=== PATIENT | female | born 1960 | race Caucasian/White ===

== ENCOUNTER 2019-10-10 09:41 | Outpatient (CLI) | payer MEDICARE, SELFPAY ==
--- NOTE | 2019-10-10 10:15 | USCV_ITS ---
Loretta Reeder Age: 59 Gender: F : 1960 Exam Date: 10/10/2019 10:34 Ordering Phys: Stacy Corona MD Technologist: Carolina Alexandra Exam Location: [facility] Indication: SOB, cor pulmonale BP: / HR: 82 Rhythm: Sinus Technical Quality: Suboptimal MEASUREMENTS (Male / Female) Normal Values 2D ECHO LV Diastolic Diameter PLAX 4.2 cm 4.2 - 5.9 / 3.9 - 5.3 cm LV Systolic Diameter PLAX 2.1 cm IVS Diastolic Thickness 1.1 cm 0.6 - 1.0 / 0.6 - 0.9 cm IVS Systolic Thickness 1.3 cm LVPW Diastolic Thickness 1.1 cm 0.6 - 1.0 / 0.6 - 0.9 cm LVPW Systolic Thickness 1.4 cm LVOT Diameter 2.0 cm LV Ejection Fraction 2D Teich 82.1 % LV Ejection Fraction MOD 2C 60.0 % LV Ejection Fraction 2C AL 60.0 % LA Diameter 3.0 cm LA Width 3.0 cm LA Height 5.9 cm RA Width 2.4 cm RA Height 4.2 cm M-MODE LV Diastolic Diameter MM 5.5 cm 4.2 - 5.9 / 3.9 - 5.3 cm LV Systolic Diameter MM 3.6 cm LV Ejection Fraction MM Teich 63.7 % IVS Diastolic Thickness MM 1.1 cm 0.6 - 1.0 / 0.6 - 0.9 cm IVS Systolic Thickness MM 1.3 cm LVPW Diastolic Thickness MM 0.9 cm 0.6 - 1.0 / 0.6 - 0.9 cm LVPW Systolic Thickness MM 1.8 cm Aortic Annulus Diameter 2.8 cm LA Ao Ratio MM 1.1 MV E Point Septal Separation 0.8 cm DOPPLER AV Peak Velocity 141.0 cm/s LVOT Peak Velocity 104.0 cm/s AV Area Cont Eq vti 2.5 cm squared AV Area Cont Eq pk 2.4 cm squared MV Peak Velocity 101.0 cm/s MV Area PHT 3.5 cm squared Mitral E to A Ratio 0.8 MV E' Velocity 11.0 cm/s Mitral E to MV E' Ratio 10.0 Mitral E to LV E' Lateral Ratio 8.0 Mitral E to LV E' Septal Ratio 13.2 TR Peak Velocity 74.0 cm/s TR Peak Gradient 2.2 mmHg Right Atrial Pressure 3.0 mmHg Pulmonary Artery Systolic Pressu 5.2 mmHg PV Peak Velocity 75.0 cm/s RV Acceleration Time 0.1 s FINDINGS Left Ventricle Normal left ventricular size, systolic function and wall thickness, with no regional wall motion abnormalities. Grade I/IV diastolic dysfunction (abnormal relaxation filling pattern), normal to mildly elevated filling pressures. Left ventricular ejection fraction is estimated at 60 %. Right Ventricle Normal right ventricular size and systolic function. Normal right ventricular systolic pressure. Right Atrium The right atrium is normal in size. Left Atrium The left atrium is normal in size. Mitral Valve Structurally normal mitral valve. Trace mitral valve regurgitation. Aortic Valve Structurally normal aortic valve without significant sclerosis or stenosis. There is no aortic regurgitation. Tricuspid Valve Structurally normal tricuspid valve. Trace tricuspid valve regurgitation. Pulmonic Valve Pulmonic valve not well visualized. Pericardium Normal pericardium without effusion. Aorta Normal ascending aorta dimension. CONCLUSIONS Normal left ventricular size, systolic function and wall thickness, with no regional wall motion abnormalities. Grade I/IV diastolic dysfunction (abnormal relaxation filling pattern), normal to mildly elevated filling pressures. Left ventricular ejection fraction is estimated at 60 %. Structurally normal mitral valve. Trace mitral valve regurgitation. There are no prior echocardiogram studies to compare. Dr. Christophe Perez MD (Electronically Signed) Final Date: 10 October 2019 16:22 S
== END 2019-10-10 09:42 | disposition home or self-care (01) ==
LOC: RAD 09:43
PROVIDERS: Family Provider Family Medicine; PCP Family Medicine; Visit Provider Internal Medicine Critical Care Medicine
DX: I27.81 Cor pulmonale (chronic) (principal); I34.0 Nonrheumatic mitral (valve) insufficiency
CPT/HCPCS: 93306

== ENCOUNTER 2019-10-10 11:00 | Outpatient (CLI) | payer MEDICARE, SELFPAY | END 2019-10-10 11:01 | disposition home or self-care (01) | LOC: SLEEP 10-13 10:32 | PROVIDERS: Family Provider Family Medicine; PCP Family Medicine; Visit Provider Internal Medicine Critical Care Medicine | DX: J44.9 Chronic obstructive pulmonary disease, unspecified (principal); I27.81 Cor pulmonale (chronic) | CPT/HCPCS: 94762 ==

== ENCOUNTER → 2019-11-15 12:02 | Outpatient (BNVA) | payer MEDICARE, SELFPAY | PROVIDERS: Family Provider Family Medicine; PCP Family Medicine; Visit Provider Family Medicine | DX: I10 Essential (primary) hypertension (principal); J01.90 Acute sinusitis, unspecified; J44.9 Chronic obstructive pulmonary disease, unspecified; B96.89 Other specified bacterial agents as the cause of diseases classified elsewhere | CPT/HCPCS: 80053; 80061; 82044; 85025 ==

== ENCOUNTER 2019-11-29 08:16 | Outpatient (CLI) | payer MEDICARE, SELFPAY ==
[2019-11-29 09:25] LABS: ABG PH Result 7.35 (7.35-7.45); Arterial Blood Gas Hematocrit 41.6 % (37-47); Base Excess ABG 12.1 mmol/L (-2.0-2.0); Blood Gas Allen Test Pos; Blood Gas Sample Site Radial, left; Blood Gas Sample Type Arterial; HCO3 ABG 41.2 mmol/L (22-26); HGB O2 Sat 90.3 % (95-100); Ionized Calcium Level - ABG 1.2 mmol/L (1.1-1.4); Methemoglobin 0.9 % (0.4-1.5); Oxygen Device NC; PO2 ABG 63.9 mmHg (80.0-100.0); Potassium Level - ABG 4.2 mmol/L (3.5-5.0); Total Hemoglobin 13.6 g/dL (12-16)
[2019-11-29 11:03] LABS: ABG PCO2 75.7 mmHg (35-45)
== END 2019-11-29 08:17 | disposition home or self-care (01) ==
LOC: RT 08:22
PROVIDERS: Family Provider Family Medicine; PCP Family Medicine; Visit Provider Internal Medicine Critical Care Medicine
DX: J44.9 Chronic obstructive pulmonary disease, unspecified (principal); I27.81 Cor pulmonale (chronic); R06.02 Shortness of breath
CPT/HCPCS: 36600; 80051; 82810; 83986

== ENCOUNTER → 2020-05-15 12:02 | Outpatient (BNVA) | payer MEDICARE, SELFPAY | PROVIDERS: Family Provider Family Medicine; PCP Family Medicine; Visit Provider Family Medicine | DX: I10 Essential (primary) hypertension (principal); F41.9 Anxiety disorder, unspecified; F32.9 Major depressive disorder, single episode, unspecified; Z53.20 Procedure and treatment not carried out because of patient's decision for unspecified reasons | CPT/HCPCS: 80048 ==

== ENCOUNTER 2020-07-28 05:04 | Inpatient (IN) | payer MEDICARE, SELFPAY ==
[2020-07-28] VITALS (57 sets, daily range): BP systolic 102–146; BP diastolic 68–89; PULSE 74–878; RESP 14–24; TEMP 36.6–37.2; O2SAT 82–97; BMI 39.5
--- NOTE | 2020-07-28 05:07 | XRR_ITS ---
PROCEDURE INFORMATION: Exam: XR Chest, 1 View Exam date and time: 07/28/2020 5:12 AM Age: 60 years old Clinical indication: Dyspnea; Additional info: SOB TECHNIQUE: Imaging protocol: XR of the chest Views: 1 view. COMPARISON: CT chest w con* [id number] 02/04/2018 2:23 PM FINDINGS: Lungs: There is hyperlucency of the upper lungs consistent with known centrilobular emphysema. There are scattered tiny calcified nodules in the mid and lower lungs bilaterally consistent with healed granulomas. There are larger radiodense lesions in both upper lobes, consistent with benign calcified nodules identified on chest CT in 2018. There is no consolidation. Pleural space: There is no pleural effusion or pneumothorax. Heart/Mediastinum: Cardiomediastinal contours are unremarkable. Bones/joints: Bones are unremarkable. XR/XR chest 1V portable [id number] IMPRESSION: 1. No acute findings. 2. COPD. 3. Chronic bilateral pulmonary calcifications suggesting healed granulomatous infection, present since 2018.
--- NOTE | 2020-07-28 05:08 | ECG_ITS ---
[facility] Test Date: 2020-07-28 Pat Name: Loretta Reeder Department: Room: [facility] Gender: Female Evaluation Analyst: : 1960 Requested By: Yinka Mackey Order Number: [id number] Adele MD: Ngoc Brown M.D. Measurements Intervals [place] Rate: 97 P: 91 MT: 131 QRS: 74 QRSD: 82 T: 62 QT: 345 QTc: 438 Interpretive Statements SINUS RHYTHM Compared to ECG 03/19/2017 19:33:43 Sinus tachycardia no longer present Short MT interval no longer present Indeterminate axis no longer present Electronically Signed On 07-28-2020 12:09:38 CDT by Ngoc Brown M.D. [id number] f
--- NOTE | 2020-07-28 05:09 | CTR_ITS ---
PROCEDURE INFORMATION: Exam: CT Head Without Contrast Exam date and time: 07/28/2020 5:12 AM Age: 60 years old Clinical indication: Altered mental status/memory loss; Confusion or disorientation; Additional info: AMS TECHNIQUE: Imaging protocol: Computed tomography of the head without contrast. Radiation optimization: All CT scans at this facility use at least one of these dose optimization techniques: automated exposure control; mA and/or kV adjustment per patient size (includes targeted exams where dose is matched to clinical indication); or iterative reconstruction. COMPARISON: No relevant prior studies available. RADIATION DOSE METRICS: Total DLP (mGy-cm): 571.09 FINDINGS: Brain: The posterior fossa is small and there is crowding of the foramen magnum without visible tonsillar descent below the basion opisthion line. The brain is otherwise unremarkable. There is no mass effect or significant white matter disease. There is no acute intracranial hemorrhage. Cerebral ventricles: There is no significant ventricular dilation. The basal cisterns are unremarkable. Bones/joints: The calvarium is intact. Paranasal sinuses: The paranasal sinuses are clear. Mastoid air cells: The mastoid air cells are clear. Soft tissues: The visible extracranial soft tissues are unremarkable. CT/CT head wo con* [id number] IMPRESSION: 1. No acute findings. 2. 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 However, there is no cerebellar tonsillar ectopia to confirm Chiari 1 malformation. This finding is of uncertain clinical significance. Radiation Dose CTDIVOL = (mGy): DLP = 571.09 (mGy-cm)
[2020-07-28 05:13] LABS: Base Excess ABG 14.8 mmol/L (-2.0-2.0); Blood Gas Allen Test P; HCO3 ABG 48.3 mmol/L (22-26); Oxygen Device NRB
[2020-07-28 05:14] LABS: Arterial Blood Gas Hematocrit 40.2 % (37-47); Blood Gas Sample Site LEFT RADIAL; Blood Gas Sample Type A
--- NOTE | 2020-07-28 05:20 | ED_ITS ---
Documented by User: Yinka Narendra Issac, 07/28/20 22:01 HPI - SOB/Dyspnea General: Chief Complaint: Shortness of Breath/Dyspnea Stated Complaint: RESPIRATORY DISTRESS Time Seen by Provider: 07/28/20 05:09 History of Present Illness: HPI Narrative: 60-year-old female with a history of COPD presents with altered mental status and shortness of breath. EMS was called due to a couple of falls with respiratory distress. Evidently she had fallen 1 time prior, and had been short of breath in the night. Her turned her oxygen up to 4, and she had fallen again. On EMS arrival, she was lying flat on the floor complaining of shortness of breath and was found to be hypoxic. She was placed on a nonrebreather with improvement in her oxygenation and somewhat in her mental status and breathing status. She was given a DuoNeb treatment, with still further yet improvement, but he decompensated quickly on the way. She is having trouble answering questions. She does move all extremities. MD elicited complaint: shortness of breath Pertinent past history: COPD Onset (ago): hour(s) Timing: constant and progressively worsening Severity: severe Review of Systems General: Reports: ROS unobtainable due to medical condition and ROS unobtainable due to mental status PFS ED PFSH: Medical History Anxiety and depression Benign essential HTN Bilateral carpal tunnel syndrome Bilateral lower extremity edema Cervical myelopathy COPD, severe Degenerative disc disease, cervical Lung mass ANASTASIYA (obstructive sleep apnea) Postmenopausal Unspecified thoracic, thoracolumbar and lumbosacral intervertebral disc disorder Vitamin D deficiency Surgical History S/P hysterectomy S/P tonsillectomy Family History Other CHF (congestive heart failure) Murmur, cardiac Social History Smoking and tobacco status: former smoker Quit status (tobacco): has quit using tobacco Year quit tobacco: 2017 - 1PPD x 40 Years Second hand smoke exposure: Yes Alcohol intake: never Lives independently: Yes Household members: spouse Marital status: Current occupational status: disabled History of recent travel: No Current gender identity: Female Physical Exam Const: GENERAL APPEARANCE: in distress and ill appearing ORIENTATION/CO NSCIOUSNESS: Yes oriented to person and Yes oriented to place HENMT: COMMON NORMALS: normocephalic, external ears normal and Normal external nose present HEAD & SCALP: normocephalic FACE & SINUS: normal facial exam NOSE: Normal external nose present and No nasal discharge present EXTERNAL EAR: Yes external ears normal Eye: COMMON NORMALS: Equal, round and reactive pupils present, EOMs intact bilaterally and conjunctivae normal EYELID: eyelids normal CONJUNCTIVA: Yes conjunctivae normal PUPIL: Yes Equal, round and reactive pupils present Neck/C-Spine: GENERAL: No tracheal deviation Chest: COMMONS NORMALS: normal inspection of the chest CHEST: No tenderness Resp: EFFORT & INSPECTION: No tachypneic, Yes respiratory distress, Yes decreased respiratory effort, No retractions, Yes uses accessory muscles and No tracheal deviation AUSCULTATION: rhonchi, wheezes and diminished lung sounds Cardio: COMMON NORMALS: regular rate and regular rhythm RATE: regular rate RHYTHM: regular rhythm HEART SOUNDS: no murmurs PERIPHERAL PULSES: radial pulses present GI: INSPECTION: No abdominal distension AUSCULTATION: No Hyperactive bowel sounds present and No Hypoactive bowel sounds present PALPATION: No Guarding due to palpation present (GI) and No Rigid due to palpation PERCUSSION: no dullness to percussion and no tympanic to percussion Neuro: SENSORIUM/ORIENTATION: Yes oriented to person and Yes oriented to place Psych: COMMON NORMALS: mental status grossly normal Skin: COMMON NORMALS: no rashes or lesions noted GENERAL SKIN EXAM: no rashes or lesions noted Course Vital Signs: Vital signs: Vital Signs Temperature 97.8 F 07/28/20 19:50 Pulse Rate 74 07/28/20 20:02 Respiratory Rate 18 07/28/20 20:01 Blood Pressure 108/74 07/28/20 16:30 Pulse Oximetry 95 07/28/20 20:02 MDM - SOB/Dyspnea MDM Narrative: Medical decision making narrative: 60-year-old female comes in with altered mental status, and respiratory distress. Initial blood gas shows a pH of 7.2 with a PCO2 of 125. She is awake and somewhat talking. She was placed on BiPAP with an AVAPS setting. ABG at 30 minutes shows improvement in her pH with a decrease in her PCO2 down to 115. She will get another blood gas at an hour or so. Labs are pending at this point. She will be checked out to Dr. Garzon at shift change. Lab Data: Labs: Lab Results 07/28/20 07/28/20 07/28/20 Range/Units 05:05 05:21 05:21 WBC 7.5 (4.0-10.0) 10^3/ uL RBC 4.40 (4.1-5.3) 10^6/u L Hgb 12.5 (11.5-15.3) g/dL Hct 44.1 (37.0-47.0) % MCV 100.2 H (81-99) fL MCH 28.4 (28.0-34.0) pg MCHC 28.3 L (30.0-36.0) g/dL RDW 13.2 (12.1-15.1) % Plt Count 172 (130-400) 10^3/c mm MPV 12.0 H (7.4-10.4) fL Neut % (Auto) 79.0 % Lymph % (Auto) 11.2 % [place] % (Auto) 6.4 % Eos % (Auto) 1.5 % Baso % (Auto) 0.4 % Neut # (Auto) 5.94 (1.8-7.7) 10^3/u L Lymph # (Auto) 0.8 (0.8-4.8) 10^3/u L [place] # (Auto) 0.5 (0.2-0.9) 10^3/u L Eos # (Auto) 0.1 (0.0-0.8) 10^3/u L Baso # (Auto) 0.0 (0.0-0.1) 10^3/u L Nucleated RBC % (a uto) 0 % Nucleated RBCs # 0.0 /100WBC D-Dimer 0.67 H (0-0.59) ug/mIFE U Specimen Type A Sample Site Left radial ABG pH 7.20 L (7.35-7.45) ABG pCO2 125.0 H* (35-45) mmHg ABG pO2 137.0 H (80.0-100.0) mmH g ABG HCO3 48.3 H (22-26) mmol/L ABG Base Excess 14.8 H (-2.0-2.0) mmol/ L Tylor Test P Hematocrit 40.2 (37-47) % O2 Delivery Device Nrb O2 Liters/Min 15.0 % FiO2 % Mode BiPAP Specimen Drawn By Ellpe Sodium (136-145) mmol/L Potassium (3.5-5.1) mmol/L Chloride (98-107) mmol/L Carbon Dioxide (22-29) mmol/L Anion Gap (5-19) BUN (8-23) mg/dL Creatinine (0.5-0.9) mg/dL GFR Calculation (90-130) mL/min Glucose (65-115) mg/dL Calculated Osmolal ity (285-295) mOsm/k g Lactic Acid (0.5-2.2) mmol/L Calcium (8.5-10.5) mg/dL Ferritin (15-150) ng/mL Total Bilirubin (0.15-1.2) mg/dL AST (0-32) U/L ALT (0-33) U/L Alkaline Phosphata se (35-105) IU/L Lactate Dehydrogen ase (135-214) U/L Troponin T Baselin e (0-10) ng/L Troponin T 120 Min [place] (0-10) ng/L Delta Troponin T (0-10) ABS# C-Reactive Protein (0.0-4.9) mg/L NT-Pro-B Natriuret Pep (0-125) pg/mL Total Protein (6.6-8.7) g/dL Albumin (3.5-5.2) g/dL Globulin (1.3-4.6) g/dL Procalcitonin (0-0.5) ng/mL SARS-CoV-2 Ag (Rap id) (Negative) 07/28/20 07/28/20 07/28/20 Range/Units 05:21 05:21 05:21 WBC (4.0-10.0) 10^3/ uL RBC (4.1-5.3) 10^6/u L Hgb (11.5-15.3) g/dL Hct (37.0-47.0) % MCV (81-99) fL MCH (28.0-34.0) pg MCHC (30.0-36.0) g/dL RDW (12.1-15.1) % Plt Count (130-400) 10^3/c mm MPV (7.4-10.4) fL Neut % (Auto) % Lymph % (Auto) % [place] % (Auto) % Eos % (Auto) % Baso % (Auto) % Neut # (Auto) (1.8-7.7) 10^3/u L Lymph # (Auto) (0.8-4.8) 10^3/u L [place] # (Auto) (0.2-0.9) 10^3/u L Eos # (Auto) (0.0-0.8) 10^3/u L Baso # (Auto) (0.0-0.1) 10^3/u L Nucleated RBC % (a uto) % Nucleated RBCs # /100WBC D-Dimer (0-0.59) ug/mIFE U Specimen Type Sample Site ABG pH (7.35-7.45) ABG pCO2 (35-45) mmHg ABG pO2 (80.0-100.0) mmH g ABG HCO3 (22-26) mmol/L ABG Base Excess (-2.0-2.0) mmol/ L Tylor Test Hematocrit (37-47) % O2 Delivery Device O2 Liters/Min % FiO2 % Mode BiPAP Specimen Drawn By Sodium 143 (136-145) mmol/L Potassium 5.0 (3.5-5.1) mmol/L Chloride 94 L (98-107) mmol/L Carbon Dioxide 38 H (22-29) mmol/L Anion Gap 16.0 (5-19) BUN 18 (8-23) mg/dL Creatinine 0.5 (0.5-0.9) mg/dL GFR Calculation 125.4 (90-130) mL/min Glucose 145 H (65-115) mg/dL Calculated Osmolal ity 300 H (285-295) mOsm/k g Lactic Acid 0.5 (0.5-2.2) mmol/L Calcium 9.5 (8.5-10.5) mg/dL Ferritin 49 (15-150) ng/mL Total Bilirubin 0.2 (0.15-1.2) mg/dL AST 26 (0-32) U/L ALT 22 (0-33) U/L Alkaline Phosphata se 87 (35-105) IU/L Lactate Dehydrogen ase 219 H (135-214) U/L Troponin T Baselin e 12 H (0-10) ng/L Troponin T 120 Min [place] (0-10) ng/L Delta Troponin T (0-10) ABS# C-Reactive Protein 10.0 H (0.0-4.9) mg/L NT-Pro-B Natriuret Pep 239 H (0-125) pg/mL Total Protein 7.0 (6.6-8.7) g/dL Albumin 4.3 (3.5-5.2) g/dL Globulin 2.7 (1.3-4.6) g/dL Procalcitonin 0.03 (0-0.5) ng/mL SARS-CoV-2 Ag (Rap id) (Negative) 07/28/20 07/28/20 07/28/20 Range/Units 05:37 05:45 06:35 WBC (4.0-10.0) 10^3/ uL RBC (4.1-5.3) 10^6/u L Hgb (11.5-15.3) g/dL Hct (37.0-47.0) % MCV (81-99) fL MCH (28.0-34.0) pg MCHC (30.0-36.0) g/dL RDW (12.1-15.1) % Plt Count (130-400) 10^3/c mm MPV (7.4-10.4) fL Neut % (Auto) % Lymph % (Auto) % [place] % (Auto) % Eos % (Auto) % Baso % (Auto) % Neut # (Auto) (1.8-7.7) 10^3/u L Lymph # (Auto) (0.8-4.8) 10^3/u L [place] # (Auto) (0.2-0.9) 10^3/u L Eos # (Auto) (0.0-0.8) 10^3/u L Baso # (Auto) (0.0-0.1) 10^3/u L Nucleated RBC % (a uto) % Nucleated RBCs # /100WBC D-Dimer (0-0.59) ug/mIFE U Specimen Type A A Sample Site Left radial Left radial ABG pH 7.22 L 7.26 L (7.35-7.45) ABG pCO2 115.0 H* 108.0 H* (35-45) mmHg ABG pO2 127.0 H 79.6 L (80.0-100.0) mmH g ABG HCO3 47.5 H 48.0 H (22-26) mmol/L ABG Base Excess 14.9 H 16.3 H (-2.0-2.0) mmol/ L Tylor Test P P Hematocrit 38.9 36.9 L (37-47) % O2 Delivery Device Bipap Bipap O2 Liters/Min % FiO2 60.0 45.0 % Mode BiPAP Avaps Avaps Specimen Drawn By Genaro Lam Sodium (136-145) mmol/L Potassium (3.5-5.1) mmol/L Chloride (98-107) mmol/L Carbon Dioxide (22-29) mmol/L Anion Gap (5-19) BUN (8-23) mg/dL Creatinine (0.5-0.9) mg/dL GFR Calculation (90-130) mL/min Glucose (65-115) mg/dL Calculated Osmolal ity (285-295) mOsm/k g Lactic Acid (0.5-2.2) mmol/L Calcium (8.5-10.5) mg/dL Ferritin (15-150) ng/mL Total Bilirubin (0.15-1.2) mg/dL AST (0-32) U/L ALT (0-33) U/L Alkaline Phosphata se (35-105) IU/L Lactate Dehydrogen ase (135-214) U/L Troponin T Baselin e (0-10) ng/L Troponin T 120 Min [place] (0-10) ng/L Delta Troponin T (0-10) ABS# C-Reactive Protein (0.0-4.9) mg/L NT-Pro-B Natriuret Pep (0-125) pg/mL Total Protein (6.6-8.7) g/dL Albumin (3.5-5.2) g/dL Globulin (1.3-4.6) g/dL Procalcitonin (0-0.5) ng/mL SARS-CoV-2 Ag (Rap id) Negative (Negative) 07/28/20 Range/Units 07:09 WBC (4.0-10.0) 10^3/ uL RBC (4.1-5.3) 10^6/u L Hgb (11.5-15.3) g/dL Hct (37.0-47.0) % MCV (81-99) fL MCH (28.0-34.0) pg MCHC (30.0-36.0) g/dL RDW (12.1-15.1) % Plt Count (130-400) 10^3/c mm MPV (7.4-10.4) fL Neut % (Auto) % Lymph % (Auto) % [place] % (Auto) % Eos % (Auto) % Baso % (Auto) % Neut # (Auto) (1.8-7.7) 10^3/u L Lymph # (Auto) (0.8-4.8) 10^3/u L [place] # (Auto) (0.2-0.9) 10^3/u L Eos # (Auto) (0.0-0.8) 10^3/u L Baso # (Auto) (0.0-0.1) 10^3/u L Nucleated RBC % (a uto) % Nucleated RBCs # /100WBC D-Dimer (0-0.59) ug/mIFE U Specimen Type Sample Site ABG pH (7.35-7.45) ABG pCO2 (35-45) mmHg ABG pO2 (80.0-100.0) mmH g ABG HCO3 (22-26) mmol/L ABG Base Excess (-2.0-2.0) mmol/ L Tylor Test Hematocrit (37-47) % O2 Delivery Device O2 Liters/Min % FiO2 % Mode BiPAP Specimen Drawn By Sodium (136-145) mmol/L Potassium (3.5-5.1) mmol/L Chloride (98-107) mmol/L Carbon Dioxide (22-29) mmol/L Anion Gap (5-19) BUN (8-23) mg/dL Creatinine (0.5-0.9) mg/dL GFR Calculation (90-130) mL/min Glucose (65-115) mg/dL Calculated Osmolal ity (285-295) mOsm/k g Lactic Acid (0.5-2.2) mmol/L Calcium (8.5-10.5) mg/dL Ferritin (15-150) ng/mL Total Bilirubin (0.15-1.2) mg/dL AST (0-32) U/L ALT (0-33) U/L Alkaline Phosphata se (35-105) IU/L Lactate Dehydrogen ase (135-214) U/L Troponin T Baselin e (0-10) ng/L Troponin T 120 Min [place] 11.25 H (0-10) ng/L Delta Troponin T -0.75 L (0-10) ABS# C-Reactive Protein (0.0-4.9) mg/L NT-Pro-B Natriuret Pep (0-125) pg/mL Total Protein (6.6-8.7) g/dL Albumin (3.5-5.2) g/dL Globulin (1.3-4.6) g/dL Procalcitonin (0-0.5) ng/mL SARS-CoV-2 Ag (Rap id) (Negative) Discharge Plan Discharge Patient Disposition: Admitted As Inpatient Admit Provider: Paulo Mayberry Clinical Impression: Acute exacerbation of chronic obstructive airways disease, Acute hypercapnic respiratory failure Condition: Stable Referrals: Taniya Irving DO [Primary Care Provider] - Discharge Date/Time: 07/28/20 08:15 Coding Level of Care Code ED Director External Communications for Chg Fwd Exam Comprehensive Documented by User: Jim Garzon MD 07/28/20 07:52 HPI - SOB/Dyspnea General: Chief Complaint: Shortness of Breath/Dyspnea Stated Complaint: RESPIRATORY DISTRESS Time Seen by Provider: 07/28/20 05:09 PFSH ED PFSH: Medical History Anxiety and depression Benign essential HTN Bilateral carpal tunnel syndrome Bilateral lower extremity edema Cervical myelopathy COPD, severe Degenerative disc disease, cervical Lung mass ANASTASIYA (obstructive sleep apnea) Postmenopausal Unspecified thoracic, thoracolumbar and lumbosacral intervertebral disc disorder Vitamin D deficiency Surgical History S/P hysterectomy S/P tonsillectomy Family History Other CHF (congestive heart failure) Murmur, cardiac Social History Smoking and tobacco status: former smoker Quit status (tobacco): has quit using tobacco Year quit tobacco: 2017 - 1PPD x 40 Years Second hand smoke exposure: Yes Alcohol intake: never Lives independently: Yes Household members: spouse Marital status: Current occupational status: disabled History of recent travel: No Current gender identity: Female Course Vital Signs: Vital signs: Vital Signs Temperature 97.8 F 07/28/20 19:50 Pulse Rate 74 07/28/20 20:02 Respiratory Rate 18 07/28/20 20:01 Blood Pressure 108/74 07/28/20 16:30 Pulse Oximetry 95 07/28/20 20:02 MDM - SOB/Dyspnea MDM Narrative: Medical decision making narrative: Loretta presents here with COPD exacerbation. She has chronic hypercapnia and does have respiratory distress here with worsening hypercapnia. Her CO2 levels have improved on BiPAP her mentation is improving as well. Patient x-ray shows no signs of pneumonia and her Covid is negative. Will admit to the ICU at this time on BiPAP. Lab Data: Labs: Lab Results 07/28/20 07/28/20 07/28/20 Range/Units 05:05 05:21 05:21 WBC 7.5 (4.0-10.0) 10^3/ uL RBC 4.40 (4.1-5.3) 10^6/u L Hgb 12.5 (11.5-15.3) g/dL Hct 44.1 (37.0-47.0) % MCV 100.2 H (81-99) fL MCH 28.4 (28.0-34.0) pg MCHC 28.3 L (30.0-36.0) g/dL RDW 13.2 (12.1-15.1) % Plt Count 172 (130-400) 10^3/c mm MPV 12.0 H (7.4-10.4) fL Neut % (Auto) 79.0 % Lymph % (Auto) 11.2 % [place] % (Auto) 6.4 % Eos % (Auto) 1.5 % Baso % (Auto) 0.4 % Neut # (Auto) 5.94 (1.8-7.7) 10^3/u L Lymph # (Auto) 0.8 (0.8-4.8) 10^3/u L [place] # (Auto) 0.5 (0.2-0.9) 10^3/u L Eos # (Auto) 0.1 (0.0-0.8) 10^3/u L Baso # (Auto) 0.0 (0.0-0.1) 10^3/u L Nucleated RBC % (a uto) 0 % Nucleated RBCs # 0.0 /100WBC D-Dimer 0.67 H (0-0.59) ug/mIFE U Specimen Type A Sample Site Left radial ABG pH 7.20 L (7.35-7.45) ABG pCO2 125.0 H* (35-45) mmHg ABG pO2 137.0 H (80.0-100.0) mmH g ABG HCO3 48.3 H (22-26) mmol/L ABG Base Excess 14.8 H (-2.0-2.0) mmol/ L Tylor Test P Hematocrit 40.2 (37-47) % O2 Delivery Device Nrb O2 Liters/Min 15.0 % FiO2 % Mode BiPAP Specimen Drawn By Ellpe Sodium (136-145) mmol/L Potassium (3.5-5.1) mmol/L Chloride (98-107) mmol/L Carbon Dioxide (22-29) mmol/L Anion Gap (5-19) BUN (8-23) mg/dL Creatinine (0.5-0.9) mg/dL GFR Calculation (90-130) mL/min Glucose (65-115) mg/dL Calculated Osmolal ity (285-295) mOsm/k g Lactic Acid (0.5-2.2) mmol/L Calcium (8.5-10.5) mg/dL Ferritin (15-150) ng/mL Total Bilirubin (0.15-1.2) mg/dL AST (0-32) U/L ALT (0-33) U/L Alkaline Phosphata se (35-105) IU/L Lactate Dehydrogen ase (135-214) U/L Troponin T Baselin e (0-10) ng/L Troponin T 120 Min [place] (0-10) ng/L Delta Troponin T (0-10) ABS# C-Reactive Protein (0.0-4.9) mg/L NT-Pro-B Natriuret Pep (0-125) pg/mL Total Protein (6.6-8.7) g/dL Albumin (3.5-5.2) g/dL Globulin (1.3-4.6) g/dL Procalcitonin (0-0.5) ng/mL SARS-CoV-2 Ag (Rap id) (Negative) 07/28/20 07/28/20 07/28/20 Range/Units 05:21 05:21 05:21 WBC (4.0-10.0) 10^3/ uL RBC (4.1-5.3) 10^6/u L Hgb (11.5-15.3) g/dL Hct (37.0-47.0) % MCV (81-99) fL MCH (28.0-34.0) pg MCHC (30.0-36.0) g/dL RDW (12.1-15.1) % Plt Count (130-400) 10^3/c mm MPV (7.4-10.4) fL Neut % (Auto) % Lymph % (Auto) % [place] % (Auto) % Eos % (Auto) % Baso % (Auto) % Neut # (Auto) (1.8-7.7) 10^3/u L Lymph # (Auto) (0.8-4.8) 10^3/u L [place] # (Auto) (0.2-0.9) 10^3/u L Eos # (Auto) (0.0-0.8) 10^3/u L Baso # (Auto) (0.0-0.1) 10^3/u L Nucleated RBC % (a uto) % Nucleated RBCs # /100WBC D-Dimer (0-0.59) ug/mIFE U Specimen Type Sample Site ABG pH (7.35-7.45) ABG pCO2 (35-45) mmHg ABG pO2 (80.0-100.0) mmH g ABG HCO3 (22-26) mmol/L ABG Base Excess (-2.0-2.0) mmol/ L Tylor Test Hematocrit (37-47) % O2 Delivery Device O2 Liters/Min % FiO2 % Mode BiPAP Specimen Drawn By Sodium 143 (136-145) mmol/L Potassium 5.0 (3.5-5.1) mmol/L Chloride 94 L (98-107) mmol/L Carbon Dioxide 38 H (22-29) mmol/L Anion Gap 16.0 (5-19) BUN 18 (8-23) mg/dL Creatinine 0.5 (0.5-0.9) mg/dL GFR Calculation 125.4 (90-130) mL/min Glucose 145 H (65-115) mg/dL Calculated Osmolal ity 300 H (285-295) mOsm/k g Lactic Acid 0.5 (0.5-2.2) mmol/L Calcium 9.5 (8.5-10.5) mg/dL Ferritin 49 (15-150) ng/mL Total Bilirubin 0.2 (0.15-1.2) mg/dL AST 26 (0-32) U/L ALT 22 (0-33) U/L Alkaline Phosphata se 87 (35-105) IU/L Lactate Dehydrogen ase 219 H (135-214) U/L Troponin T Baselin e 12 H (0-10) ng/L Troponin T 120 Min [place] (0-10) ng/L Delta Troponin T (0-10) ABS# C-Reactive Protein 10.0 H (0.0-4.9) mg/L NT-Pro-B Natriuret Pep 239 H (0-125) pg/mL Total Protein 7.0 (6.6-8.7) g/dL Albumin 4.3 (3.5-5.2) g/dL Globulin 2.7 (1.3-4.6) g/dL Procalcitonin 0.03 (0-0.5) ng/mL SARS-CoV-2 Ag (Rap id) (Negative) 07/28/20 07/28/20 07/28/20 Range/Units 05:37 05:45 06:35 WBC (4.0-10.0) 10^3/ uL RBC (4.1-5.3) 10^6/u L Hgb (11.5-15.3) g/dL Hct (37.0-47.0) % MCV (81-99) fL MCH (28.0-34.0) pg MCHC (30.0-36.0) g/dL RDW (12.1-15.1) % Plt Count (130-400) 10^3/c mm MPV (7.4-10.4) fL Neut % (Auto) % Lymph % (Auto) % [place] % (Auto) % Eos % (Auto) % Baso % (Auto) % Neut # (Auto) (1.8-7.7) 10^3/u L Lymph # (Auto) (0.8-4.8) 10^3/u L [place] # (Auto) (0.2-0.9) 10^3/u L Eos # (Auto) (0.0-0.8) 10^3/u L Baso # (Auto) (0.0-0.1) 10^3/u L Nucleated RBC % (a uto) % Nucleated RBCs # /100WBC D-Dimer (0-0.59) ug/mIFE U Specimen Type A A Sample Site Left radial Left radial ABG pH 7.22 L 7.26 L (7.35-7.45) ABG pCO2 115.0 H* 108.0 H* (35-45) mmHg ABG pO2 127.0 H 79.6 L (80.0-100.0) mmH g ABG HCO3 47.5 H 48.0 H (22-26) mmol/L ABG Base Excess 14.9 H 16.3 H (-2.0-2.0) mmol/ L Tylor Test P P Hematocrit 38.9 36.9 L (37-47) % O2 Delivery Device Bipap Bipap O2 Liters/Min % FiO2 60.0 45.0 % Mode BiPAP Avaps Avaps Specimen Drawn By Genaro Lam Sodium (136-145) mmol/L Potassium (3.5-5.1) mmol/L Chloride (98-107) mmol/L Carbon Dioxide (22-29) mmol/L Anion Gap (5-19) BUN (8-23) mg/dL Creatinine (0.5-0.9) mg/dL GFR Calculation (90-130) mL/min Glucose (65-115) mg/dL Calculated Osmolal ity (285-295) mOsm/k g Lactic Acid (0.5-2.2) mmol/L Calcium (8.5-10.5) mg/dL Ferritin (15-150) ng/mL Total Bilirubin (0.15-1.2) mg/dL AST (0-32) U/L ALT (0-33) U/L Alkaline Phosphata se (35-105) IU/L Lactate Dehydrogen ase (135-214) U/L Troponin T Baselin e (0-10) ng/L Troponin T 120 Min [place] (0-10) ng/L Delta Troponin T (0-10) ABS# C-Reactive Protein (0.0-4.9) mg/L NT-Pro-B Natriuret Pep (0-125) pg/mL Total Protein (6.6-8.7) g/dL Albumin (3.5-5.2) g/dL Globulin (1.3-4.6) g/dL Procalcitonin (0-0.5) ng/mL SARS-CoV-2 Ag (Rap id) Negative (Negative) 07/28/20 Range/Units 07:09 WBC (4.0-10.0) 10^3/ uL RBC (4.1-5.3) 10^6/u L Hgb (11.5-15.3) g/dL Hct (37.0-47.0) % MCV (81-99) fL MCH (28.0-34.0) pg MCHC (30.0-36.0) g/dL RDW (12.1-15.1) % Plt Count (130-400) 10^3/c mm MPV (7.4-10.4) fL Neut % (Auto) % Lymph % (Auto) % [place] % (Auto) % Eos % (Auto) % Baso % (Auto) % Neut # (Auto) (1.8-7.7) 10^3/u L Lymph # (Auto) (0.8-4.8) 10^3/u L [place] # (Auto) (0.2-0.9) 10^3/u L Eos # (Auto) (0.0-0.8) 10^3/u L Baso # (Auto) (0.0-0.1) 10^3/u L Nucleated RBC % (a uto) % Nucleated RBCs # /100WBC D-Dimer (0-0.59) ug/mIFE U Specimen Type Sample Site ABG pH (7.35-7.45) ABG pCO2 (35-45) mmHg ABG pO2 (80.0-100.0) mmH g ABG HCO3 (22-26) mmol/L ABG Base Excess (-2.0-2.0) mmol/ L [place] Test Hematocrit (37-47) % O2 Delivery Device O2 Liters/Min % FiO2 % Mode BiPAP Specimen Drawn By Sodium (136-145) mmol/L Potassium (3.5-5.1) mmol/L Chloride (98-107) mmol/L Carbon Dioxide (22-29) mmol/L Anion Gap (5-19) BUN (8-23) mg/dL Creatinine (0.5-0.9) mg/dL GFR Calculation (90-130) mL/min Glucose (65-115) mg/dL Calculated Osmolal ity (285-295) mOsm/k g Lactic Acid (0.5-2.2) mmol/L Calcium (8.5-10.5) mg/dL Ferritin (15-150) ng/mL Total Bilirubin (0.15-1.2) mg/dL AST (0-32) U/L ALT (0-33) U/L Alkaline Phosphata se (35-105) IU/L Lactate Dehydrogen ase (135-214) U/L Troponin T Baselin e (0-10) ng/L Troponin T 120 Min [place] 11.25 H (0-10) ng/L Delta Troponin T -0.75 L (0-10) ABS# C-Reactive Protein (0.0-4.9) mg/L NT-Pro-B Natriuret Pep (0-125) pg/mL Total Protein (6.6-8.7) g/dL Albumin (3.5-5.2) g/dL Globulin (1.3-4.6) g/dL Procalcitonin (0-0.5) ng/mL SARS-CoV-2 Ag (Rap id) (Negative) Imaging Data^: CXR: Radiologist's impression: [place] [address] XRay Report Signed Patient: Loretta Reeder Unit #: [id number] : 1960 Age/Sex: 60 / F ADM Date: 07/28/20 Loc: ER Room/Bed: Attending Dr: Ordering Provider/Ordering MD: Yinka Davenport DO Date of Service: 07/28/20 Procedure(s): XR chest 1V portable [id number] Accession Number(s): [id number] Report Number: [id number] PROCEDURE INFORMATION: Exam: XR Chest, 1 View Exam date and time: 07/28/2020 5:12 AM Age: 60 years old Clinical indication: Dyspnea; Additional info: SOB TECHNIQUE: Imaging protocol: XR of the chest Views: 1 view. COMPARISON: CT chest w con* [id number] 02/04/2018 2:23 PM FINDINGS: Lungs: There is hyperlucency of the upper lungs consistent with known centrilobular emphysema. There are scattered tiny calcified nodules in the mid and lower lungs bilaterally consistent with healed granulomas. There are larger radiodense lesions in both upper lobes, consistent with benign calcified nodules identified on chest CT in 2018. There is no consolidation. Pleural space: There is no pleural effusion or pneumothorax. Heart/Mediastinum: Cardiomediastinal contours are unremarkable. Bones/joints: Bones are unremarkable. XR/XR chest 1V portable [id number] IMPRESSION: 1. No acute findings. 2. COPD. 3. Chronic bilateral pulmonary calcifications suggesting healed granulomatous infection, present since 2018. CT Head: Radiologist's impression: [place] [address] CT Scan Report Signed Patient: Loretta Reeder Unit #: [id number] : 1960 Age/Sex: 60 / F ADM Date: 07/28/20 Loc: ER Room/Bed: Attending Dr: Ordering Provider/Ordering MD: Yinka Davenport DO Date of Service: 07/28/20 Procedure(s): CT head wo con* [id number] Accession Number(s): [id number] Report Number: [id number] PROCEDURE INFORMATION: Exam: CT Head Without Contrast Exam date and time: 07/28/2020 5:12 AM Age: 60 years old Clinical indication: Altered mental status/memory loss; Confusion or disorientation; Additional info: AMS TECHNIQUE: Imaging protocol: Computed tomography of the head without contrast. Radiation optimization: All CT scans at this facility use at least one of these dose optimization techniques: automated exposure control; mA and/or kV adjustment per patient size (includes targeted exams where dose is matched to clinical indication); or iterative reconstruction. COMPARISON: No relevant prior studies available. RADIATION DOSE METRICS: Total DLP (mGy-cm): 571.09 FINDINGS: Brain: The posterior fossa is small and there is crowding of the foramen magnum without visible tonsillar descent below the basion opisthion line. The brain is otherwise unremarkable. There is no mass effect or significant white matter disease. There is no acute intracranial hemorrhage. Cerebral ventricles: There is no significant ventricular dilation. The basal cisterns are unremarkable. Bones/joints: The calvarium is intact. Paranasal sinuses: The paranasal sinuses are clear. Mastoid air cells: The mastoid air cells are clear. Soft tissues: The visible extracranial soft tissues are unremarkable. CT/CT head wo con* [id number] IMPRESSION: 1. No acute findings. 2. 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 However, there is no cerebellar tonsillar ectopia to confirm Chiari 1 malformation. This finding is of uncertain clinical significance. Radiation Dose CTDIVOL = (mGy): DLP = 571.09 (mGy-cm) Discharge Plan Discharge Patient Disposition: Admitted As Inpatient Admit Provider: Paulo Mayberry Clinical Impression: Acute exacerbation of chronic obstructive airways disease, Acute hypercapnic respiratory failure Condition: Stable Referrals: Taniya Irving DO [Primary Care Provider] - Discharge Date/Time: 07/28/20 08:15 Coding Level of Care Code ED Director External Communications for Chg Fwd Exam Comprehensive
[2020-07-28] MEDS: dexamethasone 10 mg/mL INJ IVP (05:28)
[2020-07-28 05:42] LABS: Basophils % 0.4 %; Eosinophils # 0.1 10^3/uL (0.0-0.8); Eosinophils % 1.5 %; Hematocrit 44.1 % (37.0-47.0); Hemoglobin 12.5 g/dL (11.5-15.3); Lymphocytes # 0.8 10^3/uL (0.8-4.8); Lymphocytes % 11.2 %; Mean Corpuscular HGB Conc 28.3 g/dL (30.0-36.0); Mean Corpuscular Hemoglobin 28.4 pg (28.0-34.0); Mean Corpuscular Volume 100.2 fL (81-99); Monocytes # 0.5 10^3/uL (0.2-0.9); Monocytes % 6.4 %; Neutrophils # 5.94 10^3/uL (1.8-7.7); Nucleated Red Blood Cells % 0 %; Platelet Count 172 10^3/cmm (130-400); Red Cell Distribution Width 13.2 % (12.1-15.1); White Blood Count 7.5 10^3/uL (4.0-10.0)
[2020-07-28 05:54] LABS: ABG PH Result 7.22 (7.35-7.45); Base Excess ABG 14.9 mmol/L (-2.0-2.0); Blood Gas Allen Test P; HCO3 ABG 47.5 mmol/L (22-26); Oxygen Device BIPAP
[2020-07-28 05:55] LABS: Arterial Blood Gas Hematocrit 38.9 % (37-47); BIPAP AVAPS; Blood Gas Sample Site LEFT RADIAL; Blood Gas Sample Type A
[2020-07-28 06:02] LABS: D Dimer 0.67 ug/mIFEU (0-0.59)
[2020-07-28 06:04] LABS: Lactic Sepsis W/Reflex 0.5 mmol/L (0.5-2.2)
[2020-07-28 06:06] LABS: Troponin(5th) Baseline 12 ng/L (0-10)
[2020-07-28 06:15] LABS: NT Pro B Type Natriuretic Pept 239 pg/mL (0-125); Procalcitonin 0.03 ng/mL (0-0.5)
[2020-07-28 06:27] LABS: Creatinine Clr Calc Pharmacy 149.2819; Glomerular Filtration Rate 125.4 mL/min (90-130); Total Bilirubin 0.2 mg/dL (0.15-1.2)
[2020-07-28 06:40] LABS: SARS Covid-2 Antigen Negative (Negative)
[2020-07-28 06:45] LABS: ABG PH Result 7.26 (7.35-7.45); Base Excess ABG 16.3 mmol/L (-2.0-2.0); Blood Gas Allen Test P; Oxygen Device BIPAP; PO2 ABG 79.6 mmHg (80.0-100.0)
[2020-07-28 06:46] LABS: Arterial Blood Gas Hematocrit 36.9 % (37-47); BIPAP AVAPS; Blood Gas Sample Site LEFT RADIAL; Blood Gas Sample Type A
[2020-07-28 07:03] LABS: Albumin Level 4.3 g/dL (3.5-5.2); Sodium 143 mmol/L (136-145)
--- NOTE | 2020-07-28 07:08 | ECG_ITS ---
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 Measurements Intervals Neligh Rate: 84 P: 74 WA: 120 QRS: 46 QRSD: 92 T: 50 QT: 373 QTc: 442 Interpretive Statements SINUS RHYTHM WITH OCCASIONAL VENTRICULAR PREMATURE COMPLEXES Compared to ECG 03/19/2017 19:33:43 Ventricular premature complex(es) now present Sinus tachycardia no longer present Short WA interval no longer present Indeterminate axis no longer present Electronically Signed On 07-28-2020 12:11:36 CDT by Ngoc Brown M.D. [email or web address].[employer]/store/[id number]
--- NOTE | 2020-07-28 07:11 | PC.NURSE ---
Shift change report received. Patient resting at this time. EKG and 2nd troponin collected.
[2020-07-28 07:42] LABS: Alkaline Phosphatase 87 IU/L (35-105); Blood Urea Nitrogen 18 mg/dL (8-23); Calcium 9.5 mg/dL (8.5-10.5); Ferritin 49 ng/mL (15-150); Globulin 2.7 g/dL (1.3-4.6); Glucose 145 mg/dL (65-115); Lactate Dehydrogenase 219 U/L (135-214); Osmolality Calculated 300 mOsm/kg (285-295)
[2020-07-28 07:44] LABS: Chloride 94 mmol/L (98-107)
[2020-07-28 07:45] LABS: Carbon Dioxide 38 mmol/L (22-29)
[2020-07-28 08:03] LABS: Troponin 5 2HR 11.25 ng/L (0-10)
[2020-07-28 08:11] LABS: Alanine Aminotransferase 22 U/L (0-33); Aspartate Amino Transferase 26 U/L (0-32)
--- NOTE | 2020-07-28 08:17 | PC.NURSE ---
received report from Ward OLIVAS from ER
[2020-07-28 08:24] LABS: Troponin 5 2HR Delta -0.75 ABS# (0-10)
--- NOTE | 2020-07-28 08:38 | PM.HP ---
Providers/Chief Complaint Admitting Physician: Paulo Mayberry Primary Care Provider: Taniya Irving DO Chief Complaint: RESPIRATORY DISTRESS History of Present Illness Loretta Reeder is a 60 year old lady with severe COPD, FEV1 16%, currently on 4-5 L of oxygen, on azithromycin suppression QOD, has a BiPAP machine at home as well, but has not been using it consistently. Has been in the process of obtaining a new mask. Came in overnight for evaluation due to progressive shortness of breath, weakness, with lethargy on presentation, severe hypercapnia PCO2 125 on presentation. She is afebrile. Without leukocytosis, tachycardia, or other signs of sepsis. Rapid COVID-19 test is negative. Chest x-ray unremarkable, and head CT with only developmentally small posterior fossa with crowding of the foramen magnum however no cerebellar tonsillar ectopia to confirm Chiari I malformation, finding of uncertain significance. In the ER she was started on BiPAP support, with improvement in her PCO2, mental status. CO2 down to 115, and most recently 108 at 635. She is more alert. Still with little bit of confusion. She is able to provide on her history. Reports that symptoms started 4 closed about a day. Discussing with he also states that breathing got worse yesterday. She reports falling down due to becoming weak. It appears her tried to turn up her oxygen, however, she subsequently had another fall. She otherwise says of breathing currently is comfortable BiPAP. She says at home has not been using BiPAP consistently as she says has been scared . Currently denies any chest pain or pressure, denies any other discomfort. Review of Systems Const: Denies: fever(s), chills, body aches or malaise Eyes: Denies: change in vision or eye redness ENMT: Denies: throat pain, oral sores or ear or mastoid pain Card: Denies: chest pain, edema, pre-syncope or dyspnea on exertion Resp: Reports: dyspnea; Denies: productive cough, change in phlegm color or hemoptysis GI: Denies: abdominal pain, nausea, vomiting, diarrhea, constipation, hematochezia or melena : Denies: flank pain, urinary frequency or hematuria Musc: Denies: back pain, joint swelling or joint redness Skin/Breast: Denies: rash, sores or new lesions Neuro: Denies: headache(s), numbness in extremities, weakness in extremities, dizziness, confusion or seizure-like activity Endo: Denies: polyuria or polydipsia Deonte/Lymph: Denies: easy bleeding or purpura All/Imm: Denies: urticaria, throat swelling or tongue swelling Medications/Allergies Home Medications Medication Instructions Recorded Confirmed Last Taken Type multivit with 1 tab PO ONCE 09/28/19 07/28/20 Unknown History yxoeamuo-ftxu-AA-lutein 8 mg iron-400 mcg-300 mcg tablet lactobacillus combination no.9 4 4,000 mmu cells PO DAILY 12/07/19 07/28/20 Unknown History billion cell capsule montelukast 10 mg tablet 10 mg PO DAILY #30 tab 04/10/20 07/28/20 Unknown Rx budesonide 0.5 mg/2 mL suspension See Rx Instructions .ROUTE 05/13/20 07/28/20 Unknown Rx for nebulization .COMPLEX #360 ml citalopram 20 mg tablet 20 mg PO BID #60 tab 05/22/20 07/28/20 Unknown Rx metoprolol succinate 25 mg 12.5 mg PO BID #90 tab 05/30/20 07/28/20 Unknown Rx tablet,extended release 24 hr albuterol sulfate 90 mcg/actuation 2 puff INHALATION Q6H PRN #18 gm 06/03/20 07/28/20 Unknown Rx aerosol inhaler lorazepam 0.5 mg tablet 0.5 mg PO BID PRN #60 tab 06/04/20 07/28/20 Unknown Rx ipratropium 0.5 mg-albuterol 3 mg 3 ml INHALATION Q6H PRN #360 ml 07/04/20 07/28/20 Unknown Rx (2.5 mg base)/3 mL nebulization soln azithromycin 250 mg tablet See Rx Instructions .ROUTE 07/15/20 07/28/20 Unknown Rx .COMPLEX #60 tab naproxen 500 mg tablet 500 mg PO BID 5 Days #10 tab 07/15/20 07/28/20 Unknown Rx aripiprazole 2 mg tablet 2 mg PO DAILY #30 tab 07/22/20 07/28/20 Unknown Rx Allergies Allergy/AdvReac Type Severity Reaction Status Date / Time codeine Allergy NAUSEA & Verified 07/28/20 05:33 VOMITING morphine Allergy ADR-Halluci Verified 07/28/20 05:33 nating PFSH Acute PFSH: Medical History Anxiety and depression Benign essential HTN Bilateral carpal tunnel syndrome Bilateral lower extremity edema Cervical myelopathy COPD, severe Degenerative disc disease, cervical Lung mass ANASTASIYA (obstructive sleep apnea) Postmenopausal Unspecified thoracic, thoracolumbar and lumbosacral intervertebral disc disorder Vitamin D deficiency Surgical History S/P hysterectomy S/P tonsillectomy Family History Other CHF (congestive heart failure) Murmur, cardiac Social History Smoking and tobacco status: former smoker Quit status (tobacco): has quit using tobacco Year quit tobacco: 2017 - 1PPD x 40 Years Second hand smoke exposure: Yes Alcohol intake: never Lives independently: Yes Household members: spouse Marital status: Current occupational status: disabled History of recent travel: No Current gender identity: Female Vitals/I&O/Wt Last Vital Signs Temp 98.3 F 07/28/20 05:20 Pulse 86 07/28/20 08:13 Resp 17 07/28/20 08:11 BP 121/69 07/28/20 08:11 Pulse Ox 95 07/28/20 08:13 Weight last 48 hrs Weight 111.13 kg Physical Exam Const: COMMON NORMALS: no acute distress NUTRITIONAL APPEARANCE: obese ORIENTATION/CONSCIOUSNESS: Yes oriented to person, Yes oriented to place and Yes confused (mildly); not oriented to time (Cannot recall the current year.) HENMT: COMMON NORMALS: oropharynx normal Neck/C-Spine: COMMON NORMALS: no JVD Resp: COMMON NORMALS: normal respiratory effort AUSCULTATION: diminished lung sounds Cardio: COMMON NORMALS: no JVD, regular rhythm, S1 normal heart sound present, S2 normal heart sound present and No murmurs present (Cardio) RHYTHM: regular rhythm HEART SOUNDS: S1 normal heart sound present and S2 normal heart sound present GI: COMMON NORMALS: Normal to inspection, nondistended, normoactive bowel sounds present, Soft to palpation and non-tender PALPATION: Yes Soft to palpation Extremity: COMMON NORMALS: no joint enlargement and no pedal edema Neuro: COMMON NORMALS: patient oriented x3 and moves all extremities OTHER: CO2 asterixis Skin: COMMON NORMALS: no rashes or lesions noted GENERAL SKIN EXAM: no rashes or lesions noted Data : 07/28/20 05:21 07/28/20 05:21 Micro: Microbiology 07/28/20 05:21 Blood Culture - Preliminary Blood SPECIMEN COLLECTED 07/28/20 05:21 Blood Culture - Preliminary Blood SPECIMEN COLLECTED A&P Assessment and plan (1) Acute exacerbation of chronic obstructive airways disease: Diminished lung sounds. Dyspnea. I do not hear rhonchi. No report of productive cough. Received Decadron 10 mg in ER. At this time continue BiPAP support in ICU. Monitor. Will add breathing treatments. For now hold off antibiotic, continue every other day azithromycin, is showing signs of purulent sputum production. No pneumonia noted on chest x-ray. She is afebrile, without symptoms of COVID-19. Rapid test was negative. We will order sputum culture in case she is able to provide. Status: Acute (2) Acute hypercapnic respiratory failure: pCO2 125 on presentation. Baseline CO2 appears to be around 75 as noted during past pulmonology assessment. Status: Acute Additional A&P Information Minimally elevated D-dimer: 0.67. Adjusted for her age is elevated even less, at this time suspicion for VTE is low. Start VT prophylaxis. Monitor for any change in symptoms. ANASTASIYA Lung mass? 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
[2020-07-28] MEDS: ipratropium-albuterol 3 mL Neb INHALATION ×5 (09:34→23:42)
[2020-07-28] MEDS: budesonide 0.5 mg/2 mL Neb INHALATION ×2 (09:34→20:00)
--- NOTE | 2020-07-28 09:38 | PC.NURSE ---
Dr. Mayberry notified that first dose of Azithromycin is scheduled for Tues and Metoprolol not scheduled to start until 1800. Pt HR high and BP 170 systolic. She normally takes this BID and has not had her morning dose. Orders received to change times.
[2020-07-28] MEDS: citalopram 20 mg Tablet PO ×2 (10:16→18:29)
[2020-07-28] MEDS: montelukast sodium 10 mg Tablet PO (10:17)
[2020-07-28] MEDS: metoprolol tartrate 25 mg Tablet 12.5 MG PO ×2 (10:17→18:29)
[2020-07-28] MEDS: heparin 5,000 unit/mL INJ 1 mL 5000 UNIT SUBCUT ×2 (10:18→18:28)
[2020-07-28 12:08] LABS: Troponin 5 6HR 9.47 ng/L (0-10)
[2020-07-28 12:45] LABS: Troponin 5 6HR Delta -2.53 ng/L (0-12)
[2020-07-28] MEDS: azithromycin 250 mg Tablet PO (13:51)
[2020-07-29] VITALS (58 sets, daily range): BP systolic 108–137; BP diastolic 63–86; PULSE 63–108; RESP 15–27; TEMP 36.4–37; O2SAT 86–98
[2020-07-29] MEDS: haloperidol inj 5 mg/mL INJ 1 mL IM (00:25)
[2020-07-29] MEDS: heparin 5,000 unit/mL INJ 1 mL 5000 UNIT SUBCUT ×3 (01:29→17:15)
[2020-07-29] MEDS: OLANZapine 10 mg VIAL IM (02:52)
[2020-07-29] MEDS: ipratropium-albuterol 3 mL Neb INHALATION ×6 (02:59→23:22)
[2020-07-29 03:36] LABS: ABG PCO2 58.8 mmHg (35-45); ABG PH Result 7.48 (7.35-7.45); Arterial Blood Gas Hematocrit 35.7 % (37-47); Base Excess ABG 17.7 mmol/L (-2.0-2.0); Blood Gas Allen Test Pos; Blood Gas Operator Identificat JB; Blood Gas Sample Site Brachial, right; Blood Gas Sample Type Arterial; Oxygen Device BIPAP
[2020-07-29 03:59] LABS: Hematocrit 38.3 % (37.0-47.0); Hemoglobin 11.3 g/dL (11.5-15.3); Lymphocytes # 0.5 10^3/uL (0.8-4.8); Lymphocytes % 10.3 %; Mean Corpuscular HGB Conc 29.5 g/dL (30.0-36.0); Mean Corpuscular Hemoglobin 28.3 pg (28.0-34.0); Mean Platelet Volume 12.2 fL (7.4-10.4); Monocytes % 0.6 %; Neutrophils # 4.32 10^3/uL (1.8-7.7); Neutrophils % 88.7 %; Nucleated Red Blood Cells % 0 %; Platelet Count 167 10^3/cmm (130-400); Red Blood Count 3.99 10^6/uL (4.1-5.3); Red Cell Distribution Width 13.3 % (12.1-15.1); White Blood Count 4.9 10^3/uL (4.0-10.0)
[2020-07-29 04:34] LABS: Blood Urea Nitrogen 18 mg/dL (8-23); Calcium 9.6 mg/dL (8.5-10.5); Chloride 91 mmol/L (98-107); Creatinine Clr Calc Pharmacy 149.2819; Glomerular Filtration Rate 125.4 mL/min (90-130); Glucose 167 mg/dL (65-115); Osmolality Calculated 292 mOsm/kg (285-295); Sodium 138 mmol/L (136-145)
[2020-07-29 04:35] LABS: Anion Gap 9.6 (5-19); Potassium 4.6 mmol/L (3.5-5.1)
[2020-07-29 04:36] LABS: Carbon Dioxide 42 mmol/L (22-29)
--- NOTE | 2020-07-29 05:56 | PC.NURSE ---
patient redirected multiple times during the night. Patient became increasingly agitated removing equipment, thrashing in bed, and attempting to remove bipap mask in spite of redirection. Patient reported visual hallucinations of children in room. Dr. Gilbert notified orders received. Medications administered patient became more cooperative with treatment. Patient observed attempting to remove blankets exposing genital region, nurse fashioned breif with top sheet; currently remains in place. patient refused to answer orientation questions, becoming increasingly agitated. Responds to physical pain, becomes increasingly agitated with assessment questions. earlier reported concerns with patient coming home due to severe mood swings. noted having increasing concerns of patient mentation decline over the last year and behavioral disturbances. reported patient is non compliant with treatment plans and hostile frequently at home. Nurse reported conversation to dr. Gilbert who verbalized understanding
[2020-07-29] MEDS: budesonide 0.5 mg/2 mL Neb INHALATION ×2 (08:02→20:13)
[2020-07-29] MEDS: metoprolol tartrate 25 mg Tablet 12.5 MG PO ×2 (08:36→17:16)
[2020-07-29] MEDS: montelukast sodium 10 mg Tablet PO (08:36)
[2020-07-29] MEDS: citalopram 20 mg Tablet PO ×2 (08:36→17:15)
--- NOTE | 2020-07-29 09:38 | PC.CHAP ---
Pastoral Care Encounter/Spiritual Assessment Type of Contact [] Declined research chief engineer visit [] Patient/Family/Request visit [] Outpatient visit [] Follow-up visit [] Physician referral [] Code/Alert [] Routine visit [] Staff referral [] Actively dying [] Patient sleeping [] Family support [] [] Out of room [] Palliative care [] [] Receiving care in room [] Pre-surgical visit [] Trauma [] Long length of stay [] ICU visit [] Other: Relational/Emotional Strength [] Patient feels connected with others/family/visitors/staff [] Distress [] Loneliness/isolation [] Abandonment Spirituality of Patient [] Person of Amanda [] Attends Church of their Amanda [] Believes in Prayer [] Reads Bible or Evangelical materials [] There are Spiritual issues to be addressed Piece Worker Interventions [x] Prayer [] Active listening [] Non-anxious presence [] Spiritual/emotional support [] Crisis/trauma care [] Spiritual counseling [] Bereavement support [] Provided bereavement packet [] Provided Bible/devotional materials [] Provided toy/stuffed animal, coloring book to patient or family member [] Provided Communion [] Anointing/Ramona [] Salvation [x] Completed spiritual assessment [] Other: Impact on Illness or Injury [] Angry [] Fearful [] Anxious [] Often cries [] Exhaustion [] Unable to work [] Unable to attend presybeterian [] Unable to walk/stand [] Unable to read [] Unable to drive [] Unable to eat/drink [] Unable to sleep [] Unable to be with family [] Patient intubated [] Other: Summary Time spent with patient
--- NOTE | 2020-07-29 10:26 | PC.RESP ---
PULMONARY REHAB INFORMATION SENT TO PATIENT.
--- NOTE | 2020-07-29 12:46 | P.PN_ITS ---
Subjective Subjective: Interval history: Overnight was restless, thrashing in bed, removing BiPAP, received Haldol, then ground service equipment mechanic received Risperdal. See mention in the note overnight has been reporting increasing concerns of mentation decline and behavioral disturbances over the past year. Has been reporting lack of adherence with medications at home, hostile behavior. Vitals/I&O/Wt Last Vital Signs Temp 97.6 F 07/29/20 08:00 Pulse 69 07/29/20 11:26 Resp 16 07/29/20 11:26 BP 126/84 07/29/20 08:30 Pulse Ox 93 07/29/20 11:26 07/28/20 07/29/20 07/29/20 22:59 06:59 14:59 Intake Total 460 / 610 Output Total 600 / 600 400 / 400 Balance -140 / 10 -400 / -400 Weight last 48 hrs Weight 111.13 kg Physical Exam Const: COMMON NORMALS: no acute distress GENERAL APPEARANCE: lethargic NUTRITIONAL APPEARANCE: obese ORIENTATION/CONSCIOUSNESS: Yes lethargic OTHER: Somnolent. HENMT: COMMON NORMALS: oropharynx normal Neck/C-Spine: COMMON NORMALS: no JVD Resp: COMMON NORMALS: normal respiratory effort AUSCULTATION: diminished lung sounds Cardio: COMMON NORMALS: no JVD, regular rhythm, S1 normal heart sound present, S2 normal heart sound present and No murmurs present (Cardio) RHYTHM: regular rhythm HEART SOUNDS: S1 normal heart sound present and S2 normal heart sound present GI: COMMON NORMALS: Normal to inspection, nondistended, normoactive bowel sounds present, Soft to palpation and non-tender PALPATION: Yes Soft to palpation Extremity: COMMON NORMALS: no joint enlargement and no pedal edema Neuro: COMMON NORMALS: moves all extremities SENSORIUM/ORIENTATION: Yes lethargic Skin: COMMON NORMALS: no rashes or lesions noted GENERAL SKIN EXAM: no rashes or lesions noted Data : 07/29/20 03:19 07/29/20 03:19 Micro: Microbiology 07/28/20 05:21 Blood Culture - Preliminary Blood NEGATIVE TO DATE 07/28/20 05:21 Blood Culture - Preliminary Blood NEGATIVE TO DATE A&P Assessment and plan (1) Acute exacerbation of chronic obstructive airways disease: Respiratory status is much better. CO2 significantly improved down to 58.8. Weaned down to nasal cannula this morning. However, somnolent after receiving antipsychotics last night due to behavioral disturbances. reportedly telling the nurse that she has had recurrent behavioral issues, hostility episodes at home over the past year. Would benefit from additional assessment by neurology after discharge. Incidental finding on CT head of developmentally small posterior fossa with crowding of foramen magnum but with no cerebellar tonsillar ectopia to confirm Chiari malformation 1. Not sure there is any relation but without so. Otherwise no obvious mass, hydrocep halus, or other major findings. Will check UA. TSH. Diminished lung sounds. Lungs still sound diminished. Continue IV steroids for now. Continue breathing treatments. I do not hear rhonchi, and do not see that she is having productive cough. Sputum culture not collected. No antibiotics for now. She is afebrile, without symptoms of COVID-19. Rapid test was negative. Sputum culture in case she is able to provide. Status: Acute (2) Acute hypercapnic respiratory failure: Improving. pCO2 125 on presentation. Currently down to 58.8. Baseline CO2 appears to be around 75 as noted during past pulmonology assessment. Status: Acute Additional A&P Information Minimally elevated D-dimer: 0.67. Adjusted for her age is elevated even less, at this time suspicion for VTE is low. Start VT prophylaxis. Monitor for any change in symptoms. ANASTASIYA Lung mass? Bilateral lower extremity edema Carpal tunnel syndrome HTN Anxiety and depression DDD Attestations Medical Necessity Statement*: Continue admission for assessment management of acute respiratory failure with hypercapnia, COPD exacerbation with severe underlying COPD. Coding Level of Care Code Acute Legal Services Professional for [facility] Diagnoses Acute exacerbation of chronic obstructive airways disease J44.1 Acute hypercapnic respiratory failure J96.02
[2020-07-29 13:38] LABS: Glucose Point of Care 124 mg/dL (70-110)
[2020-07-29 13:50] LABS: Thyroid Stimulating Hormone 0.57 uIU/mL (0.27-4.20)
[2020-07-29 16:08] LABS: Add Urine Microscopic? YES; Bilirubin Urine Neg (Negative); Blood Urine Neg (Negative); Glucose Urine UA Norm (Normal); Ketones Urine 1+ (Negative); Leukocyte Esterase Urine Negative (Negative); Nitrate Urine Negative (Negative); Protein Urine Neg (Negative); Urine Appearance Hazy (CLEAR); Urine Color Yellow (Yellow); Urobilinogen Urine Norm (Negative); pH Urine 7 (5-7)
[2020-07-29 16:38] LABS: Add Urine Culture? No; Bacteria Urine TRACE /hpf; Squamous Epithelial Cell Urine 15-25 /hpf (0-5)
--- NOTE | 2020-07-29 17:40 | PC.NURSE ---
HOME MEDS- Home meds released from [employer], sent home with , pt ronnie.
--- NOTE | 2020-07-29 17:43 | PC.NURSE ---
PHYSICIAN NOTIFICATION- Updated doctor on pt status. Informed DR of recent UA results and relayed that she is now awake and alert.
[2020-07-30] VITALS (20 sets, daily range): BP systolic 108–145; BP diastolic 72–85; PULSE 63–113; RESP 12–23; TEMP 36.4–36.9; O2SAT 83–97
[2020-07-30] MEDS: heparin 5,000 unit/mL INJ 1 mL 5000 UNIT SUBCUT ×3 (02:37→17:24)
[2020-07-30] MEDS: ipratropium-albuterol 3 mL Neb INHALATION ×6 (03:19→23:19)
[2020-07-30 05:46] LABS: Hematocrit 39.6 % (37.0-47.0); Hemoglobin 11.8 g/dL (11.5-15.3); Lymphocytes # 0.6 10^3/uL (0.8-4.8); Lymphocytes % 9.8 %; Mean Corpuscular HGB Conc 29.8 g/dL (30.0-36.0); Mean Corpuscular Hemoglobin 28.3 pg (28.0-34.0); Mean Platelet Volume 12.5 fL (7.4-10.4); Monocytes # 0.2 10^3/uL (0.2-0.9); Monocytes % 2.5 %; Neutrophils # 5.23 10^3/uL (1.8-7.7); Nucleated Red Blood Cells % 0 %; Platelet Count 176 10^3/cmm (130-400); Red Blood Count 4.17 10^6/uL (4.1-5.3); Red Cell Distribution Width 13.4 % (12.1-15.1)
--- NOTE | 2020-07-30 06:00 | XR_ITS ---
WS: [id number] Exam: XR chest 1V portable [id number] Date/Time of Exam: 07/30/2020 4:46 AM Reason For Exam: Hypoxia Findings: Comparison 07/28/2020. Mild infiltrate in the right lower lung zone suspicious for pneumonia. Remaining lung russo are shruthi r. The lungs are hyperinflated. Normal cardiomediastinal structures and bony elements. Stable appeari ng partially calcified nodule in the left upper lobe. No pleural effusion or pneumothorax. XR/XR chest 1V portable [id number] IMPRESSION: 1. Mild infiltrate in the right lower lung zone suspicious for pneumonia. 2. Pulmonary hyperinflation suggesting COPD. 3. Stable appearing partially calcified nodule in the left upper lobe.
[2020-07-30 06:14] LABS: Anion Gap 8.9 (5-19); Blood Urea Nitrogen 22 mg/dL (8-23); Calcium 9.6 mg/dL (8.5-10.5); Chloride 97 mmol/L (98-107); Glomerular Filtration Rate 101.6 mL/min (90-130); Glucose 153 mg/dL (65-115); Osmolality Calculated 302 mOsm/kg (285-295); Potassium 3.9 mmol/L (3.5-5.1); Sodium 143 mmol/L (136-145)
[2020-07-30 06:43] LABS: Carbon Dioxide 41 mmol/L (22-29)
--- NOTE | 2020-07-30 08:10 | P.PN_ITS ---
Subjective Subjective: Interval history: Hospital stay, records, labs and vitals noted. Patient states at home usually her saturations run from 85-88 with some numbers going down to 75 and occasionally on rest going up to 94%. At home she is usually on 4 to 5 L at rest going up to 6 L on exertion. On examination patient is on 5 L nasal cannula saturating 94% getting a breathing treatment. She states she is feeling a lot better and is hungry. Denies of having any nausea, vomiting, headache. Vitals/I&O/Wt Last Vital Signs Temp 97.6 F 07/30/20 07:32 Pulse 74 07/30/20 07:32 Resp 17 07/30/20 07:32 BP 126/76 07/30/20 07:32 Pulse Ox 95 07/30/20 07:32 07/29/20 07/30/20 07/30/20 22:59 06:59 14:59 Intake Total 1000 / 1000 100 / 1100 Output Total 800 / 1200 200 / 1400 Balance 200 / -200 -100 / -300 Physical Exam Narrative: EXAM NARRATIVE: General: No acute distress, AO x3 HEENT: PERRLA, pupils bilaterally equal and reactive Chest: Bronchial breath sounds bilaterally, decreased breath sounds in the lower zones bilaterally, diffuse rhonchi all over the lung russo CVS: S1-S2 regular, no murmurs, no tachycardia, no gallops, no rubs Abdomen: Soft, nontender, no organomegaly, bowel sounds present Neuro: No focal deficits, no facial deformity, AO x3, power 5/5 in all limbs Data : 07/30/20 04:52 07/30/20 04:52 Micro: Microbiology 07/28/20 05:21 Blood Culture - Preliminary Blood NEGATIVE TO DATE 07/28/20 05:21 Blood Culture - Preliminary Blood NEGATIVE TO DATE A&P Assessment and plan (1) Acute hypercapnic respiratory failure: Improving. pCO2 125 on presentation. Currently down to 58.8. Baseline CO2 appears to be around 75 as noted during past pulmonology assessment. Status: Acute (2) Acute exacerbation of chronic obstructive airways disease: Status: Acute (3) COPD, severe: Status: Acute (4) ANASTASIYA (obstructive sleep apnea): Status: Acute (5) Benign essential HTN: Status: Chronic (6) Behavior disorder: Status: Acute Additional A&P Information Acute on chronic hypercapnic respiratory failure: Secondary to acute exacerbation of COPD: Severe COPD as per the FEV studies. Patient states she was recently scheduled for a BiPAP which she is in state of getting from [facility]. Continue with DuoNebs every 4 hours, budesonide twice daily. Wean off steroids to methylprednisolone every 8 hours. Keep saturation over 88%. Patient has remained afebrile, procalcitonin negative, low signs of pneumonia at present as does not have any consolidation in the x-ray as well. COVID-19 rapid test negative in the ER. Start on GI soft diet. Will advance to patient's respiratory status improves. Bipap as needed when sleeping. Behavioral Disorder: TSH WNL, CT head negative for nay acute changes with nonspecific findings of small posterior fossa with crowding of echevarria magnum. Check vitamin B12, folate, RPR. Most likely her symptoms are because of hypoxia at home. Patient states her numbers at home are usually running O2 from 85-88 with lower numbers in 75 and some occasional numbers more than 90. PT/OT evaluation. Minimally elevated D-dimer: 0.67. Adjusted for her age is elevated even less, at this time suspicion for VTE is low. Monitor for any change in symptoms. ANASTASIYA Lung mass? Bilateral lower extremity edema Carpal tunnel syndrome HTN: Goal BP less than 140/90 mmh. C/w with home dose of Metoprolol. Anxiety and depression DDD Full code. Heparin for DVT prophylaxis. GI soft diet. Attestations Medical Necessity Statement*: Needs further hospitalization for management of acute on chronic hypercapnic respiratory failure secondary to COPD exacerbation Time Spent in Patient Care: Greater than 35 minutes (>than 50% of time spent in counselling and/or direct pt care on unit) . Coding Level of Care Code Acute Display Fabricator for [facility] Diagnoses Acute hypercapnic respiratory failure J96.02 Acute exacerbation of chronic obstructive airways disease J44.1 COPD, severe J44.9 ANASTASIYA (obstructive sleep apnea) G47.33 Benign essential HTN I10 Behavior disorder
[2020-07-30] MEDS: montelukast sodium 10 mg Tablet PO (08:48)
[2020-07-30] MEDS: metoprolol tartrate 25 mg Tablet 12.5 MG PO ×2 (08:48→17:26)
[2020-07-30] MEDS: ARIPiprazole 2 mg Tablet PO (08:48)
[2020-07-30] MEDS: citalopram 20 mg Tablet PO ×2 (08:48→17:27)
[2020-07-30] MEDS: budesonide 0.5 mg/2 mL Neb INHALATION ×2 (08:53→19:27)
[2020-07-30 09:15] LABS: Rapid Plasma Reagin Syphilis Nonreactive (Nonreactive)
[2020-07-30 09:39] LABS: Folate Level > 20.0 ng/mL (4.8-37.3)
[2020-07-30 09:53] LABS: Iron 58 ug/dL (37-145); Percent Saturation 16.1 % (20-50); Total Iron Binding Capacity 359 mcg/dl; Unsaturated Iron Binding 301 ug/dL (112-347)
[2020-07-30 10:09] LABS: Vitamin B12 815 pg/mL (232-1245)
[2020-07-30] MEDS: azithromycin 250 mg Tablet PO (11:53)
[2020-07-30] MEDS: LORazepam 0.5 mg Tablet PO (20:12)
[2020-07-31] VITALS (13 sets, daily range): BP systolic 116–154; BP diastolic 78–88; PULSE 69–122; RESP 15–26; TEMP 36.6–36.9; O2SAT 89–96
[2020-07-31] MEDS: heparin 5,000 unit/mL INJ 1 mL 5000 UNIT SUBCUT ×3 (03:00→16:47)
[2020-07-31] MEDS: ipratropium-albuterol 3 mL Neb INHALATION ×5 (03:22→20:10)
[2020-07-31 05:08] LABS: Hematocrit 38.3 % (37.0-47.0); Hemoglobin 11.4 g/dL (11.5-15.3); Lymphocytes # 0.7 10^3/uL (0.8-4.8); Mean Corpuscular HGB Conc 29.8 g/dL (30.0-36.0); Mean Corpuscular Hemoglobin 28.4 pg (28.0-34.0); Mean Corpuscular Volume 95.5 fL (81-99); Mean Platelet Volume 12.1 fL (7.4-10.4); Monocytes # 0.3 10^3/uL (0.2-0.9); Neutrophils # 7.39 10^3/uL (1.8-7.7); Neutrophils % 88.4 %; Nucleated Red Blood Cells % 0 %; Platelet Count 171 10^3/cmm (130-400); Red Blood Count 4.01 10^6/uL (4.1-5.3); Red Cell Distribution Width 13.7 % (12.1-15.1); White Blood Count 8.4 10^3/uL (4.0-10.0)
[2020-07-31 05:39] LABS: Alanine Aminotransferase 16 U/L (0-33); Albumin Level 3.9 g/dL (3.5-5.2); Alkaline Phosphatase 68 IU/L (35-105); Anion Gap 7.9 (5-19); Aspartate Amino Transferase 18 U/L (0-32); Blood Urea Nitrogen 28 mg/dL (8-23); Calcium 8.8 mg/dL (8.5-10.5); Chloride 97 mmol/L (98-107); Globulin 2.2 g/dL (1.3-4.6); Glomerular Filtration Rate 101.6 mL/min (90-130); Glucose 158 mg/dL (65-115); Osmolality Calculated 305 mOsm/kg (285-295); Potassium 3.9 mmol/L (3.5-5.1); Sodium 143 mmol/L (136-145); Total Bilirubin 0.4 mg/dL (0.15-1.2); Total Protein 6.1 g/dL (6.6-8.7)
[2020-07-31 05:50] LABS: Estmated Average Glucose 114; Hemoglobin A1C 5.6 % (4.0-6.0)
[2020-07-31 05:59] LABS: Carbon Dioxide 42 mmol/L (22-29)
[2020-07-31] MEDS: budesonide 0.5 mg/2 mL Neb INHALATION ×2 (08:44→20:10)
--- NOTE | 2020-07-31 08:51 | ECG_ITS ---
[facility] Test Date: 2020-07-31 Pat Name: Loretta Reeder Department: Room: 251 Gender: Female Internal Grinder: : 1960 Requested By: Tacho Deras Order Number: [id number] Reading MD: Measurements Intervals Strum Rate: 112 P: 81 LA: 120 QRS: 84 QRSD: 83 T: 60 QT: 325 QTc: 444 Interpretive Statements SINUS TACHYCARDIA ABNORMAL RHYTHM ECG Compared to ECG 07/28/2020 07:03:16 Sinus rhythm no longer present Ventricular premature complex(es) no longer present [id number]
--- NOTE | 2020-07-31 08:51 | PM.PN ---
Subjective Subjective: Interval history: No events overnight. This morning on examination patient is sitting comfortably in chair on 4 L oxygen supplementation saturating over 92%. She thinks she is almost back to her baseline but does still have some more exertional difficulty in breathing which is not her usual. She denies of having any nausea, vomiting, headache. Vitals/I&O/Wt Last Vital Signs Temp 97.9 F 07/31/20 08:00 Pulse 122 H 07/31/20 08:44 Resp 18 07/31/20 08:44 BP 139/88 07/31/20 08:00 Pulse Ox 94 07/31/20 08:44 07/30/20 07/31/20 07/31/20 22:59 06:59 14:59 Intake Total 360 / 960 480 / 480 Output Total 400 / 1100 Balance -40 / -140 480 / 480 Physical Exam Narrative: EXAM NARRATIVE: General: No acute distress, AO x3 HEENT: PERRLA, pupils bilaterally equal and reactive Chest: Bronchial breath sounds bilaterally, decreased breath sounds in the lower zones bilaterally, diffuse rhonchi all over the lung russo CVS: S1-S2 regular, no murmurs, no tachycardia, no gallops, no rubs Abdomen: Soft, nontender, no organomegaly, bowel sounds present Neuro: No focal deficits, no facial deformity, AO x3, power 5/5 in all limbs Data : 07/31/20 04:19 07/31/20 04:19 A&P Assessment and plan (1) Acute hypercapnic respiratory failure: Improving. pCO2 125 on presentation. Currently down to 58.8. Baseline CO2 appears to be around 75 as noted during past pulmonology assessment. Status: Acute (2) Acute exacerbation of chronic obstructive airways disease: Status: Acute (3) COPD, severe: Status: Acute (4) ANASTASIYA (obstructive sleep apnea): Status: Acute (5) Benign essential HTN: Status: Chronic (6) Behavior disorder: Status: Acute Additional A&P Information Acute on chronic hypercapnic respiratory failure: Secondary to acute exacerbation of COPD: Severe COPD as per the FEV studies. Patient states she was recently scheduled for a BiPAP which she is in state of getting from [facility]. Continue with DuoNebs every 4 hours, budesonide twice daily. Wean off steroids to methylprednisolone every 12 hours. Keep saturation over 88%. Patient has remained afebrile, procalcitonin negative, low signs of pneumonia at present as does not have any consolidation in the x-ray as well. COVID-19 rapid test negative in the ER. Start on GI soft diet. Will advance to patient's respiratory status improves. Bipap as needed when sleeping. Behavioral Disorder: TSH WNL, CT head negative for nay acute changes with nonspecific findings of small posterior fossa with crowding of echevarria magnum. Check vitamin B12, folate, RPR. Most likely her symptoms are because of hypoxia at home. Patient states her numbers at home are usually running O2 from 85-88 with lower numbers in 75 and some occasional numbers more than 90. PT/OT evaluation. Minimally elevated D-dimer: 0.67. Adjusted for her age is elevated even less, at this time suspicion for VTE is low. Monitor for any change in symptoms. ANASTASIYA Lung mass? Bilateral lower extremity edema Carpal tunnel syndrome HTN: Goal BP less than 140/90 mmh. Patient having mild tachycardia today. Will increase the dose of metoprolol to 25 mg twice daily. EKG to rule out A. fib. Anxiety and depression DDD Full code. Heparin for DVT prophylaxis. GI soft diet. Attestations Medical Necessity Statement*: Needs further hospitalization for management of acute on chronic hypercapnic and hypoxic respiratory failure because of COPD exacerbation Time Spent in Patient Care: Greater than 35 minutes (>than 50% of time spent in counselling and/or direct pt care on unit). Coding Level of Care Code Acute Ortho Assistant for Missael Cr Diagnoses Acute hypercapnic respiratory failure J96.02 Acute exacerbation of chronic obstructive airways disease J44.1 COPD, severe J44.9 ANASTASIYA (obstructive sleep apnea) G47.33 Benign essential HTN I10 Behavior disorder
[2020-07-31] MEDS: ARIPiprazole 2 mg Tablet PO (09:20)
[2020-07-31] MEDS: montelukast sodium 10 mg Tablet PO (09:21)
[2020-07-31] MEDS: metoprolol tartrate 25 mg Tablet PO ×2 (09:21→16:47)
[2020-07-31] MEDS: citalopram 20 mg Tablet PO ×2 (09:21→16:47)
--- NOTE | 2020-07-31 11:08 | PC.SOCIAL ---
IMM Update Pg. 2 of IMM updated. Initialed, dated, and timed and placed in chart. Copy provided.
[2020-07-31] MEDS: LORazepam 0.5 mg Tablet PO (19:30)
--- NOTE | 2020-07-31 19:36 | PC.NURSE ---
ANXIETY c/o feeling intermittently anxious today and occ panic attack Given po Ativan
[2020-08-01] VITALS (18 sets, daily range): BP systolic 117–148; BP diastolic 68–94; PULSE 60–94; RESP 14–20; TEMP 36.1–36.8; O2SAT 88–98
[2020-08-01] MEDS: ipratropium-albuterol 3 mL Neb INHALATION ×6 (00:29→20:24)
[2020-08-01] MEDS: heparin 5,000 unit/mL INJ 1 mL 5000 UNIT SUBCUT ×3 (02:22→18:09)
--- NOTE | 2020-08-01 05:56 | PC.NURSE ---
SHIFT SUMMARY Has rested well on BIPAP tonight. Up to BSC to urinate. No c/o pain or discomfort
--- NOTE | 2020-08-01 08:13 | XR_ITS ---
WS: [id number] Exam: XR chest 1V portable [id number] Date/Time of Exam: 08/01/2020 8:13 AM Reason For Exam: sob low oxygen Comparison 07/30/2020. Mild groundglass infiltrate has developed in the left lower lung zone since the previous study. Remai gianna lung russo are clear. Normal cardiomediastinal structures and bony elements. Partially calcifie d stable appearing nodules in the upper lung zones. XR/XR chest 1V portable [id number] IMPRESSION: 1. Development of mild groundglass infiltrate in the left lower lung zone since previous study. This is suspicious for pneumonia.
--- NOTE | 2020-08-01 08:19 | P.PN_ITS ---
Subjective Subjective: Interval history: No acute events overnight. This morning upon transitioning from BiPAP to nasal cannula unfortunately nasal cannula was now hold onto oxygen and patient desaturated to 40% and became acutely distressed. Rapid response was called. Patient was placed back on BiPAP and 10 minutes patient became better. Was seen again later in the day was comfortable having her breakfast saturating 92% on 4 L nasal cannula unable to have complete conversation. Denies of any nausea, vomiting, headache. Vitals/I&O/Wt Last Vital Signs Temp 97.5 F L 08/01/20 07:34 Pulse 66 08/01/20 07:34 Resp 15 08/01/20 07:34 BP 148/94 08/01/20 07:34 Pulse Ox 95 08/01/20 07:34 07/31/20 08/01/20 08/01/20 22:59 06:59 14:59 Intake Total 480 / 1440 200 / 1640 Output Total 50 / 250 400 / 650 Balance 430 / 1190 -200 / 990 Physical Exam Narrative: EXAM NARRATIVE: General: No acute distress, AO x3 HEENT: PERRLA, pupils bilaterally equal and reactive Chest: Bronchial breath sounds bilaterally, decreased breath sounds in the lower zones bilaterally, diffuse rhonchi all over the lung russo CVS: S1-S2 regular, no murmurs, no tachycardia, no gallops, no rubs Abdomen: Soft, nontender, no organomegaly, bowel sounds present Neuro: No focal deficits, no facial deformity, AO x3, power 5/5 in all limbs Data : 07/31/20 04:19 07/31/20 04:19 A&P Assessment and plan (1) Acute hypercapnic respiratory failure: Improving. pCO2 125 on presentation. Currently down to 58.8. Baseline CO2 appears to be around 75 as noted during past pulmonology assessment. Status: Acute (2) Acute exacerbation of chronic obstructive airways disease: Status: Acute (3) COPD, severe: Status: Acute (4) ANASTASIYA (obstructive sleep apnea): Status: Acute (5) Benign essential HTN: Status: Chronic (6) Behavior disorder: Status: Acute Additional A&P Information Acute on chronic hypercapnic respiratory failure: Secondary to acute exacerbation of COPD: Severe COPD as per the FEV studies. Patient states she was recently scheduled for a BiPAP which she is in state of getting from [facility]. Continue with DuoNebs every 6 hours, budesonide twice daily. Switch to oral prednisone 60 mg daily with first dose right now. Most likely patient will require very slow taper as an outpatient. Keep saturation over 88%. Chest x-ray done earlier in the morning concerning for possible developing pneumonia in left lower zone. Patient has remained afebrile. White count is within normal limits. Given severe COPD for now we will give a short course of levofloxacin for next 5 days. We will check sputum culture. Patient has remained afebrile, procalcitonin negative, low signs of pneumonia at present as does not have any consolidation in the x-ray as well. COVID-19 rapid test negative in the ER. Start on GI soft diet. Will advance to patient's respiratory status improves. Bipap as needed when sleeping. Continue with prophylactic azithromycin home dose. Behavioral Disorder: TSH WNL, CT head negative for nay acute changes with nonspecific findings of small posterior fossa with crowding of echevarria magnum. Check vitamin B12, folate, RPR. Most likely her symptoms are because of hypoxia at home. Patient states her numbers at home are usually running O2 from 85-88 with lower numbers in 75 and some occasional numbers more than 90. PT/OT evaluation. Minimally elevated D-dimer: 0.67. Adjusted for her age is elevated even less, at this time suspicion for VTE is low. Monitor for any change in symptoms. ANASTASIYA Lung mass? Bilateral lower extremity edema Carpal tunnel syndrome HTN: Goal BP less than 140/90 mmh. Patient having mild tachycardia today. Will increase the dose of metoprolol to 25 mg twice daily. EKG to rule out A. fib. Anxiety and depression DDD Full code. Heparin for DVT prophylaxis. GI soft diet. Discharge planning: Most likely can be discharged tomorrow after transitioning to oral steroid and monitoring for next 24 hours onset slow steroid taper. Attestations Medical Necessity Statement*: Patient requires further hospitalization for management of acute on chronic hypercapnic respiratory failure because of COPD exacerbation. Time Spent in Patient Care: Greater than 35 minutes (>than 50% of time spent in counselling and/or direct pt care on unit) . Coding Level of Care Code Acute Aeronautical Engineering Technologist for Missael Cr Diagnoses Acute hypercapnic respiratory failure J96.02 Acute exacerbation of chronic obstructive airways disease J44.1 COPD, severe J44.9 ANASTASIYA (obstructive sleep apnea) G47.33 Benign essential HTN I10 Behavior disorder
[2020-08-01 08:27] LABS: Glucose Point of Care 179 mg/dL (70-110)
[2020-08-01 08:38] LABS: Base Excess ABG 10.5 mmol/L (-2.0-2.0); Blood Gas Allen Test Pos; Blood Gas Operator Identificat glc; Blood Gas Sample Site Radial, left; Blood Gas Sample Type Arterial; HCO3 ABG 40.5 mmol/L (22-26); Oxygen Device BIPAP; PO2 ABG 79.3 mmHg (80.0-100.0)
[2020-08-01 08:42] LABS: ABG PCO2 82.9 mmHg (35-45)
[2020-08-01] MEDS: metoprolol tartrate 25 mg Tablet PO ×2 (10:15→18:09)
[2020-08-01] MEDS: montelukast sodium 10 mg Tablet PO (10:15)
[2020-08-01] MEDS: citalopram 20 mg Tablet PO ×2 (10:15→18:09)
[2020-08-01] MEDS: ARIPiprazole 2 mg Tablet PO (10:16)
[2020-08-01] MEDS: azithromycin 250 mg Tablet PO (13:36)
[2020-08-01] MEDS: predniSONE 20 mg Tablet 60 MG PO (18:09)
--- NOTE | 2020-08-01 19:23 | PC.NURSE ---
AT APPROXIMATELY 0830,DEBT COLLECTION SPECIALIST NOTIFIED NURSE OF PT HAVING SHORTNESS OF BREATH WHEN SWITCHING FROM BIPAP TO NASAL CANNULA, THIS NURSE CAME WITH DEBT COLLECTION SPECIALIST AND WHEN NURSE ARRIVED PT WAS CYANOTIC, AND OXYGEN SATURATIONS WERE AT 45%, THIS NURSE ASKED LORIE OLIVAS FOR HELP AND CALLED BRAD, WHEN DR HOOD ARRIVED, WE INSPECTED OXYGEN LINE, AND VITALS, WHEN DR HOOD CALLED FOR A RAPID RESPONSE, ONCE RT ARRIVED THIS NURSE WAS APPLYING BIPAP MACHINE TO PT AND RT FINISHED SETTING UP THE MACHINE. PT OXYGEN SATURATION CAME BACK UP TO 96% WITHIN JUST A FEW MINUTES.DR SALINAS AND ERWIN ORDERED FOR A STAT ABG AND A CHEST X RAY. PT WAS ALERT AND ORIENTED DURING THIS EVENT. DR SALINAS ALSO CANCELED THE RAPID AND CAME TO SEE PT QUICKLY.
[2020-08-01] MEDS: budesonide 0.5 mg/2 mL Neb INHALATION (20:24)
[2020-08-01] MEDS: LORazepam 0.5 mg Tablet PO (20:47)
[2020-08-02] VITALS (11 sets, daily range): BP systolic 118–134; BP diastolic 61–75; PULSE 60–89; RESP 16–20; TEMP 36.3–37; O2SAT 90–98
[2020-08-02] MEDS: ipratropium-albuterol 3 mL Neb INHALATION ×4 (00:50→11:31)
[2020-08-02] MEDS: heparin 5,000 unit/mL INJ 1 mL 5000 UNIT SUBCUT ×2 (02:02→09:18)
[2020-08-02] MEDS: levoFLOXacin 500 mg Tablet PO (06:34)
[2020-08-02] MEDS: budesonide 0.5 mg/2 mL Neb INHALATION (07:46)
[2020-08-02] MEDS: ARIPiprazole 2 mg Tablet PO (09:17)
[2020-08-02] MEDS: montelukast sodium 10 mg Tablet PO (09:17)
[2020-08-02] MEDS: metoprolol tartrate 25 mg Tablet PO (09:17)
[2020-08-02] MEDS: citalopram 20 mg Tablet PO (09:18)
[2020-08-02] MEDS: predniSONE 20 mg Tablet 60 MG PO (09:18)
--- NOTE | 2020-08-02 10:49 | P.DS_ITS ---
Discharge Providers Date of Admission: 07/28/20 07:49 Date of Discharge: August 02, 2020 Attending Provider at Admission: Paulo Mayberry Attending Provider at Discharge: Tacho Deras MD Primary Care Provider: Taniya Irving DO Diagnoses at Discharge Discharge Diagnosis (1) Acute hypercapnic respiratory failure: Status: Acute (2) Acute exacerbation of chronic obstructive airways disease: Status: Acute (3) COPD, severe: Status: Acute (4) ANASTASIYA (obstructive sleep apnea): Status: Acute (5) Benign essential HTN: Status: Chronic (6) Behavior disorder: Status: Acute Reason for Visit Reason for Visit: RESPIRATORY DISTRESS Hospital Course Discharge Summary: Loretta Reeder is a 60 year old lady with severe COPD, FEV1 16%, currently on 4-5 L of oxygen, on azithromycin suppression QOD, has a BiPAP machine at home as well, but has not been using it consistently. Has been in the process of obtaining a new mask. Came in overnight for evaluation due to progressive shortness of breath, weakness, with lethargy on presentation, severe hypercapnia PCO2 125 on presentation. She is afebrile. Without leukocytosis, tachycardia, or other signs of sepsis. Rapid COVID-19 test is negative. Chest x-ray unremarkable, and head CT with only developmentally small posterior fossa with crowding of the foramen magnum however no cerebellar tonsillar ectopia to confirm Chiari I malformation, finding of uncertain significance. In the ER she was started on BiPAP support, with improvement in her PCO2, mental status. CO2 down to 115, and most recently 108 at 635. She is more alert. Still with little bit of confusion. She is able to provide on her history. Reports that symptoms started 4 closed about a day. Discussing with he also states that breathing got worse yesterday. She reports falling down due to becoming weak. It appears her tried to turn up her oxygen, however, she subsequently had another fall. She otherwise says of breathing currently is comfortable BiPAP. She says at home has not been using BiPAP consistently as she says has been scared . Currently denies any chest pain or pressure, denies any other discomfort. She was admitted to the ICU for acute hypercapnic respiratory failure on BiPAP ventilation due to acute exacerbation of COPD. Pneumonia was ruled out with negative procalcitonin and no consolidation on chest imaging. She was treated with IV steroids and [id number] nebulization. She responded well to the treatment and was not BiPAP dependent anymore so was transferred to the floor. Gradually steroids were weaned off at present she is on oral steroids and her baseline oxygen supplementation both at rest and on exertion for last 2 days. She has remained hemodynamically stable during the whole hospitalization. She states at home she has a BiPAP but the mask fitting is not proper and she feels as if she is being smothered so her BiPAP company was contacted and new mask was made available to her. She is been discharged in hemodynamically stable condition with advised to follow-up with her primary care provider in 1 week on slow steroid taper. Physical Exam Narrative: EXAM NARRATIVE: General: No acute distress, AO x3 HEENT: PERRLA, pupils bilaterally equal and reactive Chest: Bronchial breath sounds bilaterally, decreased breath sounds in the lower zones bilaterally, diffuse rhonchi all over the lung russo CVS: S1-S2 regular, no murmurs, no tachycardia, no gallops, no rubs Abdomen: Soft, nontender, no organomegaly, bowel sounds present Neuro: No focal deficits, no facial deformity, AO x3, power 5/5 in all limbs Discharge Data Data Completed and Pending: Completed Studies During Hospitalization Category Date Time Status CT head wo con* 7 0450 Stat Cat Scan 07/28/20 05:09 Completed CXRP [XR chest 1V portable [id number]] S tat Exams 08/01/20 08:13 Completed XR chest 1V brian ble [id number] Routine Exams 07/30/20 06:00 Completed XR chest 1V brian ble [id number] Urgent Exams 07/28/20 05:07 Completed Pending at discharge Category Date Time Status Sputum Culture an d Gram Stain Routi ne Lab 07/28/20 09:05 Uncollected Sputum Culture an d Gram Stain Stat Lab 08/01/20 13:59 Uncollected Vitals: Last Vital Signs Temp 97.7 F 08/02/20 07:22 Pulse 69 08/02/20 07:40 Resp 16 08/02/20 07:40 BP 118/73 08/02/20 07:22 Pulse Ox 95 08/02/20 07:40 Discharge Plan Discharge Patient Disposition: Home Health Service Condition: Stable Prescriptions: New levofloxacin 500 mg Tablet 500 mg PO DAILY@0600 Qty: 3 RF: 0 prednisone 10 mg tablet 60 mg PO DAILY Qty: 65 RF: 0 Continued Adult 50 Plus Probiotic 4 billion cell capsule 4,000 mmu cells PO DAILY RF: 0 azithromycin 250 mg tablet See Rx Instructions .ROUTE .COMPLEX Qty: 60 RF: 3 naproxen 500 mg tablet 500 mg PO BID 5 Days Qty: 10 RF: 0 Centrum Silver Women 8 mg iron-400 mcg-300 mcg tablet 1 tab PO ONCE RF: 0 montelukast 10 mg tablet 10 mg PO DAILY Qty: 30 RF: 3 citalopram 20 mg tablet 20 mg PO BID Qty: 60 RF: 2 albuterol sulfate [ProAir HFA] 90 mcg/actuation HFA aerosol inhaler 2 puff INHALATION Q6H PRN (Reason: shortness of breath) Qty: 18 RF: 3 lorazepam 0.5 mg tablet 0.5 mg PO BID PRN (Reason: anxiety) Qty: 60 RF: 1 aripiprazole [Abilify] 2 mg tablet 2 mg PO DAILY Qty: 30 RF: 2 budesonide 0.5 mg/2 mL suspension for nebulization See Rx Instructions .ROUTE .COMPLEX Qty: 360 RF: 3 Changed ipratropium-albuterol 0.5 mg-3 mg(2.5 mg base)/3 mL solution for nebulization 3 ml INHALATION Q6H Qty: 360 RF: 1 metoprolol succinate 25 mg tablet extended release 24 hr 25 mg PO BID Qty: 90 RF: 0 Discharge Orders: Discharge Order (Routine); Ordered 08/02/20 Ordered By: Tacho Deras Referrals: [facility] ([facility]) [Outside] Taniya Irving DO [Primary Care Provider] - 1 week Discharge Diet: Advance as tolerated and GI Soft Discharge Activity: Resume usual activity Activity Restrictions/Additional Instructions: Please take prednisone 60 mg for 3 days after that 50 mg for 3 days after that 40 mg for 3 days after that 30 mg for 3 days after that 20 mg for 3 days after that 10 mg for 3 days after that 5 mg for 3 days and then stop. Please follow-up with the primary care provider within a week. You will be on levofloxacin for 3 more days to finish antibiotic course. Continue azithromycin as prescribed before. Discharge Attestations Time Spent in Discharge Care*: greater than 30 min Specific Discharge Activities: Specific discharge activities: educating patient, discussing with supportive employment case manager/social workers/dc planners, documenting/other paperwork and evaluating patient/reviewing data Status at Discharge: Cognitive status at discharge: cognitively intact , Behavioral status at discharge: cooperative , Functional status at discharge: uses cane/walker Overall status at discharge: patient is progressing back to baseline Quality Metrics Clinical Quality Measures During this hospital stay, did patient experience: None Coding Level of Care Code Acute Aquaculture Farmer for Vaniag Fwd Diagnoses Acute hypercapnic respiratory failure J96.02 Acute exacerbation of chronic obstructive airways disease J44.1 COPD, severe J44.9 ANASTASIYA (obstructive sleep apnea) G47.33 Benign essential HTN I10 Behavior disorder
--- NOTE | 2020-08-02 11:42 | PC.SOCIAL ---
IMM Update. Pg. 2 of IMM updated. Initialed, dated, and timed, and placed in chart. Copy provided to patient.
== END 2020-08-02 12:59 | disposition home health service (06) | DRG 190 ==
LOC: ER 07:50 → ICU 08:08 → MEDSURG 07-29 23:37
PROVIDERS: Emergency Medicine; Admitting Provider Internal Medicine; Emergency Provider Emergency Medicine; Family Provider Family Medicine; PCP Family Medicine; Visit Provider Student in an Organized Health Care Education/Training Program
DX: J44.1 Chronic obstructive pulmonary disease with (acute) exacerbation (principal); J96.22 Acute and chronic respiratory failure with hypercapnia; M50.00 Cervical disc disorder with myelopathy, unspecified cervical region; Z99.81 Dependence on supplemental oxygen; F41.8 Other specified anxiety disorders; I10 Essential (primary) hypertension; G56.03 Carpal tunnel syndrome, bilateral upper limbs; R91.8 Other nonspecific abnormal finding of lung field; G47.33 Obstructive sleep apnea (adult) (pediatric); Z78.0 Asymptomatic menopausal state; M51.35 Other intervertebral disc degeneration, thoracolumbar region; M51.37 Other intervertebral disc degeneration, lumbosacral region; Z87.891 Personal history of nicotine dependence; F91.9 Conduct disorder, unspecified; Z79.51 Long term (current) use of inhaled steroids
CPT/HCPCS: 12345; 36415; 36416; 36600; 70450; 71045; 80048; 80053; 81001; 82607; 82728; 82746; 82803; 82962; 83036; 83540; 83550; 83605; 83615; 83880; 84145; 84443; 84484; 85025; 85378; 86140; 86592; 87040; 87426; 93005; 94640; 94660; 96372; 96375; 97110; 97116; 97161; 99284; J1100; J1630; J1644; J2930; J3490; J7512; J7626; Q0144

== ENCOUNTER 2020-08-24 16:28 | Inpatient (IN) | payer MEDICARE, SELFPAY ==
[2020-08-24] VITALS (11 sets, daily range): BP systolic 98–145; BP diastolic 71–101; PULSE 78–110; RESP 17–24; TEMP 36.5–37; O2SAT 92–99; BMI 25.8
--- NOTE | 2020-08-24 16:38 | XRR_ITS ---
PROCEDURE INFORMATION: Exam: XR Chest, 1 View Exam date and time: 08/24/2020 4:40 PM Age: 60 years old Clinical indication: Dyspnea; Additional info: Hypoxia TECHNIQUE: Imaging protocol: XR of the chest Views: 1 view. COMPARISON: CR XR chest 1V portable [id number] 08/01/2020 8:17 AM FINDINGS: Lungs: Unremarkable. No consolidation. Pleural space: Unremarkable. No pleural effusion. No pneumothorax. Heart/Mediastinum: Unremarkable. No cardiomegaly. Bones/joints: Unremarkable. XR/XR chest 1V portable [id number] IMPRESSION: No acute findings.
--- NOTE | 2020-08-24 16:38 | ECG_ITS ---
[facility] Test Date: 2020-08-24 Pat Name: Loretta Reeder Department: Room: Gender: Female First Aid Director: : 1960 Requested By: Quiana Reis Order Number: [id number] Adele MD: Jacoby Navarro M.D. Measurements Intervals [place] Rate: 88 P: 76 RI: 144 QRS: 44 QRSD: 76 T: 61 QT: 353 QTc: 429 Interpretive Statements SINUS RHYTHM POSSIBLE LEFT ATRIAL ENLARGEMENT [-0.1mV P WAVE IN V1/V2] INDETERMINATE AXIS Compared to ECG 07/31/2020 09:18:38 Indeterminate axis now present Sinus tachycardia no longer present Electronically Signed On 08-25-2020 11:21:26 FLAT LOCK MACHINE OPERATOR by Jacoby Navarro M.D. [email or web address]
[2020-08-24 16:50] LABS: ABG PH Result 7.29 (7.35-7.45); Arterial Blood Gas Hematocrit 40.2 % (37-47); Base Excess ABG 13.6 mmol/L (-2.0-2.0); Blood Gas Operator Identificat AMH; Blood Gas Sample Site Brachial, right; Blood Gas Sample Type Arterial; HCO3 ABG 44.3 mmol/L (22-26); Oxygen Device NC; PO2 ABG 66.5 mmHg (80.0-100.0)
[2020-08-24 16:51] LABS: ABG PCO2 91.8 mmHg (35-45)
[2020-08-24 17:07] LABS: Basophils % 0.5 %; Eosinophils # 0.1 10^3/uL (0.0-0.8); Eosinophils % 1.1 %; Hematocrit 44.7 % (37.0-47.0); Hemoglobin 12.6 g/dL (11.5-15.3); Lymphocytes % 12.1 %; Mean Corpuscular HGB Conc 28.2 g/dL (30.0-36.0); Mean Corpuscular Hemoglobin 28.4 pg (28.0-34.0); Mean Corpuscular Volume 100.9 fL (81-99); Mean Platelet Volume 10.9 fL (7.4-10.4); Monocytes # 0.7 10^3/uL (0.2-0.9); Monocytes % 7.7 %; Neutrophils # 6.53 10^3/uL (1.8-7.7); Neutrophils % 76.8 %; Nucleated Red Blood Cells % 0 %; Platelet Count 197 10^3/cmm (130-400); Red Blood Count 4.43 10^6/uL (4.1-5.3); Red Cell Distribution Width 13.5 % (12.1-15.1); White Blood Count 8.5 10^3/uL (4.0-10.0)
[2020-08-24 17:26] LABS: INR 0.86 (0.8-1.2)
[2020-08-24 17:45] LABS: Alanine Aminotransferase 37 U/L (0-33); Albumin Level 4.1 g/dL (3.5-5.2); Alkaline Phosphatase 86 IU/L (35-105); Anion Gap 5.2 (5-19); Aspartate Amino Transferase 26 U/L (0-32); Blood Urea Nitrogen 13 mg/dL (8-23); Calcium 9.1 mg/dL (8.5-10.5); Chloride 94 mmol/L (98-107); Creatinine Clr Calc Pharmacy 120.5156; Globulin 1.9 g/dL (1.3-4.6); Glomerular Filtration Rate 125.4 mL/min (90-130); Glucose 96 mg/dL (65-115); Lactic Sepsis W/Reflex 0.8 mmol/L (0.5-2.2); Osmolality Calculated 294 mOsm/kg (285-295); Potassium 4.2 mmol/L (3.5-5.1); Sodium 142 mmol/L (136-145); Total Bilirubin 0.6 mg/dL (0.15-1.2)
[2020-08-24 17:46] LABS: Troponin(5th) Baseline 16 ng/L (0-10)
[2020-08-24] MEDS: sodium chloride 0.9% 500 ML 999 ML IV (17:47)
[2020-08-24 17:54] LABS: Alcohol Level < 10 mg/dL (0-10)
[2020-08-24 17:55] LABS: Carbon Dioxide 47 mmol/L (22-29)
[2020-08-24 18:05] LABS: SARS Covid-2 Antigen Negative (Negative)
--- NOTE | 2020-08-24 18:11 | W.ED.SOB ---
HPI - SOB/Dyspnea General: Chief Complaint: Shortness of Breath/Dyspnea Stated Complaint: RESP DISTRESS Time Seen by Provider: 08/24/20 16:38 History of Present Illness: HPI Narrative: This patient is a 60-year-old female who presents today with altered mental status and respiratory failure. She has a history of COPD and has had similar presentations in the past. This afternoon she and her had to lay down for a nap. He was not able to wake her up and after an hour of trying he called EMS. They arrived and found her with saturations in the 70s. She was on 2-1/2 L nasal cannula oxygen. She normally uses 2 L all the time. She was arousable and combative. Her had given her an albuterol treatment. EMS gave her a DuoNeb treatment before putting in the ambulance. They had her on a nonrebreather mask and after quite some time they were able to get her oxygen saturations up into the high 90s. Her mental status improved slightly but she was still not able to provide any meaningful history. MD elicited complaint: shortness of breath Pertinent past history: COPD Severity: similar to previous episodes Treatment prior to arrival: oxygen and bronchodilator Review of Systems General: Reports: ROS unobtainable due to medical condition and ROS unobtainable due to mental status PFS ED PFSH: Medical History Anxiety and depression Benign essential HTN Bilateral carpal tunnel syndrome Bilateral lower extremity edema Cervical myelopathy COPD, severe Degenerative disc disease, cervical Lung mass ANASTASIYA (obstructive sleep apnea) Postmenopausal Unspecified thoracic, thoracolumbar and lumbosacral intervertebral disc disorder Vitamin D deficiency Surgical History S/P hysterectomy S/P tonsillectomy Family History Other CHF (congestive heart failure) Murmur, cardiac Social History Smoking and tobacco status: former smoker Quit status (tobacco): has quit using tobacco Year quit tobacco: 2017 - 1PPD x 40 Years Second hand smoke exposure: Yes Alcohol intake: never Lives independently: Yes Household members: spouse Marital status: Current occupational status: disabled History of recent travel: No Current gender identity: Female Physical Exam Const: GENERAL APPEARANCE: in distress, lethargic and ill appearing ORIENTATION/CONSCIOUSNESS: Yes lethargic HENMT: HEAD & SCALP: normal to inspection FACE & SINUS: normal facial exam Eye: GENERAL EYE: appearance normal, both eyes and all related structures Neck/C-Spine: COMMON NORMALS: supple, no meningeal signs and no JVD Chest: COMMONS NORMALS: normal inspection of the chest Resp: EFFORT & INSPECTION: Yes symmetric chest movement, Yes respiratory distress and Yes uses accessory muscles Cardio: COMMON NORMALS: no JVD, regular rate, regular rhythm and No murmurs present (Cardio) RATE: regular rate RHYTHM: regular rhythm GI: COMMON NORMALS: Normal to inspection, nondistended, normoactive bowel sounds present, Soft to palpation and non-tender INSPECTION: Yes normal to inspection AUSCULTATION: Yes normoactive bowel sounds PALPATION: Yes Soft to palpation Back/Pelvis: COMMON NORMALS: thoracic and lumbar spine normal to inspection Extremity: COMMON NORMALS: normal to inspection Neuro: COMMON NORMALS: moves all extremities, no focal motor deficits and no sensory deficits noted SENSORIUM/ORIENTATION: Yes lethargic MENINGEAL SIGNS: Yes no meningeal signs Psych: ATTITUDE: Yes Withdrawn affect present Skin: COMMON NORMALS: no rashes or lesions noted and turgor normal GENERAL SKIN EXAM: no rashes or lesions noted and turgor normal Course ED course: This patient has a history of COPD. I put her on BiPAP and then repeated the ABG and it really had not improved and in fact had worsened slightly. Dr. Winn is going to admit her to the hospital and we made some adjustments to the BiPAP hoping to improve her respiratory status without intubating her. Her mental status did improve even though her ABG looked slightly worse. She told me that her had been yelling at her today and telling her that if she got sick like this again she would have to go to a home. She seemed upset about that. Vital Signs: Vital signs: Vital Signs Temperature 97.3 F L 08/25/20 07:08 Pulse Rate 92 08/25/20 08:06 Respiratory Rate 50 H 08/25/20 07:56 Blood Pressure 133/83 08/25/20 07:08 Pulse Oximetry 96 08/25/20 10:53 MDM - SOB/Dyspnea Lab Data: Labs: Lab Results 08/24/20 08/24/20 08/24/20 Range/Units 16:39 16:54 16:54 WBC 8.5 (4.0-10.0) 10^3/ uL RBC 4.43 (4.1-5.3) 10^6/u L Hgb 12.6 (11.5-15.3) g/dL Hct 44.7 (37.0-47.0) % MCV 100.9 H (81-99) fL MCH 28.4 (28.0-34.0) pg MCHC 28.2 L (30.0-36.0) g/dL RDW 13.5 (12.1-15.1) % Plt Count 197 (130-400) 10^3/c mm MPV 10.9 H (7.4-10.4) fL Neut % (Auto) 76.8 % Lymph % (Auto) 12.1 % [place] % (Auto) 7.7 % Eos % (Auto) 1.1 % Baso % (Auto) 0.5 % Neut # (Auto) 6.53 (1.8-7.7) 10^3/u L Lymph # (Auto) 1.0 (0.8-4.8) 10^3/u L [place] # (Auto) 0.7 (0.2-0.9) 10^3/u L Eos # (Auto) 0.1 (0.0-0.8) 10^3/u L Baso # (Auto) 0.0 (0.0-0.1) 10^3/u L Nucleated RBC % (a uto) 0 % Nucleated RBCs # 0.0 /100WBC PT (12.1-14.9) SECO NDS INR (0.8-1.2) D-Dimer (0-0.59) ug/mIFE U Specimen Type Arterial Sample Site Brachial, right ABG pH 7.29 L (7.35-7.45) ABG pCO2 91.8 H* (35-45) mmHg ABG pO2 66.5 L (80.0-100.0) mmH g ABG HCO3 44.3 H (22-26) mmol/L ABG Base Excess 13.6 H (-2.0-2.0) mmol/ L Tylor Test N/a Hematocrit 40.2 (37-47) % O2 Delivery Device Nc O2 Liters/Min 5.0 % FiO2 40.0 % Measurer ID Amh Sodium (136-145) mmol/L Potassium (3.5-5.1) mmol/L Chloride (98-107) mmol/L Carbon Dioxide (22-29) mmol/L Anion Gap (5-19) BUN (8-23) mg/dL Creatinine (0.5-0.9) mg/dL GFR Calculation (90-130) mL/min Glucose (65-115) mg/dL Calculated Osmolal ity (285-295) mOsm/k g Lactic Acid (0.5-2.2) mmol/L Calcium (8.5-10.5) mg/dL Magnesium (1.7-2.3) mg/dL Total Bilirubin (0.15-1.2) mg/dL AST (0-32) U/L ALT (0-33) U/L Alkaline Phosphata se (35-105) IU/L Troponin T Baselin e 16 H (0-10) ng/L Troponin T 120 Min [place] (0-10) ng/L Delta Troponin T (0-10) ABS# Total Protein (6.6-8.7) g/dL Albumin (3.5-5.2) g/dL Globulin (1.3-4.6) g/dL Ethyl Alcohol (0-10) mg/dL SARS-CoV-2 Ag (Rap id) (Negative) 08/24/20 08/24/20 08/24/20 Range/Units 16:54 16:54 16:54 WBC (4.0-10.0) 10^3/ uL RBC (4.1-5.3) 10^6/u L Hgb (11.5-15.3) g/dL Hct (37.0-47.0) % MCV (81-99) fL MCH (28.0-34.0) pg MCHC (30.0-36.0) g/dL RDW (12.1-15.1) % Plt Count (130-400) 10^3/c mm MPV (7.4-10.4) fL Neut % (Auto) % Lymph % (Auto) % [place] % (Auto) % Eos % (Auto) % Baso % (Auto) % Neut # (Auto) (1.8-7.7) 10^3/u L Lymph # (Auto) (0.8-4.8) 10^3/u L [place] # (Auto) (0.2-0.9) 10^3/u L Eos # (Auto) (0.0-0.8) 10^3/u L Baso # (Auto) (0.0-0.1) 10^3/u L Nucleated RBC % (a uto) % Nucleated RBCs # /100WBC PT 12.00 L (12.1-14.9) SECO NDS INR 0.86 (0.8-1.2) D-Dimer (0-0.59) ug/mIFE U Specimen Type Sample Site ABG pH (7.35-7.45) ABG pCO2 (35-45) mmHg ABG pO2 (80.0-100.0) mmH g ABG HCO3 (22-26) mmol/L ABG Base Excess (-2.0-2.0) mmol/ L Tylor Test Hematocrit (37-47) % O2 Delivery Device O2 Liters/Min % FiO2 % Measurer ID Sodium 142 (136-145) mmol/L Potassium 4.2 (3.5-5.1) mmol/L Chloride 94 L (98-107) mmol/L Carbon Dioxide 47 H* (22-29) mmol/L Anion Gap 5.2 (5-19) BUN 13 (8-23) mg/dL Creatinine 0.5 (0.5-0.9) mg/dL GFR Calculation 125.4 (90-130) mL/min Glucose 96 (65-115) mg/dL Calculated Osmolal ity 294 (285-295) mOsm/k g Lactic Acid 0.8 (0.5-2.2) mmol/L Calcium 9.1 (8.5-10.5) mg/dL Magnesium (1.7-2.3) mg/dL Total Bilirubin 0.6 (0.15-1.2) mg/dL AST 26 (0-32) U/L ALT 37 H (0-33) U/L Alkaline Phosphata se 86 (35-105) IU/L Troponin T Baselin e (0-10) ng/L Troponin T 120 Min [place] (0-10) ng/L Delta Troponin T (0-10) ABS# Total Protein 6.0 L (6.6-8.7) g/dL Albumin 4.1 (3.5-5.2) g/dL Globulin 1.9 (1.3-4.6) g/dL Ethyl Alcohol < 10 (0-10) mg/dL SARS-CoV-2 Ag (Rap id) (Negative) 08/24/20 08/24/20 08/24/20 Range/Units 16:54 16:54 17:17 WBC (4.0-10.0) 10^3/ uL RBC (4.1-5.3) 10^6/u L Hgb (11.5-15.3) g/dL Hct (37.0-47.0) % MCV (81-99) fL MCH (28.0-34.0) pg MCHC (30.0-36.0) g/dL RDW (12.1-15.1) % Plt Count (130-400) 10^3/c mm MPV (7.4-10.4) fL Neut % (Auto) % Lymph % (Auto) % [place] % (Auto) % Eos % (Auto) % Baso % (Auto) % Neut # (Auto) (1.8-7.7) 10^3/u L Lymph # (Auto) (0.8-4.8) 10^3/u L [place] # (Auto) (0.2-0.9) 10^3/u L Eos # (Auto) (0.0-0.8) 10^3/u L Baso # (Auto) (0.0-0.1) 10^3/u L Nucleated RBC % (a uto) % Nucleated RBCs # /100WBC PT (12.1-14.9) SECO NDS INR (0.8-1.2) D-Dimer 0.67 H (0-0.59) ug/mIFE U Specimen Type Sample Site ABG pH (7.35-7.45) ABG pCO2 (35-45) mmHg ABG pO2 (80.0-100.0) mmH g ABG HCO3 (22-26) mmol/L ABG Base Excess (-2.0-2.0) mmol/ L Tylor Test Hematocrit (37-47) % O2 Delivery Device O2 Liters/Min % FiO2 % Measurer ID Sodium (136-145) mmol/L Potassium (3.5-5.1) mmol/L Chloride (98-107) mmol/L Carbon Dioxide (22-29) mmol/L Anion Gap (5-19) BUN (8-23) mg/dL Creatinine (0.5-0.9) mg/dL GFR Calculation (90-130) mL/min Glucose (65-115) mg/dL Calculated Osmolal ity (285-295) mOsm/k g Lactic Acid (0.5-2.2) mmol/L Calcium (8.5-10.5) mg/dL Magnesium 2.2 (1.7-2.3) mg/dL Total Bilirubin (0.15-1.2) mg/dL AST (0-32) U/L ALT (0-33) U/L Alkaline Phosphata se (35-105) IU/L Troponin T Baselin e (0-10) ng/L Troponin T 120 Min [place] (0-10) ng/L Delta Troponin T (0-10) ABS# Total Protein (6.6-8.7) g/dL Albumin (3.5-5.2) g/dL Globulin (1.3-4.6) g/dL Ethyl Alcohol (0-10) mg/dL SARS-CoV-2 Ag (Rap id) Negative (Negative) 08/24/20 Range/Units 19:57 WBC (4.0-10.0) 10^3/ uL RBC (4.1-5.3) 10^6/u L Hgb (11.5-15.3) g/dL Hct (37.0-47.0) % MCV (81-99) fL MCH (28.0-34.0) pg MCHC (30.0-36.0) g/dL RDW (12.1-15.1) % Plt Count (130-400) 10^3/c mm MPV (7.4-10.4) fL Neut % (Auto) % Lymph % (Auto) % [place] % (Auto) % Eos % (Auto) % Baso % (Auto) % Neut # (Auto) (1.8-7.7) 10^3/u L Lymph # (Auto) (0.8-4.8) 10^3/u L [place] # (Auto) (0.2-0.9) 10^3/u L Eos # (Auto) (0.0-0.8) 10^3/u L Baso # (Auto) (0.0-0.1) 10^3/u L Nucleated RBC % (a uto) % Nucleated RBCs # /100WBC PT (12.1-14.9) SECO NDS INR (0.8-1.2) D-Dimer (0-0.59) ug/mIFE U Specimen Type Sample Site ABG pH (7.35-7.45) ABG pCO2 (35-45) mmHg ABG pO2 (80.0-100.0) mmH g ABG HCO3 (22-26) mmol/L ABG Base Excess (-2.0-2.0) mmol/ L Tylor Test Hematocrit (37-47) % O2 Delivery Device O2 Liters/Min % FiO2 % Measurer ID Sodium (136-145) mmol/L Potassium (3.5-5.1) mmol/L Chloride (98-107) mmol/L Carbon Dioxide (22-29) mmol/L Anion Gap (5-19) BUN (8-23) mg/dL Creatinine (0.5-0.9) mg/dL GFR Calculation (90-130) mL/min Glucose (65-115) mg/dL Calculated Osmolal ity (285-295) mOsm/k g Lactic Acid (0.5-2.2) mmol/L Calcium (8.5-10.5) mg/dL Magnesium (1.7-2.3) mg/dL Total Bilirubin (0.15-1.2) mg/dL AST (0-32) U/L ALT (0-33) U/L Alkaline Phosphata se (35-105) IU/L Troponin T Baselin e (0-10) ng/L Troponin T 120 Min [place] 15.70 H (0-10) ng/L Delta Troponin T -0.30 L (0-10) ABS# Total Protein (6.6-8.7) g/dL Albumin (3.5-5.2) g/dL Globulin (1.3-4.6) g/dL Ethyl Alcohol (0-10) mg/dL SARS-CoV-2 Ag (Rap id) (Negative) Discharge Plan Discharge Admit Provider: Bayron Gilbert Coding Level of Care Code ED Glass Smoother for Chg Fwd Exam Comprehensive
--- NOTE | 2020-08-24 18:38 | ECG_ITS ---
[facility] Test Date: 2020-08-24 Pat Name: Loretta Reeder Department: Room: Gender: Female Duck Operator: : 1960 Requested By: Quiana Reis Order Number: [id number] Adele MD: Jacoby Navarro M.D. Measurements Intervals [place] Rate: 84 P: 74 ID: 136 QRS: 36 QRSD: 82 T: 60 QT: 370 QTc: 439 Interpretive Statements SINUS RHYTHM INDETERMINATE AXIS Compared to ECG 08/24/2020 16:36:28 No significant changes Electronically Signed On 08-25-2020 19:15:02 CONTINUOUS IMPROVEMENT COORDINATOR by Jacoby Navarro M.D. [email or web address] regional medical [email or web address] health bryan hospitalZedmo/store/OM/[id number]
--- NOTE | 2020-08-24 19:46 | P.HP_ITS ---
Providers/Chief Complaint Primary Care Provider: Taniya Irving DO Chief Complaint: RESP DISTRESS History of Present Illness Loretta Reeder is a 60 year old female carries diagnosis of severe COPD FEV1 60%, uses 4 to 5 L of oxygen, has not been compliant with her AVAPS machine at home, she is also on chronic azithromycin anti-inflammatory suppressive therapy, she was recently admitted for acute hypercapnic respiratory failure( required BiPAP, was not intubated), she was discharged on prednisone taper, Levaquin however procalcitonin was negative she was not diagnosed with pneumonia. She has home health services. Today her tried to wake her up when she was taking a nap, could not wake her up at all, oxygen saturation was 70% on 2 L increase oxygen to 3.5 L and called EMS, she was given DuoNeb and was put on nonrebreather mask, at the time of arrival in the ER she was saturating in the high 90s, she was somnolent but able to protect airways, she was put on BiPAP, ABG revealed chronic hypoxic acute hypercapnic respiratory failure. Her baseline bicarb seems to be around 38-40 with PCO2 around 58. During my evaluation in the ER ,patient is stating that today's event to take a nap, she did not used her AVAPS, when her tried to wake her up she was very somnolent and drowsy and could not respond appropriately hence EMS was called, she recently has not noticed fever, increased been production, worsening cough, increased lethargy, dysuria, diarrhea, chest discomfort. She has been compliant with her medications, has quit smoking. She is stating that now she is compliant with her AVAPS. Second blood gas has not showed much improvement but during my evaluation patient is awake alert, BiPAP has been switched to AVAPS, now she is pulling good tidal volumes, she has GCS 15, not complaining of acute shortness of breath chest pain. Chest x-ray, EKG, lab work reviewed Review of Systems Const: Reports: fatigue and malaise; Denies: fever(s), chills or body aches Eyes: Denies: change in vision ENMT: Denies: throat pain Card: Reports: dyspnea on exertion; Denies: chest pain, pre-syncope or orthopnea Resp: Reports: dyspnea and non-productive cough GI: Denies: abdominal pain or diarrhea : Denies: flank pain Musc: Denies: neck pain Skin/Breast: Denies: rash Neuro: Denies: headache(s) Psych: Reports: anxiety Endo: Denies: polyuria Deonte/Lymph: Denies: easy bruising All/Imm: Denies: urticaria Medications/Allergies Home Medications Medication Instructions Recorded Confirmed Last Taken Type multivit with 1 tab PO DAILY 09/28/19 08/24/20 Unknown History pynxmuop-yfhf-ST-lutein 8 mg iron-400 mcg-300 mcg tablet lactobacillus combination no.9 4 4,000 mmu cells PO DAILY 12/07/19 08/24/20 Unknown History billion cell capsule albuterol sulfate 90 mcg/actuation 2 puff INHALATION Q6H PRN #18 gm 06/03/20 08/24/20 Unknown Rx aerosol inhaler azithromycin 250 mg tablet See Rx Instructions .ROUTE 07/15/20 08/24/20 Unknown Rx .COMPLEX #60 tab naproxen 500 mg tablet 500 mg PO BID 5 Days #10 tab 07/15/20 08/24/20 Unknown Rx aripiprazole 2 mg tablet 2 mg PO DAILY #30 tab 07/22/20 08/24/20 Unknown Rx budesonide See Rx Instructions .ROUTE 08/02/20 08/24/20 Unknown Rx .COMPLEX #360 ml ipratropium-albuterol 3 ml INHALATION Q6H #360 ml 08/02/20 08/24/20 Unknown Rx metoprolol succinate 25 mg PO BID #90 tab 08/02/20 08/24/20 Unknown Rx citalopram 20 mg tablet 20 mg PO BID #60 tab 08/19/20 08/24/20 Unknown Rx lorazepam 0.5 mg tablet 0.5 mg PO BID PRN #60 tab 08/19/20 08/24/20 Unknown Rx aspirin See Rx Instructions .ROUTE .COMPLEX 08/24/20 08/24/20 Unknown History montelukast 10 mg PO DAILY 08/24/20 08/24/20 Unknown History prednisone See Rx Instructions .ROUTE .COMPLEX 08/24/20 08/24/20 Unknown History Allergies Allergy/AdvReac Type Severity Reaction Status Date / Time codeine Allergy NAUSEA & Verified 08/24/20 16:38 VOMITING morphine Allergy ADR-Halluci Verified 08/24/20 16:38 nating PFSH Acute 2 PFSH: Medical History Anxiety and depression Benign essential HTN Bilateral carpal tunnel syndrome Bilateral lower extremity edema Cervical myelopathy COPD, severe Degenerative disc disease, cervical Lung mass ANASTASIYA (obstructive sleep apnea) Postmenopausal Unspecified thoracic, thoracolumbar and lumbosacral intervertebral disc disorder Vitamin D deficiency Surgical History S/P hysterectomy S/P tonsillectomy Family History Other CHF (congestive heart failure) Murmur, cardiac Social History Smoking and tobacco status: former smoker Quit status (tobacco): has quit using tobacco Year quit tobacco: 2017 - 1PPD x 40 Years Second hand smoke exposure: Yes Alcohol intake: never Lives independently: Yes Household members: spouse Marital status: Current occupational status: disabled History of recent travel: No Current gender identity: Female Vitals/I&O/Wt Last Vital Signs Temp 97.7 F 08/24/20 19:26 Pulse 63 08/24/20 19:26 Resp 20 H 08/24/20 19:26 BP 157/70 08/24/20 19:26 Pulse Ox 97 08/24/20 19:26 Weight last 48 hrs Weight 72.575 kg Physical Exam Narrative: EXAM NARRATIVE: middle-aged female who appears more than stated age Currently on AVAPS, no acute chest pain or shortness of breath Saturating 93% Does not look fluid overloaded or dehydrated She is awake alert oriented x3 GCS 15 No neurological deficit noted Able to mention above HPI S1, S2 sinus rhythm no sign of fluid overload Lower extremity no edema gangrene or ulcer Skin does not show any ulcers Abdomen soft distended, nontender Assisted bilateral breath sounds but they are diminished without active wheezing or stridor She has pursed lip breathing without cyanosis Mood is appropriate EOMI, PERRLA She is not somnolent at the time of evaluation Data : 08/24/20 16:54 08/24/20 16:54 A&P Assessment and plan (1) COPD, severe: Status: Acute (2) Acute exacerbation of chronic obstructive airways disease: Status: Acute (3) ANASTASIYA (obstructive sleep apnea): Status: Acute (4) Acute hypercapnic respiratory failure: Status: Acute Additional A&P Information Acute on chronic hypercapnic respiratory failure Currently not in any chest pain or respiratory distress has pursed lip breathing Baseline PaCO2 seems to be around 60-70s, baseline bicarb 38-40 Currently she is not somnolent GCS 15 awake alert on AVAPS with tidal volume between 400-500, initial blood gas was taken on BiPAP, repeat blood gas did not show improvement on BiPAP settings 05/19, hence was switched to AVAPS which is showing good tidal volume I would monitor her on AVAPS for now admit to [facility] X-ray does not show pneumonia, will check D-dimer however PaO2 66 She is not tachycardic at this point She has diminished airflow, no active wheezing or stridor noticed, she also has cushingoid appearance from chronic steroid use, repeat ABG in the morning, instead of IV steroids would use p.o. prednisone 40 mg No sign of sepsis or pneumonia Continue chronic suppressive azithromycin therapy, switch to every other day regimen DVT prophylaxis Lovenox Consistent carb diet Obstructive sleep apnea, currently on AVAPS Hypertension: Resume home regimen Full code Attestations Medical Necessity Statement*: Anticipating discharge in less than 48 hours currently need BiPAP/AVAPS for acute hypercapnic respiratory failure she is not somnolent or requiring intubation at this point Time Spent in Patient Care: (>than 50% of time spent in counselling and/or direct pt care on unit) . 50mins Coding Level of Care Code Acute Office Automation Clerk for Chg Fwd Diagnoses COPD, severe J44.9 Acute exacerbation of chronic obstructive airways disease J44.1 ANASTASIYA (obstructive sleep apnea) G47.33 Acute hypercapnic respiratory failure J96.02
[2020-08-24 20:12] LABS: ABG PH Result 7.27 (7.35-7.45); Arterial Blood Gas Hematocrit 38.9 % (37-47); Base Excess ABG 13.3 mmol/L (-2.0-2.0); Blood Gas Allen Test Pos; Blood Gas Operator Identificat MONRO; Blood Gas Sample Site Radial, left; Blood Gas Sample Type Arterial; HCO3 ABG 44.3 mmol/L (22-26); Oxygen Device BIPAP; PO2 ABG 82.2 mmHg (80.0-100.0)
[2020-08-24] MEDS: ipratropium-albuterol 3 mL Neb INHALATION (20:22)
[2020-08-24] MEDS: magnesium sulfate premix 2 GM/50 ML PIGGYBACK IV (21:24)
--- NOTE | 2020-08-24 22:38 | ECG_ITS ---
[facility] Test Date: 2020-08-24 Pat Name: Loretta Reeder Department: Room: 251 Gender: Female Children'S Tutor: : 1960 Requested By: Quiana Reis Order Number: [id number] Adele MD: Jacoby Navarro M.D. Measurements Intervals [place] Rate: 89 P: 80 OR: 138 QRS: 84 QRSD: 77 T: 72 QT: 358 QTc: 436 Interpretive Statements SINUS RHYTHM Compared to ECG 08/24/2020 18:11:20 Indeterminate axis no longer present Electronically Signed On 08-25-2020 19:12:27 MAJOR ACCOUNT REPRESENTATIVE by Jacoby Navarro M.D. [email or web address] regional medical centerinnRoadtrumbull memorial hospitalStartWire/store/OM/[id number]
[2020-08-24 22:39] LABS: D Dimer 0.67 ug/mIFEU (0-0.59)
[2020-08-24 22:41] LABS: Magnesium 2.2 mg/dL (1.7-2.3)
[2020-08-25] VITALS (25 sets, daily range): BP systolic 118–133; BP diastolic 66–90; PULSE 67–104; RESP 16–50; TEMP 36.3–37.1; O2SAT 87–99
[2020-08-25] MEDS: enoxaparin 40 mg/0.4 mL Syringe SUBCUT ×2 (00:06→23:08)
[2020-08-25] MEDS: ipratropium-albuterol 3 mL Neb INHALATION ×8 (00:26→23:21)
[2020-08-25 00:41] LABS: Arterial Blood Gas Hematocrit 39.1 % (37-47); Base Excess ABG 12.1 mmol/L (-2.0-2.0); Blood Gas Sample Site Brachial, right; Blood Gas Sample Type Arterial; HCO3 ABG 42.1 mmol/L (22-26); Oxygen Device BIPAP; PO2 ABG 68.6 mmHg (80.0-100.0)
[2020-08-25 00:45] LABS: ABG PCO2 85.8 mmHg (35-45)
[2020-08-25 02:26] LABS: ABG PH Result 7.31 (7.35-7.45); Arterial Blood Gas Hematocrit 38.2 % (37-47); Base Excess ABG 11.9 mmol/L (-2.0-2.0); Blood Gas Sample Type Arterial; HCO3 ABG 41.5 mmol/L (22-26); PO2 ABG 64.7 mmHg (80.0-100.0)
[2020-08-25 02:27] LABS: Blood Gas Sample Site Brachial, right; Oxygen Device BIPAP
[2020-08-25 02:28] LABS: ABG PCO2 82.5 mmHg (35-45)
[2020-08-25 06:03] LABS: Basophils % 0.3 %; Hematocrit 41.9 % (37.0-47.0); Hemoglobin 12.3 g/dL (11.5-15.3); Lymphocytes # 0.6 10^3/uL (0.8-4.8); Lymphocytes % 7.9 %; Mean Corpuscular HGB Conc 29.4 g/dL (30.0-36.0); Mean Corpuscular Hemoglobin 29.3 pg (28.0-34.0); Mean Corpuscular Volume 99.8 fL (81-99); Monocytes # 0.1 10^3/uL (0.2-0.9); Neutrophils # 6.54 10^3/uL (1.8-7.7); Neutrophils % 90.1 %; Nucleated Red Blood Cells % 0 %; Platelet Count 193 10^3/cmm (130-400); Red Cell Distribution Width 13.5 % (12.1-15.1); White Blood Count 7.3 10^3/uL (4.0-10.0)
[2020-08-25 06:23] LABS: Blood Urea Nitrogen 18 mg/dL (8-23); Carbon Dioxide 39 mmol/L (22-29); Chloride 94 mmol/L (98-107); Creatinine Clr Calc Pharmacy 120.5156; Glomerular Filtration Rate 125.4 mL/min (90-130); Glucose 165 mg/dL (65-115); Osmolality Calculated 294 mOsm/kg (285-295); Sodium 139 mmol/L (136-145)
[2020-08-25 06:24] LABS: Anion Gap 10.7 (5-19); Potassium 4.7 mmol/L (3.5-5.1)
[2020-08-25] MEDS: montelukast sodium 10 mg Tablet PO (08:26)
[2020-08-25] MEDS: aspirin 81 mg Chew Tablet PO (08:26)
[2020-08-25] MEDS: predniSONE 20 mg Tablet 40 MG PO (08:26)
[2020-08-25] MEDS: ARIPiprazole 2 mg Tablet PO (08:26)
[2020-08-25] MEDS: azithromycin 250 mg Tablet PO (08:26)
[2020-08-25] MEDS: citalopram 20 mg Tablet PO ×2 (08:26→17:21)
[2020-08-25] MEDS: metoprolol succinate ER (24 HR) 25 mg Tablet PO ×2 (08:26→17:21)
--- NOTE | 2020-08-25 10:09 | PC.CHAP ---
Pastoral Care Encounter/Spiritual Assessment Type of Contact [] Declined sales representative marine supplies visit [] Patient/Family/Request visit [] Outpatient visit [] Follow-up visit [] Physician referral [] Code/Alert [x] Routine visit [] Staff referral [] Actively dying [] Patient sleeping [] Family support [] [] Out of room [] Palliative care [] [] Receiving care in room [] Pre-surgical visit [] Trauma [] Long length of stay [] ICU visit [] Other: Relational/Emotional Strength [x] Patient feels connected with others/family/visitors/staff [] Distress [] Loneliness/isolation [] Abandonment Spirituality of Patient [x] Person of Amanda [] Attends Scientologist of their Amanda [x] Believes in Prayer [] Reads Bible or Latter-Day materials [] There are Spiritual issues to be addressed Eye Technician Interventions [x] Prayer [x] Active listening [x] Non-anxious presence [x] Spiritual/emotional support [] Crisis/trauma care [] Spiritual counseling [] Bereavement support [] Provided bereavement packet [] Provided Bible/devotional materials [] Provided toy/stuffed animal, coloring book to patient or family member [] Provided Communion [] Anointing/Bend [] Salvation [x] Completed spiritual assessment [] Other: Impact on Illness or Injury [] Angry [] Fearful [] Anxious [] Often cries [] Exhaustion [] Unable to work [] Unable to attend baptist [] Unable to walk/stand [] Unable to read [] Unable to drive [] Unable to eat/drink [] Unable to sleep [] Unable to be with family [] Patient intubated [] Other: Summary Chaplains prayed with Patient. Time spent with patient 7 minutes.
[2020-08-25] MEDS: LORazepam 0.5 mg Tablet PO ×2 (10:41→20:08)
--- NOTE | 2020-08-25 18:40 | PM.PN ---
Subjective Subjective: Interval history: She is doing a little bit better. Does get quite dyspneic while of BiPAP. States she was not aware that she should be wearing her ventilator anytime she is napping or sleeping. We discussed in detail regarding CO2 retention and narcosis. She states she now understands and will be wearing it consistently. Vitals/I&O/Wt Last Vital Signs Temp 98.8 F 08/25/20 15:44 Pulse 104 H 08/25/20 17:35 Resp 22 H 08/25/20 17:35 BP 132/90 08/25/20 15:44 Pulse Ox 87 L 08/25/20 17:35 08/25/20 08/25/20 08/25/20 06:59 14:59 22:59 Intake Total 360 / 360 Output Total 300 / 300 Balance -300 / -300 360 / 360 Weight last 48 hrs Weight 72.575 kg Physical Exam Const: COMMON NORMALS: no acute distress and patient oriented x3 HENMT: COMMON NORMALS: oropharynx normal Neck/C-Spine: COMMON NORMALS: no JVD Resp: EFFORT & INSPECTION: No able to speak in complete sentences, No respiratory distress and Yes pursed lip breathing AUSCULTATION: diminished lung sounds Cardio: COMMON NORMALS: no JVD, regular rhythm, S1 normal heart sound present, S2 normal heart sound present and No murmurs present (Cardio) RATE: tachycardic RHYTHM: regular rhythm HEART SOUNDS: S1 normal heart sound present and S2 normal heart sound present GI: COMMON NORMALS: Normal to inspection, nondistended, normoactive bowel sounds present, Soft to palpation and non-tender PALPATION: Yes Soft to palpation Extremity: COMMON NORMALS: no joint enlargement GENERAL: Yes edema (trace) Neuro: COMMON NORMALS: patient oriented x3 and moves all extremities Skin: COMMON NORMALS: no rashes or lesions noted GENERAL SKIN EXAM: no rashes or lesions noted Data : 08/25/20 04:40 08/25/20 04:40 A&P Assessment and plan (1) Acute hypercapnic respiratory failure: Acute on chronic hypercapnic and hypoxic respiratory failure. She is more awake. Still hypercapnic, but improving. Discussed with her in detail reasoning behind why she needs to wear her ventilator. States will be adherent from now on. Continue as needed BiPAP support, as well as anytime she is asleep. Currently on nasal cannula. Avoid overly high saturations. Treat COPD exacerbation. Status: Acute (2) Acute exacerbation of chronic obstructive airways disease: Very tight sounding on exam. We will switch from prednisone to IV Solu-Medrol. Continues only on suppressive antibiotic for now. Neb treatments. We will request sputum culture. Status: Acute (3) COPD, severe: Status: Acute (4) ANASTASIYA (obstructive sleep apnea): Status: Acute Additional A&P Information Obstructive sleep apnea, currently on AVAPS Hypertension: Close to goal. Metoprolol. Change to cardiac diet. DVT prophylaxis Lovenox Consistent carb diet Full code Attestations Medical Necessity Statement*: Admission of over 2 midnights is required for COPD exacerbation, acute on chronic hypercapnic and hypoxic respiratory failure. 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
[2020-08-26] VITALS (23 sets, daily range): BP systolic 119–144; BP diastolic 66–83; PULSE 71–99; RESP 16–78; TEMP 36.4–36.7; O2SAT 86–98
[2020-08-26] MEDS: ipratropium-albuterol 3 mL Neb INHALATION ×6 (02:35→20:45)
[2020-08-26 05:10] LABS: Basophils % 0.1 %; Hematocrit 38.5 % (37.0-47.0); Hemoglobin 11.3 g/dL (11.5-15.3); Lymphocytes # 0.6 10^3/uL (0.8-4.8); Lymphocytes % 7.8 %; Mean Corpuscular HGB Conc 29.4 g/dL (30.0-36.0); Mean Corpuscular Hemoglobin 29.1 pg (28.0-34.0); Mean Corpuscular Volume 99.2 fL (81-99); Mean Platelet Volume 11.6 fL (7.4-10.4); Monocytes # 0.1 10^3/uL (0.2-0.9); Monocytes % 1.4 %; Neutrophils # 7.13 10^3/uL (1.8-7.7); Neutrophils % 90.2 %; Nucleated Red Blood Cells % 0 %; Platelet Count 181 10^3/cmm (130-400); Red Blood Count 3.88 10^6/uL (4.1-5.3); White Blood Count 7.9 10^3/uL (4.0-10.0)
[2020-08-26 05:34] LABS: Blood Urea Nitrogen 17 mg/dL (8-23); Carbon Dioxide 38 mmol/L (22-29); Chloride 94 mmol/L (98-107); Glomerular Filtration Rate 162.3 mL/min (90-130); Glucose 171 mg/dL (65-115); Osmolality Calculated 294 mOsm/kg (285-295); Sodium 139 mmol/L (136-145)
[2020-08-26 06:11] LABS: Creatinine Clr Calc Pharmacy 150.6445
[2020-08-26 06:12] LABS: Anion Gap 11.8 (5-19); Potassium 4.8 mmol/L (3.5-5.1)
[2020-08-26] MEDS: ARIPiprazole 2 mg Tablet PO (08:51)
[2020-08-26] MEDS: metoprolol succinate ER (24 HR) 25 mg Tablet PO ×2 (08:52→17:45)
[2020-08-26] MEDS: citalopram 20 mg Tablet PO ×2 (08:52→17:46)
[2020-08-26] MEDS: aspirin 81 mg Chew Tablet PO (08:53)
[2020-08-26] MEDS: montelukast sodium 10 mg Tablet PO (08:53)
--- NOTE | 2020-08-26 09:26 | PC.CHAP ---
Pastoral Care Encounter/Spiritual Assessment Type of Contact [] Declined head piece assembler visit [] Patient/Family/Request visit [] Outpatient visit [] Follow-up visit [] Physician referral [] Code/Alert [x] Routine visit [] Staff referral [] Actively dying [] Patient sleeping [] Family support [] [] Out of room [] Palliative care [] [x] Receiving care in room [] Pre-surgical visit [] Trauma [] Long length of stay [] ICU visit [x] Other: breathing treatment Relational/Emotional Strength [] Patient feels connected with others/family/visitors/staff [] Distress [] Loneliness/isolation [] Abandonment Spirituality of Patient [] Person of Amnada [] Attends Taoist of their Amanda [] Believes in Prayer [] Reads Bible or Scientology materials [] There are Spiritual issues to be addressed Plate Cutter Interventions [x] Prayer [] Active listening [] Non-anxious presence [] Spiritual/emotional support [] Crisis/trauma care [] Spiritual counseling [] Bereavement support [] Provided bereavement packet [] Provided Bible/devotional materials [] Provided toy/stuffed animal, coloring book to patient or family member [] Provided Communion [] Anointing/Artemas [] Salvation [x] Completed spiritual assessment [] Other: Impact on Illness or Injury [] Angry [] Fearful [] Anxious [] Often cries [] Exhaustion [] Unable to work [] Unable to attend yarsani [] Unable to walk/stand [] Unable to read [] Unable to drive [] Unable to eat/drink [] Unable to sleep [] Unable to be with family [] Patient intubated [] Other: Summary Time spent with patient
--- NOTE | 2020-08-26 11:14 | PC.NURSE ---
Reported oxygen level to the pts nurse
--- NOTE | 2020-08-26 11:20 | PM.PN ---
Subjective Subjective: Interval history: Breathing a bit better. Says that she did not sleep well last night because of the mask on BiPAP. Has lots of questions about CPAP use at home which were answered. Says that she had a machine in the past that quit working. Prior to this being identified she had had several episodes in which she felt like she was suffocating. She actually became scared of the machine. Reports that she has been compliant with it more recently but that it has been a challenge for her. On 5 L of oxygen presently, usually at 4 L of oxygen at home. She relayed to me concerns about a spot on her lungs that have been previously identified and was found not to be cancer. Letter know that current chest x-ray did not show anything acute. Last CT scan that I can find is from 2018 when she had stable partially calcified upper lobe nodules bilaterally. They were all subcentimeter. Vitals/I&O/Wt Last Vital Signs Temp 98.0 F 08/26/20 11:13 Pulse 99 08/26/20 11:13 Resp 17 08/26/20 11:13 BP 144/76 08/26/20 11:13 Pulse Ox 87 L 08/26/20 11:13 08/25/20 08/26/20 08/26/20 22:59 06:59 14:59 Intake Total 120 / 480 480 / 480 Output Total 400 / 400 Balance 120 / 480 -400 / 80 480 / 480 Weight last 48 hrs Weight 72.575 kg Physical Exam Const: OTHER: Alert, oriented x3, cooperative, increased work of breathing noted but able to talk in 5-7 word sentences HENMT: OTHER: Normocephalic atraumatic, dry mucous membranes Eye: OTHER: Pupils equally round Neck/C-Spine: OTHER: Supple Resp: OTHER: Scattered end expiratory wheezes presently, pursed lip breathing, tachypnea but no supraclavicular or intercostal retractions noted Cardio: OTHER: Regular rate and rhythm GI: OTHER: Abdomen soft, nontender, nondistended with positive bowel sounds : OTHER: Deferred Extremity: NARRATIVE EXTREMITY EXAM: Trace edema Neuro: OTHER: Speech clear, moves all extremities, mild tremor after recent breathing treatment Psych: OTHER: Normal affect Skin: OTHER: Skin dry, iatrogenic bruising, no acute rashes noted Data : 08/26/20 04:45 08/26/20 04:45 A&P Assessment and plan (1) Acute hypercapnic respiratory failure: Acute on chronic hypercapnic and hypoxic respiratory failure. Was quite hypercapnic at admission and somnolent but overall improved Status: Acute (2) Acute exacerbation of chronic obstructive airways disease: On 4 L of oxygen at baseline along with albuterol and budesonide, Singulair Currently on eating treatments, Solu-Medrol Sputum culture ordered but is still pending collection Status: Acute (3) ANASTASIYA (obstructive sleep apnea): I am not sure what device she is on at home, CPAP versus BiPAP. Being treated with BiPAP here. Reviewed utilization with sleep not only at night but if she takes naps during the day. Status: Acute Additional A&P Information Other diagnoses: Hypertension, on beta-blockade Anxiety, on as needed lorazepam at home which certainly could be a contributing factor to hypercapnia as well as citalopram and Abilify History of noncalcified pulmonary nodules, subcentimeter in 2018 - would benefit from follow-up CT of the chest Continue steroids and breathing treatments History of noncalcified pulmonary nodules, subcentimeter in 2018 - would benefit from follow-up CT of the chest in the outpatient setting, versus inpatient if does not have continued improvement On PPI Lovenox for DVT prophylaxis Plan discharge home outpatient follow-up Attestations Medical Necessity Statement*: Requires ongoing inpatient stay for continued management of respiratory symptoms, adjustments to oxygen and positive pressure ventilation plus increasing activity as tolerated Coding Level of 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
[2020-08-26 13:18] LABS: Glucose Point of Care 191 mg/dL (70-110)
[2020-08-26 15:59] LABS: Glucose Point of Care 111 mg/dL (70-110)
[2020-08-26 21:05] LABS: Glucose Point of Care 141 mg/dL (70-110)
[2020-08-26] MEDS: enoxaparin 40 mg/0.4 mL Syringe SUBCUT (22:27)
[2020-08-26] MEDS: LORazepam 0.5 mg Tablet PO (22:27)
[2020-08-26 23:17] LABS: Estmated Average Glucose 111; Hemoglobin A1C 5.5 % (4.0-6.0)
[2020-08-27] VITALS (18 sets, daily range): BP systolic 115–164; BP diastolic 70–90; PULSE 75–98; RESP 8–28; TEMP 35.5–36.8; O2SAT 88–98
[2020-08-27] MEDS: ipratropium-albuterol 3 mL Neb INHALATION ×6 (02:38→20:38)
[2020-08-27 04:47] LABS: Arterial Blood Gas Hematocrit 36.1 % (37-47); Base Excess ABG 14.2 mmol/L (-2.0-2.0); Blood Gas Allen Test Pos; Blood Gas Operator Identificat CAK; Blood Gas Sample Site Radial, left; Blood Gas Sample Type Arterial; HCO3 ABG 41.9 mmol/L (22-26); Oxygen Device BIPAP; PO2 ABG 92.2 mmHg (80.0-100.0)
[2020-08-27 04:49] LABS: ABG PCO2 68.5 mmHg (35-45)
[2020-08-27 06:48] LABS: Glucose Point of Care 141 mg/dL (70-110)
--- NOTE | 2020-08-27 07:19 | PC.NURSE ---
I reported the low 02 to the nurse. 89%
[2020-08-27] MEDS: citalopram 20 mg Tablet PO ×2 (08:15→17:13)
[2020-08-27] MEDS: ARIPiprazole 2 mg Tablet PO (08:15)
[2020-08-27] MEDS: azithromycin 250 mg Tablet PO (08:15)
[2020-08-27] MEDS: montelukast sodium 10 mg Tablet PO (08:15)
[2020-08-27] MEDS: aspirin 81 mg Chew Tablet PO (08:15)
[2020-08-27] MEDS: metoprolol succinate ER (24 HR) 25 mg Tablet PO ×2 (08:15→17:13)
--- NOTE | 2020-08-27 08:42 | PM.PN ---
Subjective Subjective: Interval history: Breathing is better. She is not sure what kind of machine she has at home. Was able to verify with Brady today that she is on a BiPAP at home with settings at 25/12 and 4 L of oxygen by nasal cannula, patient had lots of questions about what if this happens or what if that happens. We spent some time reviewing various scenarios. She ends up getting a lot of anxiety when she has episodes where she has difficulty breathing or even if she just thinks that something bad might happen. We talked about some breathing exercises and other ways to calm herself down. Spoke with the patient's , [place]. He says that she gets very anxious and will not let anybody help her in those timeframes. She will think that her oxygen is not working when it is. He has respiratory issues as well. He is able to calm himself down but not her. Reviewed with him current plans for discharge tomorrow assuming no acute issues overnight Vitals/I&O/Wt Last Vital Signs Temp 98.1 F 08/27/20 07:18 Pulse 86 08/27/20 07:18 Resp 18 08/27/20 07:18 BP 147/84 08/27/20 07:18 Pulse Ox 89 L 08/27/20 07:18 08/26/20 08/27/20 08/27/20 22:59 06:59 14:59 Intake Total 360 / 1080 Output Total 200 / 200 450 / 650 Balance 160 / 880 -450 / 430 Physical Exam Const: OTHER: Alert, oriented x3, cooperative, speaking in more complete sentences, not as tachypneic but remains anxious HENMT: OTHER: Moist mucous membranes, slightly bluish tends to lips which is not changed from yesterday Eye: OTHER: Pupils equally round Neck/C-Spine: OTHER: Supple Resp: OTHER: Increased aeration with less wheezing noted, still with general pursed lip breathing pattern but no other accessory muscle use noted Cardio: OTHER: Regular rate and rhythm GI: OTHER: Abdomen soft, nontender, nondistended with positive bowel sounds Extremity: NARRATIVE EXTREMITY EXAM: No edema Neuro: OTHER: Speech clear, moves all extremities, mild tremor which seems to worsen as she gets more anxious Psych: OTHER: Normal affect Skin: OTHER: Skin dry, iatrogenic bruising, no acute rashes noted Data : 08/26/20 04:45 08/26/20 04:45 Other Labs: Laboratory Tests 08/27/20 04:36 ABG pH 7.40 ABG pCO2 68.5 H* ABG pO2 92.2 ABG HCO3 41.9 H A&P Assessment and plan (1) Acute hypercapnic respiratory failure: Acute on chronic hypercapnic and hypoxic respiratory failure. Was quite hypercapnic at admission and somnolent but overall improved Baseline ABG today as noted above. CO2 looks to be around 65 at baseline. Status: Acute (2) Acute exacerbation of chronic obstructive airways disease: On 4 L of oxygen at baseline along with albuterol and budesonide, Singulair Currently on Solu-Medrol and DuoNeb treatments Sputum culture ordered but is still pending collection Review of pulmonology note shows that patient has an FEV1 of 16% with gold class D COPD with chronic hypoxic and hypercapnic respiratory failure she is supposed to be on azithromycin every other day in addition to duo nebs and Pulmicort Status: Acute (3) ANASTASIYA (obstructive sleep apnea): On home BiPAP with settings /, with 4 L of oxygen with sleep Status: Acute Additional A&P Information Other diagnoses: Hypertension, on beta-blockade Anxiety, on as needed lorazepam at home which certainly could be a contributing factor to hypercapnia as well as citalopram and Abilify History of noncalcified pulmonary nodules, subcentimeter in 2018 - would benefit from follow-up CT of the chest Hyperglycemia with normal hemoglobin A1c, feel secondary to steroids Continue steroids and breathing treatments Continue to wean oxygen Increase activity as able Continue practicing exercises to help with anxiety when she has difficulty breathing History of noncalcified pulmonary nodules, subcentimeter in 2018 - would benefit from follow-up CT of the chest in the outpatient setting, versus inpatient if does not have continued improvement -reviewed this with the patient today On PPI Lovenox for DVT prophylaxis At discharge plan on decreasing dose of Ativan to half of 0.5 mg tablet as needed secondary to hypercapnia. Will reinforce breathing exercises and discussed with her possibility of referral to pulmonary rehabilitation. FEV1 is such I do not know that she will get any benefit but she could benefit I think from the classes associated with pulmonary rehab. Will need follow-up with Dr. Corona Currently plan for discharge tomorrow unless acute issues overnight Full code Attestations Medical Necessity Statement*: Requires ongoing inpatient stay will be continue to try to decrease her oxygen back to baseline, work on pulmonary toilet, breathing exercises and increasing activity. Plans are as noted above. 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
[2020-08-27 12:01] LABS: Glucose Point of Care 114 mg/dL (70-110)
--- NOTE | 2020-08-27 12:43 | PC.RESP ---
PULMONARY REHAB INFORMATION SENT TO PATIENT.
[2020-08-27 16:54] LABS: Glucose Point of Care 135 mg/dL (70-110)
[2020-08-27 20:21] LABS: Glucose Point of Care 162 mg/dL (70-110)
[2020-08-27] MEDS: LORazepam 0.5 mg Tablet PO (23:28)
[2020-08-27] MEDS: enoxaparin 40 mg/0.4 mL Syringe SUBCUT (23:28)
[2020-08-28] VITALS (10 sets, daily range): BP systolic 127–161; BP diastolic 73–90; PULSE 64–93; RESP 8–20; TEMP 36.4–36.6; O2SAT 90–97
[2020-08-28] MEDS: ipratropium-albuterol 3 mL Neb INHALATION ×2 (02:55→08:35)
[2020-08-28 05:14] LABS: ABG PH Result 7.35 (7.35-7.45); Alveolar-Arterial Oxygen Gradi 14.1 mmHg (5-10); Arterial Blood Gas Hematocrit 36.4 % (37-47); Base Excess ABG 13.3 mmol/L (-2.0-2.0); Blood Gas Allen Test Pos; Blood Gas Sample Site Radial, left; Blood Gas Sample Type Arterial; Carboxyhemoglobin 0.5 %THgb (0.4-20.1); HCO3 ABG 41.9 mmol/L (22-26); Ionized Calcium Level - ABG 1.2 mmol/L (1.1-1.4); Methemoglobin 0.8 % (0.4-1.5); Oxygen Device BIPAP; Oxygen Saturation ABG 95.2; PO2 ABG 83.5 mmHg (80.0-100.0); Potassium Level - ABG 4.4 mmol/L (3.5-5.0); Total Hemoglobin 11.9 g/dL (12-16)
[2020-08-28 06:10] LABS: ABG PCO2 75.5 mmHg (35-45)
[2020-08-28 06:11] LABS: BIPAP S/T
[2020-08-28 06:12] LABS: Blood Gas Tidal Volume 550
[2020-08-28 06:28] LABS: Glucose Point of Care 137 mg/dL (70-110)
--- NOTE | 2020-08-28 07:21 | PC.NURSE ---
I reported the high bp to the nurse 161/90
[2020-08-28] MEDS: metoprolol succinate ER (24 HR) 25 mg Tablet PO (08:56)
[2020-08-28] MEDS: ARIPiprazole 2 mg Tablet PO (08:56)
[2020-08-28] MEDS: citalopram 20 mg Tablet PO (08:56)
[2020-08-28] MEDS: montelukast sodium 10 mg Tablet PO (08:57)
[2020-08-28] MEDS: aspirin 81 mg Chew Tablet PO (08:57)
[2020-08-28 10:32] LABS: Glucose Point of Care 168 mg/dL (70-110)
--- NOTE | 2020-08-28 10:54 | PM.DCS ---
Discharge Providers Date of Admission: 08/25/20 13:17 Date of Discharge: August 28, 2020 Attending Provider at Admission: Bayron Gilbert MD Attending Provider at Discharge: Laverne Langford MD Primary Care Provider: Taniya Irving DO Diagnoses at Discharge Discharge Diagnosis (1) Acute hypercapnic respiratory failure: Status: Acute (2) Acute exacerbation of chronic obstructive airways disease: Status: Acute (3) COPD, severe: Status: Chronic (4) ANASTASIYA (obstructive sleep apnea): Status: Chronic (5) Anxiety and depression: Status: Chronic (6) Pulmonary nodule: Status: Chronic (7) Benign essential HTN: Status: Chronic Reason for Visit Reason for Visit: RESP DISTRESS Hospital Course Hospital Course Mrs. eReder is a 60-year-old with severe COPD with an FEV1 of 16% percent per Dr. Corona's notes. She presented with respiratory distress and significant hypercapnia. When she gets acutely short of breath she becomes very anxious. She often feels like she cannot breathe when she tries to wear the BiPAP mask. She had had a previous episode in which her device quit working and she repeatedly felt like she was smothering so she had not been as comfortable using the device. Reported some compliance. Settings at home were 25/12. Here she was managed with settings of 18/10 and did better and actually by the evening prior to admission was sleeping better through the night. Her breathing improved with both this and the addition of steroids and aggressive pulmonary toilet. She received Solu-Medrol while here. She will be discharged with steroid Dosepak. We will have to watch her as she comes off of the Dosepak as she may need a bit longer of a taper. She was initially requiring more oxygen at rest but at rest is back to her usual 4 L. With exertion she desaturates and I am recommending that she increase to 5 L with exertion. I strongly recommend that she consider pulmonary rehab. She would benefit greatly from the education provided at pulmonary rehab and I think it might help her address her anxiety around her respiratory issues some. She has an appointment with Dr. Corona on October but we will see if we can get her in sooner than that. Both myself and Dr. Mayberry reviewed with her the importance of wearing the BiPAP. A repeat ABG at what I suspect is her baseline showed pH ranging from 7.35-7.4 with PCO2 in the mid 60s to mid 70s. Patient remains anxious. We reviewed some breathing exercises to help her when she is having some distress. On the day of discharge she was closer back to her baseline respiratory status and felt stable for discharge home although is admittedly fearful of the next time that she has trouble breathing. She is to continue azithromycin prophylactically every other day. Metoprolol dosing was changed due to hypertension. Heart rate was stable on increased dose. Will need to monitor for increased bronchospasm with this but thus far have not seen evidence of such. I decreased Ativan dosing if she can tolerate it due to the degree of hypercapnia that she is presented with over the last month. She will be discharged home with plan close follow-up. I do believe she is at high risk for readmission and is under chronic care management in the outpatient setting. Patient has previously been identified as having several subcentimeter pulmonary nodules. It is been a couple of years since her last CT scan. I have ordered follow-up to be done within the next month. This was explained to the patient. Physical Exam Const: OTHER: Alert, oriented x3, cooperative, less acutely anxious appearing Resp: OTHER: Scattered wheezes, purse lips with mild cyanosis (unchanged), purse lip breathing with retractions, talking in full sentences, though pauses after a few Cardio: OTHER: Regular rate and rhythm GI: OTHER: Abdomen soft, nontender Extremity: NARRATIVE EXTREMITY EXAM: No edema Neuro: OTHER: Speech clear, moves all extremities, not as tremulous Discharge Data Data Completed and Pending: Completed Studies During Hospitalization Category Date Time Status XR chest 1V brian ble [id number] Stat Exams 08/24/20 16:38 Completed Pending at discharge Category Date Time Status Sputum Culture an d Gram Stain [facility] 08/28/20 07:15 Received Laboratory Last Values WBC 7.9 10^3/uL (4.0- 10.0) 08/26/20 04:45 RBC 3.88 10^6/uL (4.1 -5.3) L 08/26/20 04:45 Hgb 11.3 g/dL (11.5-1 5.3) L 08/26/20 04:45 Hct 38.5 % (37.0-47.0 ) 08/26/20 04:45 MCV 99.2 fL (81-99) H 08/26/20 04:45 MCH 29.1 pg (28.0-34. 0) 08/26/20 04:45 MCHC 29.4 g/dL (30.0-3 6.0) L 08/26/20 04:45 RDW 14.0 % (12.1-15.1 ) 08/26/20 04:45 Plt Count 181 10^3/cmm (130 -400) 08/26/20 04:45 MPV 11.6 fL (7.4-10.4 ) H 08/26/20 04:45 Neut % (Auto) 90.2 % 08/26/20 04:45 Lymph % (Auto) 7.8 % 08/26/20 04:45 [place] % (Auto) 1.4 % 08/26/20 04:45 Eos % (Auto) 0.0 % 08/26/20 04:45 Baso % (Auto) 0.1 % 08/26/20 04:45 Neut # (Auto) 7.13 10^3/uL (1.8 -7.7) 08/26/20 04:45 Lymph # (Auto) 0.6 10^3/uL (0.8- 4.8) L 08/26/20 04:45 [place] # (Auto) 0.1 10^3/uL (0.2- 0.9) L 08/26/20 04:45 Eos # (Auto) 0.0 10^3/uL (0.0- 0.8) 08/26/20 04:45 Baso # (Auto) 0.0 10^3/uL (0.0- 0.1) 08/26/20 04:45 Nucleated RBC % (a uto) 0 % 08/26/20 04:45 Nucleated RBCs # 0.0 /100WBC 08/26/20 04:45 PT 12.00 SECONDS (12 .1-14.9) L 08/24/20 16:54 INR 0.86 (0.8-1.2) 08/24/20 16:54 D-Dimer 0.67 ug/mIFEU (0- 0.59) H 08/24/20 16:54 Specimen Type Arterial 08/28/20 05:00 Sample Site Radial, left 08/28/20 05:00 ABG pH 7.35 (7.35-7.45) 08/28/20 05:00 ABG pCO2 75.5 mmHg (35-45) H* 08/28/20 05:00 ABG pO2 83.5 mmHg (80.0-1 00.0) 08/28/20 05:00 ABG HCO3 41.9 mmol/L (22-2 6) H 08/28/20 05:00 ABG O2 Saturation 95.2 08/28/20 05:00 ABG Base Excess 13.3 mmol/L (-2.0 -2.0) H 08/28/20 05:00 [place]or Test Pos 08/28/20 05:00 A-a O2 Gradient 14.1 mmHg (5-10) H 08/28/20 05:00 Hematocrit 36.4 % (37-47) L 08/28/20 05:00 Hgb O2 Saturation 94.0 % (95-100) L 08/28/20 05:00 Carboxyhemoglobin 0.5 %THgb (0.4-20 .1) 08/28/20 05:00 Methemoglobin 0.8 % (0.4-1.5) 08/28/20 05:00 Total Hemoglobin 11.9 g/dL (12-16) L 08/28/20 05:00 Sodium 141.0 mmol/L (131 -143) 08/28/20 05:00 Potassium 4.4 mmol/L (3.5-5 .0) 08/28/20 05:00 Glucose 148.0 mg/dL (70-1 15) H 08/28/20 05:00 Ionized Calcium 1.2 mmol/L (1.1-1 .4) 08/28/20 05:00 Respiration Rate 8.0 % 08/28/20 05:00 O2 Delivery Device Bipap 08/28/20 05:00 O2 Liters/Min 5.0 % 08/24/20 16:39 FiO2 40.0 % 08/28/20 05:00 Tidal Volume 550 08/28/20 05:00 Mode BiPAP S/t 08/28/20 05:00 Specimen Drawn By [employer] 08/28/20 05:00 Ship Surveyor ID Jlg 08/28/20 05:00 Sodium 139 mmol/L (136-1 45) 08/26/20 04:45 Potassium 4.8 mmol/L (3.5-5 .1) 08/26/20 04:45 Chloride 94 mmol/L (98-107 ) L 08/26/20 04:45 Carbon Dioxide 38 mmol/L (22-29) H 08/26/20 04:45 Anion Gap 11.8 (5-19) 08/26/20 04:45 BUN 17 mg/dL (8-23) 08/26/20 04:45 Creatinine 0.4 mg/dL (0.5-0. 9) L 08/26/20 04:45 GFR Calculation 162.3 mL/min (90- 130) H 08/26/20 04:45 Glucose 171 mg/dL (65-115 ) H 08/26/20 04:45 POC Glucose 168 mg/dL (70-110 ) 08/28/20 10:19 Estimat Average Gl ucose 111 08/26/20 04:45 Hemoglobin A1c 5.5 % (4.0-6.0) 08/26/20 04:45 Calculated Osmolal ity 294 mOsm/kg (285- 295) 08/26/20 04:45 Lactic Acid 0.8 mmol/L (0.5-2 .2) 08/24/20 16:54 Calcium 9.0 mg/dL (8.5-10 .5) 08/26/20 04:45 Magnesium 2.2 mg/dL (1.7-2. 3) 08/24/20 16:54 Total Bilirubin 0.6 mg/dL (0.15-1 .2) 08/24/20 16:54 AST 26 U/L (0-32) 08/24/20 16:54 ALT 37 U/L (0-33) H 08/24/20 16:54 Alkaline Phosphata se 86 IU/L (35-105) 08/24/20 16:54 Troponin T Baselin e 16 ng/L (0-10) H 08/24/20 16:54 Troponin T 120 Min fatimah 15.70 ng/L (0-10) H 08/24/20 19:57 Delta Troponin T -0.30 ABS# (0-10) L 08/24/20 19:57 Total Protein 6.0 g/dL (6.6-8.7 ) L 08/24/20 16:54 Albumin 4.1 g/dL (3.5-5.2 ) 08/24/20 16:54 Globulin 1.9 g/dL (1.3-4.6 ) 08/24/20 16:54 Ethyl Alcohol < 10 mg/dL (0-10) 08/24/20 16:54 SARS-CoV-2 Ag (Rap id) Negative (Negati ve) 08/24/20 17:17 Vitals: Last Vital Signs Temp 97.8 F 08/28/20 10:39 Pulse 87 08/28/20 10:39 Resp 16 08/28/20 10:39 BP 147/89 08/28/20 10:39 Pulse Ox 95 08/28/20 10:39 Discharge Plan Discharge Patient Disposition: Home Condition: Stable Prescriptions: New metoprolol succinate 50 mg tablet extended release 24 hr 50 mg PO DAILY Qty: 30 RF: 0 prednisone 10 mg tablets,dose pack See Rx Instructions .ROUTE .COMPLEX Qty: 21 RF: 0 Continued Adult 50 Plus Probiotic 4 billion cell capsule 4,000 mmu cells PO DAILY RF: 0 azithromycin 250 mg tablet See Rx Instructions .ROUTE .COMPLEX Qty: 60 RF: 3 naproxen 500 mg tablet 500 mg PO BID 5 Days Qty: 10 RF: 0 Centrum Silver Women 8 mg iron-400 mcg-300 mcg tablet 1 tab PO DAILY RF: 0 albuterol sulfate [ProAir HFA] 90 mcg/actuation HFA aerosol inhaler 2 puff INHALATION Q6H PRN (Reason: shortness of breath) Qty: 18 RF: 3 aripiprazole [Abilify] 2 mg tablet 2 mg PO DAILY Qty: 30 RF: 2 citalopram 20 mg tablet 20 mg PO BID Qty: 60 RF: 2 aspirin 325 mg Tablet See Rx Instructions .ROUTE .COMPLEX RF: 0 montelukast 10 mg tablet 10 mg PO DAILY RF: 0 ipratropium-albuterol 0.5 mg-3 mg(2.5 mg base)/3 mL solution for nebulization 3 ml INHALATION Q6H Qty: 360 RF: 1 budesonide 0.5 mg/2 mL suspension for nebulization See Rx Instructions .ROUTE .COMPLEX Qty: 360 RF: 3 Changed lorazepam 0.5 mg tablet 0.25 mg PO BID PRN (Reason: anxiety) Qty: 60 RF: 1 Discontinued prednisone 10 mg tablet See Rx Instructions .ROUTE .COMPLEX RF: 0 metoprolol succinate 25 mg tablet extended release 24 hr 25 mg PO BID Qty: 90 RF: 0 Discharge Orders: Discharge Order (Routine); Ordered 08/28/20 Ordered By: Laverne Langford Other Ambulatory Orders: CT chest w con* [id number] (Routine) Timeframe: 1 Month Facility: [facility] - Location: Radiology [facility] Ordered By: Laverne Langford DME: BIPAP (Order) Location: None Selected Ordered By: Laverne Langford Referrals: Pulmonary, Rehab [Other] (If unable to transport to attend, would benefit from education sessions remotely) Taniya Irving DO [Primary Care Provider] - 09/04/20 11:30 am Stacy Corona MD [Physician] - 2 weeks Discharge Diet: Advance as tolerated Discharge Activity: Increase activity as tolerated and Cpap/Bipap as instructed Patient Instructions: COPD, Metoprolol (By mouth), Prednisone (By mouth), COPD Stoplight Activity Restrictions/Additional Instructions: New order has been placed to adjust the settings on your BiPAP machine at home Use Bipap nightly and with sleep Home care will resume following and determine additional needs Continue oxygen 4L will at rest, increase to 5L with exertion When walking around or exerting yourself, take breaks to help you keep your breath Strongly recommend pulmonary rehabilitation, referral made CT chest for follow up of previously noted pulmonary nodules ordered Remember the breathing exercises we discussed to help you deal with the anxiety when you have trouble breathing Metoprolol dosing was increased while here from 25 to 50 mg daily. You can take 2 of your 25 mg tablets until they run out or alternatively switch to the 50 mg tablet that has been prescribed. Lorazepam dosing was decreased from one 0.5 mg tablet twice a day as needed to half of a 0.5 mg tablet twice a day as needed. The reason for this is because medications like this can contribute to an increased carbon dioxide level. Your carbon dioxide has been as high as 125 within the past month and this hospital stay as high as 97. It looks like your baseline carbon dioxide is between 65 and 75. Discharge Attestations Time Spent in Discharge Care*: greater than 30 min Specific Discharge Activities: educating patient, discussing with caser/social workers/dc planners, documenting/other paperwork and evaluating patient/reviewing data Status at Discharge: Cognitive status at discharge: cognitively intact, Behavioral status at discharge: cooperative, Functional status at discharge: other (Functional capacity limited by respiratory status) Overall status at discharge: patient is progressing back to baseline Quality Metrics Clinical Quality Measures During this hospital stay, did patient experience: None Coding Level of Care Code Acute Generator Repairer for Chg Fwd Diagnoses Acute hypercapnic respiratory failure J96.02 Acute exacerbation of chronic obstructive airways disease J44.1 COPD, severe J44.9 ANASTASIYA (obstructive sleep apnea) G47.33 Anxiety and depression F41.9; F32.9 Pulmonary nodule R91.1 Benign essential HTN I10
--- NOTE | 2020-08-28 11:31 | PC.SOCIAL ---
IMM Update Pg. 2 of IMM updated and reviewed with patient. Copy provided.
== END 2020-08-28 12:33 | disposition home or self-care (01) | DRG 189 ==
LOC: ER 16:54 → MEDSURG 20:32
PROVIDERS: Internal Medicine; Admitting Provider Internal Medicine; Emergency Provider Emergency Medicine; PCP Family Medicine; Visit Provider Hospitalist
DX: J96.21 Acute and chronic respiratory failure with hypoxia (principal); J44.1 Chronic obstructive pulmonary disease with (acute) exacerbation; M50.00 Cervical disc disorder with myelopathy, unspecified cervical region; J96.11 Chronic respiratory failure with hypoxia; Z99.81 Dependence on supplemental oxygen; Z87.891 Personal history of nicotine dependence; F41.8 Other specified anxiety disorders; I10 Essential (primary) hypertension; G56.03 Carpal tunnel syndrome, bilateral upper limbs; R91.8 Other nonspecific abnormal finding of lung field; G47.33 Obstructive sleep apnea (adult) (pediatric); M51.35 Other intervertebral disc degeneration, thoracolumbar region; M51.37 Other intervertebral disc degeneration, lumbosacral region; E55.9 Vitamin D deficiency, unspecified; N95.9 Unspecified menopausal and perimenopausal disorder; E16.0 Drug-induced hypoglycemia without coma; T38.0X5A Adverse effect of glucocorticoids and synthetic analogues, initial encounter; Z79.51 Long term (current) use of inhaled steroids
CPT/HCPCS: 12345; 36415; 36416; 36600; 71045; 80048; 80051; 80053; 80307; 82330; 82803; 82805; 82962; 83036; 83605; 83735; 84484; 85025; 85378; 85610; 87070; 87205; 87426; 93005; 94640; 94660; 96372; 96375; 99283; G0378; J1650; J1815; J2930; J3475; J7040; J7512; Q0144

== ENCOUNTER 2020-12-14 22:48 | Inpatient (IN) | payer MEDICARE, SELFPAY ==
[2020-12-14 22:55] VITALS: BP 149/86; PULSE 87; RESP 26; TEMP 36.6; O2SAT 80; BMI 33.0
--- NOTE | 2020-12-14 22:59 | XRR_ITS ---
PROCEDURE INFORMATION: Exam: XR Chest Exam date and time: 12/14/2020 11:31 PM Age: 60 years old Clinical indication: Dyspnea; Additional info: SOB TECHNIQUE: Imaging protocol: XR of the chest Views: 1 view. COMPARISON: CR XR chest 1V portable [id number] 08/24/2020 4:48 PM FINDINGS: Lungs: Evidence of the severe bullous emphysema mentioned in the report of the 02/04/[address] Partially calcified nodules in the upper lung stable since 05/13/2017 and additional scattered subcentimeter pulmonary nodules also mentioned in the prior report. Indication in the report of the 05/13/[address] of a partially calcified lesion in the left upper lobe measuring 2.5 x 1.4 cm having no change since 2016. Current length of the left upper lobe mass about 2.5 cm and continued probable small amount of calcification within it. Continued slight redistribution of blood flow to the lower lungs. Minimal stranding along the minor fissure still present. Continued prominent lung volumes. Still no consolidation. Pleural spaces: Still no apparent pneumothorax or pleural fluid. Heart/Mediastinum: Stable cardiomegaly. Vasculature: Continued mild aortic elongation. Bones/joints: No visible acute bony disease. XR/XR chest 1V portable [id number] IMPRESSION: Cardiomegaly, emphysema and an apparent granuloma in the left upper lobe mentioned in prior reports as having no change since 2016 again evident. No apparent acute finding.
--- NOTE | 2020-12-14 23:00 | ECG_ITS ---
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 Measurements Intervals [place] Rate: 78 P: 57 VA: 122 QRS: 57 QRSD: 84 T: 46 QT: 375 QTc: 429 Interpretive Statements SINUS RHYTHM Compared to ECG 08/24/2020 19:57:08 No significant changes Electronically Signed On 12-15-2020 22:39:26 CDT by Trevon Hermosillo M.D. [email or web address] Interactive Corporationfranklin county memorial [email or web address] clinic euclid hospital.[employer]/store/[id number]
[2020-12-14 23:02] VITALS: BP 139/58; PULSE 83; RESP 20; O2SAT 100
[2020-12-14 23:11] VITALS: PULSE 83; PULSE 84; RESP 25; O2SAT 93
[2020-12-14] MEDS: ipratropium-albuterol 3 mL Neb INHALATION (23:11)
--- NOTE | 2020-12-14 23:14 | PC.NURSE ---
EKG taken and given to ED provider
[2020-12-14 23:23] LABS: ABG PH Result 7.25 (7.35-7.45); Arterial Blood Gas Hematocrit 38.7 % (37-47); Base Excess ABG 14.9 mmol/L (-2.0-2.0); Blood Gas Allen Test Pos; Blood Gas Sample Site Brachial, right; Blood Gas Sample Type Arterial; Carboxyhemoglobin 1.1 %THgb (0.4-20.1); HCO3 ABG 46.7 mmol/L (22-26); HGB O2 Sat 93.9 % (95-100); Oxygen Device BIPAP; PO2 ABG 84.4 mmHg (80.0-100.0); Total Hemoglobin 12.6 g/dL (12-16)
[2020-12-14 23:26] LABS: Basophils % 0.6 %; Eosinophils # 0.1 10^3/uL (0.0-0.8); Eosinophils % 2.3 %; Hemoglobin 12.3 g/dL (11.5-15.3); Lymphocytes # 1.3 10^3/uL (0.8-4.8); Lymphocytes % 21.2 %; Mean Corpuscular HGB Conc 28.6 g/dL (30.0-36.0); Mean Corpuscular Hemoglobin 29.1 pg (28.0-34.0); Mean Corpuscular Volume 101.7 fL (81-99); Mean Platelet Volume 11.4 fL (7.4-10.4); Monocytes # 0.6 10^3/uL (0.2-0.9); Monocytes % 9.2 %; Neutrophils # 4.01 10^3/uL (1.8-7.7); Neutrophils % 64.8 %; Nucleated Red Blood Cells % 0 %; Platelet Count 161 10^3/cmm (130-400); Red Blood Count 4.23 10^6/uL (4.1-5.3); Red Cell Distribution Width 13.3 % (12.1-15.1); White Blood Count 6.2 10^3/uL (4.0-10.0)
[2020-12-14 23:45] LABS: Lactic Sepsis W/Reflex 0.5 mmol/L (0.5-2.2)
[2020-12-14 23:48] LABS: Troponin(5th) Baseline 13 ng/L (0-10)
[2020-12-14 23:57] LABS: Alanine Aminotransferase 14 U/L (0-33); Albumin Level 3.9 g/dL (3.5-5.2); Alkaline Phosphatase 72 IU/L (35-105); Aspartate Amino Transferase 17 U/L (0-32); Blood Urea Nitrogen 13 mg/dL (8-23); Calcium 8.8 mg/dL (8.5-10.5); Chloride 96 mmol/L (98-107); Globulin 2.2 g/dL (1.3-4.6); Glomerular Filtration Rate 125.4 mL/min (90-130); Glucose 116 mg/dL (65-115); NT Pro B Type Natriuretic Pept 418 pg/mL (0-125); Osmolality Calculated 295 mOsm/kg (285-295); Sodium 142 mmol/L (136-145); Total Bilirubin 0.5 mg/dL (0.15-1.2); Total Protein 6.1 g/dL (6.6-8.7)
[2020-12-14 23:59] LABS: Anion Gap 5.7 (5-19); Potassium 4.7 mmol/L (3.5-5.1)
[2020-12-15] VITALS (171 sets, daily range): BP systolic 78–129; BP diastolic 55–92; PULSE 69–101; RESP 12–29; TEMP 36.6–36.9; O2SAT 86–100
[2020-12-15] LABS: Carbon Dioxide 45 mmol/L (22-29)
[2020-12-15 00:40] LABS: ABG PH Result 7.27 (7.35-7.45); Arterial Blood Gas Hematocrit 39.4 % (37-47); Base Excess ABG 15.3 mmol/L (-2.0-2.0); Blood Gas Allen Test Pos; Blood Gas Sample Site Brachial, right; Blood Gas Sample Type Arterial; HCO3 ABG 46.9 mmol/L (22-26); Oxygen Device BIPAP; PO2 ABG 74.8 mmHg (80.0-100.0)
--- NOTE | 2020-12-15 01:00 | ECG_ITS ---
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 Measurements Intervals [place] Rate: 83 P: 72 ME: 132 QRS: 43 QRSD: 78 T: 38 QT: 382 QTc: 449 Interpretive Statements SINUS RHYTHM Poor R wave progression Compared to ECG 12/14/2020 23:47:09 No significant changes Electronically Signed On 12-15-2020 22:46:15 CDT by Trevon Hermosillo M.D. [email or web address])bl[facility] valley health systemResident Research/store/OM/[id number]
[2020-12-15] MEDS: fentaNYL 50 mcg/mL INJ 2mL 100 MCG IVP (01:28)
[2020-12-15] MEDS: succinylcholine 20 mg/mL SDV 10mL 150 MG IVP (01:31)
[2020-12-15] MEDS: vecuronium 10 mg SDV IVP (01:43)
[2020-12-15] MEDS: propofol 1,000 MG/100 ML INJ 5.6 MG IV ×2 (01:48→09:23)
[2020-12-15] MEDS: midazolam 1 mg/mL INJ 2 mL 4 MG IVP (01:51)
--- NOTE | 2020-12-15 01:56 | CTR_ITS ---
PROCEDURE INFORMATION: Exam: CT Angiography Chest With Contrast Exam date and time: 12/15/2020 5:14 AM Age: 60 years old Clinical indication: Dyspnea; Additional info: Pe TECHNIQUE: Imaging protocol: Computed tomographic angiography of the chest with contrast. 3D rendering (Not supervised by radiologist): MIP and/or 3D reconstructed images were created by the technologist. Radiation optimization: All CT scans at this facility use at least one of these dose optimization techniques: automated exposure control; mA and/or kV adjustment per patient size (includes targeted exams where dose is matched to clinical indication); or iterative reconstruction. Contrast material: OMNI 350; Contrast volume: 95 ml; Contrast route: INTRAVENOUS (IV); COMPARISON: CTA Chest-Pulmonary Emb [id number] 05/23/2016 2:00 PM RADIATION DOSE METRICS: Total DLP (mGy-cm): 625.15 FINDINGS: Tubes, catheters and devices: Interval appearance of the ET tube with its tip 3.1 cm above the [place]. Interval appearance of the enteric tube with its tip at the junction of the gastric fundus and body. Pulmonary arteries: Still no central or segmental pulmonary embolus. Still no suggestion of a subsegmental embolus. Aorta: Continued atherosclerosis. Still no aortic aneurysm or dissection. Lungs: Bullous emphysema in the upper lungs and numerous centrilobular and paraseptal blebs in the lower lungs again evident. Continued hyperinflation of the lungs. Interval disappearance of the fluid within several right upper lobe bullae as well as the patchy soft tissue density elsewhere in the right upper lobe. Continued slight atelectasis in the posterior right lung base. Numerous calcified granulomata again evident, including the oblong partially-calcified 2.4 cm granuloma in the left upper lobe scar and the 15 mm mostly calcified granuloma in the right upper lobe. Stable 4 mm noncalcified granuloma in the anterior left lung on image 34 of series 3 and 5-6 mm noncalcified granuloma in the left lower lung on image 42. No interval suspicious lung mass. No consolidation. Pleural spaces: Still no pneumothorax or pleural fluid. Heart: No cardiomegaly or pericardial effusion. Lymph nodes: No interval enlarged nodes. Adrenal glands: No apparent significant change in the approximately 2 cm left adrenal mass indicating an adenoma. Still no right adrenal mass. Bones/joints: Old compression fractures again evident. Continued degeneration of several discs. Soft tissues: Small benign calcification in the right breast again evident. CT/CT angio chest PE protcl [id number] IMPRESSION: 1. Still no apparent pulmonary embolus. 2. Interval appearance of the endotracheal and enteric tubes having good positions. 3. Interval disappearance of the fluid and airspace disease from the right upper lobe. Marked emphysema with bullous disease in the upper lungs again evident. Numerous calcified granulomata still present, including the 2.4 cm granuloma in the left upper lobe scar and the 15 mm granuloma in the right upper lobe. Stable subcentimeter noncalcified granulomas in the left lung. 4. No apparent significant change in the 2 cm left adrenal mass indicating an adenoma. Other findings detailed above. Radiation Dose CTDIVOL = (mGy): DLP = 625.15 (mGy-cm)
--- NOTE | 2020-12-15 03:03 | P.HP_ITS ---
Providers/Chief Complaint Primary Care Provider: Taniya Irving DO Chief Complaint: RESP. 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 Patient presents [facility] for increasing shortness of breath, no fevers, no known exposure to COVID-19, no bilateral extremity swelling, no chest pain, nonproductive cough. In the emergency room she she was found to be in hypercapnic respiratory failure PCO2 107, was placed on BiPAP, however after an hour her PCO2 improved to 102, she continued to have increased work of breathing, increased confusion, decision was made to intubate her. Currently patient is intubated in the emergency room, chest x-ray no focal pneumonia, bicarb 45, baseline troponin XIII, BNP 418 Review of Systems General: Reports: ROS unobtainable due to endotracheal tube Medications/Allergies Home Medications Medication Instructions Recorded Confirmed Last Taken Type multivit with 1 tab PO DAILY 09/28/19 11/06/20 Unknown History xymksvrq-dssh-HZ-lutein 8 mg iron-400 mcg-300 mcg tablet budesonide 0.5 mg/2 mL suspension 0.5 mg INHALATION BID #120 ml 09/24/20 11/06/20 Unknown Rx for nebulization aripiprazole 2 mg tablet 2 mg PO DAILY #30 tab 10/16/20 11/06/20 Unknown Rx aspirin 81 mg tablet,delayed 81 mg PO DAILY 10/23/20 11/06/20 Unknown History release prednisone 5 mg tablet 5 mg PO DAILY 30 Days #30 tab 10/23/20 11/06/20 Unknown Rx citalopram 20 mg tablet 20 mg PO BID #60 tab 11/11/20 Unknown Rx albuterol sulfate 90 mcg/actuation 2 puff INHALATION Q6H PRN #18 gm 11/14/20 Unknown Rx aerosol inhaler lorazepam 0.5 mg tablet 0.25 mg PO BID PRN #60 tab 11/14/20 Unknown Rx metoprolol succinate 50 mg 50 mg PO DAILY #30 tab 11/14/20 Unknown Rx tablet,extended release 24 hr azithromycin 250 mg tablet See Rx Instructions .ROUTE 11/25/20 Unknown Rx .COMPLEX #90 tab ipratropium 0.5 mg-albuterol 3 mg 3 ml INHALATION Q6H #360 ml 12/06/20 Unknown Rx (2.5 mg base)/3 mL nebulization soln Allergies Allergy/AdvReac Type Severity Reaction Status Date / Time codeine Allergy NAUSEA & Verified 12/14/20 23:01 VOMITING morphine Allergy ADR-Halluci Verified 12/14/20 23:01 nating PFSH Acute PFSH: Medical History (Updated 12/15/20 @ 03:07 by Nasir Hoffman MD) Anxiety and depression Benign essential HTN Bilateral carpal tunnel syndrome Bilateral lower extremity edema Cervical myelopathy COPD, severe Degenerative disc disease, cervical Lung mass ANASTASIYA (obstructive sleep apnea) Postmenopausal Unspecified thoracic, thoracolumbar and lumbosacral intervertebral disc disorder Vitamin D deficiency Surgical History S/P hysterectomy S/P tonsillectomy Family History Other CHF (congestive heart failure) Murmur, cardiac Social History Smoking and tobacco status: former smoker Quit status (tobacco): has quit using tobacco Year quit tobacco: 2017 - 1PPD x 40 Years Second hand smoke exposure: Yes Alcohol intake: never Lives independently: Yes Household members: spouse Marital status: Current occupational status: disabled History of recent travel: No Current gender identity: Female Special andres needs: No Vitals/I&O/Wt Last Vital Signs Temp 97.8 F 12/14/20 22:55 Pulse 79 12/15/20 01:58 Resp 14 12/15/20 01:58 BP 86/60 12/15/20 01:58 Pulse Ox 98 12/15/20 01:58 Weight last 48 hrs Weight 92.986 kg Physical Exam Const: COMMON NORMALS: no acute distress OTHER: Intubated, sedated HENMT: COMMON NORMALS: normocephalic HEAD & SCALP: normocephalic Eye: COMMON NORMALS: Equal, round and reactive pupils present and EOMs intact bilaterally GENERAL EYE: appearance normal, both eyes and all related structures PUPIL: Yes Equal, round and reactive pupils present Neck/C-Spine: COMMON NORMALS: full ROM, no lymphadenopathy, no JVD and Thyroid normal THYROID: Thyroid normal Lymph: LYMPHATIC: no lymphadenopathy noted Resp: COMMON NORMALS: normal respiratory effort, No retractions, No use of accessory muscles and clear to auscultation bilaterally AUSCULTATION: diminished lung sounds diffuse Cardio: COMMON NORMALS: no JVD, regular rate, regular rhythm, S1 normal heart sound present, S2 normal heart sound present, No gallops present (Cardio), No clicks present (Cardio) and No murmurs present (Cardio) RATE: regular rate RHYTHM: regular rhythm HEART SOUNDS: S1 normal heart sound present and S2 normal heart sound present GI: COMMON NORMALS: Normal to inspection, nondistended, normoactive bowel sounds present, Soft to palpation, non-tender and No hepatosplenomegaly present PALPATION: Yes Soft to palpation and Yes No hepatosplenomegaly present Extremity: COMMON NORMALS: normal to inspection, full ROM and no pedal edema Urinary Catheter Management^: Greenberg: Cath Placed During This Visit: yes Urinary Catheter Date of Insertion: 12/15/20 Urinary Catheter Time of Insertion: 01:50 Data : 12/14/20 23:09 12/14/20 23:09 Micro: Microbiology 12/14/20 23:15 Blood Culture - Preliminary Blood SPECIMEN COLLECTED 12/14/20 23:09 Blood Culture - Preliminary Blood SPECIMEN COLLECTED A&P Assessment and plan (1) Acute and chronic respiratory failure with hypercapnia: -Secondary to end-stage, severe COPD FEV1 16%, currently being referred for lung transplant, looks like she has had a trach in the past, on home vent, chronic is a thorough Plan: -Admit to ICU -Ventilator protocol, sedation vacation, minimize PEEP, minimize FiO2 -Propofol, fentanyl for sedation -Solu-Medrol 60 every 6 hours -DuoNeb treatments every 4 hours -Rocephin and azithromycin -Sputum cultures, blood cultures -We will order CT angiogram of the chest -Does not look fluid overloaded, BNP within normal limits, will order cardiac echo -Pepcid for GI prophylaxis -Full code -Lovenox for DVT prophylaxis Status: Acute Attestations Medical Necessity Statement*: Patient requires hospitalization, inpatient, gre ater than 2 midnights, for acute on chronic hypercapnic respiratory failure secondary to end-stage COPD Coding Level of Care Code Acute Bore Mill Operator for Chg Fwd Diagnoses Acute and chronic respiratory failure with hypercapnia J96.22
--- NOTE | 2020-12-15 03:22 | XRR_ITS ---
PROCEDURE INFORMATION: Exam: XR Chest Exam date and time: 12/15/2020 1:55 AM Age: 60 years old Clinical indication: Device placement; Ett placement (vent status); Additional info: Post intubation TECHNIQUE: Imaging protocol: XR of the chest Views: 1 view. COMPARISON: CR XR chest 1V portable [id number] 12/14/2020 11:29 PM FINDINGS: Tubes, catheters and devices: Anna not visualized. Tip of the new endotracheal tube at the level of the top of the aortic arch suggesting adequate positioning. Interval appearance of the enteric tube extending below the diaphragm with its tip not included. Lungs: Continued evidence of the previously-seen bullous emphysema. No change in the left upper lobe nodule previously seen to represent a granuloma. Still no consolidation. Pleural spaces: Still no apparent pneumothorax or pleural fluid. Heart/Mediastinum: Interval slight decrease in the cardiomegaly. Bones/joints: No obvious change. XR/XR chest 1V portable [id number] IMPRESSION: 1. Interval appearance of the endotracheal and enteric tubes with positioning as detailed above. 2. No apparent change in the lung disease. Interval slight decrease in the cardiomegaly.
--- NOTE | 2020-12-15 05:04 | USCV_ITS ---
VarinderLoretta Age: 60 Gender: F : 1960 Exam Date: 12/15/2020 06:20 Ordering Phys: Nasir Hoffman MD Technologist: Sydnee Melara Exam Location: [facility] [place] Indication: SOB BP: 105 / 87 HR: 111 Rhythm: Sinus Technical Quality: Suboptimal MEASUREMENTS (Male / Female) Normal Values 2D ECHO LV Diastolic Diameter PLAX 3.9 cm 4.2 - 5.9 / 3.9 - 5.3 cm LV Systolic Diameter PLAX 2.8 cm LV Chamber Size 3.4 cm IVS Diastolic Thickness 1.3 cm 0.6 - 1.0 / 0.6 - 0.9 cm IVS Systolic Thickness 1.4 cm LVPW Diastolic Thickness 1.2 cm 0.6 - 1.0 / 0.6 - 0.9 cm LVPW Systolic Thickness 1.3 cm RV Chamber Size 2.5 cm LVOT Diameter 1.9 cm LV Ejection Fraction 2D Teich 56.8 % LV Ejection Fraction MOD 2C 60.8 % LV Ejection Fraction 2C AL 58.1 % LA Diameter 3.0 cm LA Width 2.9 cm LA Height 4.6 cm RA Width 2.4 cm RA Height 4.7 cm Aorta at Sinotubular Diameter 2.4 cm M-MODE LV Diastolic Diameter MM 4.1 cm 4.2 - 5.9 / 3.9 - 5.3 cm LV Systolic Diameter MM 3.1 cm LV Ejection Fraction MM Teich 49.3 % IVS Diastolic Thickness MM 1.1 cm 0.6 - 1.0 / 0.6 - 0.9 cm IVS Systolic Thickness MM 1.1 cm LVPW Diastolic Thickness MM 1.2 cm 0.6 - 1.0 / 0.6 - 0.9 cm LVPW Systolic Thickness MM 1.4 cm RV Diastolic Diameter MM 1.6 cm Aortic Annulus Diameter 3.0 cm LA Ao Ratio MM 1.4 MV E Point Septal Separation 0.6 cm DOPPLER AV Peak Velocity 152.0 cm/s LVOT Peak Velocity 99.0 cm/s AV Area Cont Eq vti 1.8 cm squared AV Area Cont Eq pk 1.8 cm squared MV Area PHT 2.2 cm squared Mitral E to A Ratio 0.8 MV E' Velocity 42.5 cm/s Mitral E to MV E' Ratio 7.9 Mitral E to LV E' Lateral Ratio 6.8 Mitral E to LV E' Septal Ratio 9.5 TV Peak E Velocity 48.0 cm/s Right Atrial Pressure 15.0 mmHg PV Peak Velocity 67.0 cm/s RV Acceleration Time 0.1 s RV Ejection Time 0.3 s RV AcT/ET 0.3 FINDINGS Left Ventricle Normal left ventricular size with slightly diminished ejection fraction of 54 %. Relative hypokinesia of the septum and anteroseptal segments.Grade I/IV diastolic dysfunction (abnormal relaxation filling pattern), normal to mildly elevated filling pressures. Right Ventricle Normal right ventricular size and systolic function. Right Atrium The right atrium is normal in size. Left Atrium The left atrium is normal in size. Mitral Valve No gross abnormalities noted . Aortic Valve No gross abnormalities noted . Tricuspid Valve No gross abnormalities noted . Pulmonic Valve Pulmonic valve not well visualized. Pericardium Normal pericardium without effusion. Aorta Normal ascending aorta dimension. CONCLUSIONS Normal left ventricular size with slightly diminished ejection fraction of 54 %. Relative hypokinesia of the septum and anteroseptal segments.Grade I/IV diastolic dysfunction (abnormal relaxation filling pattern), normal to mildly elevated filling pressures. No significant stenotic or regurgitant lesions. No intracardiac masses. There is no pericardial effusion. Compared to the previous study from 10/10/2019, the wall motion normalities appear to be new Dr Trevon Hermosillo MD FAC (Electronically Signed) Final Date: 15 December 2020 13:47 S
[2020-12-15] MEDS: iohexol 350 mg/mL 100 mL Btl IV (05:15)
--- NOTE | 2020-12-15 05:49 | PC.NURSE ---
Pt arrived to ICU from ED at 0530. Intubated size 8 tube, 26 at the lip. Greenberg in place, continue care.
[2020-12-15 05:54] LABS: Troponin 5 2HR 10.89 ng/L (0-10)
[2020-12-15] MEDS: famotidine 20 mg/2 mL INJ IVP ×2 (05:55→16:31)
[2020-12-15] MEDS: azithromycin 500 MG in sodium chloride 0.9% 250 ML 250 MG IV (05:57)
[2020-12-15] MEDS: enoxaparin 40 mg/0.4 mL Syringe SUBCUT (05:57)
[2020-12-15] MEDS: cefTRIAXone 1,000 MG in sodium chloride 0.9% (plus) 50 ML 100 MG IV (05:57)
--- NOTE | 2020-12-15 06:00 | ECG_ITS ---
[facility] ED Test Date: 2020-12-14 Pat Name: Loretta Reeder Department: Room: [facility] Gender: Female Button Reclaimer: : 1960 Requested By: Yinka Mackey Order Number: [id number] Adele MD: Ngoc Brown M.D. Measurements Intervals [place] Rate: 81 P: 66 NH: 140 QRS: 62 QRSD: 78 T: 45 QT: 392 QTc: 455 Interpretive Statements SINUS RHYTHM Compared to ECG 08/24/2020 19:57:08 No significant changes Electronically Signed On 12-18-2020 8:02:52 CDT by Ngoc Brown M.D. [id number]
[2020-12-15 06:27] LABS: ABG PH Result 7.29 (7.35-7.45); Alveolar-Arterial Oxygen Gradi 35.6 mmHg (5-10); Base Excess ABG 13.4 mmol/L (-2.0-2.0); Blood Gas Allen Test Pos; Blood Gas Sample Site Brachial, right; Blood Gas Sample Type Arterial; Blood Gas Tidal Volume 0.45; HCO3 ABG 43.7 mmol/L (22-26); HGB O2 Sat 96.4 % (95-100); Ionized Calcium Level - ABG 1.2 mmol/L (1.1-1.4); Methemoglobin 0.9 % (0.4-1.5); Oxygen Device VENT; Oxygen Saturation ABG 99.2; Potassium Level - ABG 4.7 mmol/L (3.5-5.0); Total Hemoglobin 12.1 g/dL (12-16)
[2020-12-15 06:28] LABS: ABG PCO2 91.3 mmHg (35-45)
[2020-12-15 06:36] LABS: Lactic Sepsis W/Reflex 1.3 mmol/L (0.5-2.2)
[2020-12-15 06:38] LABS: Troponin 5 6HR 10.41 ng/L (0-10)
[2020-12-15 06:55] LABS: Troponin 5 6HR Delta -2.59 ng/L (0-12)
[2020-12-15 07:06] LABS: Chol HDL Ratio 2.42 mg/dL (0.0-4.40); Cholesterol 167 mg/dL (0-200); HDL Cholesterol 69 mg/dL (60-100); LDL Cholesterol Calculated 35 mg/dL (50-129); LDL HDL Ratio 0.51 RATIO (0.00-3.22); Triglycerides 316 mg/dL (0-150)
[2020-12-15 07:13] LABS: Procalcitonin 0.03 ng/mL (0-0.5); Thyroid Stimulating Hormone 0.98 uIU/mL (0.27-4.20)
--- NOTE | 2020-12-15 08:14 | ED_ITS ---
HPI - SOB/Dyspnea General: Chief Complaint: Shortness of Breath/Dyspnea Stated Complaint: RESP. DISTRESS Time Seen by Provider: 12/14/20 22:54 History of Present Illness: HPI Narrative: 60-year-old female presents with significant shortness of breath. This developed rather rapidly. She had been coughing, producing some white sputum. She called EMS when she developed significant trouble breathing this evening. She had been given Solu-Medrol DuoNeb in the ambulance with some improvement. Despite this, saturations remain low on nasal cannula oxygen. She states she is having trouble thinking and talking. MD elicited complaint: shortness of breath and cough Pertinent past history: COPD Onset (ago): hour(s) Timing: constant and progressively worsening Severity: severe Exacerbating factors: lying flat and exertion Relieving factors: oxygen and bronchodilators Known history of: COPD Associated symptoms: Reports chest congestion, chest pain and cough; Deny fever(s) or vomiting Treatment prior to arrival: oxygen, bronchodilator and other (Solu-Medrol) Review of Systems Const: Denies: fever(s) Card: Reports: chest pain Resp: Reports: chest congestion GI: Denies: vomiting [facility] ED PFSH: Medical History (Updated 12/15/20 @ 08:22 by Yinka Davenport DO) Anxiety and depression Benign essential HTN Bilateral carpal tunnel syndrome Bilateral lower extremity edema Cervical myelopathy COPD, severe Degenerative disc disease, cervical Lung mass ANASTASIYA (obstructive sleep apnea) Postmenopausal Unspecified thoracic, thoracolumbar and lumbosacral intervertebral disc disorder Vitamin D deficiency Surgical History S/P hysterectomy S/P tonsillectomy Family History Other CHF (congestive heart failure) Murmur, cardiac Social History Smoking and tobacco status: former smoker Quit status (tobacco): has quit using tobacco Year quit tobacco: 2017 - 1PPD x 40 Years Second hand smoke exposure: Yes Alcohol intake: never Lives independently: Yes Household members: spouse Marital status: Current occupational status: disabled History of recent travel: No Current gender identity: Female Special andres needs: No Physical Exam Const: GENERAL APPEARANCE: ill appearing and frail appearing ORIENTATION/CONSCIOUSNESS: Yes oriented to person and Yes oriented to place; not oriented to time HENMT: COMMON NORMALS: normocephalic, external ears normal and Normal external nose present HEAD & SCALP: normocephalic FACE & SINUS: normal facial exam NOSE: Normal external nose present and No nasal discharge present EXTERNAL EAR: Yes external ears normal Eye: COMMON NORMALS: Equal, round and reactive pupils present, EOMs intact bilaterally and conjunctivae normal EYELID: eyelids normal CONJUNCTIVA: Yes conjunctivae normal PUPIL: Yes Equal, round and reactive pupils present Neck/C-Spine: GENERAL: No tracheal deviation Chest: COMMONS NORMALS: normal inspection of the chest CHEST: No tenderness Resp: EFFORT & INSPECTION: Yes tachypneic, Yes respiratory distress, Yes uses accessory muscles and Yes tracheal deviation AUSCULTATION: rhonchi, wheezes and diminished lung sounds Cardio: COMMON NORMALS: regular rhythm RHYTHM: regular rhythm HEART SOUNDS: no murmurs PERIPHERAL PULSES: radial pulses present GI: INSPECTION: No abdominal distension AUSCULTATION: No Hyperactive bowel sounds present and No Hypoactive bowel sounds present PALPATION: No Guarding due to palpation present (GI) and No Rigid due to palpation PERCUSSION: no dullness to percussion and no tympanic to percussion Neuro: SENSORIUM/ORIENTATION: Yes oriented to person, Yes oriented to place and No oriented to time Skin: COMMON NORMALS: no rashes or lesions noted GENERAL SKIN EXAM: no rashes or lesions noted Course Vital Signs: Vital signs: Vital Signs Temperature 97.9 F 12/15/20 05:40 Pulse Rate 81 12/15/20 06:00 Respiratory Rate 29 H 12/15/20 05:40 Blood Pressure 105/87 12/15/20 05:40 Pulse Oximetry 100 12/15/20 05:40 MDM - SOB/Dyspnea MDM Narrative: Medical decision making narrative: 60-year-old female presents with respiratory distress. She had been given steroids and bronchodilators in route. She was still quite hypoxic. She was, however, awake and talking and only mildly confused. We placed BiPAP on her. Initial blood gas showed a pH of 7.25 with a PCO2 above 100. We elected to give her a trial on BiPAP. At the end of an hour, her PCO2 had not changed significantly, selective intubation was performed. This was done without complication. There is no leukocytosis. Potassium is 4.7. Chest x-ray is negative. Patient will go to the ICU for respiratory failure Lab Data: Labs: Lab Results 12/14/20 12/14/20 12/14/20 Range/Units 23:09 23:09 23:09 WBC 6.2 (4.0-10.0) 10^3/ uL RBC 4.23 (4.1-5.3) 10^6/u L Hgb 12.3 (11.5-15.3) g/dL Hct 43.0 (37.0-47.0) % MCV 101.7 H (81-99) fL MCH 29.1 (28.0-34.0) pg MCHC 28.6 L (30.0-36.0) g/dL RDW 13.3 (12.1-15.1) % Plt Count 161 (130-400) 10^3/c mm MPV 11.4 H (7.4-10.4) fL Neut % (Auto) 64.8 % Lymph % (Auto) 21.2 % Coleman % (Auto) 9.2 % Eos % (Auto) 2.3 % Baso % (Auto) 0.6 % Neut # (Auto) 4.01 (1.8-7.7) 10^3/u L Lymph # (Auto) 1.3 (0.8-4.8) 10^3/u L Coleman # (Auto) 0.6 (0.2-0.9) 10^3/u L Eos # (Auto) 0.1 (0.0-0.8) 10^3/u L Baso # (Auto) 0.0 (0.0-0.1) 10^3/u L Nucleated RBC % (a uto) 0 % Nucleated RBCs # 0.0 /100WBC Specimen Type Sample Site ABG pH (7.35-7.45) ABG pCO2 (35-45) mmHg ABG pO2 (80.0-100.0) mmH g ABG HCO3 (22-26) mmol/L ABG Base Excess (-2.0-2.0) mmol/ L Tylor Test Hematocrit (37-47) % Hgb O2 Saturation (95-100) % Carboxyhemoglobin (0.4-20.1) %THgb Methemoglobin (0.4-1.5) % Total Hemoglobin (12-16) g/dL O2 Delivery Device FiO2 % Dye Line Operator ID Sodium 142 (136-145) mmol/L Potassium 4.7 (3.5-5.1) mmol/L Chloride 96 L (98-107) mmol/L Carbon Dioxide 45 H* (22-29) mmol/L Anion Gap 5.7 (5-19) BUN 13 (8-23) mg/dL Creatinine 0.5 (0.5-0.9) mg/dL GFR Calculation 125.4 (90-130) mL/min Glucose 116 H (65-115) mg/dL Calculated Osmolal ity 295 (285-295) mOsm/k g Lactic Acid 0.5 (0.5-2.2) mmol/L Calcium 8.8 (8.5-10.5) mg/dL Total Bilirubin 0.5 (0.15-1.2) mg/dL AST 17 (0-32) U/L ALT 14 (0-33) U/L Alkaline Phosphata se 72 (35-105) IU/L Troponin T Baselin e (0-10) ng/L Troponin T [address] [facility] (0-10) ng/L Delta Troponin T NT-Pro-B Natriuret Pep 418 H (0-125) pg/mL Total Protein 6.1 L (6.6-8.7) g/dL Albumin 3.9 (3.5-5.2) g/dL Globulin 2.2 (1.3-4.6) g/dL 12/14/20 12/14/20 12/15/20 Range/Units 23:09 23:15 00:30 WBC (4.0-10.0) 10^3/ uL RBC (4.1-5.3) 10^6/u L Hgb (11.5-15.3) g/dL Hct (37.0-47.0) % MCV (81-99) fL MCH (28.0-34.0) pg MCHC (30.0-36.0) g/dL RDW (12.1-15.1) % Plt Count (130-400) 10^3/c mm MPV (7.4-10.4) fL Neut % (Auto) % Lymph % (Auto) % Coleman % (Auto) % Eos % (Auto) % Baso % (Auto) % Neut # (Auto) (1.8-7.7) 10^3/u L Lymph # (Auto) (0.8-4.8) 10^3/u L Coleman # (Auto) (0.2-0.9) 10^3/u L Eos # (Auto) (0.0-0.8) 10^3/u L Baso # (Auto) (0.0-0.1) 10^3/u L Nucleated RBC % (a uto) % Nucleated RBCs # /100WBC Specimen Type Arterial Arterial Sample Site Brachial, right Brachial, right ABG pH 7.25 L 7.27 L (7.35-7.45) ABG pCO2 107.0 H* 102.0 H* (35-45) mmHg ABG pO2 84.4 74.8 L (80.0-100.0) mmH g ABG HCO3 46.7 H 46.9 H (22-26) mmol/L ABG Base Excess 14.9 H 15.3 H (-2.0-2.0) mmol/ L Tylor Test Pos Pos Hematocrit 38.7 39.4 (37-47) % Hgb O2 Saturation 93.9 L (95-100) % Carboxyhemoglobin 1.1 (0.4-20.1) %THgb Methemoglobin 1.0 (0.4-1.5) % Total Hemoglobin 12.6 (12-16) g/dL O2 Delivery Device Bipap Bipap FiO2 50.0 50.0 % Dye Line Operator ID [id number] Sodium (136-145) mmol/L Potassium (3.5-5.1) mmol/L Chloride (98-107) mmol/L Carbon Dioxide (22-29) mmol/L Anion Gap (5-19) BUN (8-23) mg/dL Creatinine (0.5-0.9) mg/dL GFR Calculation (90-130) mL/min Glucose (65-115) mg/dL Calculated Osmolal ity (285-295) mOsm/k g Lactic Acid (0.5-2.2) mmol/L Calcium (8.5-10.5) mg/dL Total Bilirubin (0.15-1.2) mg/dL AST (0-32) U/L ALT (0-33) U/L Alkaline Phosphata se (35-105) IU/L Troponin T Baselin e 13 H (0-10) ng/L Troponin T [address] [facility] (0-10) ng/L Delta Troponin T NT-Pro-B Natriuret Pep (0-125) pg/mL Total Protein (6.6-8.7) g/dL Albumin (3.5-5.2) g/dL Globulin (1.3-4.6) g/dL 12/15/20 Range/Units 03:37 WBC (4.0-10.0) 10^3/ uL RBC (4.1-5.3) 10^6/u L Hgb (11.5-15.3) g/dL Hct (37.0-47.0) % MCV (81-99) fL MCH (28.0-34.0) pg MCHC (30.0-36.0) g/dL RDW (12.1-15.1) % Plt Count (130-400) 10^3/c mm MPV (7.4-10.4) fL Neut % (Auto) % Lymph % (Auto) % Coleman % (Auto) % Eos % (Auto) % Baso % (Auto) % Neut # (Auto) (1.8-7.7) 10^3/u L Lymph # (Auto) (0.8-4.8) 10^3/u L Coleman # (Auto) (0.2-0.9) 10^3/u L Eos # (Auto) (0.0-0.8) 10^3/u L Baso # (Auto) (0.0-0.1) 10^3/u L Nucleated RBC % (a uto) % Nucleated RBCs # /100WBC Specimen Type Sample Site ABG pH (7.35-7.45) ABG pCO2 (35-45) mmHg ABG pO2 (80.0-100.0) mmH g ABG HCO3 (22-26) mmol/L ABG Base Excess (-2.0-2.0) mmol/ L Tylor Test Hematocrit (37-47) % Hgb O2 Saturation (95-100) % Carboxyhemoglobin (0.4-20.1) %THgb Methemoglobin (0.4-1.5) % Total Hemoglobin (12-16) g/dL O2 Delivery Device FiO2 % Dye Line Operator ID Sodium (136-145) mmol/L Potassium (3.5-5.1) mmol/L Chloride (98-107) mmol/L Carbon Dioxide (22-29) mmol/L Anion Gap (5-19) BUN (8-23) mg/dL Creatinine (0.5-0.9) mg/dL GFR Calculation (90-130) mL/min Glucose (65-115) mg/dL Calculated Osmolal ity (285-295) mOsm/k g Lactic Acid (0.5-2.2) mmol/L Calcium (8.5-10.5) mg/dL Total Bilirubin (0.15-1.2) mg/dL AST (0-32) U/L ALT (0-33) U/L Alkaline Phosphata se (35-105) IU/L Troponin T Baselin e (0-10) ng/L Troponin T [address] [facility] 10.89 H (0-10) ng/L Delta Troponin T Not Reportable NT-Pro-B Natriuret Pep (0-125) pg/mL Total Protein (6.6-8.7) g/dL Albumin (3.5-5.2) g/dL Globulin (1.3-4.6) g/dL Critical Care Time Critical Care Time: Critical Care Time: Yes Total Critical Care Time: 40 Attestation: This case had a high probability of a clinically significant, sudden, or life threatening deterioration of this patient's condition which required my full and direct attention, intervention and personal management. Discharge Plan Discharge Patient Disposition: Admitted As Inpatient Admit Provider: Nasir Hoffman Clinical Impression: Acute and chronic respiratory failure with hypercapnia, COPD, severe Condition: Stable Coding Level of Care Code ED Sr. Manager Corporate Communications for Chg Fwd Exam Comprehensive
[2020-12-15] MEDS: ipratropium-albuterol 3 mL Neb INHALATION ×5 (08:16→23:00)
[2020-12-15] MEDS: aspirin 81 mg EC Tablet PO (08:18)
--- NOTE | 2020-12-15 13:05 | PM.PN ---
Subjective Subjective: Interval history: Patient is intubated and sedated on propofol and fentanyl. She is on 60% FiO2 and PEEP of 8 saturating in the low 90s. She occasionally opens her eyes but does not communicate. Vitals/I&O/Wt Last Vital Signs Temp 97.9 F 12/15/20 05:40 Pulse 76 12/15/20 11:42 Resp 16 12/15/20 11:38 BP 102/68 12/15/20 09:20 Pulse Ox 94 12/15/20 11:38 12/14/20 12/15/20 12/15/20 21:59 06:59 14:59 Intake Total 86.867 / 86.867 Balance 86.867 / 86.867 Weight last 48 hrs Weight 92.986 kg Physical Exam Narrative: EXAM NARRATIVE: Coarse mechanical ventilation sounds throughout. Heart is regular. No lower extremity edema. Urinary Catheter Management^: Greenberg: Cath Placed During This Visit: yes Reason for Continuing Indwelling Catheter: Accurate Measurement of Urinary Output in Critically Ill Patients Urinary Catheter Date of Insertion: 12/15/20 Urinary Catheter Time of Insertion: 01:50 Data : 12/14/20 23:09 12/14/20 23:09 Micro: Microbiology 12/14/20 23:15 Blood Culture - Preliminary Blood SPECIMEN COLLECTED 12/14/20 23:09 Blood Culture - Preliminary Blood SPECIMEN COLLECTED A&P Assessment and plan (1) Acute and chronic respiratory failure with hypercapnia: -Secondary to end-stage, severe COPD FEV1 16%, currently being referred for lung transplant, looks like she has had a trach in the past, on home vent, chronic is a thorough Plan: -Admit to ICU -Ventilator protocol, sedation vacation, minimize PEEP, minimize FiO2 -Propofol, fentanyl for sedation -Solu-Medrol 60 every 6 hours -DuoNeb treatments every 4 hours -Rocephin and azithromycin -Sputum cultures, blood cultures -We will order CT angiogram of the chest -Does not look fluid overloaded, BNP within normal limits, will order cardiac echo -Pepcid for GI prophylaxis -Full code -Lovenox for DVT prophylaxis Status: Acute Additional A&P Information PLAN: Continue current monitoring and treatment. Continue antibiotics Gradually wean off oxygen and interrupt sedation in a.m. and attempt extubation. Attestations Medical Necessity Statement*: Patient with respiratory failure requires close ICU monitoring and treatment. Coding Level of Care Code Acute Automatic Print Developer for Chg Fwd Diagnoses Acute and chronic respiratory failure with hypercapnia J96.22
--- NOTE | 2020-12-15 16:42 | PC.NURSE ---
Addendum entered by Milagros Fragoso RN 12/15/20 20:26: Fentanyl started in ER and was running when patient arrived to floor. Original Note: fentanyl gtt running at 50 at start of my shift. Unsure when it was actually started by nightshift rn. Scanned at 0700 by me.
[2020-12-15] MEDS: propofol 1,000 MG/100 ML INJ 16.7 MG IV ×2 (17:09→22:59)
--- NOTE | 2020-12-15 18:35 | PC.NURSE ---
pt's has had a change in phone number, current number is [phone].
--- NOTE | 2020-12-15 20:38 | PC.NURSE ---
Wasted 22.125 of Fentanyl witnessed by America Flowers RN.
[2020-12-16] VITALS (103 sets, daily range): BP systolic 93–139; BP diastolic 60–92; PULSE 70–101; RESP 12; TEMP 36.3–36.6; O2SAT 88–97
[2020-12-16] MEDS: ipratropium-albuterol 3 mL Neb INHALATION ×6 (03:00→23:14)
[2020-12-16] MEDS: propofol 1,000 MG/100 ML INJ 16.7 MG IV (03:58)
[2020-12-16] MEDS: cefTRIAXone 1,000 MG in sodium chloride 0.9% (plus) 50 ML 100 MG IV (04:25)
[2020-12-16] MEDS: enoxaparin 40 mg/0.4 mL Syringe SUBCUT (04:29)
[2020-12-16] MEDS: famotidine 20 mg/2 mL INJ IVP ×2 (04:31→17:25)
[2020-12-16] MEDS: azithromycin 500 MG in sodium chloride 0.9% 250 ML 250 MG IV (04:35)
[2020-12-16 04:52] LABS: ABG PCO2 77.4 mmHg (35-45); ABG PH Result 7.35 (7.35-7.45); Arterial Blood Gas Hematocrit 37.2 % (37-47); Base Excess ABG 13.7 mmol/L (-2.0-2.0); Blood Gas Allen Test Pos; Blood Gas Operator Identificat BD; Blood Gas Sample Site Brachial, left; Blood Gas Sample Type Arterial; Blood Gas Tidal Volume 0.45; HCO3 ABG 42.6 mmol/L (22-26); Oxygen Device VENT; PO2 ABG 63.6 mmHg (80.0-100.0)
[2020-12-16 06:24] LABS: Basophils % 0.1 %; Hematocrit 40.7 % (37.0-47.0); Hemoglobin 12.1 g/dL (11.5-15.3); Lymphocytes # 0.5 10^3/uL (0.8-4.8); Lymphocytes % 6.1 %; Mean Corpuscular HGB Conc 29.7 g/dL (30.0-36.0); Mean Corpuscular Hemoglobin 29.4 pg (28.0-34.0); Monocytes # 0.3 10^3/uL (0.2-0.9); Monocytes % 3.3 %; Neutrophils # 7.08 10^3/uL (1.8-7.7); Neutrophils % 89.9 %; Nucleated Red Blood Cells % 0 %; Platelet Count 155 10^3/cmm (130-400); Red Blood Count 4.11 10^6/uL (4.1-5.3); Red Cell Distribution Width 13.5 % (12.1-15.1); White Blood Count 7.9 10^3/uL (4.0-10.0)
[2020-12-16 06:29] LABS: INR 0.99 (0.8-1.2)
[2020-12-16 06:50] LABS: Alanine Aminotransferase 12 U/L (0-33); Albumin Level 3.8 g/dL (3.5-5.2); Alkaline Phosphatase 70 IU/L (35-105); Anion Gap 11.9 (5-19); Aspartate Amino Transferase 16 U/L (0-32); Blood Urea Nitrogen 26 mg/dL (8-23); Calcium 8.9 mg/dL (8.5-10.5); Carbon Dioxide 40 mmol/L (22-29); Chloride 95 mmol/L (98-107); Globulin 2.5 g/dL (1.3-4.6); Glomerular Filtration Rate 125.4 mL/min (90-130); Glucose 187 mg/dL (65-115); Magnesium 2.6 mg/dL (1.7-2.3); Osmolality Calculated 306 mOsm/kg (285-295); Phosphorus 2.4 mg/dL (2.5-4.5); Potassium 3.9 mmol/L (3.5-5.1); Sodium 143 mmol/L (136-145); Total Bilirubin 0.4 mg/dL (0.15-1.2); Total Protein 6.3 g/dL (6.6-8.7)
[2020-12-16 06:55] LABS: Creatine Phosphokinase 77 U/L (26-192); Estmated Average Glucose 94; Hemoglobin A1C 4.9 % (4.0-6.0); NT Pro B Type Natriuretic Pept 59 pg/mL (0-125)
[2020-12-16] MEDS: aspirin 81 mg EC Tablet PO (08:43)
--- NOTE | 2020-12-16 09:46 | PC.NURSE ---
Metoprolol ER 50 mg order changed to Metoprolol tartrate 50 mg. Morning dose not given of extended release so tartrate NOW order entered.
--- NOTE | 2020-12-16 09:48 | PC.CHAP ---
Pastoral Care Encounter/Spiritual Assessment Type of Contact [] Declined hardening machine operator visit [] Patient/Family/Request visit [] Outpatient visit [] Follow-up visit [] Physician referral [] Code/Alert [x] Routine visit [] Staff referral [] Actively dying [] Patient sleeping [] Family support [] [] Out of room [] Palliative care [] [] Receiving care in room [] Pre-surgical visit [] Trauma [] Long length of stay [x] ICU visit [x] Other: ventilator Relational/Emotional Strength [] Patient feels connected with others/family/visitors/staff [] Distress [] Loneliness/isolation [] Abandonment Spirituality of Patient [] Person of Amanda [] Attends Orthodoxy of their Amanda [] Believes in Prayer [] Reads Bible or Taoist materials [] There are Spiritual issues to be addressed Recruiter Interventions [x] Prayer [] Active listening [] Non-anxious presence [] Spiritual/emotional support [] Crisis/trauma care [] Spiritual counseling [] Bereavement support [] Provided bereavement packet [] Provided Bible/devotional materials [] Provided toy/stuffed animal, coloring book to patient or family member [] Provided Communion [] Anointing/Sears [] Salvation [x] Completed spiritual assessment [] Other: Impact on Illness or Injury [] Angry [] Fearful [] Anxious [] Often cries [] Exhaustion [] Unable to work [] Unable to attend gnosticism [] Unable to walk/stand [] Unable to read [] Unable to drive [] Unable to eat/drink [] Unable to sleep [] Unable to be with family [] Patient intubated [] Other: Summary Time spent with patient
[2020-12-16] MEDS: propofol 1,000 MG/100 ML INJ 27.9 MG IV ×2 (10:06→13:09)
--- NOTE | 2020-12-16 10:15 | PC.NURSE ---
In DEC fentanyl is empty but bag is still running. Will scan new bag when needed
[2020-12-16] MEDS: metoprolol tartrate 50 mg Tablet PO ×2 (10:17→20:42)
--- NOTE | 2020-12-16 11:19 | PM.PN ---
Subjective Subjective: Interval history: Intubated. Sedated. Vitals/I&O/Wt Last Vital Signs Temp 98.5 F 12/15/20 11:35 Pulse 84 12/16/20 08:15 Resp 12 12/16/20 10:05 BP 117/66 12/16/20 08:15 Pulse Ox 94 12/16/20 10:05 12/15/20 12/16/20 12/16/20 22:59 06:59 14:59 Intake Total 313.722 / 451.242 383.222 / 834.464 140.000 / 140.000 Output Total 250 / 250 Balance 313.722 / 451.242 133.222 / 584.464 140.000 / 140.000 Weight last 48 hrs Weight 92.986 kg Physical Exam Const: COMMON NORMALS: no acute distress GENERAL APPEARANCE: lethargic ORIENTATION/CONSCIOUSNESS: Yes lethargic OTHER: Waking up somewhat with mutation, although appears to be confused, does try to self extubate. Sits up in bed. HENMT: COMMON NORMALS: oropharynx normal Neck/C-Spine: COMMON NORMALS: no JVD Resp: COMMON NORMALS: normal respiratory effort AUSCULTATION: diminished lung sounds Cardio: COMMON NORMALS: no JVD, regular rhythm, S1 normal heart sound present, S2 normal heart sound present and No murmurs present (Cardio) RHYTHM: regular rhythm HEART SOUNDS: S1 normal heart sound present and S2 normal heart sound present GI: COMMON NORMALS: Normal to inspection, nondistended, normoactive bowel sounds present, Soft to palpation and non-tender PALPATION: Yes Soft to palpation Extremity: COMMON NORMALS: no joint enlargement and no pedal edema Neuro: COMMON NORMALS: moves all extremities SENSORIUM/ORIENTATION: Yes lethargic Skin: COMMON NORMALS: no rashes or lesions noted GENERAL SKIN EXAM: no rashes or lesions noted Urinary Catheter Management^: Greenberg: Cath Placed During This Visit: yes Reason for Continuing Indwelling Catheter: Accurate Measurement of Urinary Output in Critically Ill Patients Urinary Catheter Date of Insertion: 12/15/20 Urinary Catheter Time of Insertion: 01:50 Data : 12/16/20 04:29 12/16/20 04:29 Micro: Microbiology 12/14/20 23:09 Blood Culture - Preliminary Blood NEGATIVE TO DATE 12/14/20 23:15 Blood Culture - Preliminary Blood Gram positive cocci A&P Assessment and plan (1) Acute and chronic respiratory failure with hypercapnia: CO2 improving. Hypoxic. Continue MV support, weaning trials. Wean sedation trial today - confused, sitting up, trying to self-extubate. Not following commands. Assess UA. CT head. Resume citalopram at lower dose. -Rocephin and azithromycin Follow sputum cultures, blood cultures Attempted to reach for update, , but unsuccessful. Status: Acute (2) Pulmonary nodule: Status: Chronic Additional A&P Information Adrenal adenoma Attestations Medical Necessity Statement*: Continue admission for assessment of management of respiratory failure with hypoxia and hypercapnia in a lady with severe underlying COPD. Coding Level of Care Code Acute Business Administration Teacher for Missael Cr Diagnoses Acute and chronic respiratory failure with hypercapnia J96.22 Pulmonary nodule R91.1
--- NOTE | 2020-12-16 11:23 | CT_ITS ---
WS: [id number] CT HEAD TECHNIQUE: Noncontrast CT of the head obtained from the skullbase to the vertex. CLINICAL INFORMATION: AMS COMPARISON: July 28, 2020 DLP: 938.[address] scans at [facility] use at least one of these dose optimization techniques: automat ed exposure control; mA and/or kV adjustment per patient size (includes targeted exams where dose is matched to clinical indication); or iterative reconstruction. FINDINGS: No evidence of intracranial hemorrhage or mass effect. Ventricular system and basal cisterns are samayoa nt. No extra-axial fluid collections. Normal huggins-white differentiation. Cerebellar tonsillar ectopia . Mild crowding at the foramen magnum is unchanged from previous. No hydrocephalus. Fluid in the mastoid air cells. Partially visualized ETT. CT/CT head wo con* [id number] IMPRESSION: 1. No evidence of intracranial hemorrhage or mass effect. 2. Normal huggins-white differentiation. 3. 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 No hydrocephalus. 4. No acute intracranial findings.
[2020-12-16 12:38] LABS: Add Urine Culture? Yes; Add Urine Microscopic? YES; Bacteria Urine 1+ /hpf; Bilirubin Urine Neg (Negative); Blood Urine 3+ (Negative); Glucose Urine UA Norm (Normal); Ketones Urine Negative (Negative); Leukocyte Esterase Urine Negative (Negative); Nitrate Urine Negative (Negative); Protein Urine Neg (Negative); RBC Urine 25-40 /hpf (0-2); Specific Gravity, Urine 1.015 (1.005-1.030); Squamous Epithelial Cell Urine 0-4 /hpf (0-5); Urine Appearance Cloudy (CLEAR); Urine Color Yellow (Yellow); Urobilinogen Urine Norm (Negative); pH Urine 6.5 (5-7)
--- NOTE | 2020-12-16 15:21 | PC.NURSE ---
CT Patient was taken to CT at 1430 by this nurse, nurse resident and RT. All vitals remained WNL. Tolerated well.
[2020-12-16] MEDS: propofol 1,000 MG/100 ML INJ 22.3 MG IV ×2 (17:25→22:26)
[2020-12-16] MEDS: citalopram 20 mg Tablet 10 MG PO (17:25)
--- NOTE | 2020-12-16 17:47 | PC.NURSE ---
Patient was able to spontaneously open eyes and follow commands this PM.
[2020-12-16 19:55] LABS: Alanine Aminotransferase 11 U/L (0-33); Albumin Level 3.5 g/dL (3.5-5.2); Alkaline Phosphatase 61 IU/L (35-105); Anion Gap 8.1 (5-19); Aspartate Amino Transferase 12 U/L (0-32); Blood Urea Nitrogen 26 mg/dL (8-23); Calcium 8.5 mg/dL (8.5-10.5); Carbon Dioxide 40 mmol/L (22-29); Chloride 95 mmol/L (98-107); Globulin 2.5 g/dL (1.3-4.6); Glomerular Filtration Rate 162.3 mL/min (90-130); Glucose 142 mg/dL (65-115); Osmolality Calculated 295 mOsm/kg (285-295); Potassium 4.1 mmol/L (3.5-5.1); Sodium 139 mmol/L (136-145); Total Bilirubin 0.3 mg/dL (0.15-1.2)
[2020-12-17] VITALS (66 sets, daily range): BP systolic 99–182; BP diastolic 65–122; PULSE 69–101; RESP 12–19; TEMP 36.6–36.9; O2SAT 87–94
[2020-12-17] MEDS: propofol 1,000 MG/100 ML INJ 22.3 MG IV ×3 (01:50→10:34)
[2020-12-17] MEDS: ipratropium-albuterol 3 mL Neb INHALATION ×6 (03:07→23:05)
[2020-12-17 04:05] LABS: Basophils % 0.1 %; Hematocrit 37.5 % (37.0-47.0); Hemoglobin 11.3 g/dL (11.5-15.3); Lymphocytes # 0.6 10^3/uL (0.8-4.8); Mean Corpuscular HGB Conc 30.1 g/dL (30.0-36.0); Mean Corpuscular Hemoglobin 29.4 pg (28.0-34.0); Mean Corpuscular Volume 97.7 fL (81-99); Mean Platelet Volume 12.1 fL (7.4-10.4); Monocytes # 0.3 10^3/uL (0.2-0.9); Monocytes % 2.8 %; Neutrophils # 10.62 10^3/uL (1.8-7.7); Neutrophils % 91.5 %; Nucleated Red Blood Cells % 0 %; Platelet Count 156 10^3/cmm (130-400); Red Blood Count 3.84 10^6/uL (4.1-5.3); Red Cell Distribution Width 13.7 % (12.1-15.1); White Blood Count 11.6 10^3/uL (4.0-10.0)
[2020-12-17 04:29] LABS: INR 1.03 (0.8-1.2)
[2020-12-17 04:34] LABS: Alanine Aminotransferase 10 U/L (0-33); Albumin Level 3.6 g/dL (3.5-5.2); Alkaline Phosphatase 58 IU/L (35-105); Anion Gap 10.5 (5-19); Aspartate Amino Transferase 11 U/L (0-32); Blood Urea Nitrogen 26 mg/dL (8-23); Calcium 8.8 mg/dL (8.5-10.5); Carbon Dioxide 40 mmol/L (22-29); Chloride 94 mmol/L (98-107); Globulin 2.2 g/dL (1.3-4.6); Glomerular Filtration Rate 162.3 mL/min (90-130); Glucose 151 mg/dL (65-115); Magnesium 2.4 mg/dL (1.7-2.3); Osmolality Calculated 298 mOsm/kg (285-295); Phosphorus 3.4 mg/dL (2.5-4.5); Potassium 4.5 mmol/L (3.5-5.1); Sodium 140 mmol/L (136-145); Total Bilirubin 0.3 mg/dL (0.15-1.2); Total Protein 5.8 g/dL (6.6-8.7)
[2020-12-17] MEDS: cefTRIAXone 1,000 MG in sodium chloride 0.9% (plus) 50 ML 100 MG IV (05:11)
[2020-12-17] MEDS: famotidine 20 mg/2 mL INJ IVP ×2 (05:11→16:40)
[2020-12-17] MEDS: enoxaparin 40 mg/0.4 mL Syringe SUBCUT (05:12)
[2020-12-17 05:13] LABS: ABG PH Result 7.37 (7.35-7.45); Arterial Blood Gas Hematocrit 36.3 % (37-47); Base Excess ABG 16.2 mmol/L (-2.0-2.0); Blood Gas Operator Identificat JB; Blood Gas Sample Site Brachial, right; Blood Gas Sample Type Arterial; Blood Gas Tidal Volume 0.45; Oxygen Device VENT; PO2 ABG 68.7 mmHg (80.0-100.0)
[2020-12-17 05:14] LABS: ABG PCO2 78.2 mmHg (35-45)
[2020-12-17] MEDS: azithromycin 500 MG in sodium chloride 0.9% 250 ML 250 MG IV (05:53)
--- NOTE | 2020-12-17 06:00 | XR_ITS ---
WS: [id number] XR chest 1V portable [id number] REASON FOR EXAM: Hypoxia FINDINGS: Endotracheal tube and nasogastric tube appear properly positioned. Compared to the examination of 12/14/2020 there is now increased density within the left lower lung. L eft costophrenic angle is partially obscured. No other interval change or new finding. XR/XR chest 1V portable [id number] IMPRESSION: Interval change in the left lower lung as above which may be the result of atel ectasis. Acute pneumonitis not excluded.
[2020-12-17 06:01] LABS: Creatine Phosphokinase 36 U/L (26-192); NT Pro B Type Natriuretic Pept 41 pg/mL (0-125)
[2020-12-17] MEDS: citalopram 20 mg Tablet 10 MG PO ×2 (08:26→16:40)
[2020-12-17] MEDS: aspirin 81 mg EC Tablet PO (08:26)
[2020-12-17] MEDS: metoprolol tartrate 50 mg Tablet PO ×2 (08:27→21:46)
--- NOTE | 2020-12-17 09:03 | PC.CHAP ---
Pastoral Care Encounter/Spiritual Assessment Type of Contact [] Declined truck operator visit [] Patient/Family/Request visit [] Outpatient visit [] Follow-up visit [] Physician referral [] Code/Alert [x] Routine visit [] Staff referral [] Actively dying [] Patient sleeping [] Family support [] [] Out of room [] Palliative care [] [] Receiving care in room [] Pre-surgical visit [] Trauma [] Long length of stay [x] ICU visit [x] Other: ventilator Relational/Emotional Strength [] Patient feels connected with others/family/visitors/staff [] Distress [] Loneliness/isolation [] Abandonment Spirituality of Patient [] Person of Amanda [] Attends Faith of their Amanda [] Believes in Prayer [] Reads Bible or Voodoo materials [] There are Spiritual issues to be addressed Resource Room Special Education Teacher Interventions [x] Prayer [] Active listening [] Non-anxious presence [] Spiritual/emotional support [] Crisis/trauma care [] Spiritual counseling [] Bereavement support [] Provided bereavement packet [] Provided Bible/devotional materials [] Provided toy/stuffed animal, coloring book to patient or family member [] Provided Communion [] Anointing/Arnold [] Salvation [x] Completed spiritual assessment [] Other: Impact on Illness or Injury [] Angry [] Fearful [] Anxious [] Often cries [] Exhaustion [] Unable to work [] Unable to attend gnosticist [] Unable to walk/stand [] Unable to read [] Unable to drive [] Unable to eat/drink [] Unable to sleep [] Unable to be with family [] Patient intubated [] Other: Summary Time spent with patient
--- NOTE | 2020-12-17 09:24 | PC.NURSE ---
Sedation Sedation decreased. Pt began to become agitated and started having big body movements. Sedation was increased back to Fentayl at 75 and propofol at 40. Respiratory at bedside.
--- NOTE | 2020-12-17 14:50 | PC.NURSE ---
Phys Notified Notified Dr Mayberry of pt becoming more agitated. ordering precedex to be added.
[2020-12-17] MEDS: dexmedetomidine 400 MCG in sodium chloride 0.9% (100 ml) 100 ML 24.2 MCG IV ×2 (15:08→18:36)
--- NOTE | 2020-12-17 15:15 | P.PN_ITS ---
Subjective Subjective: Interval history: Intubated, sedated, opens her eyes, but confusedly looking around. Shaking her head yes as of try to answer question when spoken to, however, the answer is always the same limited question, does not appear to understand. Not following commands. Later in the afternoon becoming restless, trying to self extubate. Not redirectable. Vitals/I&O/Wt Last Vital Signs Temp 98.4 F 12/17/20 12:22 Pulse 93 12/17/20 15:14 Resp 13 12/17/20 15:11 BP 124/79 12/17/20 14:30 Pulse Ox 93 12/17/20 15:11 12/17/20 12/17/20 12/17/20 06:59 14:59 22:59 Intake Total 316.135 / 881.230 410 / 410 Output Total 400 / 675 Balance -83.865 / 206.230 410 / 410 Physical Exam Const: COMMON NORMALS: no acute distress GENERAL APPEARANCE: lethargic ORIENTATION/CONSCIOUSNESS: Yes lethargic OTHER: Spontaneously opens her eyes for short time, then goes back to sleep. Does not follow commands. Does not answer questions. Confused. HENMT: COMMON NORMALS: oropharynx normal Neck/C-Spine: COMMON NORMALS: no JVD Resp: COMMON NORMALS: normal respiratory effort AUSCULTATION: diminished lung sounds Cardio: COMMON NORMALS: no JVD, regular rhythm, S1 normal heart sound present, S2 normal heart sound present and No murmurs present (Cardio) RHYTHM: regular rhythm HEART SOUNDS: S1 normal heart sound present and S2 normal heart sound present GI: COMMON NORMALS: Normal to inspection, nondistended, normoactive bowel sounds present, Soft to palpation and non-tender PALPATION: Yes Soft to palpation Extremity: COMMON NORMALS: no joint enlargement and no pedal edema Neuro: COMMON NORMALS: moves all extremities SENSORIUM/ORIENTATION: Yes lethargic Skin: COMMON NORMALS: no rashes or lesions noted GENERAL SKIN EXAM: no rashes or lesions noted Urinary Catheter Management^: Greenberg: Cath Placed During This Visit: yes Reason for Continuing Indwelling Catheter: Accurate Measurement of Urinary Output in Critically Ill Patients Urinary Catheter Date of Insertion: 12/15/20 Urinary Catheter Time of Insertion: 01:50 Data : 12/17/20 03:04 12/17/20 03:04 Micro: Microbiology 12/16/20 12:05 Urine Culture - Preliminary Urine,Clean Catch A&P Assessment and plan (1) Acute and chronic respiratory failure with hypercapnia: CO2 improved, and appears to be close to her baseline. pH improved. Still hypoxic. Continue antibiotic. With persistent encephalopathy despite improvement in CO2. Possible UTI. Follow urine culture. Blood culture today appears to be showing gram-positive cocci 1/4 bottles. Cannot tell if possible contamination he had. We will repeat culture. Follow- up results. Did not tolerate weaning sedation well. Resume sedation. Continue treatment possible UTI. With hematuria once better sedated well possibly assess additionally CT renal protocol to exclude complicated UTI. We will obtain critical care consultation. -Rocephin and azithromycin Follow sputum cultures, blood cultures Again could not reach at the provided number, . Voicemail not set up. Status: Acute (2) Pulmonary nodule: Status: Chronic Additional A&P Information Adrenal adenoma Attestations Medical Necessity Statement*: Continue admission for assessment management of respiratory failure, mechanical ventilator support, weaning of support and sedation lady with end-stage COPD. Coding Level of Care Code Acute Hypo Splasher for Missael Cr Diagnoses Acute and chronic respiratory failure with hypercapnia J96.22 Pulmonary nodule R91.1
--- NOTE | 2020-12-17 15:30 | PM.CONSULT ---
Providers/Reason For Consult Consulting Physican/Specialty*: Pulmonary critical care medicine Reason for Consult*: Respiratory failure with history of COPD with chronic hypoxic and hypercapnic respiratory failure Attending Physician: Paulo Mayberry Primary Care Provider: Taniya Irving DO History of Present Illness History of Present Illness Loretta Reeder is a 60 year old female who is well-known to me. I have been seeing her in the office. Her last office visit was in October 2020. The patient has chronic hypoxic and hypercapnic respiratory failure. Her baseline PCO2 is in mid 70s. The patient has very severe airflow obstruction with an FEV1 of 16%. At home the patient was on Pulmicort and DuoNeb nebulization as well as prophylactic azithromycin therapy. She was also on BiPAP which I was in the process of switching to a noninvasive home ventilator. I recently had a conversation with the patient regarding lung transplant as well. The patient presented to the hospital with worsening shortness of breath on December 15. The patient failed BiPAP with acute on chronic hypercapnic respiratory failure and ended up getting intubated. I had evaluated the patient in the ICU today. She is sedated with propofol, fentanyl and Precedex. She is on volume control mechanical ventilation with respiratory rate of 15 and 55% FiO2. Interestingly, the patient was able to answer my questions by nodding her head and follow simple commands which she was not able to do earlier this morning. The patient had a CT angiogram of her chest on admission which did not reveal any pulmonary embolism. There was no pulmonary infiltrate either. The chest x-ray today revealed right lower lung zone infiltrate likely secondary to aspiration. The patient is currently broadly covered with ceftriaxone and azithromycin. She has also been receiving systemic corticosteroids and nebulized therapy. Review of Systems Narrative: Unable to obtain Meds/Allergies Home Medications and Allergies Home Medications Medication Instructions Recorded Confirmed Last Taken Type multivit with 1 tab PO DAILY 09/28/19 12/15/20 Unknown History qqctdfbu-epld-CL-lutein 8 mg iron-400 mcg-300 mcg tablet budesonide 0.5 mg/2 mL suspension 0.5 mg INHALATION BID #120 ml 09/24/20 12/15/20 Unknown Rx for nebulization aripiprazole 2 mg tablet 2 mg PO DAILY #30 tab 10/16/20 12/15/20 Unknown Rx aspirin 81 mg tablet,delayed 81 mg PO DAILY 10/23/20 12/15/20 Unknown History release prednisone 5 mg tablet 5 mg PO DAILY 30 Days #30 tab 10/23/20 12/15/20 Unknown Rx citalopram 20 mg tablet 20 mg PO BID #60 tab 11/11/20 12/15/20 Unknown Rx albuterol sulfate 90 mcg/actuation 2 puff INHALATION Q6H PRN #18 gm 11/14/20 12/15/20 Unknown Rx aerosol inhaler lorazepam 0.5 mg tablet 0.25 mg PO BID PRN #60 tab 11/14/20 12/15/20 Unknown Rx metoprolol succinate 50 mg 50 mg PO DAILY #30 tab 11/14/20 12/15/20 Unknown Rx tablet,extended release 24 hr azithromycin 250 mg tablet See Rx Instructions .ROUTE 11/25/20 12/15/20 Unknown Rx .COMPLEX #90 tab ipratropium 0.5 mg-albuterol 3 mg 3 ml INHALATION Q6H #360 ml 12/06/20 12/15/20 Unknown Rx (2.5 mg base)/3 mL nebulization soln montelukast 10 mg PO DAILY 12/15/20 12/15/20 Unknown History Allergies Allergy/AdvReac Type Severity Reaction Status Date / Time codeine Allergy NAUSEA & Verified 12/17/20 15:38 VOMITING morphine Allergy ADR-Halluci Verified 12/17/20 15:38 nating Current Medications Current Medications Generic Name Dose Route Start Last Admin Trade Name Freq PRN Reason Stop Dose Admin Albuterol/Ipratropium 3 ml 12/15/20 05:04 12/17/20 15:07 Ipratropium-Albuterol 3 Ml Neb INHALATION 3 ml Q4H.RESPIRATORY JOSE Administration Aspirin 81 mg 12/15/20 09:00 12/17/20 08:26 Aspirin 81 Mg Ec Tablet PO 81 mg DAILY JOSE Administration Citalopram Hydrobromide 10 mg 12/16/20 18:00 12/17/20 08:26 Citalopram 20 Mg Tablet PO 10 mg BID JOSE Administration Enoxaparin Sodium 40 mg 12/15/20 05:04 12/17/20 05:12 Enoxaparin 40 Mg/0.4 Ml Syringe SUBCUT 40 mg Q24H JOSE Administration Famotidine 20 mg 12/15/20 05:04 12/17/20 05:11 Famotidine 20 Mg/2 Ml Inj IVP 20 mg Q12H JOSE Administration Fentanyl 1,000 mcg/ Sodium 100 mls @ 0 mls/hr 12/15/20 01:15 12/17/20 01:48 Chloride IV 75 mcg/hr .Q0M JOSE 7.5 mls/hr Administration Protocol Per Protocol Propofol 1,000 mg in 100 mls @ 0 mls/hr 12/15/20 01:15 12/17/20 10:34 Diprivan IV 40 mcg/kg/min .Q0M JOSE 22.3 mls/hr Administration Protocol Per Protocol Ceftriaxone Sodium 1,000 mg/ 50 mls @ 100 mls/hr 12/15/20 05:04 12/17/20 05:41 Sodium Chloride IV Infused Q24H JOSE Infusion Protocol Azithromycin 500 mg/ Sodium 250 mls @ 250 mls/hr 12/15/20 05:30 12/17/20 07:14 Chloride IV Infused Q24H JOSE Infusion Protocol Dexmedetomidine HCl 400 mcg/ 104 mls @ 0 mls/hr 12/17/20 15:00 12/17/20 15:08 Sodium Chloride IV 1 mcg/kg/hr .Q0M JOSE 24.2 mls/hr Administration Protocol Per Protocol Metoprolol Tartrate 50 mg 12/16/20 21:00 12/17/20 08:27 Metoprolol Tartrate 50 Mg Tablet PO 50 mg BID@0900,2100 JOSE Administration PFSH Acute PFSH: Medical History (Updated 12/17/20 @ 15:40 by Stacy Corona MD) Anxiety and depression Benign essential HTN Bilateral carpal tunnel syndrome Bilateral lower extremity edema Cervical myelopathy COPD, severe Degenerative disc disease, cervical Lung mass ANASTASIYA (obstructive sleep apnea) Postmenopausal Unspecified thoracic, thoracolumbar and lumbosacral intervertebral disc disorder Vitamin D deficiency Surgical History S/P hysterectomy S/P tonsillectomy Family History Other CHF (congestive heart failure) Murmur, cardiac Social History Smoking and tobacco status: former smoker Quit status (tobacco): has quit using tobacco Year quit tobacco: 2017 - 1PPD x 40 Years Second hand smoke exposure: Yes Alcohol intake: never Lives independently: Yes Household members: spouse Marital status: Current occupational status: disabled History of recent travel: No Current gender identity: Female Special andres needs: No Vitals/I&O/Wt Last Vital Signs Temp 98.4 F 12/17/20 12:22 Pulse 93 12/17/20 15:14 Resp 12 12/17/20 15:20 BP 124/79 12/17/20 14:30 Pulse Ox 92 12/17/20 15:20 12/17/20 12/17/20 12/17/20 06:59 14:59 22:59 Intake Total 316.135 / 881.230 410 / 410 Output Total 400 / 675 Balance -83.865 / 206.230 410 / 410 Physical Exam Narrative: EXAM NARRATIVE: General: Patient is intubated and sedated, able to follow simple commands Neck: No JVD Respiratory: Auscultation: Reduced breath sound bilaterally, no significant crackles wheezing or rhonchi Cardiovascular: Regular rate and rhythm, S1-S2 present, distant heart sound no murmur, no peripheral edema. Abdomen: Soft, nondistended, positive bowel sound Skin: No rash Neuro: Patient is sedated, able to follow simple commands, moving all extremities Urinary Catheter Management^: Greenberg: Cath Placed During This Visit: yes Reason for Continuing Indwelling Catheter: Accurate Measurement of Urinary Output in Critically Ill Patients Urinary Catheter Date of Insertion: 12/15/20 Urinary Catheter Time of Insertion: 01:50 Data Micro: Micro: Microbiology 12/16/20 12:05 Urine Culture - Pr eliminary Urine,Clean Catch Other Data: Attestation for Other Data: I personally reviewed and interpreted the following: Other data: I have reviewed the patient's laboratory, microbiologic and radiologic data. The patient has mild leukocytosis likely secondary to IV steroid therapy. The sputum culture was negative. The blood culture is negative except one positive culture for gram-positive cocci which could be contaminant. The latest arterial blood gas showed compensated respiratory acidosis. A&P Assessment and plan (1) Acute and chronic respiratory failure with hypercapnia: The patient has got intubated for an acute on chronic hypoxic and hypercapnic respiratory failure. I put the patient on pressure support ventilation and she seems to be doing well. Given her profound COPD it is expected that the patient to breathe somewhat between 8 to 12 breaths a minute. However, as long as her minute ventilation stays between 5 to 6 L we can continue with pressure support ventilation. The PSV we will also make sure that the patient does not get auto PEEP. The patient is currently sedated with propofol, fentanyl and Precedex. We will go up on the Precedex and use fentanyl and get rid of the propofol as much as we can. The patient was likely taking benzodiazepines at home regularly. I wonder if her altered mental status was secondary to withdrawal from the medication. However the patient is currently on Precedex which will likely help her. If necessary, the patient can be given Versed push. The plan is going to be extubating her on Precedex tomorrow to BiPAP. Status: Acute (2) COPD, severe: The patient has gold class D COPD. Her FEV1 is for 16% consistent with very severe airflow obstruction. The patient was in the process of getting evaluated for lung transplant at [facility]. We will continue with DuoNeb and Pulmicort nebulization. I have cut down the Solu-Medrol dose to 40 mg daily. Status: Chronic (3) Pneumonia: There is new right lower lung zone infiltrate likely secondary to aspiration. We will continue ceftriaxone azithromycin for the time being. 1 bottle positive blood culture is likely a contaminant. The patient does not have signs of severe bacteremia. We will repeat the blood culture and continue to follow this. Status: Acute Coding Level of Care Code Acute Vice President Network Development for [employer] Diagnoses Acute and chronic respiratory failure with hypercapnia J96.22 COPD, severe J44.9 Pneumonia J18.9
--- NOTE | 2020-12-17 16:12 | PC.NURSE ---
Sedation weaning MDR with Dr Corona and RT. Attempted to stop propofol to begin manual ventilation. Pt became very agitated and was able to sit up in bed and almost pulled OG tube completely out. Propofol was restarted. Dr Corona was notified and orders to resume propofol, increase precedex to a max of 1.5mc/kg/hr and added versed 2mg q2h as needed to maintain comfort. Telephone order placed.
[2020-12-17] MEDS: midazolam 1 mg/mL INJ 5 ML 2 MG IV ×2 (16:26→18:06)
--- NOTE | 2020-12-17 18:37 | PC.NURSE ---
BP Notified phys of bp 175/110. Phys ordered versed drip then begin to decrease propofol to see if it the hypertension is propofol related.
--- NOTE | 2020-12-17 18:38 | PC.NURSE ---
Titrate propofol propofol still running. will scan new one when it is finished.
[2020-12-17] MEDS: budesonide 0.5 mg/2 mL Neb INHALATION (19:18)
--- NOTE | 2020-12-17 20:58 | XRR_ITS ---
PROCEDURE INFORMATION: Exam: XR Chest Exam date and time: 12/17/2020 9:03 PM Age: 60 years old Clinical indication: Device placement; Other: Og tube; Additional info: Orogastric tube placement TECHNIQUE: Imaging protocol: XR of the chest Views: 1 view. COMPARISON: CR (CHEST, ) 12/15/2020 3:10 AM FINDINGS: Tubes, catheters and devices: Orogastric tube in the proximal stomach. Endotracheal tube in the midtrachea. Lungs: Coarse reticular interstitial lung change. Pleural spaces: Unremarkable. No pleural effusion. No pneumothorax. Heart/Mediastinum: Cardiac silhouette is unremarkable. Bones/joints: Unremarkable. Intraperitoneal space: Negative for pneumoperitoneum below diaphragm. XR/XR chest 1V portable [id number] IMPRESSION: Orogastric tube in the gastric fundus.
[2020-12-18] VITALS (72 sets, daily range): BP systolic 114–185; BP diastolic 59–133; PULSE 57–105; RESP 11–18; TEMP 33.6–37.2; O2SAT 86–98
[2020-12-18] MEDS: dexmedetomidine 400 MCG in sodium chloride 0.9% (100 ml) 100 ML 24.2 MCG IV ×2 (00:05→03:58)
[2020-12-18] MEDS: propofol 1,000 MG/100 ML INJ 16.7 MG IV (00:06)
[2020-12-18] MEDS: nitroglycerin drip 50 MG/250 ML PREMIX IV (01:24)
[2020-12-18 03:54] LABS: Basophils % 0.2 %; Hematocrit 40.9 % (37.0-47.0); Hemoglobin 12.5 g/dL (11.5-15.3); Lymphocytes # 0.5 10^3/uL (0.8-4.8); Lymphocytes % 4.6 %; Mean Corpuscular HGB Conc 30.6 g/dL (30.0-36.0); Mean Corpuscular Hemoglobin 29.4 pg (28.0-34.0); Mean Corpuscular Volume 96.2 fL (81-99); Mean Platelet Volume 12.5 fL (7.4-10.4); Monocytes # 0.4 10^3/uL (0.2-0.9); Monocytes % 3.8 %; Neutrophils # 8.88 10^3/uL (1.8-7.7); Neutrophils % 90.5 %; Nucleated Red Blood Cells % 0 %; Platelet Count 150 10^3/cmm (130-400); Red Blood Count 4.25 10^6/uL (4.1-5.3); Red Cell Distribution Width 13.4 % (12.1-15.1); White Blood Count 9.8 10^3/uL (4.0-10.0)
[2020-12-18 04:03] LABS: INR 1.04 (0.8-1.2)
[2020-12-18 04:13] LABS: Alanine Aminotransferase 16 U/L (0-33); Albumin Level 3.7 g/dL (3.5-5.2); Alkaline Phosphatase 61 IU/L (35-105); Aspartate Amino Transferase 19 U/L (0-32); Blood Urea Nitrogen 30 mg/dL (8-23); Calcium 8.8 mg/dL (8.5-10.5); Carbon Dioxide 40 mmol/L (22-29); Chloride 95 mmol/L (98-107); Globulin 2.6 g/dL (1.3-4.6); Glomerular Filtration Rate 162.3 mL/min (90-130); Glucose 164 mg/dL (65-115); Magnesium 2.4 mg/dL (1.7-2.3); Osmolality Calculated 298 mOsm/kg (285-295); Phosphorus 3.6 mg/dL (2.5-4.5); Sodium 139 mmol/L (136-145); Total Bilirubin 0.4 mg/dL (0.15-1.2); Total Protein 6.3 g/dL (6.6-8.7)
[2020-12-18 04:19] LABS: Anion Gap 8.3 (5-19); Potassium 4.3 mmol/L (3.5-5.1)
[2020-12-18] MEDS: ipratropium-albuterol 3 mL Neb INHALATION ×6 (04:20→23:35)
[2020-12-18 04:28] LABS: ABG PH Result 7.39 (7.35-7.45); Arterial Blood Gas Hematocrit 38.1 % (37-47); Base Excess ABG 14.3 mmol/L (-2.0-2.0); Blood Gas Sample Type Arterial; HCO3 ABG 42.5 mmol/L (22-26); PO2 ABG 74.9 mmHg (80.0-100.0)
[2020-12-18 04:29] LABS: Blood Gas Operator Identificat HARKR; Blood Gas Sample Site Brachial, right; Blood Gas Tidal Volume 0.45; Oxygen Device VENT
[2020-12-18 04:39] LABS: Creatine Phosphokinase 34 U/L (26-192); NT Pro B Type Natriuretic Pept 489 pg/mL (0-125)
[2020-12-18 04:57] LABS: ABG PCO2 70.7 mmHg (35-45)
--- NOTE | 2020-12-18 05:37 | PC.NURSE ---
ASSUMING CARE 1900 Patient resting in bed on mechanical ventilation. CMV mode, FiO2 55%, Rate 12, PEEP 10, and TV 450. 25 cm at the lip and 8.0 size tube. Patient is on 2 mg/hour of versed, 50 mcg/kg/min of propofol, 1 mcg/hour of precedex, and fentanyl at 100 mcg/hour. Patient responds to painful stimuli. 1+ pitting edema to lower extremities. Day shift nurse called Dr. Mayberry at patients bedside about hypertension, he states to continue to watch and to continue to wean off propofol and up on versed to meet jennings goal.
--- NOTE | 2020-12-18 05:48 | PC.NURSE ---
HYPERTENSION 2100 hour Patient remains hypertensive. Dr. Langford notified via telephone and gave order to go up to 6 mg on versed as needed. Patient titrated up to 4 mg on versed at this time. No additional orders at this time.
--- NOTE | 2020-12-18 05:59 | PC.NURSE ---
NITRO DRIP 0000 hour Patient remains extensively hypertensive. Dr. Langford notified once more and put in order for nitroglycerin drip. Current blood pressure is 168/94 on 25 mcg/min.
--- NOTE | 2020-12-18 06:00 | XR_ITS ---
WS: [id number] XR chest 1V portable [id number] REASON FOR EXAM: Hypoxia FINDINGS: Endotracheal tube and nasogastric tube remain in proper position. Compared to the examination of 12/17/2020, infiltrative change in the left lung base is again noted an d perhaps increased. Infiltrative change in the right lower lung is not defined. Infiltrates appear t o be both interstitial and patchy airspace consolidation. No other interval change or new finding. XR/XR chest 1V portable [id number] IMPRESSION: Increasing lung parenchymal abnormality. Pneumonitis versus worsening CHF.
[2020-12-18] MEDS: enoxaparin 40 mg/0.4 mL Syringe SUBCUT (06:04)
[2020-12-18] MEDS: famotidine 20 mg/2 mL INJ IVP ×2 (06:04→17:16)
[2020-12-18] MEDS: cefTRIAXone 1,000 MG in sodium chloride 0.9% (plus) 50 ML 100 MG IV (06:22)
--- NOTE | 2020-12-18 06:26 | PC.NURSE ---
ANTIBIOTICS AM rocephin and zithromax late due to IV compatibility. Additional IV established. Rocephin started. Rocephin and zithromax not y-site compatible, so zithromax will be started after rocephin is done.
[2020-12-18] MEDS: azithromycin 500 MG in sodium chloride 0.9% 250 ML 250 MG IV (07:02)
[2020-12-18] MEDS: budesonide 0.5 mg/2 mL Neb INHALATION ×2 (07:49→20:06)
--- NOTE | 2020-12-18 08:04 | PC.NURSE ---
Addendum entered by Latisha Sewell RN 12/18/20 10:12: Robbin sampson was put on patient at this time. Original Note: Unable to get axillary temp. Rectal temp taken an 0800 and was recorded at 92.4 and 92.9. notified.
[2020-12-18] MEDS: dexmedetomidine 400 MCG in sodium chloride 0.9% (100 ml) 100 ML 16.9 MCG IV ×2 (08:21→16:11)
[2020-12-18] MEDS: aspirin 81 mg EC Tablet PO (08:27)
[2020-12-18] MEDS: citalopram 20 mg Tablet 10 MG PO ×2 (08:27→17:16)
[2020-12-18] MEDS: metoprolol tartrate 50 mg Tablet PO ×2 (08:27→20:42)
--- NOTE | 2020-12-18 08:55 | PM.PN ---
Subjective Subjective: Interval history: Sedated. Vitals/I&O/Wt Last Vital Signs Temp 92.9 F L 12/18/20 08:00 Pulse 60 12/18/20 08:54 Resp 14 12/18/20 08:45 BP 127/85 12/18/20 08:45 Pulse Ox 93 12/18/20 08:45 12/17/20 12/18/20 12/18/20 22:59 06:59 14:59 Intake Total 487.893 / 897.893 358.502 / 1256.395 433.6 / 433.6 Output Total 400 / 400 1100 / 1500 150 / 150 Balance 87.893 / 497.893 -741.498 / -243.605 283.6 / 283.6 Physical Exam Const: COMMON NORMALS: no acute distress GENERAL APPEARANCE: lethargic ORIENTATION/CONSCIOUSNESS: Yes lethargic OTHER: Spontaneously opens her eyes for short time, then goes back to sleep. Does not follow commands. Does not answer questions. Confused. HENMT: COMMON NORMALS: oropharynx normal Neck/C-Spine: COMMON NORMALS: no JVD Resp: COMMON NORMALS: normal respiratory effort AUSCULTATION: diminished lung sounds Cardio: COMMON NORMALS: no JVD, regular rhythm, S1 normal heart sound present, S2 normal heart sound present and No murmurs present (Cardio) RHYTHM: regular rhythm HEART SOUNDS: S1 normal heart sound present and S2 normal heart sound present GI: COMMON NORMALS: Normal to inspection, nondistended, normoactive bowel sounds present, Soft to palpation and non-tender PALPATION: Yes Soft to palpation Extremity: COMMON NORMALS: no joint enlargement and no pedal edema Neuro: COMMON NORMALS: moves all extremities SENSORIUM/ORIENTATION: Yes lethargic Skin: COMMON NORMALS: no rashes or lesions noted GENERAL SKIN EXAM: no rashes or lesions noted Urinary Catheter Management^: Greenberg: Cath Placed During This Visit: yes Reason for Continuing Indwelling Catheter: Accurate Measurement of Urinary Output in Critically Ill Patients Urinary Catheter Date of Insertion: 12/15/20 Urinary Catheter Time of Insertion: 01:50 Data : 12/18/20 03:10 12/18/20 03:10 Micro: Microbiology 12/16/20 12:05 Urine Culture - Final Urine,Clean Catch 12/17/20 16:00 Blood Culture - Preliminary Blood SPECIMEN COLLECTED 12/17/20 15:55 Blood Culture - Preliminary Blood SPECIMEN COLLECTED A&P Assessment and plan (1) Acute and chronic respiratory failure with hypercapnia: FiO2 requirement decreasing. Down to 50% this morning. PO2 is improving. Overnight was restless, sedation was increased. Hypertensive, was started on nitroglycerin drip. This morning she is very sedated. This morning also noted hypothermic, rectal temp 92.9. Discussed with nurse, will wean down sedation. Discussed with this with we will discontinue Versed at this time entirely. In case this is related to sepsis, we are also broaden antibiotic from Rocephin to Zosyn. Her CT head from 12/16 appears very similar, perhaps slightly better even compared to prior. 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 We will continue to monitor and reassess mental status. Attempt to wean off ventilator, sedation and extubate. Follow sputum cultures, blood cultures Discussed with this morning, . states that for consideration for lung transplantation she was told she would need to lose weight. He states that she does not tell him much about her health issues. States that she does not really listen much to advise. States that unfortunately even when he is encouraging her to eat healthy and attempt to lose weight, states that she eats quite a bit of junk food, and so he is worried that she does not listen to him, and will not lose the weight she needs. Status: Acute (2) Pulmonary nodule: Status: Chronic Additional A&P Information Adrenal adenoma Attestations Medical Necessity Statement*: Continue admission for assessment management of respiratory failure, mechanical ventilatory support, weaning of MV, sedation and attempts to extubate. 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
--- NOTE | 2020-12-18 09:00 | PC.NURSE ---
Rectal temp rechecked. 92.5. Dr garcia
--- NOTE | 2020-12-18 09:11 | PC.CHAP ---
Pastoral Care Encounter/Spiritual Assessment Type of Contact [] Declined community engagement manager visit [] Patient/Family/Request visit [] Outpatient visit [] Follow-up visit [] Physician referral [] Code/Alert [] Routine visit [] Staff referral [] Actively dying [] Patient sleeping [] Family support [] [] Out of room [] Palliative care [] [] Receiving care in room [] Pre-surgical visit [] Trauma [] Long length of stay [x] ICU visit [] Other: Relational/Emotional Strength [] Patient feels connected with others/family/visitors/staff [] Distress [] Loneliness/isolation [] Abandonment Spirituality of Patient [] Person of Amanda [] Attends Evangelical of their Amanda [] Believes in Prayer [] Reads Bible or Religion materials [] There are Spiritual issues to be addressed Treatment Manager Interventions [x] Prayer [] Active listening [] Non-anxious presence [] Spiritual/emotional support [] Crisis/trauma care [] Spiritual counseling [] Bereavement support [] Provided bereavement packet [] Provided Bible/devotional materials [] Provided toy/stuffed animal, coloring book to patient or family member [] Provided Communion [] Anointing/[place] [] Salvation [] Completed spiritual assessment [] Other: Impact on Illness or Injury [] Angry [] Fearful [] Anxious [] Often cries [] Exhaustion [] Unable to work [] Unable to attend adventism [] Unable to walk/stand [] Unable to read [] Unable to drive [] Unable to eat/drink [] Unable to sleep [] Unable to be with family [x] Patient intubated [] Other: Summary Time spent with patient 1m
--- NOTE | 2020-12-18 10:15 | PM.PN ---
Subjective Subjective: Interval history: The patient was seen and examined this morning. Overnight, the patient was agitated and hypertensive and her dose of Versed was increased. She was also started on a nitroglycerin drip. She was found to be hypothermic this morning. The patient was completely unresponsive this morning. She was not initiating any breath on the ventilator. The patient was on volume control mode of ventilation with respiratory rate of 15, I time of 1.2 seconds and 50% oxygen. Given her FEV1 of 16%, the patient likely suffered from progressive air trapping leading to hyperinflation and increased intrathoracic pressure which was likely contributing are responsible for the patient's agitation, increased sympathetic activity leading to hypertension. I tried the patient on pressure support ventilation however the patient did not initiate any breath. Currently the patient is on volume control ventilation with a tidal volume of 500, respiratory rate of 10, I time of 4.8 without any slope and FiO2 of 50% with a PEEP of 5. She is hemodynamically stable. The chest x-ray this morning revealed infiltrate in bilateral lower lobes which is likely a developing bronchopneumonia possibly secondary to aspiration. Her blood gas this morning showed some evidence of respiratory alkalosis. Her pH is 7.39, PCO2 of 71 and PO2 of 75 on 55% oxygen. Medications: Reviewed: Yes Vitals/I&O/Wt Last Vital Signs Temp 92.4 F L 12/18/20 09:15 Pulse 61 12/18/20 10:00 Resp 12 12/18/20 09:15 BP 130/78 12/18/20 10:00 Pulse Ox 91 12/18/20 10:00 12/17/20 12/18/20 12/18/20 22:59 06:59 14:59 Intake Total 487.893 / 897.893 358.502 / 1256.395 553.308 / 553.308 Output Total 400 / 400 1100 / 1500 150 / 150 Balance 87.893 / 497.893 -741.498 / -243.605 403.308 / 403.308 Physical Exam Narrative: EXAM NARRATIVE: General: Patient is intubated and sedated, not arousable Neck: No JVD Respiratory: Auscultation: Reduced breath sound bilaterally, no significant crackles wheezing or rhonchi Cardiovascular: Regular rate and rhythm, S1-S2 present, distant heart sound, no murmur, no peripheral edema. Abdomen: Soft, nondistended, positive bowel sound Skin: No rash Neuro: Patient is sedated, unable to assess Urinary Catheter Management^: Greenberg: Cath Placed During This Visit: yes Reason for Continuing Indwelling Catheter: Accurate Measurement of Urinary Output in Critically Ill Patients Urinary Catheter Date of Insertion: 12/15/20 Urinary Catheter Time of Insertion: 01:50 Data : 12/18/20 03:10 12/18/20 03:10 Micro: Microbiology 12/16/20 12:05 Urine Culture - Final Urine,Clean Catch 12/17/20 16:00 Blood Culture - Preliminary Blood SPECIMEN COLLECTED 12/17/20 15:55 Blood Culture - Preliminary Blood SPECIMEN COLLECTED Attestation for Other Data: I personally reviewed and interpreted the following: Other data: I have reviewed her laboratory, microbiologic and radiologic data. Please see the HPI for detail A&P Assessment and plan (1) Acute and chronic respiratory failure with hypercapnia: The patient has got intubated for an acute on chronic hypoxic and hypercapnic respiratory failure. Overnight, the patient was agitated, and her sedation was uptitrated. This morning the patient is unresponsive and not even initiating breath on the ventilator. We have discontinued the Versed and fentanyl. Currently the patient is on Precedex. The plan is to wake the patient up and when possible switch her to pressure support ventilation. The patient will be extubated to BiPAP on Precedex. Unfortunately, given her profound airflow obstruction, tachypnea will result in dynamic hyperinflation of the chest and respiratory failure. The patient needs to be calm when she is extubated. Status: Acute (2) COPD, severe: The patient has gold class D COPD. Her FEV1 is for 16% consistent with very severe airflow obstruction. The patient was in the process of getting evaluated for lung transplant at [facility]. We will continue with DuoNeb and Pulmicort nebulization. I have cut down the Solu-Medrol dose to 40 mg daily. Status: Chronic (3) Pneumonia: The patient has developing bronchopneumonia likely secondary to aspiration. We have switched her ceftriaxone to Zosyn today. I will continue to evaluate the patient today and hopefully extubate her today. However, there is a chance that the patient may fail extubation. She has had tracheostomy in the past and may require tracheostomy. 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
--- NOTE | 2020-12-18 11:16 | PC.NURSE ---
Fentanyl was paused per doctor Chloe's verbal order. Precedex still running at 0.7.
--- NOTE | 2020-12-18 11:27 | PC.NURSE ---
Rectal temperature at 1100 was 95.1
[2020-12-18] MEDS: piperacillin-tazobactam 3.375 GM in sodium chloride 0.9% (plus) 50 ML IV ×2 (11:28→17:15)
--- NOTE | 2020-12-18 13:36 | PC.NURSE ---
Rectal temperature was 98.2 at 1300.
--- NOTE | 2020-12-18 15:04 | PC.SOCIAL ---
Pg 2 IMM Patient is intubated and tried to call for IMM update with no answer. Patient not anticipated to dc in the next 48 hour.
--- NOTE | 2020-12-18 18:37 | PC.NURSE ---
Precedex is the only sedative patient has running. Patient is able to spontaneously open eyes and occasionally follows commands.
[2020-12-18] MEDS: dexmedetomidine 400 MCG in sodium chloride 0.9% (100 ml) 100 ML 19.3 MCG IV (20:46)
[2020-12-19] VITALS (71 sets, daily range): BP systolic 107–170; BP diastolic 70–113; PULSE 77–113; RESP 12–33; TEMP 36.4–37.4; O2SAT 84–98
[2020-12-19] MEDS: dexmedetomidine 400 MCG in sodium chloride 0.9% (100 ml) 100 ML 21.8 MCG IV (01:36)
[2020-12-19] MEDS: piperacillin-tazobactam 3.375 GM in sodium chloride 0.9% (plus) 50 ML IV ×3 (01:43→16:59)
[2020-12-19 03:55] LABS: Basophils % 0.2 %; Hematocrit 39.8 % (37.0-47.0); Hemoglobin 12.3 g/dL (11.5-15.3); Lymphocytes # 0.9 10^3/uL (0.8-4.8); Lymphocytes % 9.1 %; Mean Corpuscular HGB Conc 30.9 g/dL (30.0-36.0); Mean Corpuscular Hemoglobin 29.8 pg (28.0-34.0); Mean Corpuscular Volume 96.4 fL (81-99); Mean Platelet Volume 12.5 fL (7.4-10.4); Monocytes # 0.9 10^3/uL (0.2-0.9); Neutrophils # 7.89 10^3/uL (1.8-7.7); Neutrophils % 80.9 %; Nucleated Red Blood Cells % 0 %; Platelet Count 141 10^3/cmm (130-400); Red Blood Count 4.13 10^6/uL (4.1-5.3); Red Cell Distribution Width 13.6 % (12.1-15.1); White Blood Count 9.8 10^3/uL (4.0-10.0)
[2020-12-19] MEDS: ipratropium-albuterol 3 mL Neb INHALATION ×6 (04:03→23:55)
[2020-12-19 04:33] LABS: Alanine Aminotransferase 50 U/L (0-33); Albumin Level 3.7 g/dL (3.5-5.2); Alkaline Phosphatase 61 IU/L (35-105); Anion Gap 9.4 (5-19); Aspartate Amino Transferase 52 U/L (0-32); Blood Urea Nitrogen 31 mg/dL (8-23); Calcium 8.8 mg/dL (8.5-10.5); Carbon Dioxide 37 mmol/L (22-29); Chloride 99 mmol/L (98-107); Globulin 2.5 g/dL (1.3-4.6); Glomerular Filtration Rate 125.4 mL/min (90-130); Glucose 86 mg/dL (65-115); Osmolality Calculated 298 mOsm/kg (285-295); Potassium 4.4 mmol/L (3.5-5.1); Sodium 141 mmol/L (136-145); Total Bilirubin 0.5 mg/dL (0.15-1.2); Total Protein 6.2 g/dL (6.6-8.7)
[2020-12-19] MEDS: azithromycin 500 MG in sodium chloride 0.9% 250 ML 250 MG IV (05:29)
[2020-12-19] MEDS: famotidine 20 mg/2 mL INJ IVP ×2 (05:29→17:05)
[2020-12-19] MEDS: enoxaparin 40 mg/0.4 mL Syringe SUBCUT (05:29)
[2020-12-19] MEDS: dexmedetomidine 400 MCG in sodium chloride 0.9% (100 ml) 100 ML 24.2 MCG IV ×3 (05:59→22:03)
--- NOTE | 2020-12-19 06:00 | XR_ITS ---
WS: [id number] XR chest 1V portable [id number] REASON FOR EXAM: Hypoxia FINDINGS: Compared to the previous examination of 12/18/2020, the endotracheal tube and nasogastric tube been re moved. Minimal residual density is identified in the right lower lung. More prominent infiltrative de nsity remains in the left lower lung. No new findings. Post endotracheal tube and nasogastric tube removal as above. XR/XR chest 1V portable [id number] IMPRESSION: Persistent basilar infiltrates more prominent on the left. On multiple portable chests films there has been a lucency of various configura tions projected to the right of the midline overlying the right side of the med iastinum tracheal bifurcation level. This is again seen on this post tube remov al examination. 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
--- NOTE | 2020-12-19 06:14 | PC.NURSE ---
ASSUMING CARE Patient remains mechanically ventilated on CMV mode, Rate 10, PEEP 12, FiO2 40% and TV 450. Patient has precedex running at 1 mcg/hour. Patient is spontaneously opening eyes and follows commands approximately 50% of time. She will make eye contact with nurse at times when instructed and occasionally will squeeze hands and other times will not follow commands. Greenberg catheter in place and draining. Patient instructed to put legs back in bed and nurse attempted to calm patient down.
--- NOTE | 2020-12-19 06:21 | PC.NURSE ---
EXTUBATION 2100 Dr. Corona called due to patient attempting to climb out of bed and not on very much sedation to see what plan for shift is. Dr. Corona states for respiratory to put patient on pressure support and if she tolerates for about 30 minutes to extubate her and continue the precedex. Patient extubated to BIPAP 18/10 and 50% with a rate of 12. Patient tolerated well and began talking to nurse and RT right after extubation. Patient educated on BIPAP placement. Patient is alert and oriented to person only and is still following commands most of time.
--- NOTE | 2020-12-19 06:28 | PC.NURSE ---
SHIFT SUMMARY Patient seems to be more alert and talking more as shift has gone on but still only remains oriented to person. Patient follows commands 100% of time now. BIPAP setting remain the same as when extubated. 850 mL pink tinged urine output. Patient remains on precedex at 1 mcg/hour. Patient reminded multiple times to stay in bed and educated on importance of leaving BIPAP on.
[2020-12-19] MEDS: budesonide 0.5 mg/2 mL Neb INHALATION ×2 (07:24→19:50)
--- NOTE | 2020-12-19 07:47 | PC.NURSE ---
Patient's called wanting an update. I attempted to call him back at [phone]. THe number has been disconnected.
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
--- NOTE | 2020-12-19 11:31 | PC.NURSE ---
Patient is currently resting in bed. Occasionally attempting to get out of bed and still hallucinating, but is easily redirected. She is no longer physically aggressive.
--- NOTE | 2020-12-19 15:24 | PM.PN ---
Subjective Subjective: Interval history: The patient was seen and examined this morning. She was on BiPAP. The patient appeared confused and agitated and hallucinating. She was extubated yesterday at night and did well overnight. Her white cell count is coming down nicely. Blood culture from 12/14 grew coag negative staph likely contaminant. Medications: Reviewed: Yes Vitals/I&O/Wt Last Vital Signs Temp 99.4 F 12/19/20 12:00 Pulse 94 12/19/20 13:21 Resp 20 H 12/19/20 12:00 BP 150/100 12/19/20 12:00 Pulse Ox 92 12/19/20 13:21 12/19/20 12/19/20 12/19/20 06:59 14:59 22:59 Intake Total 238.840 / 1138.981 453.623 / 453.623 Output Total 850 / 1000 450 / 450 Balance -611.160 / 138.981 3.623 / 3.623 Weight last 48 hrs Weight 210 lb 1.6 oz Physical Exam Narrative: EXAM NARRATIVE: General: Patient is awake and alert, confused, intermittently agitated, hallucinating Neck: No JVD Respiratory: Auscultation: Reduced breath sound bilaterally, no significant crackles wheezing or rhonchi Cardiovascular: Regular rate and rhythm, S1-S2 present, distant heart sound, no murmur, no peripheral edema. Abdomen: Soft, nondistended, positive bowel sound Skin: No rash Neuro: Moving all extremities Urinary Catheter Management^: Greenberg: Cath Placed During This Visit: yes Reason for Continuing Indwelling Catheter: Accurate Measurement of Urinary Output in Critically Ill Patients Urinary Catheter Date of Insertion: 12/15/20 Urinary Catheter Time of Insertion: 01:50 Data : 12/19/20 03:20 12/19/20 03:20 Micro: Microbiology 12/17/20 16:00 Gram Stain - Final Sputum - Endotracheal Tube Aspirate Sputum Culture - Preliminary 12/17/20 16:00 Blood Culture - Preliminary Blood NEGATIVE TO DATE 12/17/20 15:55 Blood Culture - Preliminary Blood NEGATIVE TO DATE 12/14/20 23:15 Blood Culture - Preliminary Blood Staphylococcus sp coag neg Attestation for Other Data: I personally reviewed and interpreted the following: Other data: I have reviewed her laboratory microbiologic and radiologic data. A&P Assessment and plan (1) Acute and chronic respiratory failure with hypercapnia: The patient was extubated last night and doing well. Currently she is on BiPAP. The patient can be taken off of BiPAP intermittently Status: Acute (2) COPD, severe: The patient has gold class D COPD. Her FEV1 is for 16% consistent with very severe airflow obstruction. The patient was in the process of getting evaluated for lung transplant at [facility]. We will continue with DuoNeb and Pulmicort nebulization. I have cut down the Solu-Medrol dose to 40 mg daily. The Solu-Medrol can be discontinued after 5 days. Status: Chronic (3) Pneumonia: The patient is currently on Zosyn and doing well. Antibiotic and will is currently of 7 days. She can be switched to Augmentin when she is discharged. Status: Acute (4) Delirium: The patient appears to be delirious and hallucinating. IM Haldol as needed. The patient appears to be on aripiprazole at home. We can resume the medication. Status: Acute Attestations Medical Necessity Statement*: Will defer to the primary team Coding Level of Care Code Acute Mobile Lounge Driver Or Operator for Missael Cr Diagnoses Acute and chronic respiratory failure with hypercapnia J96.22 COPD, severe J44.9 Pneumonia J18.9 Delirium R41.0
[2020-12-19] MEDS: midazolam 1 mg/mL INJ 5 ML 2 MG IV ×2 (15:51→20:11)
[2020-12-19] MEDS: dexmedetomidine 400 MCG in sodium chloride 0.9% (100 ml) 100 ML 19.3 MCG IV (17:40)
[2020-12-19] MEDS: metoprolol tartrate 50 mg Tablet PO (21:29)
[2020-12-19 22:14] LABS: ABG PH Result 7.39 (7.35-7.45)
[2020-12-19 22:15] LABS: Base Excess ABG 11.8 mmol/L (-2.0-2.0); HCO3 ABG 39.4 mmol/L (22-26); PO2 ABG 83.2 mmHg (80.0-100.0)
[2020-12-20] VITALS (64 sets, daily range): BP systolic 101–176; BP diastolic 59–111; PULSE 0–108; RESP 13–31; TEMP 37–37.3; O2SAT 64–100
[2020-12-20] MEDS: midazolam 1 mg/mL INJ 5 ML 2 MG IV (01:20)
[2020-12-20] MEDS: piperacillin-tazobactam 3.375 GM in sodium chloride 0.9% (plus) 50 ML IV ×3 (03:09→16:50)
--- NOTE | 2020-12-20 03:48 | PC.NURSE ---
ASSUMING CARE 1900 Patient is on nasal cannula at 3.5 L. Patient is alert and oriented to person, month, and who the president is but not place or situation. Precedex is running at 1 mcg/hour and zosyn is running. 1:1 sitter at bedside. Greenberg catheter in place and draining.
[2020-12-20 04:07] LABS: Basophils % 0.1 %; Eosinophils # 0.1 10^3/uL (0.0-0.8); Hematocrit 40.1 % (37.0-47.0); Hemoglobin 12.2 g/dL (11.5-15.3); Lymphocytes % 12.9 %; Mean Corpuscular HGB Conc 30.4 g/dL (30.0-36.0); Mean Corpuscular Hemoglobin 28.8 pg (28.0-34.0); Mean Corpuscular Volume 94.8 fL (81-99); Mean Platelet Volume 12.1 fL (7.4-10.4); Monocytes # 0.7 10^3/uL (0.2-0.9); Neutrophils # 5.87 10^3/uL (1.8-7.7); Neutrophils % 75.7 %; Nucleated Red Blood Cells % 0 %; Platelet Count 148 10^3/cmm (130-400); Red Blood Count 4.23 10^6/uL (4.1-5.3); Red Cell Distribution Width 13.5 % (12.1-15.1); White Blood Count 7.8 10^3/uL (4.0-10.0)
--- NOTE | 2020-12-20 04:16 | PC.NURSE ---
BLOOD PRESSURE 0303 Dr. Langford notified of patients blood pressure of 175/[address] Langford reported to unit to speak with nurse. She states to let her know if it reaches 200s/110s. No new orders at this time.
[2020-12-20] MEDS: dexmedetomidine 400 MCG in sodium chloride 0.9% (100 ml) 100 ML 24.2 MCG IV ×2 (04:21→10:30)
[2020-12-20 04:27] LABS: Alanine Aminotransferase 69 U/L (0-33); Albumin Level 3.7 g/dL (3.5-5.2); Alkaline Phosphatase 68 IU/L (35-105); Anion Gap 10.8 (5-19); Aspartate Amino Transferase 57 U/L (0-32); Blood Urea Nitrogen 20 mg/dL (8-23); Calcium 8.8 mg/dL (8.5-10.5); Carbon Dioxide 38 mmol/L (22-29); Chloride 93 mmol/L (98-107); Globulin 2.5 g/dL (1.3-4.6); Glomerular Filtration Rate 101.6 mL/min (90-130); Glucose 65 mg/dL (65-115); Osmolality Calculated 287 mOsm/kg (285-295); Potassium 3.8 mmol/L (3.5-5.1); Sodium 138 mmol/L (136-145); Total Bilirubin 0.9 mg/dL (0.15-1.2); Total Protein 6.2 g/dL (6.6-8.7)
[2020-12-20] MEDS: ipratropium-albuterol 3 mL Neb INHALATION ×5 (04:48→21:25)
[2020-12-20] MEDS: famotidine 20 mg/2 mL INJ IVP (05:46)
[2020-12-20] MEDS: azithromycin 500 MG in sodium chloride 0.9% 250 ML 250 MG IV (05:46)
[2020-12-20] MEDS: enoxaparin 40 mg/0.4 mL Syringe SUBCUT (05:46)
--- NOTE | 2020-12-20 06:25 | PC.NURSE ---
SHIFT SUMMARY Patients neurological status remains the same. Precedex remains at 1 mcg/hour, zosyn and azithromycin running. Patient has been extremely restless this shift. IV versed given twice for restlessness and anxiety, and patient tolerated BIPAP well for about 2 hours after versed administration. 1:1 sitter present at bedside this shift. 1350 mL urine output.
[2020-12-20] MEDS: budesonide 0.5 mg/2 mL Neb INHALATION ×2 (07:21→21:25)
[2020-12-20] MEDS: aspirin 81 mg EC Tablet PO (08:52)
[2020-12-20] MEDS: citalopram 20 mg Tablet 10 MG PO ×2 (08:52→18:04)
[2020-12-20] MEDS: montelukast sodium 10 mg Tablet PO (08:53)
[2020-12-20] MEDS: amlodipine 5 mg Tablet PO ×2 (08:54→12:03)
[2020-12-20] MEDS: metoprolol tartrate 50 mg Tablet PO ×2 (08:58→21:47)
[2020-12-20] MEDS: ARIPiprazole 2 mg Tablet PO (08:58)
--- NOTE | 2020-12-20 09:03 | PM.PN ---
Subjective Subjective: Interval history: This morning she is calm her. Sitting up in a chair. One-to-one sitter reports she was having some hallucinations earlier this morning. To me she states that she was stuck in an elevator behind a girl for a while this morning before she got to her room. As far as I can tell, however, she has been in her room and was not moved anywhere. She denies any pain. She is eager to start moving around a bit and is agreeable to physical therapy. States she is hungry. Vitals/I&O/Wt Last Vital Signs Temp 99.1 F 12/20/20 06:00 Pulse 92 12/20/20 07:28 Resp 22 H 12/20/20 07:21 BP 151/103 12/20/20 06:00 Pulse Ox 96 12/20/20 07:24 12/19/20 12/20/20 12/20/20 22:59 06:59 14:59 Intake Total 154.000 / 662.000 104 / 766.000 300 / 300 Output Total 1400 / 1850 1350 / 3200 Balance -1246.000 / -1188.000 -1246 / -2434.000 300 / 300 Weight last 48 hrs Weight 93.304 kg Weight 95.3 kg Physical Exam Const: COMMON NORMALS: no acute distress and alert ORIENTATION/CONSCIOUSNESS: Yes awake OTHER: Less paranoid ideation. Some hallucinations earlier. Oriented x3 Calmer HENMT: COMMON NORMALS: oropharynx normal Neck/C-Spine: COMMON NORMALS: no JVD Resp: COMMON NORMALS: normal respiratory effort AUSCULTATION: no rhonchi, no wheezes and diminished lung sounds Cardio: COMMON NORMALS: no JVD, regular rhythm, S1 normal heart sound present, S2 normal heart sound present and No murmurs present (Cardio) RHYTHM: regular rhythm HEART SOUNDS: S1 normal heart sound present and S2 normal heart sound present GI: COMMON NORMALS: Normal to inspection, nondistended, normoactive bowel sounds present, Soft to palpation and non-tender PALPATION: Yes Soft to palpation Extremity: COMMON NORMALS: no joint enlargement and no pedal edema Neuro: COMMON NORMALS: moves all extremities SENSORIUM/ORIENTATION: Yes alert Skin: COMMON NORMALS: no rashes or lesions noted GENERAL SKIN EXAM: no rashes or lesions noted Urinary Catheter Management^: Greenberg: Cath Placed During This Visit: yes Reason for Continuing Indwelling Catheter: Accurate Measurement of Urinary Output in Critically Ill Patients Urinary Catheter Date of Insertion: 12/15/20 Urinary Catheter Time of Insertion: 01:50 Data : 12/20/20 03:09 12/20/20 03:09 Micro: Microbiology 12/14/20 23:09 Blood Culture - Final Blood NO GROWTH AFTER 5 DAYS 12/17/20 16:00 Gram Stain - Final Sputum - Endotracheal Tube Aspirate Sputum Culture - Preliminary A&P Assessment and plan (1) Acute and chronic respiratory failure with hypercapnia: Respiratory status stabilizing. She is doing well this morning on room air. Overnight on BiPAP. Denies trouble breathing. Lung sounds are somewhat diminished on exam. Sputum culture pending. Rare epithelial cells, few white blood cells, moderate gram-positive cocci in pairs, few gram-positive cocci in small clusters. With concern for aspiration readmission. Continue Zosyn for now. Empirically continue azithromycin. If continues to improve, perhaps steroid can be stopped after today. Continue nebs. PT, OT, mobilize. Continue oxygen support. Avoid hyperoxia. BiPAP as needed. Wean down Precedex. D/w . Status: Acute (2) Delirium: reports at home sometimes she also has some vivid dreams, and sometimes association with reality. Discussed with him, may have parasomnia which may benefit from additional investigation after recovers from acute illness. Possibly due to general medical condition, ICU admisison, hypoxia. Continue to treat underlying conditions. Provide supportive care. Reassure, reorient. Wean Precedex. Status: Acute (3) Pulmonary nodule: Status: Chronic Additional A&P Information Adrenal adenoma Chronic crowding at the base of the skull around foramina magnum Attestations Medical Necessity Statement*: Continue admission for assessment management of respiratory failure, with underlying advanced lung disease, delirium, weaning sedation, mobilization, disposition planning. Coding Level of Care Code Acute Jet Blade Polisher for Missael Fwd Exam Comprehensive Diagnoses Acute and chronic respiratory failure with hypercapnia J96.22 Delirium R41.0 Pulmonary nodule R91.1
--- NOTE | 2020-12-20 09:36 | PC.NURSE ---
back to bed. up for approx. 2 hrs. oli. fair. some hallucinations, remains confused.
--- NOTE | 2020-12-20 10:37 | PC.NURSE ---
remains restless. trying to adjust mask, ect. difficult to get pt. to rest body against bed. keeps herself propped up on elbows.
--- NOTE | 2020-12-20 15:59 | PC.NURSE ---
1210 5 mg. amlodipine in. pt. refused at this time will try later.
--- NOTE | 2020-12-20 16:01 | PC.NURSE ---
1600 resting quietly at this time.
--- NOTE | 2020-12-20 16:18 | PC.SOCIAL ---
Pg 2 IMM Explained to pt Pg 2 IMM. No questions voiced. Provided pt a copy. Signed, dated, & timed a copy & placed in chart.
[2020-12-20] MEDS: famotidine 20 mg Tablet PO (18:04)
[2020-12-20] MEDS: OLANZapine 5 mg TABLET PO (21:47)
[2020-12-21] VITALS (38 sets, daily range): BP systolic 97–153; BP diastolic 48–117; PULSE 80–114; RESP 13–26; TEMP 36.3–37.4; O2SAT 90–100
[2020-12-21] MEDS: acetaminophen 325 mg Tablet 650 MG PO (00:02)
[2020-12-21] MEDS: piperacillin-tazobactam 3.375 GM in sodium chloride 0.9% (plus) 50 ML IV ×3 (00:03→17:23)
[2020-12-21] MEDS: ipratropium-albuterol 3 mL Neb INHALATION ×7 (00:19→23:41)
--- NOTE | 2020-12-21 02:58 | PC.NURSE ---
ASSUMING CARE 1900 Patient is alert and oriented x 4. Patient is sitting in the chair on 4 L nasal cannula, eating cereal and requesting bath. Patient bathed while in chair and linens changed. Patient has zosyn running. 1:1 sitter at bedside.
[2020-12-21] MEDS: famotidine 20 mg Tablet PO ×2 (05:42→17:21)
[2020-12-21] MEDS: azithromycin 250 mg Tablet 500 MG PO (05:42)
[2020-12-21] MEDS: enoxaparin 40 mg/0.4 mL Syringe SUBCUT (05:42)
--- NOTE | 2020-12-21 05:50 | PC.NURSE ---
1:1 SITTER Patient has been alert and oriented x 4, following safety instructions and being tranquil. Dr. Langford notified of this and said if patient remained like this throughout the night to dis continue 1:1 sitter this AM.
--- NOTE | 2020-12-21 05:54 | PC.NURSE ---
SHIFT SUMMARY Patient has remained alert and oriented x 4. 1:1 order expected to be discontinued this shift. Patient wore BIPAP from about [id number] and rested well. When off BIPAP patient on 4 L nasal cannula. 1500 mL urine output.
[2020-12-21 05:56] LABS: Basophils % 0.2 %; Eosinophils # 0.2 10^3/uL (0.0-0.8); Eosinophils % 1.8 %; Hematocrit 42.1 % (37.0-47.0); Lymphocytes % 10.8 %; Mean Corpuscular HGB Conc 30.9 g/dL (30.0-36.0); Mean Corpuscular Hemoglobin 28.7 pg (28.0-34.0); Mean Corpuscular Volume 92.9 fL (81-99); Mean Platelet Volume 12.4 fL (7.4-10.4); Monocytes # 0.8 10^3/uL (0.2-0.9); Monocytes % 8.6 %; Neutrophils # 7.18 10^3/uL (1.8-7.7); Neutrophils % 78.1 %; Nucleated Red Blood Cells % 0 %; Platelet Count 193 10^3/cmm (130-400); Red Blood Count 4.53 10^6/uL (4.1-5.3); Red Cell Distribution Width 13.5 % (12.1-15.1); White Blood Count 9.2 10^3/uL (4.0-10.0)
[2020-12-21 06:17] LABS: Alanine Aminotransferase 58 U/L (0-33); Albumin Level 3.9 g/dL (3.5-5.2); Alkaline Phosphatase 69 IU/L (35-105); Anion Gap 14.6 (5-19); Aspartate Amino Transferase 37 U/L (0-32); Blood Urea Nitrogen 19 mg/dL (8-23); Calcium 9.5 mg/dL (8.5-10.5); Carbon Dioxide 37 mmol/L (22-29); Chloride 93 mmol/L (98-107); Globulin 2.7 g/dL (1.3-4.6); Glomerular Filtration Rate 101.6 mL/min (90-130); Glucose 67 mg/dL (65-115); Osmolality Calculated 293 mOsm/kg (285-295); Potassium 3.6 mmol/L (3.5-5.1); Sodium 141 mmol/L (136-145); Total Bilirubin 1.4 mg/dL (0.15-1.2); Total Protein 6.6 g/dL (6.6-8.7)
[2020-12-21] MEDS: budesonide 0.5 mg/2 mL Neb INHALATION ×2 (08:10→20:38)
[2020-12-21] MEDS: citalopram 20 mg Tablet 10 MG PO ×2 (08:24→17:21)
[2020-12-21] MEDS: amlodipine 5 mg Tablet PO (08:24)
[2020-12-21] MEDS: montelukast sodium 10 mg Tablet PO (08:26)
[2020-12-21] MEDS: aspirin 81 mg EC Tablet PO (08:27)
[2020-12-21] MEDS: ARIPiprazole 2 mg Tablet PO (08:27)
[2020-12-21] MEDS: metoprolol tartrate 50 mg Tablet PO ×2 (09:13→21:09)
--- NOTE | 2020-12-21 11:08 | PM.PN ---
Subjective Subjective: Interval history: Today she is doing better. Knows she is in the hospital. Knows the year. Appears she has not been bothered so much by hallucinations today. More redirectable. Cooperative. Reports she is breathing better. Denies chest pain. Still some cough. Yellowish phlegm. Vitals/I&O/Wt Last Vital Signs Temp 99.1 F 12/21/20 08:00 Pulse 114 H 12/21/20 10:00 Resp 25 H 12/21/20 10:00 BP 129/84 12/21/20 10:00 Pulse Ox 100 12/21/20 10:00 12/20/20 12/21/20 12/21/20 22:59 06:59 14:59 Intake Total 454 / 1088 290 / 1378 720 / 720 Output Total 1650 / 1650 1500 / 3150 Balance -1196 / -562 -1210 / -1772 720 / 720 Weight last 48 hrs Weight 90.809 kg Weight 93.304 kg Physical Exam Const: COMMON NORMALS: no acute distress and alert ORIENTATION/CONSCIOUSNESS: Yes awake OTHER: In better spirits. Cooperative. Calmer. HENMT: COMMON NORMALS: oropharynx normal Neck/C-Spine: COMMON NORMALS: no JVD Resp: COMMON NORMALS: normal respiratory effort AUSCULTATION: no rhonchi, no wheezes and diminished lung sounds Cardio: COMMON NORMALS: no JVD, regular rhythm, S1 normal heart sound present, S2 normal heart sound present and No murmurs present (Cardio) RHYTHM: regular rhythm HEART SOUNDS: S1 normal heart sound present and S2 normal heart sound present GI: COMMON NORMALS: Normal to inspection, nondistended, normoactive bowel sounds present, Soft to palpation and non-tender PALPATION: Yes Soft to palpation Extremity: COMMON NORMALS: no joint enlargement and no pedal edema Neuro: COMMON NORMALS: moves all extremities SENSORIUM/ORIENTATION: Yes alert Skin: COMMON NORMALS: no rashes or lesions noted GENERAL SKIN EXAM: no rashes or lesions noted Urinary Catheter Management^: Greenberg: Cath Placed During This Visit: yes Reason for Continuing Indwelling Catheter: Not indwelling catheter Urinary Catheter Date of Insertion: 12/15/20 Urinary Catheter Time of Insertion: 01:50 Data : 12/21/20 04:22 12/21/20 04:22 Micro: Microbiology 12/17/20 16:00 Gram Stain - Final Sputum - Endotracheal Tube Aspirate Sputum Culture - Final 12/14/20 23:15 Blood Culture - Final Blood Staphylococcus sp coag neg A&P Assessment and plan (1) Delirium: So far weaned off Precedex since yesterday afternoon. Yesterday added olanzapine nightly. Continue supportive care. Reorient. Additional monitoring on medical surgical floor. If continues to do well, and respiratory condition continues to improve/tolerating de-escalation of therapy, may be nearing ability to discharge in the next 1-2 days. reports at home sometimes she also has some vivid dreams, and sometimes association with reality. Discussed with him, may have parasomnia which may benefit from additional investigation after recovers from acute illness. Possibly due to general medical condition, ICU admisison, hypoxia. Continue to treat underlying conditions. Provide supportive care. Reassure, reorient. Status: Acute (2) Acute and chronic respiratory failure with hypercapnia: DC steroid. Monitor with de-escalation. Advance diet, monitor for aspiration. Continue Zosyn at this time. Continue oxygen support, wean down as tolerating. BiPAP support at night and as needed. Continue treatment and monitoring for delirium as above. Augmentin per pulmonology recommendations on discharge. Sputum culture pending. Rare epithelial cells, few white blood cells, moderate gram-positive cocci in pairs, few gram-positive cocci in small clusters. PT, OT, mobilize. Avoid hyperoxia. Status: Acute (3) Pulmonary nodule: Status: Chronic Additional A&P Information Adrenal adenoma Chronic crowding at the base of the skull around foramina magnum Cough negative staph and blood, suspected contamination. Attestations Medical Necessity Statement*: Continue admission for assessment management of improving delirium, improving after therapy, de-escalation of therapy with monitoring of response, discharge planning. Coding Level of Care Code Acute Director Of Radio Services for Missael Cr Diagnoses Delirium R41.0 Acute and chronic respiratory failure with hypercapnia J96.22 Pulmonary nodule R91.1
--- NOTE | 2020-12-21 13:55 | PC.PT ---
Attempted to see Loretta at 0935 and again at 1345. She was highly agitated and nursing asks that we wait until tomorrow to evaluate her. Nursing states that very early in the morning would be the time that patient is most cognitively clear.
--- NOTE | 2020-12-21 13:57 | PC.OT ---
OT tx attempted. Pt declining any OT intervention at this time as she was thinking it was 1030 at night vs. 1030 in the a.m. Pt is pleasant but insistent that she needs to sleep. Nursing recommends OT trying to see pt as early in the day as possible as she may be more receptive to participation with therapy.
--- NOTE | 2020-12-21 16:11 | PC.NURSE ---
report called to Salima OLIVAS. will transfer pt to the [facility] floor with 1:1 sitter
--- NOTE | 2020-12-21 16:29 | PC.NURSE ---
pt transferred up to med surg via wheelchair. bedside report to jeremy long All charting completed by Opal Montalvo student nurse was verified and checked by this RN.
[2020-12-21] MEDS: OLANZapine 5 mg TABLET PO (21:09)
[2020-12-22] VITALS (15 sets, daily range): BP systolic 110–169; BP diastolic 72–86; PULSE 85–117; RESP 17–22; TEMP 36.4–36.6; O2SAT 88–100
[2020-12-22] MEDS: piperacillin-tazobactam 3.375 GM in sodium chloride 0.9% (plus) 50 ML IV ×3 (01:41→16:16)
[2020-12-22] MEDS: ipratropium-albuterol 3 mL Neb INHALATION ×5 (03:46→19:58)
[2020-12-22 05:16] LABS: Basophils % 0.2 %; Eosinophils # 0.1 10^3/uL (0.0-0.8); Eosinophils % 1.5 %; Hemoglobin 13.5 g/dL (11.5-15.3); Lymphocytes % 10.7 %; Mean Corpuscular Hemoglobin 29.4 pg (28.0-34.0); Mean Platelet Volume 11.7 fL (7.4-10.4); Monocytes # 0.9 10^3/uL (0.2-0.9); Monocytes % 9.3 %; Neutrophils # 7.27 10^3/uL (1.8-7.7); Neutrophils % 77.6 %; Nucleated Red Blood Cells % 0 %; Platelet Count 201 10^3/cmm (130-400); Red Blood Count 4.59 10^6/uL (4.1-5.3); Red Cell Distribution Width 13.7 % (12.1-15.1); White Blood Count 9.4 10^3/uL (4.0-10.0)
[2020-12-22] MEDS: azithromycin 250 mg Tablet 500 MG PO (05:37)
[2020-12-22] MEDS: enoxaparin 40 mg/0.4 mL Syringe SUBCUT (05:37)
[2020-12-22] MEDS: famotidine 20 mg Tablet PO ×2 (05:37→17:22)
[2020-12-22 06:11] LABS: Alanine Aminotransferase 48 U/L (0-33); Albumin Level 3.7 g/dL (3.5-5.2); Alkaline Phosphatase 64 IU/L (35-105); Aspartate Amino Transferase 26 U/L (0-32); Blood Urea Nitrogen 22 mg/dL (8-23); Carbon Dioxide 31 mmol/L (22-29); Chloride 98 mmol/L (98-107); Globulin 2.7 g/dL (1.3-4.6); Glomerular Filtration Rate 125.4 mL/min (90-130); Glucose 92 mg/dL (65-115); Osmolality Calculated 299 mOsm/kg (285-295); Sodium 143 mmol/L (136-145); Total Bilirubin 0.9 mg/dL (0.15-1.2); Total Protein 6.4 g/dL (6.6-8.7)
[2020-12-22 06:12] LABS: Anion Gap 17.8 (5-19); Potassium 3.8 mmol/L (3.5-5.1)
[2020-12-22] MEDS: budesonide 0.5 mg/2 mL Neb INHALATION ×2 (07:58→19:58)
[2020-12-22] MEDS: montelukast sodium 10 mg Tablet PO (09:33)
[2020-12-22] MEDS: citalopram 20 mg Tablet 10 MG PO ×2 (09:33→17:21)
[2020-12-22] MEDS: ARIPiprazole 2 mg Tablet PO (09:33)
[2020-12-22] MEDS: metoprolol tartrate 50 mg Tablet PO ×2 (09:33→21:22)
[2020-12-22] MEDS: amlodipine 5 mg Tablet PO (09:34)
[2020-12-22] MEDS: aspirin 81 mg EC Tablet PO (09:34)
--- NOTE | 2020-12-22 10:08 | PC.SOCIAL ---
IMM Updated Updated pt on Pg 2 IMM. No questions voiced. Provided pt a copy. Initialed, dated, & timed copy in chart.
[2020-12-22] MEDS: acetaminophen 325 mg Tablet 650 MG PO (16:16)
[2020-12-22] MEDS: haloperidol inj 5 mg/mL INJ 1 mL IM (17:20)
[2020-12-22] MEDS: OLANZapine 5 mg TABLET PO (21:23)
--- NOTE | 2020-12-22 21:25 | PM.PN ---
Subjective Subjective: Interval history: She is doing well in terms of her breathing. On 4-5 L nasal cannula oxygen. Denies chest pain. She has not been sleeping, and appears to remains awake through the night. Again hallucinated today's noted by one-to-one sitter. is visiting. During my visit she is calm. Later in the evening noted to become restless and agitated. Vitals/I&O/Wt Last Vital Signs Temp 97.9 F 12/22/20 19:12 Pulse 107 H 12/22/20 20:13 Resp 22 H 12/22/20 19:59 BP 146/86 12/22/20 19:12 Pulse Ox 95 12/22/20 20:02 12/22/20 12/22/20 12/22/20 06:59 14:59 22:59 Intake Total 50 / 1830 290 / 290 290 / 580 Output Total 350 / 1400 Balance -300 / 430 290 / 290 290 / 580 Weight last 48 hrs Weight 93.44 kg Weight 90.809 kg Physical Exam Const: COMMON NORMALS: no acute distress and alert ORIENTATION/CONSCIOUSNESS: Yes awake OTHER: Awake, alert, sitting up at the edge of bed. Appears to be in good spirits. HENMT: COMMON NORMALS: oropharynx normal Neck/C-Spine: COMMON NORMALS: no JVD Resp: COMMON NORMALS: normal respiratory effort AUSCULTATION: no rhonchi, no wheezes and diminished lung sounds (Somewhat more diminished today.) Cardio: COMMON NORMALS: no JVD, regular rhythm, S1 normal heart sound present, S2 normal heart sound present and No murmurs present (Cardio) RHYTHM: regular rhythm HEART SOUNDS: S1 normal heart sound present and S2 normal heart sound present GI: COMMON NORMALS: Normal to inspection, nondistended, normoactive bowel sounds present, Soft to palpation and non-tender PALPATION: Yes Soft to palpation Extremity: COMMON NORMALS: no joint enlargement and no pedal edema Neuro: COMMON NORMALS: moves all extremities SENSORIUM/ORIENTATION: Yes alert Skin: COMMON NORMALS: no rashes or lesions noted GENERAL SKIN EXAM: no rashes or lesions noted Urinary Catheter Management^: Greenberg: Cath Placed During This Visit: yes Reason for Continuing Indwelling Catheter: Other Urinary Catheter Date of Insertion: 12/15/20 Urinary Catheter Time of Insertion: 01:50 Data : 12/22/20 04:30 12/22/20 04:30 Micro: Microbiology 12/17/20 16:00 Blood Culture - Final Blood NO GROWTH AFTER 5 DAYS 12/17/20 15:55 Blood Culture - Final Blood NO GROWTH AFTER 5 DAYS A&P Assessment and plan (1) Delirium: Overall she is definitely not as combative and agitated as she was when just extubated, however, improvement has been rather slow. Continues to hallucinate. During my visit she is alert, cooperative. In good spirits. Later in the evening noted to be agitated requiring dose of Haldol. Has weaned off Precedex. Continue Abilify. Zyprexa has been added at night, although despite this suffering from insomnia. We will stop steroids to avoid contribution. For now continues on inhaled steroid as lung sounds are quite diminished. We will add trazodone to see if will help her get some sleep at night. Continue to mobilize with physical therapy. reports at home sometimes she also has some vivid dreams, and sometimes association with reality. Discussed with him, may have parasomnia which may benefit from referral for additional investigation after recovers from acute illness. Possibly due to general medical condition, ICU admisison, hypoxia. Continue to treat underlying conditions. Provide supportive care. Reassure, reorient. Not yet ready to return home. Status: Acute (2) Acute and chronic respiratory failure with hypercapnia: Steroids DC'd as breathing had remained stable. Lungs sounding much better. Today somewhat more diminished, although we will monitor as is for now continue only inhaled steroids unless absolutely necessary so as to reduce contribution to delirium, insomnia. Continue Zosyn at this time. Continue oxygen support, wean down as tolerating. BiPAP support at night and as needed. Avoid hyperoxia. Continue treatment and monitoring for delirium as above. Augmentin per pulmonology recommendations on discharge. Sputum culture unremarkable. PT, OT, mobilize. Status: Acute (3) Pulmonary nodule: Status: Chronic Additional A&P Information Adrenal adenoma Chronic crowding at the base of the skull around foramina magnum Cough negative staph and blood, suspected contamination. End-stage COPD: Resume follow-up with pulmonology after discharge, efforts for consideration of moody transplantation. Attestations Medical Necessity Statement*: Continue admission for assessment of management of persistent/very slow to improve delirium, episodes of agitation following hypoxic respiratory failure, with very poor underlying lung function. Coding Level of Care Code Acute Pattern Marking Supervisor for Chg Fwd Diagnoses Delirium R41.0 Acute and chronic respiratory failure with hypercapnia J96.22 Pulmonary nodule R91.1
[2020-12-23] VITALS (23 sets, daily range): BP systolic 102–129; BP diastolic 63–82; PULSE 72–120; RESP 16–24; TEMP 36.4–36.9; O2SAT 92–99
[2020-12-23] MEDS: ipratropium-albuterol 3 mL Neb INHALATION ×6 (00:16→20:05)
[2020-12-23] MEDS: piperacillin-tazobactam 3.375 GM in sodium chloride 0.9% (plus) 50 ML IV ×3 (01:18→17:02)
[2020-12-23] MEDS: enoxaparin 40 mg/0.4 mL Syringe SUBCUT (05:13)
[2020-12-23 06:57] LABS: Basophils % 0.3 %; Eosinophils # 0.6 10^3/uL (0.0-0.8); Eosinophils % 8.4 %; Hematocrit 39.2 % (37.0-47.0); Hemoglobin 11.7 g/dL (11.5-15.3); Lymphocytes # 1.2 10^3/uL (0.8-4.8); Lymphocytes % 16.5 %; Mean Corpuscular HGB Conc 29.8 g/dL (30.0-36.0); Mean Corpuscular Hemoglobin 28.7 pg (28.0-34.0); Mean Corpuscular Volume 96.3 fL (81-99); Mean Platelet Volume 12.5 fL (7.4-10.4); Monocytes # 0.9 10^3/uL (0.2-0.9); Monocytes % 13.2 %; Neutrophils # 4.28 10^3/uL (1.8-7.7); Nucleated Red Blood Cells % 0 %; Platelet Count 175 10^3/cmm (130-400); Red Blood Count 4.07 10^6/uL (4.1-5.3); Red Cell Distribution Width 13.9 % (12.1-15.1)
[2020-12-23 07:22] LABS: Alanine Aminotransferase 35 U/L (0-33); Albumin Level 3.5 g/dL (3.5-5.2); Alkaline Phosphatase 53 IU/L (35-105); Anion Gap 11.2 (5-19); Aspartate Amino Transferase 18 U/L (0-32); Blood Urea Nitrogen 18 mg/dL (8-23); Calcium 8.5 mg/dL (8.5-10.5); Carbon Dioxide 36 mmol/L (22-29); Chloride 100 mmol/L (98-107); Glomerular Filtration Rate 125.4 mL/min (90-130); Glucose 70 mg/dL (65-115); Osmolality Calculated 298 mOsm/kg (285-295); Potassium 3.2 mmol/L (3.5-5.1); Sodium 144 mmol/L (136-145); Total Bilirubin 0.8 mg/dL (0.15-1.2); Total Protein 5.5 g/dL (6.6-8.7)
[2020-12-23] MEDS: budesonide 0.5 mg/2 mL Neb INHALATION ×2 (07:42→20:05)
[2020-12-23] MEDS: aspirin 81 mg EC Tablet PO (08:44)
[2020-12-23] MEDS: ARIPiprazole 2 mg Tablet PO (08:44)
[2020-12-23] MEDS: montelukast sodium 10 mg Tablet PO (08:44)
[2020-12-23] MEDS: amlodipine 5 mg Tablet PO (08:44)
[2020-12-23] MEDS: famotidine 20 mg Tablet PO ×2 (08:44→20:37)
[2020-12-23] MEDS: metoprolol tartrate 50 mg Tablet PO ×2 (08:44→20:37)
[2020-12-23] MEDS: citalopram 20 mg Tablet 10 MG PO ×2 (08:45→17:03)
[2020-12-23] MEDS: azithromycin 250 mg Tablet 500 MG PO (08:45)
--- NOTE | 2020-12-23 11:48 | USCV_ITS ---
Varinder Loretta Age: 60 Gender: F : 1960 Exam Date: 12/23/2020 14:38 Ordering Phys: Nasir Hoffman MD Technologist: MODESTO Exam Location: [facility] [place] Indication: AMS Risk Factors: Previous Vascular Surgery: Right Brachial BP: / Left Brachial BP: / Right Left Velocity (cm/s) Spectral Plaque Velocity (cm/s) Spectral Plaque Syst/Diast Broadening Syst/Diast Broadening 89.30/ 24.30 Prox CCA 111.00/ 28.50 104.10/40.30 Mid CCA 118.30/ 34.20 100.30/25.40 Distal CCA 100.60/ 24.60 79.40/ 28.70 Prox ICA 139.30/ 39.40 104.70/37.50 Mid ICA 110.40/ 35.50 84.10/ 32.30 Distal ICA 95.30 / 37.40 104.70 ECA 102.50 1.01 ICA/CCA 1.18 Antegrade Vertebral Antegrade 79.40/ 25.40 cm/s 57.90/ 19.30 cm/s Tri Subclavian Tri 130.1 126.2 0 0 FINDINGS Comparison: none available. No significant elevation of systolic or diastolic velocities. Waveforms are normal. No significant amount of calcified plaque or intimal thickening identified. CONCLUSIONS Normal carotid doppler ultrasound. Dr. Avani Medina DO (Electronically Signed) Final Date: 23 December 2020 16:18 S
--- NOTE | 2020-12-23 11:48 | CT_ITS ---
WS: [id number] CT HEAD NONCONTRAST HISTORY: ams TECHNIQUE: Contiguous axial imaging performed through the brain in 2.5 mm imaging. Bone and soft tiss ue windows. Sagittal and coronal reformats reviewed. All CT scans at [facility] use at ast one of these dose optimization techniques: automated exposure control; mA and/or kV adjustment pe r patient size (includes targeted exams where dose is matched to clinical indication); or iterative r econstruction. DLP: 904.4 mGy.cm COMPARISON: 12/16/2020 No acute intracranial hemorrhage, midline shift or mass effect. No atrophy or prior infarcts or herniation. Again noted is mild inferior displacement of the cerebel lar tonsils and crowding at the foramen magnum. No hydrocephalus. Ventricles: Normal size with no hydrocephalus. Paranasal sinuses: As visualized are clear. Mastoid air cells: Well pneumatized. Calvarium and scalp: Skull is intact with no soft tissue edema or swelling. CT/CT head wo con* [id number] IMPRESSION: 1. No acute intracranial hemorrhage or edema. 2. Mild ectopia the cerebellar tonsils and crowding of the foramen magnum as s een on prior studies. No acute interval change.
--- NOTE | 2020-12-23 14:05 | PM.PN ---
Subjective Subjective: Interval history: This morning patient was examined, overnight she did have episodes of agitation, this morning she is alert to person, to place, not to time, she follows all commands, neurologically intact, however is quite drowsy during my examination, she does have intermittent episodes of confusion during my questioning, but overall is doing better,, currently on nasal cannula Vitals/I&O/Wt Last Vital Signs Temp 98.1 F 12/23/20 12:00 Pulse 76 12/23/20 12:00 Resp 17 12/23/20 12:00 BP 127/63 12/23/20 12:00 Pulse Ox 95 12/23/20 12:00 12/22/20 12/23/20 12/23/20 22:59 06:59 14:59 Intake Total 290 / 580 50 / 630 340 / 340 Output Total 550 / 550 Balance 290 / 580 -500 / 80 340 / 340 Weight last 48 hrs Weight 94.483 kg Weight 93.44 kg Physical Exam Const: COMMON NORMALS: no acute distress ORIENTATION/CONSCIOUSNESS: Yes awake, Yes oriented to person and Yes oriented to place; not oriented to time HENMT: COMMON NORMALS: normocephalic HEAD & SCALP: normocephalic Neck/C-Spine: COMMON NORMALS: no JVD Resp: COMMON NORMALS: normal respiratory effort, No retractions, No use of accessory muscles and clear to auscultation bilaterally AUSCULTATION: clear to auscultation bilaterally Cardio: COMMON NORMALS: no JVD, regular rate, regular rhythm, S1 normal heart sound present and S2 normal heart sound present RATE: regular rate RHYTHM: regular rhythm HEART SOUNDS: S1 normal heart sound present and S2 normal heart sound present GI: COMMON NORMALS: Normal to inspection, nondistended, normoactive bowel sounds present, Soft to palpation, non-tender, No hepatosplenomegaly present, no masses and no bruits PALPATION: Yes Soft to palpation and Yes No hepatosplenomegaly present Extremity: COMMON NORMALS: capillary refill normal, no clubbing, cyanosis or edema, no calf tenderness and no pedal edema Neuro: SENSORIUM/ORIENTATION: Yes oriented to person, Yes oriented to place and No oriented to time Psych: COMMON NORMALS: mental status grossly normal Urinary Catheter Management^: Greenberg: Cath Placed During This Visit: yes Reason for Continuing Indwelling Catheter: Other Urinary Catheter Date of Insertion: 12/15/20 Urinary Catheter Time of Insertion: 01:50 Data : 12/23/20 04:11 12/23/20 04:11 Micro: Microbiology 12/17/20 16:00 Blood Culture - Final Blood NO GROWTH AFTER 5 DAYS 12/17/20 15:55 Blood Culture - Final Blood NO GROWTH AFTER 5 DAYS A&P Assessment and plan (1) Delirium: Overall she is definitely not as combative and agitated as she was when just extubated, however, improvement has been rather slow. Continues to hallucinate. During my examination this morning, alert oriented to person, place, follows all commands, no episodes of confusion or agitation As needed Haldol Continue Abilify. Zyprexa has been added at night, although despite this suffering from insomnia. We will stop steroids to avoid contribution. For now continues on inhaled steroid as lung sounds are quite diminished. We will add trazodone to see if will help her get some sleep at night. Continue to mobilize with physical therapy. We will do CT of the head, carotid artery ultrasound reports at home sometimes she also has some vivid dreams, and sometimes association with reality. Discussed with him, may have parasomnia which may benefit from referral for additional investigation after recovers from acute illness. Possibly secondary to post ICU syndrome, general medical syndrome Continue to treat underlying conditions. Provide supportive care. Reassure, reorient. Not ready to return home as of yet Status: Acute (2) Acute and chronic respiratory failure with hypercapnia: Steroids DC'd as breathing had remained stable. Will repeat ABG today Continue Zosyn and azithromycin at this time. Continue oxygen support, wean down as tolerating. BiPAP support at night and as needed. Avoid hyperoxia. Continue treatment and monitoring for delirium as above. Augmentin per pulmonology recommendations on discharge. Sputum culture unremarkable. PT, OT, mobilize. Status: Acute (3) Pulmonary nodule: Status: Chronic Additional A&P Information Adrenal adenoma Chronic crowding at the base of the skull around foramina magnum Cough negative staph and blood, suspected contamination. End-stage COPD: Resume follow-up with pulmonology after discharge, efforts for consideration of moody transplantation. Attestations Medical Necessity Statement*: Hospitalization for delirium, acute on chronic hypercapnic respiratory failure secondary to COPD Coding Level of Care Code Acute Mortgage Sales Manager for Chg Fwd Diagnoses Delirium R41.0 Acute and chronic respiratory failure with hypercapnia J96.22 Pulmonary nodule R91.1
[2020-12-23] MEDS: potassium chloride ER 20 mEq Tablet 40 MEQ PO (14:53)
--- NOTE | 2020-12-23 16:47 | PC.OT ---
Therapy treatments have been attempted throughout the day. Pt has been sleeping soundly with difficulty arousing for therapy treatment. Pts 1 on 1 sitter reports pt has not slept for several days. OT treatment withheld to allow pt to rest. Will attempt again tomorrow.
--- NOTE | 2020-12-23 19:29 | PC.NURSE ---
NURSES NOTE: PATIENT TOLD ONE ON ONE SITTER THAT SHE WAS FEELING SHORT OF BREATH. THIS NURSE ENTERED THE ROOM TO FIND PATIENT SHORT OF BREATH. PULSE OX ATTACHED TO PATIENT AND OXYGEN LEVEL WAS AT 64%. THIS NURSE TURNED THE OXYGEN UP TO 10 LITERS AND INSTRUCTED THE PATIENT TO DEEP BREATH THROUGH HER NOSE AND OUT HER MOUTH. WHEN ASKED THE PATIENT STATED SHE HAD BEEN COUGHING AND THAT IS WHAT CAUSED HER TO BECOME SHORT OF BREATH. RESPIRATORY NOTIFIED AND ASKED TO COME AND EVALUATE.
[2020-12-23] MEDS: OLANZapine 5 mg TABLET PO (20:37)
[2020-12-24] VITALS (12 sets, daily range): BP systolic 107–126; BP diastolic 69–75; PULSE 68–103; RESP 17–20; TEMP 36.4–36.8; O2SAT 91–96
[2020-12-24] MEDS: ipratropium-albuterol 3 mL Neb INHALATION ×4 (00:04→11:35)
[2020-12-24] MEDS: piperacillin-tazobactam 3.375 GM in sodium chloride 0.9% (plus) 50 ML IV ×2 (01:59→10:22)
[2020-12-24 02:54] LABS: Basophils % 0.3 %; Eosinophils # 0.6 10^3/uL (0.0-0.8); Eosinophils % 8.1 %; Hematocrit 38.8 % (37.0-47.0); Hemoglobin 11.4 g/dL (11.5-15.3); Lymphocytes # 1.1 10^3/uL (0.8-4.8); Lymphocytes % 14.6 %; Mean Corpuscular HGB Conc 29.4 g/dL (30.0-36.0); Mean Corpuscular Hemoglobin 28.8 pg (28.0-34.0); Mean Platelet Volume 12.2 fL (7.4-10.4); Monocytes # 1.1 10^3/uL (0.2-0.9); Monocytes % 14.6 %; Neutrophils # 4.44 10^3/uL (1.8-7.7); Neutrophils % 61.8 %; Nucleated Red Blood Cells % 0 %; Platelet Count 156 10^3/cmm (130-400); Red Blood Count 3.96 10^6/uL (4.1-5.3); Red Cell Distribution Width 13.6 % (12.1-15.1); White Blood Count 7.2 10^3/uL (4.0-10.0)
[2020-12-24 03:17] LABS: Alanine Aminotransferase 28 U/L (0-33); Albumin Level 3.2 g/dL (3.5-5.2); Alkaline Phosphatase 51 IU/L (35-105); Anion Gap 7.8 (5-19); Aspartate Amino Transferase 15 U/L (0-32); Blood Urea Nitrogen 18 mg/dL (8-23); Calcium 8.6 mg/dL (8.5-10.5); Carbon Dioxide 36 mmol/L (22-29); Chloride 102 mmol/L (98-107); Globulin 2.4 g/dL (1.3-4.6); Glomerular Filtration Rate 125.4 mL/min (90-130); Glucose 101 mg/dL (65-115); Osmolality Calculated 296 mOsm/kg (285-295); Potassium 3.8 mmol/L (3.5-5.1); Sodium 142 mmol/L (136-145); Total Bilirubin 0.5 mg/dL (0.15-1.2); Total Protein 5.6 g/dL (6.6-8.7)
[2020-12-24 03:18] LABS: Phosphorus 3.1 mg/dL (2.5-4.5)
[2020-12-24 04:11] LABS: NT Pro B Type Natriuretic Pept 96 pg/mL (0-125)
[2020-12-24] MEDS: enoxaparin 40 mg/0.4 mL Syringe SUBCUT (05:30)
--- NOTE | 2020-12-24 07:00 | XR_ITS ---
WS: [id number] Exam: XR chest 1V portable [id number] Date/Time of Exam: 12/24/2020 6:25 AM Reason For Exam: sob Comparison 12/19/2020. Mild bibasilar infiltrates persist and show little change. Benign-appearing calcified nodules in both upper lobes. The lungs are hyperinflated. No pleural effusions. Normal-appearing cardiomediastinal s tructures and regional bony elements. XR/XR chest 1V portable [id number] IMPRESSION: 1. Mild bibasilar infiltrates unchanged. 2. Pulmonary hyperinflation that may indicate obstructive lung disease. Additio nal chronic findings as above.
[2020-12-24] MEDS: budesonide 0.5 mg/2 mL Neb INHALATION (07:34)
[2020-12-24] MEDS: ARIPiprazole 2 mg Tablet PO (08:20)
[2020-12-24] MEDS: montelukast sodium 10 mg Tablet PO (08:20)
[2020-12-24] MEDS: azithromycin 250 mg Tablet 500 MG PO (08:21)
[2020-12-24] MEDS: citalopram 20 mg Tablet 10 MG PO (08:21)
[2020-12-24] MEDS: aspirin 81 mg EC Tablet PO (08:21)
[2020-12-24] MEDS: famotidine 20 mg Tablet PO (08:21)
[2020-12-24] MEDS: amlodipine 5 mg Tablet PO (08:21)
[2020-12-24] MEDS: metoprolol tartrate 50 mg Tablet PO (08:24)
[2020-12-24 09:41] LABS: Blood Gas Sample Site Brachial, left; Blood Gas Sample Type Arterial; Oxygen Device BIPAP
--- NOTE | 2020-12-24 11:11 | PM.DCS ---
Discharge Providers Date of Admission: 12/15/20 05:04 Date of Discharge: December 24, 2020 Attending Provider at Admission: Nasir Hoffman MD Attending Provider at Discharge: Nasir Hoffman MD Primary Care Provider: Taniya Irving DO Diagnoses at Discharge Discharge Diagnosis (1) Delirium: Status: Acute (2) Acute and chronic respiratory failure with hypercapnia: Status: Acute (3) Pulmonary nodule: Status: Chronic Reason for Visit Reason for Visit: RESP. DISTRESS Hospital Course Hospital Course This is a 60-year-old female with a past medical history of chronic hypercapnic respiratory failure secondary to severe COPD, trilogy dependent, on chronic prednisone, azithromycin who presented to [facility] for worsening shortness of breath. Patient was intubated and sedated in the emergency room for acute on chronic hypercapnic respiratory failure secondary to severe COPD and pneumonia. Patient was admitted in the ICU, received steroids antibiotics, nebulizer treatments, and clinically monitored, in addition the pulmonary service was consulted. Patient eventually clinically improved, successfully extubated, did clinically well, moved to the general medical floors. Patient will be discharged home on Augmentin, her home prednisone, azithromycin, home inhalers, follow-up with Dr. Corona as outpatient. Patient's hospital course was complicated by delirium, likely post ICU syndrome, she clinically improved, back to baseline, alert oriented x3, ambulating without significant symptomatology. I have discharged her on trazodone to help with her sleep at night. Physical Exam Const: COMMON NORMALS: no acute distress and patient oriented x3 HENMT: COMMON NORMALS: normocephalic HEAD & SCALP: normocephalic Neck/C-Spine: COMMON NORMALS: no JVD Resp: COMMON NORMALS: normal respiratory effort, No retractions, No use of accessory muscles and clear to auscultation bilaterally AUSCULTATION: clear to auscultation bilaterally Cardio: COMMON NORMALS: no JVD, regular rate, regular rhythm, S1 normal heart sound present and S2 normal heart sound present RATE: regular rate RHYTHM: regular rhythm HEART SOUNDS: S1 normal heart sound present and S2 normal heart sound present GI: COMMON NORMALS: Normal to inspection, nondistended, normoactive bowel sounds present, Soft to palpation, non-tender, No hepatosplenomegaly present, no masses and no bruits PALPATION: Yes Soft to palpation and Yes No hepatosplenomegaly present Extremity: COMMON NORMALS: capillary refill normal, no clubbing, cyanosis or edema, no calf tenderness and no pedal edema Neuro: COMMON NORMALS: patient oriented x3 Psych: COMMON NORMALS: mental status grossly normal Urinary Catheter Management^: Greenberg: Cath Placed During This Visit: yes Reason for Continuing Indwelling Catheter: Accurate Measurement of Urinary Output in Critically Ill Patients Urinary Catheter Date of Insertion: 12/15/20 Urinary Catheter Time of Insertion: 01:50 Discharge Data Data Completed and Pending: Completed Studies During Hospitalization Category Date Time Status CT angio chest PE protcl [id number] Urge nt Cat Scan 12/15/20 01:[address] head wo con* 7 [id number] Routine Cat Scan 12/16/20 11:[address] head wo con* 7 0450 Routine Cat Scan 12/23/20 11:48 Completed XR chest 1V brian ble [id number] Routine Exams 12/17/20 06:00 Completed XR chest 1V brian ble [id number] Routine Exams 12/18/20 06:00 Completed XR chest 1V brian ble [id number] Routine Exams 12/19/20 06:00 Completed XR chest 1V brian ble [id number] Routine Exams 12/24/20 07:00 Completed XR chest 1V brian ble [id number] Stat Exams 12/15/20 03:22 Completed XR chest 1V brian ble [id number] Stat Exams 12/17/20 20:58 Completed XR chest 1V brian ble [id number] Urgent Exams 12/14/20 22:59 Completed CV carotid duplex BI* [id number] Routine Ultrasound 12/23/20 11:48 Completed CV echo complete* [id number] Urgent Ultrasound 12/15/20 05:04 Completed Pending at discharge Category Date Time Status Arterial Blood Ga s W/O Coox AM LABS Lab 12/24/20 04:00 Ordered Arterial Blood Ga s W/O Coox AM LABS Lab 12/25/20 04:00 Ordered Arterial Blood Ga s W/O Coox AM LABS Lab 12/26/20 04:00 Ordered Complete Blood Co unt w/Auto AM LABS Lab 12/25/20 04:00 Ordered Complete Blood Co unt w/Auto AM LABS Lab 12/26/20 04:00 Ordered Comprehensive Met abolic Panel AM LA BS Lab 12/25/20 04:00 Ordered Comprehensive Met abolic Panel AM LA BS Lab 12/26/20 04:00 Ordered Magnesium AM LABS Lab 12/25/20 04:00 Ordered Magnesium AM LABS Lab 12/26/20 04:00 Ordered NT Pro B Type Anitha riuretic Pept QAM Lab 12/25/20 06:00 Ordered NT Pro B Type Anitha riuretic Pept QAM Lab 12/26/20 06:00 Ordered Phosphorus AM LAB S Lab 12/25/20 04:00 Ordered Phosphorus AM LAB S Lab 12/26/20 04:00 Ordered Labs from last 24 hours 12/24/20 12/24/20 12/24/20 02:32 02:32 02:32 WBC RBC Hgb Hct MCV MCH MCHC RDW Plt Count MPV Neut % (Auto) Lymph % (Auto) [place] % (Auto) Eos % (Auto) Baso % (Auto) Neut # (Auto) Lymph # (Auto) [place] # (Auto) Eos # (Auto) Baso # (Auto) Nucleated RBC % (a uto) Nucleated RBCs # Specimen Type Sample Site Tylor Test O2 Delivery Device Paint Line Production Supervisor ID Sodium 142 Potassium 3.8 Chloride 102 Carbon Dioxide 36 H Anion Gap 7.8 BUN 18 Creatinine 0.5 GFR Calculation 125.4 Glucose 101 Calculated Osmolal ity 296 H Calcium 8.6 Phosphorus 3.1 Magnesium 2.0 Total Bilirubin 0.5 AST 15 ALT 28 Alkaline Phosphata se 51 NT-Pro-B Natriuret Pep 96 Total Protein 5.6 L Albumin 3.2 L Globulin 2.4 12/24/20 12/19/20 02:32 20:00 WBC 7.2 RBC 3.96 L Hgb 11.4 L Hct 38.8 MCV 98.0 MCH 28.8 MCHC 29.4 L RDW 13.6 Plt Count 156 MPV 12.2 H Neut % (Auto) 61.8 Lymph % (Auto) 14.6 [place] % (Auto) 14.6 Eos % (Auto) 8.1 Baso % (Auto) 0.3 Neut # (Auto) 4.44 Lymph # (Auto) 1.1 [place] # (Auto) 1.1 H Eos # (Auto) 0.6 Baso # (Auto) 0.0 Nucleated RBC % (a uto) 0 Nucleated RBCs # 0.0 Specimen Type Arterial Sample Site Brachial, left Tylor Test N/a O2 Delivery Device Bipap Paint Line Production Supervisor ID Hinja Sodium Potassium Chloride Carbon Dioxide Anion Gap BUN Creatinine GFR Calculation Glucose Calculated Osmolal ity Calcium Phosphorus Magnesium Total Bilirubin AST ALT Alkaline Phosphata se NT-Pro-B Natriuret Pep Total Protein Albumin Globulin Vitals: Last Vital Signs Temp 97.8 F 12/24/20 07:04 Pulse 102 H 12/24/20 07:58 Resp 18 12/24/20 07:38 BP 124/74 12/24/20 07:04 Pulse Ox 92 12/24/20 07:38 Discharge Plan Discharge Patient Disposition: Home Condition: Stable Prescriptions: New trazodone 50 mg Tablet 50 mg PO BEDTIME PRN (Reason: insomnia) 30 Days Qty: 30 RF: 0 amlodipine 5 mg Tablet 5 mg PO DAILY 30 Days Qty: 30 RF: 0 citalopram 20 mg Tablet 10 mg PO BID 30 Days Qty: 30 RF: 0 metoprolol tartrate 50 mg Tablet 50 mg PO BID@0900,2100 30 Days Qty: 60 RF: 0 Augmentin 875-125 mg tablet 1 tab PO BID 3 Days Qty: 6 RF: 0 Continued aspirin [Adult Aspirin Regimen] 81 mg tablet,delayed release (DR/EC) 81 mg PO DAILY RF: 0 Centrum Silver Women 8 mg iron-400 mcg-300 mcg tablet 1 tab PO DAILY RF: 0 budesonide 0.5 mg/2 mL suspension for nebulization 0.5 mg inhalation BID Qty: 120 RF: 3 aripiprazole [Abilify] 2 mg tablet 2 mg PO DAILY Qty: 30 RF: 2 metoprolol succinate 50 mg tablet extended release 24 hr 50 mg PO DAILY Qty: 30 RF: 2 albuterol sulfate [ProAir HFA] 90 mcg/actuation HFA aerosol inhaler 2 puff INHALATION Q6H PRN (Reason: shortness of breath) Qty: 18 RF: 3 lorazepam 0.5 mg tablet 0.25 mg PO BID PRN (Reason: anxiety) Qty: 60 RF: 1 azithromycin 250 mg tablet See Rx Instructions .ROUTE .COMPLEX Qty: 90 RF: 3 ipratropium-albuterol 0.5 mg-3 mg(2.5 mg base)/3 mL solution for nebulization 3 ml INHALATION Q6H Qty: 360 RF: 4 montelukast 10 mg Tablet 10 mg PO DAILY RF: 0 prednisone 5 mg tablet 5 mg PO DAILY 30 Days Qty: 30 RF: 3 Discontinued citalopram 20 mg tablet 20 mg PO BID Qty: 60 RF: 2 Discharge Orders: Discharge Order (Routine); Ordered 12/24/20 Ordered By: Nasir Hoffman Referrals: Taniya Irving DO [Primary Care Provider] - 01/06/21 11:30 am Stacy Corona MD [Physician] - 1 week Discharge Diet: Cardiac Discharge Activity: Resume usual activity Patient Instructions: Metoprolol (By mouth), Trazodone (By mouth), Amoxicillin/Clavulanate Potassium (By mouth), Amlodipine (By mouth), Citalopram (By mouth) Activity Restrictions/Additional Instructions: -Please follow-up with Dr. Corona in 1 week -Please continue home trilogy machine -Please take Augmentin as prescribed -If you have worsening shortness of breath, fevers come back to the emergency room Discharge Attestations Time Spent in Discharge Care*: greater than 30 min Status at Discharge: Cognitive status at discharge: cognitively intact, Behavioral status at discharge: cooperative, Quality Metrics Clinical Quality Measures During this hospital stay, did patient experience: None Coding Level of Care Code Acute Chg FW DC note Diagnoses Delirium R41.0 Acute and chronic respiratory failure with hypercapnia J96.22 Pulmonary nodule R91.1
--- NOTE | 2020-12-24 11:31 | DCPLANNER ---
Pg 2 of IM updated and reviewed with pt. Copy provided, no questions.
[2020-12-24 11:34] LABS: ABG PCO2 64.7 mmHg (35-45)
== END 2020-12-24 13:36 | disposition home or self-care (01) | DRG 208 ==
LOC: ER 23:03 → ICU 12-15 07:12 → MEDSURG 12-21 16:36
PROVIDERS: Internal Medicine; Admitting Provider Family Medicine; Emergency Provider Emergency Medicine; PCP Family Medicine; Visit Provider Family Medicine
DX: J96.22 Acute and chronic respiratory failure with hypercapnia (principal); J69.0 Pneumonitis due to inhalation of food and vomit; J44.0 Chronic obstructive pulmonary disease with (acute) lower respiratory infection; M50.00 Cervical disc disorder with myelopathy, unspecified cervical region; F05 Delirium due to known physiological condition; E87.3 Alkalosis; Z76.82 Awaiting organ transplant status; Z79.899 Other long term (current) drug therapy; Z99.81 Dependence on supplemental oxygen; I10 Essential (primary) hypertension; E78.5 Hyperlipidemia, unspecified; G47.33 Obstructive sleep apnea (adult) (pediatric); F41.8 Other specified anxiety disorders; G56.03 Carpal tunnel syndrome, bilateral upper limbs; R91.8 Other nonspecific abnormal finding of lung field; Z78.0 Asymptomatic menopausal state; M51.34 Other intervertebral disc degeneration, thoracic region; M51.35 Other intervertebral disc degeneration, thoracolumbar region; M51.37 Other intervertebral disc degeneration, lumbosacral region; Z79.51 Long term (current) use of inhaled steroids; Z79.82 Long term (current) use of aspirin; D35.02 Benign neoplasm of left adrenal gland; G47.50 Parasomnia, unspecified; R40.4 Transient alteration of awareness; T68.XXXA Hypothermia, initial encounter; Z87.891 Personal history of nicotine dependence; E55.9 Vitamin D deficiency, unspecified
CPT/HCPCS: 36415; 36600; 51702; 70450; 71045; 71275; 80051; 80053; 80061; 81001; 82330; 82550; 82803; 82805; 83036; 83605; 83735; 83880; 84100; 84145; 84443; 84484; 85025; 85610; 87040; 87070; 87086; 87205; 93005; 93306; 93880; 94002; 94003; 94640; 94660; 94664; 94799; 96372; 96374; 97110; 97116; 97161; 97167; 97535; 99291; 99292; J0330; J0456; J0696; J1630; J1650; J2250; J2543; J2704; J2920; J2930; J3010; J3490; J7050; J7626; Q0144; Q9967

== ENCOUNTER 2020-12-27 01:37 | Inpatient (IN) | payer MEDICARE, SELFPAY ==
[2020-12-27] VITALS (64 sets, daily range): BP systolic 71–161; BP diastolic 51–113; PULSE 79–135; RESP 14–19; TEMP 36.4–38.1; O2SAT 87–99; BMI 35.5
--- NOTE | 2020-12-27 01:42 | XR_ITS ---
WS: [id number] Exam: XR chest 1V portable [id number] Date/Time of Exam: 12/27/2020 1:48 AM Reason For Exam: sob Comparison 12/24/2020. Mild bibasal infiltrates are unchanged. The lungs remain fully expanded. No pleural effusions. Cardio mediastinal structures are unremarkable. XR/XR chest 1V portable [id number] IMPRESSION: 1. Mild bibasal interstitial infiltrates unchanged.
--- NOTE | 2020-12-27 01:43 | ED_ITS ---
HPI - SOB/Dyspnea General: Chief Complaint: Shortness of Breath/Dyspnea Stated Complaint: resp distress Time Seen by Provider: 12/27/20 01:41 Source: EMS Mode of arrival: EMS Limitations: altered mental status History of Present Illness: HPI Narrative: 60-year-old female who has a long history of COPD and has been intubated multiple times. Patient was here just recently a week ago and was intubated at that time and just recently discharged. EMS was called out for respiratory distress. When they arrived she was on 5 L and satting 72%. She was responsive then and was able to give them a slight history and she told me she had been having severe distress tonight. They have given a breathing treatment and magnesium in route. Patient now has minimal air movement and is only responsive to painful stimuli. No history is available from her at this time. No known recent fever. MD elicited complaint: shortness of breath Review of Systems General: Reports: ROS unobtainable due to medical condition [facility] PFSH: Medical History (Updated 12/27/20 @ 04:10 by Jim Grazon MD) Anxiety and depression Benign essential HTN Bilateral carpal tunnel syndrome Bilateral lower extremity edema Cervical myelopathy COPD, severe Degenerative disc disease, cervical Lung mass ANASTASIYA (obstructive sleep apnea) Postmenopausal Unspecified thoracic, thoracolumbar and lumbosacral intervertebral disc disorder Vitamin D deficiency Surgical History S/P hysterectomy S/P tonsillectomy Family History Other CHF (congestive heart failure) Murmur, cardiac Social History Smoking and tobacco status: former smoker Quit status (tobacco): has quit using tobacco Year quit tobacco: 2017 - 1PPD x 40 Years Second hand smoke exposure: Yes Alcohol intake: never Lives independently: Yes Household members: spouse Marital status: Current occupational status: disabled History of recent travel: No Current gender identity: Female Special andres needs: No Physical Exam Const: COMMON NORMALS: negative for patient oriented x3 EXAM LIMITATIONS: altered mental status GENERAL APPEARANCE: ill appearing HENMT: COMMON NORMALS: normocephalic and atraumatic HEAD & SCALP: normocephalic and atraumatic Eye: COMMON NORMALS: Equal, round and reactive pupils present and EOMs intact bilaterally PUPIL: Yes Equal, round and reactive pupils present Neck/C-Spine: COMMON NORMALS: full ROM and supple Chest: COMMONS NORMALS: normal inspection of the chest and normal palpation of entire chest wall Resp: EFFORT & INSPECTION: Yes tachypneic and Yes respiratory distress AUSCULTATION: wheezes and diminished lung sounds Cardio: COMMON NORMALS: regular rate, regular rhythm and No murmurs present (Cardio) RATE: regular rate RHYTHM: regular rhythm GI: COMMON NORMALS: Normal to inspection, nondistended, normoactive bowel sounds present, Soft to palpation, non-tender and no masses PALPATION: Yes Soft to palpation Extremity: COMMON NORMALS: normal to inspection and full ROM Neuro: COMMON NORMALS: moves all extremities and no focal motor deficits; negative for patient oriented x3 Psych: COMMON NORMALS: mental status grossly normal, Normal thought process present and cooperative THOUGHT PROCESS: Normal thought process present Skin: COMMON NORMALS: no rashes or lesions noted and no wounds GENERAL SKIN EXAM: no rashes or lesions noted Procedures Intubation sedative: Etomidate Mg Given: 20 paralytic: Succinylcholine Mg Given: 150 Laryngoscope: Semaj ET Tube Size: 8 ET Tube Uncuffed: No Tube Secured Depth (cm): 26 Tube Secured Location: lips Tube Placement Confirmation: visualized tube passing through cords, equal breath sounds bilaterally and no breath sounds over epigastrium Patient Tolerated Procedure: well Intubation Complications: none Course Vital Signs: Vital signs: Vital Signs Temperature 97.5 F L 12/27/20 01:39 Pulse Rate 112 H 12/27/20 03:15 Respiratory Rate 18 12/27/20 03:15 Blood Pressure 161/110 12/27/20 03:15 Pulse Oximetry 95 12/27/20 03:15 MDM - SOB/Dyspnea MDM Narrative: Medical decision making narrative: Loretta presents with respiratory failure with hypercapnia. She did improve slightly with BiPAP but still altered. Patient was intubated in the ER due to her hypercapnia. X-ray shows no signs of pneumonia. She has no signs of pulmonary embolism. Spoke to hospitalist will admit to the ICU. Lab Data: Labs: Lab Results 12/27/20 12/27/20 12/27/20 Range/Units 01:38 01:59 01:59 WBC 9.2 (4.0-10.0) 10^3/ uL RBC 4.60 (4.1-5.3) 10^6/u L Hgb 13.3 (11.5-15.3) g/dL Hct 46.7 (37.0-47.0) % MCV 101.5 H (81-99) fL MCH 28.9 (28.0-34.0) pg MCHC 28.5 L (30.0-36.0) g/dL RDW 12.6 (12.1-15.1) % Plt Count 194 (130-400) 10^3/c mm MPV 11.5 H (7.4-10.4) fL Neut % (Auto) 76.9 % Lymph % (Auto) 8.8 % [place] % (Auto) 7.9 % Eos % (Auto) 0.4 % Baso % (Auto) 1.0 % Neut # (Auto) 7.09 (1.8-7.7) 10^3/u L Lymph # (Auto) 0.8 (0.8-4.8) 10^3/u L [place] # (Auto) 0.7 (0.2-0.9) 10^3/u L Eos # (Auto) 0.0 (0.0-0.8) 10^3/u L Baso # (Auto) 0.1 (0.0-0.1) 10^3/u L Nucleated RBC % (a uto) 0 % Nucleated RBCs # 0.0 /100WBC PT Cancelled INR Cancelled Specimen Type Arterial Sample Site Brachial, right ABG pH 7.16 L* (7.35-7.45) ABG pCO2 140.0 H* (35-45) mmHg ABG pO2 105.0 H (80.0-100.0) mmH g ABG HCO3 49.5 H (22-26) mmol/L ABG Base Excess 15.0 H (-2.0-2.0) mmol/ L Tylor Test N/a Hematocrit 39.8 (37-47) % Hgb O2 Saturation 95.7 (95-100) % Carboxyhemoglobin 1.3 (0.4-20.1) %THgb Methemoglobin 1.1 (0.4-1.5) % Total Hemoglobin 13.0 (12-16) g/dL O2 Delivery Device Bipap FiO2 60.0 % Title One Reading Teacher ID Harkr Sodium (136-145) mmol/L Potassium (3.5-5.1) mmol/L Chloride (98-107) mmol/L Carbon Dioxide (22-29) mmol/L Anion Gap (5-19) BUN (8-23) mg/dL Creatinine (0.5-0.9) mg/dL GFR Calculation (90-130) mL/min Glucose (65-115) mg/dL Calculated Osmolal ity (285-295) mOsm/k g Calcium (8.5-10.5) mg/dL Total Bilirubin (0.15-1.2) mg/dL AST (0-32) U/L ALT (0-33) U/L Alkaline Phosphata se (35-105) IU/L Troponin T Baselin e (0-10) ng/L Troponin T 120 Min [place] (0-10) ng/L Delta Troponin T (0-10) ABS# NT-Pro-B Natriuret Pep (0-125) pg/mL Total Protein (6.6-8.7) g/dL Albumin (3.5-5.2) g/dL Globulin (1.3-4.6) g/dL 12/27/20 12/27/20 12/27/20 Range/Units 01:59 01:59 02:21 WBC (4.0-10.0) 10^3/ uL RBC (4.1-5.3) 10^6/u L Hgb (11.5-15.3) g/dL Hct (37.0-47.0) % MCV (81-99) fL MCH (28.0-34.0) pg MCHC (30.0-36.0) g/dL RDW (12.1-15.1) % Plt Count (130-400) 10^3/c mm MPV (7.4-10.4) fL Neut % (Auto) % Lymph % (Auto) % [place] % (Auto) % Eos % (Auto) % Baso % (Auto) % Neut # (Auto) (1.8-7.7) 10^3/u L Lymph # (Auto) (0.8-4.8) 10^3/u L [place] # (Auto) (0.2-0.9) 10^3/u L Eos # (Auto) (0.0-0.8) 10^3/u L Baso # (Auto) (0.0-0.1) 10^3/u L Nucleated RBC % (a uto) % Nucleated RBCs # /100WBC PT 13.00 INR 0.95 Specimen Type Sample Site ABG pH (7.35-7.45) ABG pCO2 (35-45) mmHg ABG pO2 (80.0-100.0) mmH g ABG HCO3 (22-26) mmol/L ABG Base Excess (-2.0-2.0) mmol/ L Tylor Test Hematocrit (37-47) % Hgb O2 Saturation (95-100) % Carboxyhemoglobin (0.4-20.1) %THgb Methemoglobin (0.4-1.5) % Total Hemoglobin (12-16) g/dL O2 Delivery Device FiO2 % Title One Reading Teacher ID Sodium 145 (136-145) mmol/L Potassium 4.9 (3.5-5.1) mmol/L Chloride 96 L (98-107) mmol/L Carbon Dioxide 49 H* (22-29) mmol/L Anion Gap 4.9 L (5-19) BUN 15 (8-23) mg/dL Creatinine 0.5 (0.5-0.9) mg/dL GFR Calculation 125.4 (90-130) mL/min Glucose 148 H (65-115) mg/dL Calculated Osmolal ity 304 H (285-295) mOsm/k g Calcium 8.9 (8.5-10.5) mg/dL Total Bilirubin 0.5 (0.15-1.2) mg/dL AST 21 (0-32) U/L ALT 30 (0-33) U/L Alkaline Phosphata se 75 (35-105) IU/L Troponin T Baselin e 20 H (0-10) ng/L Troponin T 120 Min [place] (0-10) ng/L Delta Troponin T (0-10) ABS# NT-Pro-B Natriuret Pep 337 H (0-125) pg/mL Total Protein 6.7 (6.6-8.7) g/dL Albumin 4.3 (3.5-5.2) g/dL Globulin 2.4 (1.3-4.6) g/dL 12/27/20 12/27/20 12/27/20 Range/Units 02:22 03:25 03:35 WBC (4.0-10.0) 10^3/ uL RBC (4.1-5.3) 10^6/u L Hgb (11.5-15.3) g/dL Hct (37.0-47.0) % MCV (81-99) fL MCH (28.0-34.0) pg MCHC (30.0-36.0) g/dL RDW (12.1-15.1) % Plt Count (130-400) 10^3/c mm MPV (7.4-10.4) fL Neut % (Auto) % Lymph % (Auto) % [place] % (Auto) % Eos % (Auto) % Baso % (Auto) % Neut # (Auto) (1.8-7.7) 10^3/u L Lymph # (Auto) (0.8-4.8) 10^3/u L [place] # (Auto) (0.2-0.9) 10^3/u L Eos # (Auto) (0.0-0.8) 10^3/u L Baso # (Auto) (0.0-0.1) 10^3/u L Nucleated RBC % (a uto) % Nucleated RBCs # /100WBC PT INR Specimen Type Arterial Arterial Sample Site Radial, left Radial, right ABG pH 7.20 L 7.22 L (7.35-7.45) ABG pCO2 126.0 H* 123.0 H* (35-45) mmHg ABG pO2 78.5 L 60.8 L (80.0-100.0) mmH g ABG HCO3 49.1 H 50.1 H (22-26) mmol/L ABG Base Excess 15.4 H 16.4 H (-2.0-2.0) mmol/ L Tylor Test Pos Pos Hematocrit 41.2 41.8 (37-47) % Hgb O2 Saturation (95-100) % Carboxyhemoglobin (0.4-20.1) %THgb Methemoglobin (0.4-1.5) % Total Hemoglobin (12-16) g/dL O2 Delivery Device Bipap Bipap FiO2 50.0 50.0 % Title One Reading Teacher ID Cher Kwon Sodium (136-145) mmol/L Potassium (3.5-5.1) mmol/L Chloride (98-107) mmol/L Carbon Dioxide (22-29) mmol/L Anion Gap (5-19) BUN (8-23) mg/dL Creatinine (0.5-0.9) mg/dL GFR Calculation (90-130) mL/min Glucose (65-115) mg/dL Calculated Osmolal ity (285-295) mOsm/k g Calcium (8.5-10.5) mg/dL Total Bilirubin (0.15-1.2) mg/dL AST (0-32) U/L ALT (0-33) U/L Alkaline Phosphata se (35-105) IU/L Troponin T Baselin e (0-10) ng/L Troponin T 120 Min [place] 18.24 H (0-10) ng/L Delta Troponin T -1.76 L (0-10) ABS# NT-Pro-B Natriuret Pep (0-125) pg/mL Total Protein (6.6-8.7) g/dL Albumin (3.5-5.2) g/dL Globulin (1.3-4.6) g/dL Imaging Data^: CXR: Attestation: I personally reviewed and interpreted this imaging study as follows: My impression: no acute abnormality EKG Data^: EKG 1: Attestation: I personally reviewed and interpreted this EKG as follows: EKG Interpretation Date: 12/27/20 EKG interpretation time: 02:04 Interpretation: nsr hr [address] or t wave abnormalities qrs 84 qtc 417 Critical Care Time Critical Care Time: Critical Care Time: Yes Total Critical Care Time: 35 Attestation: This case had a high probability of a clinically significant, sudden, or life threatening deterioration of this patient's condition which required my full and direct attention, intervention and personal management. Discharge Plan Discharge Patient Disposition: Admitted As Inpatient Admit Provider: Shashi Concepcion Clinical Impression: Acute exacerbation of chronic obstructive airways disease, Acute and chronic respiratory failure with hypercapnia Condition: Stable Coding Level of Care Code ED Meteorological Engineer for Chg Fwd Exam Comprehensive
--- NOTE | 2020-12-27 01:43 | ECG_ITS ---
[facility] Test Date: 2020-12-27 Pat Name: Loretta Reeder Department: Room: Gender: Female Head Stock Transfer Clerk: : 1960 Requested By: Jim Garzon Order Number: [id number] Adele MD: Ngoc Brown M.D. Measurements Intervals Moro Rate: 95 P: 84 OK: 127 QRS: 79 QRSD: 84 T: 69 QT: 364 QTc: 459 Interpretive Statements SINUS RHYTHM INTERPRETATION BASED ON A DEFAULT AGE OF 40 YEARS Compared to ECG 12/15/2020 01:06:30 Poor R-wave progression no longer present Electronically Signed On 12-27-2020 18:15:14 CDT by Ngoc Brown M.D. [id number]
[2020-12-27 01:48] LABS: Arterial Blood Gas Hematocrit 39.8 % (37-47); Blood Gas Operator Identificat HARKR; Blood Gas Sample Site Brachial, right; Blood Gas Sample Type Arterial; Carboxyhemoglobin 1.3 %THgb (0.4-20.1); HCO3 ABG 49.5 mmol/L (22-26); HGB O2 Sat 95.7 % (95-100); Methemoglobin 1.1 % (0.4-1.5); Oxygen Device BIPAP
[2020-12-27 01:49] LABS: ABG PH Result 7.16 (7.35-7.45)
[2020-12-27 02:06] LABS: Eosinophils % 0.4 %; Lymphocytes % 8.8 %; Mean Corpuscular Volume 101.5 fL (81-99); Nucleated Red Blood Cells % 0 %
[2020-12-27 02:10] LABS: Basophils # 0.1 10^3/uL (0.0-0.1); Hematocrit 46.7 % (37.0-47.0); Hemoglobin 13.3 g/dL (11.5-15.3); Lymphocytes # 0.8 10^3/uL (0.8-4.8); Mean Corpuscular HGB Conc 28.5 g/dL (30.0-36.0); Mean Corpuscular Hemoglobin 28.9 pg (28.0-34.0); Mean Platelet Volume 11.5 fL (7.4-10.4); Monocytes # 0.7 10^3/uL (0.2-0.9); Monocytes % 7.9 %; Neutrophils # 7.09 10^3/uL (1.8-7.7); Neutrophils % 76.9 %; Platelet Count 194 10^3/cmm (130-400); Red Cell Distribution Width 12.6 % (12.1-15.1); White Blood Count 9.2 10^3/uL (4.0-10.0)
[2020-12-27 02:27] LABS: Troponin(5th) Baseline 20 ng/L (0-10)
[2020-12-27 02:32] LABS: Arterial Blood Gas Hematocrit 41.2 % (37-47); Base Excess ABG 15.4 mmol/L (-2.0-2.0); Blood Gas Allen Test Pos; Blood Gas Operator Identificat HARKR; Blood Gas Sample Site Radial, left; Blood Gas Sample Type Arterial; HCO3 ABG 49.1 mmol/L (22-26); Oxygen Device BIPAP; PO2 ABG 78.5 mmHg (80.0-100.0)
[2020-12-27 02:35] LABS: Alanine Aminotransferase 30 U/L (0-33); Albumin Level 4.3 g/dL (3.5-5.2); Alkaline Phosphatase 75 IU/L (35-105); Anion Gap 4.9 (5-19); Aspartate Amino Transferase 21 U/L (0-32); Blood Urea Nitrogen 15 mg/dL (8-23); Calcium 8.9 mg/dL (8.5-10.5); Chloride 96 mmol/L (98-107); Globulin 2.4 g/dL (1.3-4.6); Glomerular Filtration Rate 125.4 mL/min (90-130); Glucose 148 mg/dL (65-115); NT Pro B Type Natriuretic Pept 337 pg/mL (0-125); Osmolality Calculated 304 mOsm/kg (285-295); Potassium 4.9 mmol/L (3.5-5.1); Sodium 145 mmol/L (136-145); Total Bilirubin 0.5 mg/dL (0.15-1.2); Total Protein 6.7 g/dL (6.6-8.7)
[2020-12-27 02:42] LABS: INR 0.95 (0.8-1.2)
[2020-12-27 02:49] LABS: Carbon Dioxide 49 mmol/L (22-29)
--- NOTE | 2020-12-27 03:43 | ECG_ITS ---
[facility] Test Date: 2020-12-27 Pat Name: Loretta Reeder Department: Room: [facility] Gender: Female Calculating Machine Mechanic: : 1960 Requested By: Jim Garzon Order Number: [id number] Adele MD: Ngoc Brown M.D. Measurements Intervals [place] Rate: 95 P: 86 ME: 121 QRS: 61 QRSD: 74 T: 78 QT: 346 QTc: 435 Interpretive Statements SINUS RHYTHM Compared to ECG 12/27/2020 02:04:07 No significant changes Electronically Signed On 12-27-2020 18:21:02 CDT by Ngoc Brown M.D. [id number]
[2020-12-27 03:48] LABS: ABG PH Result 7.22 (7.35-7.45); Arterial Blood Gas Hematocrit 41.8 % (37-47); Base Excess ABG 16.4 mmol/L (-2.0-2.0); Blood Gas Allen Test Pos; Blood Gas Operator Identificat HARKR; Blood Gas Sample Site Radial, right; Blood Gas Sample Type Arterial; HCO3 ABG 50.1 mmol/L (22-26); Oxygen Device BIPAP; PO2 ABG 60.8 mmHg (80.0-100.0)
[2020-12-27 03:49] LABS: Troponin 5 2HR 18.24 ng/L (0-10)
[2020-12-27 03:50] LABS: Troponin 5 2HR Delta -1.76 ABS# (0-10)
--- NOTE | 2020-12-27 04:00 | PC.NURSE ---
Physician to intubate patient due to critical lab values and hypercapnia. Patient ABG levels not improving despite being on the BiPAP. GCS of 8.
[2020-12-27] MEDS: succinylcholine 20 mg/mL SDV 10mL 150 MG IVP (04:03)
--- NOTE | 2020-12-27 04:08 | XR_ITS ---
WS: [id number] Exam: XR chest 1V portable [id number] Date/Time of Exam: 12/27/2020 4:08 AM Reason For Exam: intubation Comparison made with the previous exam performed on the same day at 0141 hours. An ET tube has been placed and ends about 5 cm above the britney in good position. The lungs are well ventilated. Mild interstitial infiltrate in the left base. An NG tube has been placed and ends in the body the stomach in good position. Chronic appearing calcified nodules in the upper lung zones. XR/XR chest 1V portable [id number] IMPRESSION: 1. ET tube and NG tube both in satisfactory position. 2. Mild interstitial infiltrate in the left base.
[2020-12-27] MEDS: propofol 1,000 MG/100 ML INJ 3 MG IV (04:16)
--- NOTE | 2020-12-27 05:19 | P.HP_ITS ---
Providers/Chief Complaint Admitting Physician: Shashi Concepcion Primary Care Provider: Taniya Irving DO Chief Complaint: resp distress History of Present Illness Loretta Reeder is a 60 year old female with a past medical history significant for hypertension, anxiety, depression, and chronic hypoxemic/hypercapnic respiratory failure who presented to hospital with respiratory distress. She was recently discharged on 12/24 after similar admission requiring mechanical ventilation. Upon arrival to ER her initial abg showed a ph of 7.16, pco2 of 140. She was initially trialed on bipap however did not tolerate after which she was intubated and placed on mechanical ventilation. Review of Systems General: Reports: ROS unobtainable due to medical condition All/Imm: Reports: acute wheezing Medications/Allergies Home Medications Medication Instructions Recorded Confirmed Last Taken Type multivit with 1 tab PO DAILY 09/28/19 12/15/20 Unknown History bxohsgkb-hnaz-MO-lutein 8 mg iron-400 mcg-300 mcg tablet budesonide 0.5 mg/2 mL suspension 0.5 mg INHALATION BID #120 ml 09/24/20 12/15/20 Unknown Rx for nebulization aripiprazole 2 mg tablet 2 mg PO DAILY #30 tab 10/16/20 12/15/20 Unknown Rx aspirin 81 mg tablet,delayed 81 mg PO DAILY 10/23/20 12/15/20 Unknown History release albuterol sulfate 90 mcg/actuation 2 puff INHALATION Q6H PRN #18 gm 11/14/20 12/15/20 Unknown Rx aerosol inhaler lorazepam 0.5 mg tablet 0.25 mg PO BID PRN #60 tab 11/14/20 12/15/20 Unknown Rx metoprolol succinate 50 mg 50 mg PO DAILY #30 tab 11/14/20 12/15/20 Unknown Rx tablet,extended release 24 hr azithromycin 250 mg tablet See Rx Instructions .ROUTE 11/25/20 12/15/20 Unknown Rx .COMPLEX #90 tab ipratropium 0.5 mg-albuterol 3 mg 3 ml INHALATION Q6H #360 ml 12/06/20 12/15/20 Unknown Rx (2.5 mg base)/3 mL nebulization soln montelukast 10 mg PO DAILY 12/15/20 12/15/20 Unknown History amlodipine 5 mg PO DAILY 30 Days #30 tab 12/24/20 Unknown Rx citalopram 10 mg PO BID 30 Days #30 tab 12/24/20 Unknown Rx metoprolol tartrate 50 mg PO BID@0900,2100 30 Days #60 12/24/20 Unknown Rx tab prednisone 5 mg PO DAILY 30 Days #30 tab 12/24/20 12/15/20 Unknown Rx trazodone 50 mg PO BEDTIME PRN 30 Days #30 12/24/20 Unknown Rx tab Allergies Allergy/AdvReac Type Severity Reaction Status Date / Time codeine Allergy NAUSEA & Verified 12/27/20 01:46 VOMITING morphine Allergy ADR-Halluci Verified 12/27/20 01:46 nating PFSH Acute PFSH: Medical History (Updated 12/27/20 @ 04:10 by Jim Garzon MD) Anxiety and depression Benign essential HTN Bilateral carpal tunnel syndrome Bilateral lower extremity edema Cervical myelopathy COPD, severe Degenerative disc disease, cervical Lung mass ANASTASIYA (obstructive sleep apnea) Postmenopausal Unspecified thoracic, thoracolumbar and lumbosacral intervertebral disc disorder Vitamin D deficiency Surgical History S/P hysterectomy S/P tonsillectomy Family History Other CHF (congestive heart failure) Murmur, cardiac Social History Smoking and tobacco status: former smoker Quit status (tobacco): has quit using tobacco Year quit tobacco: 2017 - 1PPD x 40 Years Second hand smoke exposure: Yes Alcohol intake: never Lives independently: Yes Household members: spouse Marital status: Current occupational status: disabled History of recent travel: No Current gender identity: Female Special andres needs: No Vitals/I&O/Wt Last Vital Signs Temp 97.5 F L 12/27/20 01:39 Pulse 100 12/27/20 05:00 Resp 14 12/27/20 05:00 BP 91/68 12/27/20 05:00 Pulse Ox 97 12/27/20 05:00 12/26/20 12/26/20 12/27/20 14:59 22:59 06:59 Intake Total 4.6 / 4.6 Balance 4.6 / 4.6 Weight last 48 hrs Weight 99.79 kg Physical Exam 2 Narrative: EXAM NARRATIVE: Intubated on MV HEENT- ET tube CVS: Sinus tach Chest - Vented sound b/l Abd: Soft Ext - no sig edema Data : 12/27/20 01:59 12/27/20 01:59 A&P Assessment and plan (1) Acute and chronic respiratory failure with hypercapnia: Continue vent - wean as tolerated Wean Fio2 Repeat ABG Propofol / fentanyl sedation - rass -2 Consider pulmonary consult Chest -x ray in am Status: Acute (2) COPD, severe: Neb treatment IV steroids Consider Iv abx Remainder of management as noted above. Status: Chronic (3) Benign essential HTN: Status: Chronic Attestations Medical Necessity Statement*: Will require over 2 midnight stay in hospital for respiratory failure requiring mechanical ventilation Time Spent in Patient Care: Greater than 35 minutes (>than 50% of time spent in counselling and/or direct pt care on unit) . Coding Level of Care Code Acute Food Mixer Repairer for Missael Cr Diagnoses Acute and chronic respiratory failure with hypercapnia J96.22 COPD, severe J44.9 Benign essential HTN I10
[2020-12-27] MEDS: sodium chloride 0.9% 1,000 ML 75 ML IV (06:08)
[2020-12-27] MEDS: enoxaparin 40 mg/0.4 mL Syringe SUBCUT (06:09)
[2020-12-27] MEDS: famotidine 20 mg/2 mL INJ IVP ×2 (06:11→18:14)
--- NOTE | 2020-12-27 06:17 | PC.NURSE ---
Patient arrived to ICU from ED at 0557. Intubated tube 8.0, 24 @ lip
[2020-12-27] MEDS: ipratropium-albuterol 3 mL Neb INHALATION ×3 (08:18→20:16)
[2020-12-27 08:56] LABS: ABG PH Result 7.41 (7.35-7.45); Arterial Blood Gas Hematocrit 38.1 % (37-47); Base Excess ABG 17.7 mmol/L (-2.0-2.0); Blood Gas Allen Test Pos; Blood Gas Sample Site Brachial, right; Blood Gas Sample Type Arterial; Blood Gas Tidal Volume 0.45; Oxygen Device VENT; PO2 ABG 65.2 mmHg (80.0-100.0)
[2020-12-27 08:57] LABS: ABG PCO2 73.5 mmHg (35-45)
[2020-12-27] MEDS: FUROsemide 10 mg/mL SDV 4mL 40 MG IVP (08:57)
[2020-12-27] MEDS: vancomycin 1,500 MG/300 ML PIGGYBACK 200 MG IV ×2 (08:58→21:12)
[2020-12-27 09:01] LABS: Troponin 5 6HR 19.52 ng/L (0-10)
[2020-12-27 09:02] LABS: Troponin 5 6HR Delta -0.48 ng/L (0-12)
[2020-12-27] MEDS: piperacillin-tazobactam 3.375 GM in sodium chloride 0.9% (plus) 50 ML IV ×2 (11:37→18:17)
--- NOTE | 2020-12-27 12:49 | PM.PN ---
Subjective Subjective: Interval history: The patient was seen and examined in ICU. She was recently discharged from the hospital on December 24 and came back yesterday with acute on chronic hypercapnic and hypoxic respiratory failure requiring intubation and mechanical ventilation. Background information: The patient has very severe airflow obstruction on pulmonary function test with an FEV1 of 16%. Her baseline PCO2 is in the mid 70s. She was recently declined for a lung transplant from [facility]. The patient is currently on MVV. FiO2 of 45%. Sedated with Versed and fentanyl. Medications: Reviewed: Yes Vitals/I&O/Wt Last Vital Signs Temp 99.1 F 12/27/20 12:00 Pulse 110 H 12/27/20 10:45 Resp 14 12/27/20 11:42 BP 106/68 12/27/20 10:45 Pulse Ox 90 12/27/20 11:42 12/26/20 12/27/20 12/27/20 22:59 06:59 14:59 Intake Total 18.972 / 18.972 78.133 / 78.133 Output Total 650 / 650 Balance 18.972 / 18.972 -571.867 / -571.867 Weight last 48 hrs Weight 206 lb 2 oz Weight 220 lb Physical Exam Narrative: EXAM NARRATIVE: General: Patient is intubated and sedated Respiratory: Auscultation: Reduced breath sound bilaterally, no crackles wheezing or rhonchi Cardiovascular: Regular rate and rhythm, S1-S2 present, very distant heart sound, no murmur, no peripheral edema. Abdomen: Soft, mildly distended from obesity, positive bowel sound Skin: No rash Neuro: Unable to assess Urinary Catheter Management^: Greenberg: Cath Placed During This Visit: yes Reason for Continuing Indwelling Catheter: Accurate Measurement of Urinary Output in Critically Ill Patients Urinary Catheter Date of Insertion: 12/27/20 Urinary Catheter Time of Insertion: 05:26 Data : 12/27/20 01:59 12/27/20 01:59 Attestation for Other Data: I personally reviewed and interpreted the following: Other data: I have reviewed her laboratory, microbiologic and radiologic data. There is no definite evidence of pneumonia at this time. A&P Assessment and plan (1) Acute and chronic respiratory failure with hypercapnia: This is a 60-year-old lady with end-stage COPD. Unfortunately, the patient has likely reached a stage where she would require frequent intubation and mechanical ventilation. There is no definitive evidence of pneumonia. I believe the antibiotic can be safely deescalated. The reason for her respiratory failure is likely dynamic hyperinflation which would be precipitated by any event that will increase her respiratory rate. I would start the patient on Precedex drip. I am hoping that we can put her on pressure support ventilation and aim for extubation tomorrow on Precedex. Once the patient is extubated, will need to have a conversation with the patient and her regarding the future course of action. It is likely that the patient will suffer from these episodes of frequent respiratory failure requiring intubation. If the patient is willing she would be a candidate for tracheostomy which she had before. However, having a tracheostomy will likely mean that the patient will have to spend her time in a [facility] facility unless her is able to take care of it at home. If she does choose this, will be able to provide her with adequate ventilation at nighttime at least at home or if necessary even during the day. Status: Acute (2) COPD, severe: I will continue with Pulmicort and DuoNeb nebulization for now. Diamox can be used for metabolic alkalosis that has developed from the diuresis. Status: Chronic Attestations Medical Necessity Statement*: Will defer to the primary team Coding Level of Care Code Acute Service Order Taker for Missael Cr Diagnoses Acute and chronic respiratory failure with hypercapnia J96.22 COPD, severe J44.9
--- NOTE | 2020-12-27 13:20 | PC.NURSE ---
All care provided by Kaylah Nunez, student nurse, directly supervised by this RN>
--- NOTE | 2020-12-27 13:36 | PC.CHAP ---
Pastoral Care Encounter/Spiritual Assessment Type of Contact [] Declined mat maker visit [] Patient/Family/Request visit [] Outpatient visit [] Follow-up visit [] Physician referral [] Code/Alert [] Routine visit [xx] Staff referral [] Actively dying [] Patient sleeping [] Family support [] [] Out of room [] Palliative care [] [] Receiving care in room [] Pre-surgical visit [] Trauma [] Long length of stay [xx] ICU visit [xx] Other: on ventilator Relational/Emotional Strength [] Patient feels connected with others/family/visitors/staff [] Distress [] Loneliness/isolation [] Abandonment Spirituality of Patient [] Person of Amanda [] Attends Mosque of their Amanda [] Believes in Prayer [] Reads Bible or Gnosticist materials [] There are Spiritual issues to be addressed Welding Machine Assembler Interventions [] Prayer [] Active listening [] Non-anxious presence [] Spiritual/emotional support [] Crisis/trauma care [] Spiritual counseling [] Bereavement support [] Provided bereavement packet [] Provided Bible/devotional materials [] Provided toy/stuffed animal, coloring book to patient or family member [] Provided Communion [] Anointing/[place] [] Salvation [] Completed spiritual assessment [] Other: Impact on Illness or Injury [] Angry [] Fearful [] Anxious [] Often cries [] Exhaustion [] Unable to work [] Unable to attend shinto [] Unable to walk/stand [] Unable to read [] Unable to drive [] Unable to eat/drink [] Unable to sleep [] Unable to be with family [] Patient intubated [] Other: Summary Welding Machine Assembler was asked by nurse to pray for patient who is on ventilator and sedated. Welding Machine Assembler prayed for her recovery. Welding Machine Assembler knows nothing else about patient and could not complete spiritual assessment. Time spent with patient 4 minutes
[2020-12-27] MEDS: dexmedetomidine 400 MCG in sodium chloride 0.9% (100 ml) 100 ML IV (14:49)
--- NOTE | 2020-12-27 15:40 | PM.PN ---
Subjective Subjective: Interval history: Patient was examined this morning, she is intubated comes us, sedated, she is off pressors, map greater than 65, urine output 650, overnight she was intubated for acute on chronic hypercarbic respiratory failure Vitals/I&O/Wt Last Vital Signs Temp 99.1 F 12/27/20 12:00 Pulse 130 H 12/27/20 15:24 Resp 16 12/27/20 15:15 BP 106/68 12/27/20 10:45 Pulse Ox 90 12/27/20 15:15 12/27/20 12/27/20 12/27/20 06:59 14:59 22:59 Intake Total 18.972 / 18.972 378.133 / 378.133 Output Total 650 / 650 Balance 18.972 / 18.972 -271.867 / -271.867 Weight last 48 hrs Weight 93.497 kg Weight 99.79 kg Physical Exam Const: COMMON NORMALS: no acute distress OTHER: Intubated, sedated on the ventilator HENMT: COMMON NORMALS: normocephalic HEAD & SCALP: normocephalic Neck/C-Spine: COMMON NORMALS: no JVD Resp: COMMON NORMALS: normal respiratory effort, No retractions and No use of accessory muscles AUSCULTATION: diminished lung sounds diffuse Cardio: COMMON NORMALS: no JVD, regular rate, regular rhythm, S1 normal heart sound present and S2 normal heart sound present RATE: regular rate RHYTHM: regular rhythm HEART SOUNDS: S1 normal heart sound present and S2 normal heart sound present GI: COMMON NORMALS: Normal to inspection, nondistended, normoactive bowel sounds present, Soft to palpation, non-tender, No hepatosplenomegaly present, no masses and no bruits PALPATION: Yes Soft to palpation and Yes No hepatosplenomegaly present Extremity: COMMON NORMALS: capillary refill normal, no clubbing, cyanosis or edema, no calf tenderness and no pedal edema Urinary Catheter Management^: Greenberg: Cath Placed During This Visit: yes Reason for Continuing Indwelling Catheter: Accurate Measurement of Urinary Output in Critically Ill Patients Urinary Catheter Date of Insertion: 12/27/20 Urinary Catheter Time of Insertion: 05:26 Data : 12/27/20 01:59 12/27/20 01:59 A&P Assessment and plan (1) Acute and chronic respiratory failure with hypercapnia: Secondary to end-stage COPD Continue intubation, mechanical ventilation, will change to Precedex and propofol for sedation, RASS 2 for sedation Daily weaning trials, minimize PEEP, minimize FiO2 Broad-spectrum antibiotics vancomycin Zosyn for antibiotic coverage Continue Solu-Medrol Follow blood cultures, urine cultures, sputum cultures Pulmonary consulted, Will give a trial of 40 mg of Lasix Full code Lovenox for DVT prophylaxis Pepcid for GI prophylaxis Status: Acute (2) COPD, severe: Neb treatment IV steroids Remainder of management as noted above. Status: Chronic (3) Benign essential HTN: Status: Chronic Attestations Medical Necessity Statement*: Patient requires hospitalization for acute hypercarbic respiratory failure secondary to COPD Time Spent in Patient Care: Greater than 35 minutes (>than 50% of time spent in counselling and/or direct pt care on unit). Coding Level of Care Code Acute Automatic Dry Starch Operator for Missael Cr Diagnoses Acute and chronic respiratory failure with hypercapnia J96.22 COPD, severe J44.9 Benign essential HTN I10
--- NOTE | 2020-12-27 16:30 | PC.NURSE ---
Pt restless. She is using her toes to remove the SCD sleeves. Pt nodded her head to being hot. Uncovered her and finished removing the SCD for her comfort.
--- NOTE | 2020-12-27 18:50 | PC.NURSE ---
Dr Hoffman notified of rash, not raised, covering upper thighs to lower abdomen and Fever of 100.5 F. Discussed Zosyn finished before 4pm and Precedex started this afternoon too. Solu-Medrol and Benadryl IV ordered and admin.
[2020-12-27] MEDS: diphenhydrAMINE 50 mg/mL SDV 1mL 25 MG IVP (18:56)
--- NOTE | 2020-12-27 19:10 | PC.NURSE ---
Shift summary: Pt remains intubated and sedated. CMV with FIO2 of 55. Sedation changed to Fentanyl, Versed and Precedex. Iv fluids stopped, Lasix administered this am. Vancomycin and Zosyn given today. She has been in sinus tachycardia most of the day. She started the day in sinus rhythm, but with the adjustments to sedation to get her comfortable her heart rate crept up. Her Lung sounds and heart tones improved after the Lasix. She has had over 1100 ml urine output. She developed a fever and a rash this evening, Benadryl and solu_medrol ordered and admin.
[2020-12-27] MEDS: budesonide 0.5 mg/2 mL Neb INHALATION (20:16)
[2020-12-27] MEDS: dexmedetomidine 400 MCG in sodium chloride 0.9% (100 ml) 100 ML 24.3 MCG IV (22:24)
[2020-12-28] VITALS (45 sets, daily range): BP systolic 118–154; BP diastolic 73–98; PULSE 69–114; RESP 13–31; TEMP 36.4–37.1; O2SAT 89–95; BMI 33.3
[2020-12-28] MEDS: dexmedetomidine 400 MCG in sodium chloride 0.9% (100 ml) 100 ML 19.4 MCG IV ×2 (02:22→18:00)
[2020-12-28] MEDS: ipratropium-albuterol 3 mL Neb INHALATION ×4 (02:38→20:06)
[2020-12-28] MEDS: piperacillin-tazobactam 3.375 GM in sodium chloride 0.9% (plus) 50 ML IV ×3 (03:13→18:02)
[2020-12-28] MEDS: famotidine 20 mg/2 mL INJ IVP ×2 (04:43→18:03)
[2020-12-28] MEDS: enoxaparin 40 mg/0.4 mL Syringe SUBCUT (04:43)
[2020-12-28 05:21] LABS: ABG PH Result 7.47 (7.35-7.45); Arterial Blood Gas Hematocrit 35.8 % (37-47); Base Excess ABG 21.4 mmol/L (-2.0-2.0); Blood Gas Allen Test Pos; Blood Gas Operator Identificat JB; Blood Gas Sample Site Radial, left; Blood Gas Sample Type Arterial; Blood Gas Tidal Volume 0.45; HCO3 ABG 48.7 mmol/L (22-26); Oxygen Device VENT; PO2 ABG 58.5 mmHg (80.0-100.0)
[2020-12-28 05:22] LABS: ABG PCO2 66.8 mmHg (35-45)
[2020-12-28 05:54] LABS: Basophils % 0.3 %; Hematocrit 39.4 % (37.0-47.0); Hemoglobin 11.5 g/dL (11.5-15.3); Lymphocytes # 0.4 10^3/uL (0.8-4.8); Lymphocytes % 2.9 %; Mean Corpuscular HGB Conc 29.2 g/dL (30.0-36.0); Mean Corpuscular Hemoglobin 28.3 pg (28.0-34.0); Mean Platelet Volume 11.8 fL (7.4-10.4); Monocytes # 0.3 10^3/uL (0.2-0.9); Monocytes % 2.2 %; Neutrophils % 93.5 %; Nucleated Red Blood Cells % 0 %; Platelet Count 164 10^3/cmm (130-400); Red Blood Count 4.06 10^6/uL (4.1-5.3); Red Cell Distribution Width 12.4 % (12.1-15.1)
[2020-12-28 05:59] LABS: INR 1.02 (0.8-1.2)
--- NOTE | 2020-12-28 06:00 | ECG_ITS ---
[facility] Test Date: 2020-12-28 Pat Name: Loretta Reeder Department: Room: [facility] Gender: Female Lathe Turner: : 1960 Requested By: Nasir Hoffman Order Number: [id number] Adele MD: Jacoby Navarro M.D. Measurements Intervals [place] Rate: 84 P: 31 PA: 120 QRS: 50 QRSD: 85 T: 30 QT: 385 QTc: 455 Interpretive Statements SINUS RHYTHM Compared to ECG 12/27/2020 05:14:53 No significant changes Electronically Signed On 12-28-2020 13:14:04 CDT by Jacoby Navarro M.D. [email or web address]/store/[id number]
[2020-12-28 06:10] LABS: Lactate (Lactic Acid level) 1.5 mmol/L (0.5-2.2)
[2020-12-28 06:18] LABS: NT Pro B Type Natriuretic Pept 145 pg/mL (0-125); Procalcitonin 0.02 ng/mL (0-0.5)
[2020-12-28 06:31] LABS: Alanine Aminotransferase 20 U/L (0-33); Albumin Level 3.5 g/dL (3.5-5.2); Alkaline Phosphatase 60 IU/L (35-105); Anion Gap 9.6 (5-19); Aspartate Amino Transferase 15 U/L (0-32); Blood Urea Nitrogen 28 mg/dL (8-23); Calcium 8.4 mg/dL (8.5-10.5); Chloride 96 mmol/L (98-107); Creatine Phosphokinase 46 U/L (26-192); Globulin 2.6 g/dL (1.3-4.6); Glomerular Filtration Rate 101.6 mL/min (90-130); Glucose 257 mg/dL (65-115); Magnesium 2.2 mg/dL (1.7-2.3); Osmolality Calculated 312 mOsm/kg (285-295); Potassium 3.6 mmol/L (3.5-5.1); Sodium 144 mmol/L (136-145); Total Bilirubin 0.5 mg/dL (0.15-1.2); Total Protein 6.1 g/dL (6.6-8.7)
--- NOTE | 2020-12-28 07:00 | XRR_ITS ---
PROCEDURE INFORMATION: Exam: XR Chest Exam date and time: 12/28/2020 5:26 AM Age: 60 years old Clinical indication: Shortness of breath; Patient HX: F/u SOB. Intubated. TECHNIQUE: Imaging protocol: XR of the chest Views: 1 view. COMPARISON: CR XR chest 1V portable [id number] 12/27/2020 3:55 AM FINDINGS: Tubes, catheters and devices: No significant change in positioning of the ET tube. Extension of the enteric tube below the diaphragm as on the 4:43 a.m. image on 12/27/2020; tip of this tube not included. Lungs: Interval appearance of increased interstitial markings in the right lung base. No definite change in the increased interstitial markings in the left lung base. Calcified granuloma in each upper lung still present as on the 12/15/2020 chest CTA. Bullous emphysema in the upper lobes more apparent previously. Continued hyperinflation of the lungs. Pleural spaces: Still no apparent pneumothorax or pleural effusion. Heart/Mediastinum: No definite change in the cardiomegaly considering the differences in obliquity. Vasculature: Aortic elongation still likely. Bones/joints: No visible acute bony disease. XR/XR chest 1V portable [id number] IMPRESSION: 1. ET tube still in good position. Continued extension of the enteric tube below the diaphragm. 2. Interval increase in the interstitial markings in the right lung base possibly due to pulmonary edema or developing pneumonia. No significant change in the increased interstitial markings in the left lung base. Cardiomegaly still likely. 3. Bullous emphysema more apparent previously. Continued calcified granulomata in the upper lungs.
[2020-12-28 07:24] LABS: Carbon Dioxide 42 mmol/L (22-29)
[2020-12-28] MEDS: FUROsemide 10 mg/mL SDV 4mL 40 MG IVP (07:43)
[2020-12-28] MEDS: budesonide 0.5 mg/2 mL Neb INHALATION ×2 (07:45→20:06)
[2020-12-28] MEDS: dexmedetomidine 400 MCG in sodium chloride 0.9% (100 ml) 100 ML 24.3 MCG IV ×2 (07:51→12:29)
--- NOTE | 2020-12-28 09:11 | PM.PN ---
Subjective Subjective: Interval history: Patient was examined this morning, she remains intubated, sedated, overnight no acute events, remains afebrile, looks a bit fluid overloaded, normotensive, yesterday afternoon she did develop a rash, etiology is uncertain, no lip or tongue swelling, no hypotensive episodes, improved with Benadryl and Solu-Medrol, currently no rash present Vitals/I&O/Wt Last Vital Signs Temp 98.6 F 12/28/20 06:00 Pulse 75 12/28/20 07:47 Resp 15 12/28/20 07:42 BP 118/83 12/28/20 06:00 Pulse Ox 90 12/28/20 07:42 12/27/20 12/28/20 12/28/20 22:59 06:59 14:59 Intake Total 1585.141 / 1975.807 300.807 / 2276.614 39.657 / 39.657 Output Total 475 / 1125 275 / 1400 Balance 1110.141 / 850.807 25.807 / 876.614 39.657 / 39.657 Weight last 48 hrs Weight 93.497 kg Weight 93.497 kg Weight 99.79 kg Physical Exam Const: COMMON NORMALS: no acute distress OTHER: Intubated, sedated on the ventilator HENMT: COMMON NORMALS: normocephalic HEAD & SCALP: normocephalic Neck/C-Spine: COMMON NORMALS: no JVD Resp: COMMON NORMALS: normal respiratory effort, No retractions and No use of accessory muscles AUSCULTATION: diminished lung sounds diffuse Cardio: COMMON NORMALS: no JVD, regular rate, regular rhythm, S1 normal heart sound present and S2 normal heart sound present RATE: regular rate RHYTHM: regular rhythm HEART SOUNDS: S1 normal heart sound present and S2 normal heart sound present GI: COMMON NORMALS: Normal to inspection, nondistended, normoactive bowel sounds present, Soft to palpation, non-tender, No hepatosplenomegaly present, no masses and no bruits PALPATION: Yes Soft to palpation and Yes No hepatosplenomegaly present Extremity: COMMON NORMALS: no calf tenderness and no pedal edema Urinary Catheter Management^: Greenberg: Cath Placed During This Visit: yes Reason for Continuing Indwelling Catheter: Accurate Measurement of Urinary Output in Critically Ill Patients Urinary Catheter Date of Insertion: 12/27/20 Urinary Catheter Time of Insertion: 05:26 Data : 12/28/20 05:33 12/28/20 05:33 A&P Assessment and plan (1) Acute and chronic respiratory failure with hypercapnia: Secondary to end-stage COPD Spontaneous breathing trial today, hopefully will extubate onto BiPAP and Precedex Continue intubation, mechanical ventilation, on Precedex, Versed for sedation RASS 2 for sedation Daily weaning trials, minimize PEEP, minimize FiO2 Broad-spectrum antibiotics Zosyn Continue Solu-Medrol Follow blood cultures, urine cultures, sputum cultures Pulmonary consulted, Will give a trial of 40 mg of Lasix before extubation today replace potassium phosphorus Full code Lovenox for DVT prophylaxis Pepcid for GI prophylaxis Status: Acute (2) COPD, severe: Neb treatment IV steroids Remainder of management as noted above. Status: Chronic (3) Benign essential HTN: Status: Chronic Attestations Medical Necessity Statement*: Patient requires hospitalization, for acute on chronic hypercarbic respiratory failure, currently intubated, sedated on the ventilator, hopefully will extubate today Coding Level of Care Code Acute Clamp Truck Driver for Missael Cr Diagnoses Acute and chronic respiratory failure with hypercapnia J96.22 COPD, severe J44.9 Benign essential HTN I10
[2020-12-28] MEDS: vancomycin 1,500 MG/300 ML PIGGYBACK 200 MG IV ×2 (09:13→22:34)
--- NOTE | 2020-12-28 13:55 | PC.NURSE ---
Pt extubated to BiPap. OG removed. Pt tolerating well.
--- NOTE | 2020-12-28 16:34 | PC.NURSE ---
Wasted 22 ML Fentanyl and 30 ML Versed with Jacinta William RN.
--- NOTE | 2020-12-28 16:35 | PC.NURSE ---
Fentanyl waste: 22 ml plus residual in tubing. (EMAR 32.583). Midazolam waste: 30 ml plus residula in tubing. ( EMAR31.949). Wasted witnessed by Cheikh Pereira RN.
--- NOTE | 2020-12-28 18:56 | PC.NURSE ---
Shift summary: Pt now on BiPap at 40%. She was extubated at 1350. Pt remains on Precedex gtt, now on 0.7mcg/kg/hr. Pt requests drinks of water frequently while on BiPap mask. She barely touched her clear liquid diet this evening. Her O2 sats dropped while trying clear liquid diet, she was on 4 lpm/NC, her sats went to 84%. She started purse lip breathing without prompting. Lung sounds remain very diminished. She had over 1100 ml urinary output after the Lasix today. Pt stated she seen someone sitting in a chair in her room when there was not anyone in her room. Pt still confused with what happened and where she is at.
[2020-12-28 22:07] LABS: Vancomycin Trough 17.3 ug/mL (10-15)
[2020-12-28] MEDS: dexmedetomidine 400 MCG in sodium chloride 0.9% (100 ml) 100 ML 21.9 MCG IV (22:53)
[2020-12-29] VITALS (39 sets, daily range): BP systolic 117–154; BP diastolic 71–100; PULSE 64–118; RESP 16–36; TEMP 36.4–37.4; O2SAT 88–100
--- NOTE | 2020-12-29 00:36 | PC.NURSE ---
Precedex drip increased to 0.8mcg/kg/hr at 1930 due to increased agitation. MAR will not allow titration so does not reflect change at that particular time.
[2020-12-29] MEDS: ipratropium-albuterol 3 mL Neb INHALATION ×4 (02:36→20:13)
[2020-12-29] MEDS: piperacillin-tazobactam 3.375 GM in sodium chloride 0.9% (plus) 50 ML IV ×3 (02:50→18:05)
[2020-12-29] MEDS: dexmedetomidine 400 MCG in sodium chloride 0.9% (100 ml) 100 ML 24.3 MCG IV (04:01)
[2020-12-29 04:12] LABS: ABG PH Result 7.45 (7.35-7.45); Arterial Blood Gas Hematocrit 35.4 % (37-47); Base Excess ABG 18.8 mmol/L (-2.0-2.0); Blood Gas Sample Site Brachial, left; Blood Gas Sample Type Arterial; Oxygen Device BIPAP; PO2 ABG 99.6 mmHg (80.0-100.0)
[2020-12-29 04:19] LABS: ABG PCO2 65.9 mmHg (35-45)
[2020-12-29] MEDS: enoxaparin 40 mg/0.4 mL Syringe SUBCUT (04:59)
[2020-12-29] MEDS: famotidine 20 mg/2 mL INJ IVP ×2 (04:59→17:21)
[2020-12-29 05:24] LABS: Basophils % 0.3 %; Eosinophils # 0.1 10^3/uL (0.0-0.8); Eosinophils % 0.8 %; Hematocrit 36.7 % (37.0-47.0); Hemoglobin 11.1 g/dL (11.5-15.3); Lymphocytes # 0.7 10^3/uL (0.8-4.8); Lymphocytes % 6.2 %; Mean Corpuscular HGB Conc 30.2 g/dL (30.0-36.0); Mean Corpuscular Hemoglobin 29.2 pg (28.0-34.0); Mean Corpuscular Volume 96.6 fL (81-99); Mean Platelet Volume 11.7 fL (7.4-10.4); Monocytes % 8.3 %; Neutrophils # 9.96 10^3/uL (1.8-7.7); Neutrophils % 83.5 %; Nucleated Red Blood Cells % 0 %; Platelet Count 143 10^3/cmm (130-400); Red Cell Distribution Width 13.2 % (12.1-15.1); White Blood Count 11.9 10^3/uL (4.0-10.0)
[2020-12-29 05:42] LABS: INR 1.05 (0.8-1.2)
[2020-12-29 05:45] LABS: Lactate (Lactic Acid level) 0.8 mmol/L (0.5-2.2)
[2020-12-29 05:56] LABS: NT Pro B Type Natriuretic Pept 108 pg/mL (0-125); Procalcitonin 0.05 ng/mL (0-0.5)
--- NOTE | 2020-12-29 06:00 | ECG_ITS ---
[facility] Test Date: 2020-12-29 Pat Name: Loretta Reeder Department: Room: [facility] Gender: Female Radar Engineering Teacher: : 1960 Requested By: Nasir Hoffman Order Number: [id number] Adele MD: Jacoby Navarro M.D. Measurements Intervals [place] Rate: 66 P: MO: QRS: 60 QRSD: 82 T: 36 QT: 314 QTc: 331 Interpretive Statements SUPRAVENTRICULAR RHYTHM NONSPECIFIC T-WAVE ABNORMALITY Compared to ECG 12/28/2020 06:03:33 Supraventricular rhythm now present T-wave abnormality now present Sinus rhythm no longer present Electronically Signed On 12-29-2020 18:04:19 CDT by Jacoby Navarro M.D. [email or web address].[email or web address]/store/[id number]
[2020-12-29 06:12] LABS: Alanine Aminotransferase 20 U/L (0-33); Albumin Level 3.5 g/dL (3.5-5.2); Alkaline Phosphatase 54 IU/L (35-105); Anion Gap 10.9 (5-19); Aspartate Amino Transferase 14 U/L (0-32); Calcium 8.5 mg/dL (8.5-10.5); Creatine Phosphokinase 44 U/L (26-192); Globulin 2.4 g/dL (1.3-4.6); Glomerular Filtration Rate 125.4 mL/min (90-130); Sodium 143 mmol/L (136-145); Total Bilirubin 0.4 mg/dL (0.15-1.2)
[2020-12-29 06:45] LABS: Blood Urea Nitrogen 27 mg/dL (8-23); Carbon Dioxide 40 mmol/L (22-29); Chloride 95 mmol/L (98-107); Glucose 125 mg/dL (65-115); Osmolality Calculated 303 mOsm/kg (285-295); Potassium 2.9 mmol/L (3.5-5.1)
[2020-12-29 06:46] LABS: C Reactive Protein 5.8 mg/L (0.0-4.9); Total Protein 5.9 g/dL (6.6-8.7)
--- NOTE | 2020-12-29 07:00 | XRR_ITS ---
PROCEDURE INFORMATION: Exam: XR Chest Exam date and time: 12/29/2020 3:55 AM Age: 60 years old Clinical indication: Shortness of breath; Patient HX: On bipap; Additional info: SOB TECHNIQUE: Imaging protocol: XR of the chest Views: 1 view. COMPARISON: CR XR chest 1V portable [id number] 12/28/2020 5:03 AM FINDINGS: Lungs: Stable calcified nodules in both upper lobes. No acute infiltrate. Pleural spaces: Unremarkable. No pleural effusion. No pneumothorax. Heart/Mediastinum: Unremarkable. No cardiomegaly. Bones/joints: Unremarkable. XR/XR chest 1V portable [id number] IMPRESSION: Stable examination without acute infiltrate.
--- NOTE | 2020-12-29 07:50 | PC.NURSE ---
Pt pulled apart IV. Blood on gown and bedding. Changed J loop and dressings. IV flushes well. secured with Coban. Linen change provided.
[2020-12-29] MEDS: budesonide 0.5 mg/2 mL Neb INHALATION ×2 (08:01→20:13)
--- NOTE | 2020-12-29 08:32 | PC.NURSE ---
[id number]: supervisor instrument mechanics, BRENDON Cole notified of sitter ordered, per her none available.
[2020-12-29] MEDS: montelukast sodium 10 mg Tablet PO (09:05)
[2020-12-29] MEDS: LORazepam 0.5 mg Tablet PO (09:05)
[2020-12-29] MEDS: metoprolol tartrate 50 mg Tablet PO ×2 (09:05→20:41)
[2020-12-29] MEDS: lidocaine 1% 5 ML in potassium chloride premix 100 ML 12 ML IV (09:06)
[2020-12-29] MEDS: aspirin 81 mg EC Tablet PO (09:07)
[2020-12-29] MEDS: amlodipine 5 mg Tablet PO (09:07)
[2020-12-29] MEDS: citalopram 20 mg Tablet 10 MG PO ×2 (09:08→17:21)
--- NOTE | 2020-12-29 09:52 | PC.NURSE ---
Raleigh Reeder, , called for update on . He stated Loretta wore the trilogy the first day she got after after last hospitalization (discharged 12/24/2020), the second day she did not have it on when she went to sleep. She slept for a while that day then slept most of the third day, he couldn't get her to respond so called the ambulance. stated that he has no idea what medications she is suppose to be taking or if she takes them. When he asks her she gets mad. He does not think she takes them when she says he does. He says he asks/tries to get her to wear the trilogy and she won't. Sometimes she is ok then other times she is not, she gets mad at me. He then asked if she should be wearing it while she watched TV because she usually falls asleep watching TV. informed that would be appropriate for her to wear it while sleeping.We also discussed the choices Dr Hoffman discussed with pt this am and lack of oxygen/hypercapnic can cause confusion, faulty memory, etc. stated he needs help with her.
--- NOTE | 2020-12-29 10:15 | PC.NURSE ---
Pt has been pulling at tubing, BiPap cords, etc. Pt stops when redirected.
--- NOTE | 2020-12-29 12:10 | P.PN_ITS ---
Subjective Subjective: Interval history: Patient was examined this morning, she sitting up in bed, she does have periodic episodes of confusion according to nursing staff, but is redirectable, her Precedex drip is being weaned off, she is alert to person, place, time currently, enjoying breakfast, I had an extensive discussion with patient about her rehospitalizations for COPD exacerbations, and repeat requirement for intubation, she is adamant that she is compliant with her trilogy machine, she also had a collections representative come out to her home the day after discharge her last hospitalization to ensure the machine was working properly, is taking all medications as prescribed, unfortunately currently patient is not a candidate for lung transplant Options I presented to her include -Tracheostomy placement, she has had a trach in the past for an extensive hospitalization -Continuing medical interventions, trying to optimize her medical care, try to prevent readmission and reintubation -Hospice I discussed the risks and benefits of oral options, she voices any, all questions answered, she says she would talk to her family members, but she right now wants to continue medical interventions, try to optimize her medical care Vitals/I&O/Wt Last Vital Signs Temp 97.6 F 12/29/20 03:00 Pulse 72 12/29/20 11:07 Resp 17 12/29/20 08:00 BP 147/84 12/29/20 08:00 Pulse Ox 98 12/29/20 11:07 12/28/20 12/29/20 12/29/20 22:59 06:59 14:59 Intake Total 503.203 / 1085.177 402.54 / 1487.717 554.000 / 554.000 Output Total 425 / 1475 Balance 503.203 / 35.177 -22.46 / 12.717 554.000 / 554.000 Weight last 48 hrs Weight 92.079 kg Weight 93.497 kg Physical Exam Const: COMMON NORMALS: no acute distress and patient oriented x3 HENMT: COMMON NORMALS: normocephalic HEAD & SCALP: normocephalic Neck/C-Spine: COMMON NORMALS: no JVD Resp: COMMON NORMALS: normal respiratory effort, No retractions and No use of accessory muscles AUSCULTATION: diminished lung sounds diffuse Cardio: COMMON NORMALS: no JVD, regular rate, regular rhythm, S1 normal heart sound present and S2 normal heart sound present RATE: regular rate RHYTHM: regular rhythm HEART SOUNDS: S1 normal heart sound present and S2 normal heart sound present GI: COMMON NORMALS: Normal to inspection, nondistended, normoactive bowel sounds present, Soft to palpation, non-tender, No hepatosplenomegaly present, no masses and no bruits PALPATION: Yes Soft to palpation and Yes No hepatosplenomegaly present Extremity: COMMON NORMALS: capillary refill normal, no clubbing, cyanosis or edema, no calf tenderness and no pedal edema Neuro: COMMON NORMALS: patient oriented x3 Psych: COMMON NORMALS: mental status grossly normal Urinary Catheter Management^: Greenberg: Cath Placed During This Visit: yes Reason for Continuing Indwelling Catheter: Accurate Measurement of Urinary Output in Critically Ill Patients Urinary Catheter Date of Insertion: 12/27/20 Urinary Catheter Time of Insertion: 05:26 Data : 12/29/20 04:45 12/29/20 04:45 A&P Assessment and plan (1) Acute and chronic respiratory failure with hypercapnia: Secondary to end-stage COPD Continue to monitor in the ICU, hopefully can de-escalate in the next 24 hours, de-escalate Precedex Monitor for confusion, post ICU syndrome, as during her previous hospitalization she has had significant issues of persistent confusion, agitation, removing her IVs is on Abilify, trazodone as needed during the night continue BiPAP as needed during the day Broad-spectrum antibiotics Zosyn Continue Solu-Medrol Follow blood cultures, urine cultures, sputum cultures Pulmonary consulted Hold Lasix for today Full code Lovenox for DVT prophylaxis Pepcid for GI prophylaxis -Has a history of tracheostomy in the past -Currently has declined hospice, tracheostomy, would like to continue medical treatment Status: Acute (2) COPD, severe: Neb treatment IV steroids Remainder of management as noted above. Status: Chronic (3) Benign essential HTN: Status: Chronic Attestations Medical Necessity Statement*: Patient requires hospitalization for acute on chronic hypercarbic respiratory failure Coding Level of Care Code Acute Mine Administrator Supervisor for Missael Cr Diagnoses Acute and chronic respiratory failure with hypercapnia J96.22 COPD, severe J44.9 Benign essential HTN I10
[2020-12-29] MEDS: ARIPiprazole 2 mg Tablet PO (12:29)
--- NOTE | 2020-12-29 17:27 | PC.NURSE ---
Shift summary: Pt started the day out confused, but able to hold conversations about current events, pulling IV line and BiPap tubing. She has progressively improved. She has used nasal cannula most of the day at 4 lpm. She has had the BiPap on for about 2 hours during the day. She is eating well. Precedex gtt stopped at 1100, no further issues noted. She has another new IV site in right upper arm. Pt has had multiple large loose BMs. today. Urine output 525ml. She has received 2 potassium IV replacements today. Dr Hoffman has restarted most of her home medications. Pt stated she uses her Trilogy all the time at home, like I am suppose to. described what she does at home, pt is non-compliant.
[2020-12-30] VITALS (32 sets, daily range): BP systolic 100–151; BP diastolic 57–90; PULSE 81–147; RESP 14–31; TEMP 36.7–37.4; O2SAT 88–97
[2020-12-30] MEDS: piperacillin-tazobactam 3.375 GM in sodium chloride 0.9% (plus) 50 ML IV ×3 (03:01→18:21)
[2020-12-30] MEDS: ipratropium-albuterol 3 mL Neb INHALATION ×4 (03:07→20:14)
[2020-12-30] MEDS: famotidine 20 mg/2 mL INJ IVP ×2 (04:43→18:21)
[2020-12-30] MEDS: enoxaparin 40 mg/0.4 mL Syringe SUBCUT (04:44)
[2020-12-30 04:48] LABS: ABG PCO2 56.9 mmHg (35-45); ABG PH Result 7.44 (7.35-7.45); Arterial Blood Gas Hematocrit 35.1 % (37-47); Base Excess ABG 11.9 mmol/L (-2.0-2.0); Blood Gas Sample Site Brachial, left; Blood Gas Sample Type Arterial; HCO3 ABG 38.1 mmol/L (22-26); Oxygen Device BIPAP; PO2 ABG 60.1 mmHg (80.0-100.0)
[2020-12-30 05:22] LABS: Basophils % 0.4 %; Eosinophils # 0.2 10^3/uL (0.0-0.8); Eosinophils % 1.5 %; Hemoglobin 11.1 g/dL (11.5-15.3); Lymphocytes # 1.3 10^3/uL (0.8-4.8); Lymphocytes % 12.7 %; Mean Corpuscular Hemoglobin 28.9 pg (28.0-34.0); Mean Corpuscular Volume 96.4 fL (81-99); Mean Platelet Volume 11.9 fL (7.4-10.4); Monocytes % 9.5 %; Neutrophils # 7.48 10^3/uL (1.8-7.7); Neutrophils % 74.5 %; Nucleated Red Blood Cells % 0 %; Platelet Count 145 10^3/cmm (130-400); Red Blood Count 3.84 10^6/uL (4.1-5.3); Red Cell Distribution Width 13.8 % (12.1-15.1)
[2020-12-30 05:46] LABS: Lactate (Lactic Acid level) 0.9 mmol/L (0.5-2.2)
[2020-12-30 05:49] LABS: INR 1.06 (0.8-1.2)
[2020-12-30 06:03] LABS: NT Pro B Type Natriuretic Pept 328 pg/mL (0-125); Procalcitonin 0.04 ng/mL (0-0.5)
[2020-12-30 06:15] LABS: Alanine Aminotransferase 32 U/L (0-33); Albumin Level 3.4 g/dL (3.5-5.2); Alkaline Phosphatase 56 IU/L (35-105); Anion Gap 12.6 (5-19); Aspartate Amino Transferase 24 U/L (0-32); Blood Urea Nitrogen 15 mg/dL (8-23); C Reactive Protein 4.8 mg/L (0.0-4.9); Calcium 9.3 mg/dL (8.5-10.5); Carbon Dioxide 33 mmol/L (22-29); Chloride 101 mmol/L (98-107); Creatine Phosphokinase 32 U/L (26-192); Globulin 2.5 g/dL (1.3-4.6); Glomerular Filtration Rate 125.4 mL/min (90-130); Glucose 84 mg/dL (65-115); Magnesium 2.1 mg/dL (1.7-2.3); Osmolality Calculated 296 mOsm/kg (285-295); Phosphorus 2.3 mg/dL (2.5-4.5); Potassium 3.6 mmol/L (3.5-5.1); Sodium 143 mmol/L (136-145); Total Bilirubin 0.5 mg/dL (0.15-1.2); Total Protein 5.9 g/dL (6.6-8.7)
--- NOTE | 2020-12-30 07:00 | XRR_ITS ---
PROCEDURE INFORMATION: Exam: XR Chest Exam date and time: 12/30/2020 4:27 AM Age: 60 years old Clinical indication: Shortness of breath; Patient HX: On bipap, follow up; Additional info: SOB TECHNIQUE: Imaging protocol: XR of the chest Views: 1 view. COMPARISON: CR XR chest 1V portable [id number] 12/29/2020 3:41 AM FINDINGS: Lungs: No consolidation. Redemonstration of calcified nodules in the lobes Pleural spaces: Unremarkable. No pleural effusion. No pneumothorax. Heart/Mediastinum: No cardiomegaly. Bones/joints: No acute fracture. XR/XR chest 1V portable [id number] IMPRESSION: No acute findings.
[2020-12-30] MEDS: ARIPiprazole 2 mg Tablet PO (08:08)
[2020-12-30] MEDS: aspirin 81 mg EC Tablet PO (08:08)
[2020-12-30] MEDS: amlodipine 5 mg Tablet PO (08:08)
[2020-12-30] MEDS: montelukast sodium 10 mg Tablet PO (08:08)
[2020-12-30] MEDS: citalopram 20 mg Tablet 10 MG PO ×2 (08:08→18:21)
[2020-12-30] MEDS: budesonide 0.5 mg/2 mL Neb INHALATION ×2 (08:40→20:14)
[2020-12-30] MEDS: LORazepam 0.5 mg Tablet PO (08:57)
[2020-12-30] MEDS: metoprolol tartrate 50 mg Tablet PO ×2 (09:41→21:53)
--- NOTE | 2020-12-30 09:46 | PC.CHAP ---
Pastoral Care Encounter/Spiritual Assessment Type of Contact [] Declined time clock mechanic visit [] Patient/Family/Request visit [] Outpatient visit [] Follow-up visit [] Physician referral [] Code/Alert [x] Routine visit [] Staff referral [] Actively dying [] Patient sleeping [] Family support [] [] Out of room [] Palliative care [] [] Receiving care in room [] Pre-surgical visit [] Trauma [] Long length of stay [x] ICU visit [x] Other: setter present Relational/Emotional Strength [] Patient feels connected with others/family/visitors/staff [] Distress [] Loneliness/isolation [] Abandonment Spirituality of Patient [] Person of Amanda [] Attends Restorationism of their Amanda [] Believes in Prayer [] Reads Bible or Oriental Orthodox materials [] There are Spiritual issues to be addressed Strainer Mill Operator Interventions [x] Prayer [x] Active listening [x] Non-anxious presence [x] Spiritual/emotional support [] Crisis/trauma care [] Spiritual counseling [] Bereavement support [] Provided bereavement packet [] Provided Bible/devotional materials [] Provided toy/stuffed animal, coloring book to patient or family member [] Provided Communion [] Anointing/[place] [] Salvation [x] Completed spiritual assessment [] Other: Impact on Illness or Injury [] Angry [] Fearful [] Anxious [] Often cries [] Exhaustion [] Unable to work [] Unable to attend samaritan [] Unable to walk/stand [] Unable to read [] Unable to drive [] Unable to eat/drink [] Unable to sleep [] Unable to be with family [] Patient intubated [] Other: Summary seems stronger... Time spent with patient 10 min
--- NOTE | 2020-12-30 10:41 | PC.CHAP ---
*IMM UPDATE* Presser Machine gave patient IMM update. Provided copy of page 2 of IMM. 12/30/20 @ 0949 Initialed, dated, timed and placed in chart.
--- NOTE | 2020-12-30 10:55 | PM.PN ---
Subjective Subjective: Interval history: This morning weaned down to nasal cannula. Reports she is doing much better. She is breathing comfortably. Denies chest pain. Says was able to get some rest overnight. We have discussed again with her regarding the danger of recurrent episodes of respiratory failure with hypoxia and hypercapnia, including this admission, again requiring intubation. Discussed also the self-perpetuating nature of her episodes, associated with self-worsening encephalopathy. Discussed further options going forward, including tracheostomy, which she understands may alleviate some of these episodes, and reduce the risk of her dying during one of the episodes, or if requiring additional intubation, complications from procedures. We discussed in case of respiratory ventilator could be connected directly to the tracheostomy, and this could even be done at home by her in case of respiratory issues while awaiting for help. She states that she had given quite a lot of thought to our discussion with the physician yesterday, and our discussion, and has had experience with tracheostomy before, and for now declines to consider tracheostomy. States that she would like to instead double the time on her noninvasive ventilator at home and has resolved that she will be doing so to reduce chance of additional recurrent episodes. Vitals/I&O/Wt Last Vital Signs Temp 98.4 F 12/30/20 08:00 Pulse 110 H 12/30/20 10:00 Resp 21 H 12/30/20 10:00 BP 123/66 12/30/20 10:00 Pulse Ox 93 12/30/20 10:00 12/29/20 12/30/20 12/30/20 22:59 06:59 14:59 Intake Total 791.0659 / 1708.0909 360 / 2068.0909 530 / 530 Output Total 525 / 525 1100 / 1625 400 / 400 Balance 266.0659 / 1183.0909 -740 / 443.0909 130 / 130 Weight last 48 hrs Weight 91.081 kg Weight 92.079 kg Physical Exam Const: COMMON NORMALS: no acute distress, patient oriented x3 and alert GENERAL APPEARANCE: cooperative and comfortable ORIENTATION/CONSCIOUSNESS: Yes awake HENMT: COMMON NORMALS: oropharynx normal Neck/C-Spine: COMMON NORMALS: no JVD Resp: COMMON NORMALS: normal respiratory effort AUSCULTATION: no rhonchi, no wheezes and diminished lung sounds Cardio: COMMON NORMALS: no JVD, regular rhythm, S1 normal heart sound present, S2 normal heart sound present and No murmurs present (Cardio) RHYTHM: regular rhythm HEART SOUNDS: S1 normal heart sound present and S2 normal heart sound present GI: COMMON NORMALS: Normal to inspection, nondistended, normoactive bowel sounds present, Soft to palpation and non-tender PALPATION: Yes Soft to palpation Extremity: COMMON NORMALS: no joint enlargement and no pedal edema Neuro: COMMON NORMALS: patient oriented x3 and moves all extremities SENSORIUM/ORIENTATION: Yes alert Skin: COMMON NORMALS: no rashes or lesions noted GENERAL SKIN EXAM: no rashes or lesions noted Urinary Catheter Management^: Greenberg: Cath Placed During This Visit: yes Reason for Continuing Indwelling Catheter: Accurate Measurement of Urinary Output in Critically Ill Patients Urinary Catheter Date of Insertion: 12/27/20 Urinary Catheter Time of Insertion: 05: Data : 12/30/20 04:34 12/30/20 04:34 A&P Assessment and plan (1) Acute and chronic respiratory failure with hypercapnia: Will monitor on medical floor today while weaned down to NC. BiPAP anytime asleep. Declines tracheostomy after extensive consideration and understands that she may during one of the episodes of respiratory failure and associated hypercapnic encephalopathy which become self perpetuating once they begin. States she is planning to double the time during the day on that noninvasive ventilator (and keep it on) as opposed to nasal cannula. Change steroids to prednisone. She reports cough ambulation green sputum. For now we will keep antibiotic on board. De-escalate if continues to improve. Could not reach for update. Secondary to end-stage COPD Lovenox for DVT prophylaxis Pepcid for GI prophylaxis Status: Acute (2) COPD, severe: As above Status: Chronic (3) Benign essential HTN: Status: Chronic (4) Parasomnia: Sleep study after DC Status: Acute Attestations Medical Necessity Statement*: Continue admission for assessment management of recurrent episodes of respiratory failure with hypoxia and hypercapnia. 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
--- NOTE | 2020-12-30 12:08 | PC.NURSE ---
Attempted to call Dr. Mayberry in regards to Mrs. Reeder's increase in HR. Attempt unsuccessful, but was pass along in report.
[2020-12-31] VITALS (21 sets, daily range): BP systolic 120–145; BP diastolic 78–86; PULSE 82–111; RESP 15–28; TEMP 36.6–37.2; O2SAT 92–97
[2020-12-31] MEDS: ipratropium-albuterol 3 mL Neb INHALATION ×4 (02:00→20:56)
--- NOTE | 2020-12-31 02:25 | PC.NURSE ---
patient irritable, wanting to get up to go find the doctor and call her despite being informed that it is almost 2:30 in the morning
[2020-12-31] MEDS: piperacillin-tazobactam 3.375 GM in sodium chloride 0.9% (plus) 50 ML IV ×3 (03:42→18:20)
[2020-12-31 05:03] LABS: ABG PH Result 7.39 (7.35-7.45); Arterial Blood Gas Hematocrit 35.9 % (37-47); Base Excess ABG 10.7 mmol/L (-2.0-2.0); Blood Gas Allen Test Pos; Blood Gas Operator Identificat JB; Blood Gas Sample Site Brachial, right; Blood Gas Sample Type Arterial; HCO3 ABG 37.9 mmol/L (22-26); Oxygen Device BIPAP; PO2 ABG 86.7 mmHg (80.0-100.0)
[2020-12-31] MEDS: famotidine 20 mg/2 mL INJ IVP ×2 (05:16→17:36)
[2020-12-31] MEDS: enoxaparin 40 mg/0.4 mL Syringe SUBCUT (05:16)
[2020-12-31 06:24] LABS: Basophils % 0.3 %; Eosinophils # 0.1 10^3/uL (0.0-0.8); Eosinophils % 1.4 %; Hemoglobin 11.5 g/dL (11.5-15.3); Lymphocytes # 1.3 10^3/uL (0.8-4.8); Lymphocytes % 14.7 %; Mean Corpuscular HGB Conc 30.3 g/dL (30.0-36.0); Mean Corpuscular Hemoglobin 28.9 pg (28.0-34.0); Mean Corpuscular Volume 95.5 fL (81-99); Mean Platelet Volume 11.8 fL (7.4-10.4); Monocytes # 0.8 10^3/uL (0.2-0.9); Monocytes % 8.7 %; Neutrophils # 6.66 10^3/uL (1.8-7.7); Nucleated Red Blood Cells % 0 %; Platelet Count 142 10^3/cmm (130-400); Red Blood Count 3.98 10^6/uL (4.1-5.3); White Blood Count 9.1 10^3/uL (4.0-10.0)
[2020-12-31 06:50] LABS: Alanine Aminotransferase 35 U/L (0-33); Albumin Level 3.5 g/dL (3.5-5.2); Alkaline Phosphatase 56 IU/L (35-105); Anion Gap 11.6 (5-19); Aspartate Amino Transferase 19 U/L (0-32); Blood Urea Nitrogen 21 mg/dL (8-23); C Reactive Protein 5.9 mg/L (0.0-4.9); Calcium 9.3 mg/dL (8.5-10.5); Carbon Dioxide 34 mmol/L (22-29); Chloride 103 mmol/L (98-107); Globulin 2.8 g/dL (1.3-4.6); Glomerular Filtration Rate 125.4 mL/min (90-130); Glucose 101 mg/dL (65-115); Magnesium 2.1 mg/dL (1.7-2.3); Osmolality Calculated 303 mOsm/kg (285-295); Phosphorus 3.3 mg/dL (2.5-4.5); Potassium 3.6 mmol/L (3.5-5.1); Sodium 145 mmol/L (136-145); Total Bilirubin 0.5 mg/dL (0.15-1.2); Total Protein 6.3 g/dL (6.6-8.7)
[2020-12-31 06:53] LABS: NT Pro B Type Natriuretic Pept 367 pg/mL (0-125); Procalcitonin 0.06 ng/mL (0-0.5)
[2020-12-31] MEDS: budesonide 0.5 mg/2 mL Neb INHALATION ×2 (09:25→20:56)
[2020-12-31] MEDS: amlodipine 5 mg Tablet PO (10:32)
[2020-12-31] MEDS: aspirin 81 mg EC Tablet PO (10:32)
[2020-12-31] MEDS: montelukast sodium 10 mg Tablet PO (10:32)
[2020-12-31] MEDS: ARIPiprazole 2 mg Tablet PO (10:32)
[2020-12-31] MEDS: citalopram 20 mg Tablet 10 MG PO ×2 (10:33→17:36)
[2020-12-31] MEDS: predniSONE 20 mg Tablet PO (10:33)
[2020-12-31] MEDS: metoprolol tartrate 50 mg Tablet PO ×2 (10:42→22:01)
--- NOTE | 2020-12-31 15:52 | P.CONIM_ITS ---
Providers/Reason For Consult Consulting Physican/Specialty*: Lew Merritt MD Otolaryngology, Head & Neck Surgery Reason for Consult*: Consultation for tracheotomy Requesting Physcian: Paulo Mayberry MD Attending Physician: Paulo Mayberry Primary Care Provider: Taniya Irving DO History of Present Illness History of Present Illness Loretta Reeder is a 60 year old female with a h/o severe/chronic respiratory failure who has been admitted and intubated multiple times in the recent past (Please see Dr. Mayberry's notes for details). I was consulted to discuss potential tracheotomy with the patient. The patient had a short term tracheotomy approximately 5 years age. She is o/w without c/o. Meds/Allergies Home Medications and Allergies Home Medications Medication Instructions Recorded Confirmed Last Taken Type multivit with 1 tab PO DAILY 09/28/19 12/27/20 Unknown History aeiryzbd-kmdl-PB-lutein 8 mg iron-400 mcg-300 mcg tablet aripiprazole 2 mg tablet 2 mg PO DAILY #30 tab 10/16/20 12/27/20 Unknown Rx aspirin 81 mg tablet,delayed 81 mg PO DAILY 10/23/20 12/27/20 Unknown History release albuterol sulfate 90 mcg/actuation 2 puff INHALATION Q6H PRN #18 gm 11/14/20 12/27/20 Unknown Rx aerosol inhaler azithromycin 250 mg tablet See Rx Instructions .ROUTE 11/25/20 12/27/20 Unknown Rx .COMPLEX #90 tab ipratropium 0.5 mg-albuterol 3 mg 3 ml INHALATION Q6H #360 ml 12/06/20 12/27/20 Unknown Rx (2.5 mg base)/3 mL nebulization soln montelukast 10 mg PO DAILY 12/15/20 12/27/20 Unknown History amlodipine 5 mg PO DAILY 30 Days #30 tab 12/24/20 12/27/20 Unknown Rx citalopram 10 mg PO BID 30 Days #30 tab 12/24/20 12/27/20 Unknown Rx metoprolol tartrate 50 mg PO BID@0900,2100 30 Days #60 12/24/20 12/27/20 Unknown Rx tab prednisone 5 mg PO DAILY 30 Days #30 tab 12/24/20 12/27/20 Unknown Rx trazodone 50 mg PO BEDTIME PRN 30 Days #30 12/24/20 12/27/20 Unknown Rx tab amoxicillin-pot clavulanate 1 tab PO BID 12/27/20 12/27/20 Unknown History lorazepam 0.5 mg PO BID PRN 12/27/20 12/27/20 Unknown History budesonide 0.5 mg/2 mL suspension See Rx Instructions .ROUTE 12/30/20 Unknown Rx for nebulization .COMPLEX #60 vial Allergies Allergy/AdvReac Type Severity Reaction Status Date / Time codeine Allergy NAUSEA & Verified 12/27/20 01:46 VOMITING morphine Allergy ADR-Halluci Verified 12/27/20 01:46 nating Current Medications Current Medications Generic Name Dose Route Start Last Admin Trade Name Freq PRN Reason Stop Dose Admin Albuterol/Ipratropium 3 ml 12/27/20 09:00 12/31/20 15:35 Ipratropium-Albuterol 3 Ml Neb INHALATION 3 ml Q6H.RESPIRATORY JOSE Administration Amlodipine Besylate 5 mg 12/29/20 09:00 12/31/20 10:32 Amlodipine 5 Mg Tablet PO 5 mg DAILY JOSE Administration Aripiprazole 2 mg 12/29/20 09:00 12/31/20 10:32 Aripiprazole 2 Mg Tablet PO 2 mg DAILY JOSE Administration Aspirin 81 mg 12/29/20 09:00 12/31/20 10:32 Aspirin 81 Mg Ec Tablet PO 81 mg DAILY JOSE Administration Budesonide 0.5 mg 12/27/20 20:00 12/31/20 09:25 Budesonide 0.5 Mg/2 Ml Neb INHALATION 0.5 mg BID.RESPIRATORY JOSE Administration Citalopram Hydrobromide 10 mg 12/29/20 09:00 12/31/20 10:33 Citalopram 20 Mg Tablet PO 10 mg BID JOSE Administration Enoxaparin Sodium 40 mg 12/27/20 05:15 12/31/20 05:16 Enoxaparin 40 Mg/0.4 Ml Syringe SUBCUT 40 mg Q24H JOSE Administration Famotidine 20 mg 12/27/20 05:15 12/31/20 05:16 Famotidine 20 Mg/2 Ml Inj IVP 20 mg Q12H JOSE Administration Piperacillin Sod/Tazobactam 50 mls @ 12.5 mls/hr 12/27/20 11:00 12/31/20 10:32 Sod 3.375 gm/ Sodium Chloride IV 12.5 mls/hr Q8H JOSE Administration Dexmedetomidine HCl 400 mcg/ 104 mls @ 0 mls/hr 12/27/20 14:00 12/29/20 09:33 Sodium Chloride IV Infused .Q0M JOSE Titration Protocol Per Protocol Lorazepam 0.5 mg 12/29/20 08:16 12/30/20 08:57 Lorazepam 0.5 Mg Tablet PO 0.5 mg BID PRN Administration anxiety Metoprolol Tartrate 50 mg 12/29/20 09:00 12/31/20 10:42 Metoprolol Tartrate 50 Mg Tablet PO 50 mg BID@0900,2100 JOSE Administration Montelukast Sodium 10 mg 12/29/20 09:00 12/31/20 10:32 Montelukast Sodium 10 Mg Tablet PO 10 mg DAILY JOSE Administration Prednisone 20 mg 12/31/20 09:00 12/31/20 10:33 Prednisone 20 Mg Tablet PO 20 mg DAILY JOSE Administration PFSH Acute PFSH: Medical History Anxiety and depression Benign essential HTN Bilateral carpal tunnel syndrome Bilateral lower extremity edema Cervical myelopathy COPD, severe Degenerative disc disease, cervical Lung mass ANASTASIYA (obstructive sleep apnea) Postmenopausal Unspecified thoracic, thoracolumbar and lumbosacral intervertebral disc disorder Vitamin D deficiency Surgical History S/P hysterectomy S/P tonsillectomy Family History Other CHF (congestive heart failure) Murmur, cardiac Social History Smoking and tobacco status: former smoker Quit status (tobacco): has quit using tobacco Year quit tobacco: 2017 - 1PPD x 40 Years Second hand smoke exposure: Yes Alcohol intake: never Lives independently: Yes Household members: spouse Marital status: Current occupational status: disabled History of recent travel: No Current gender identity: Female Special andres needs: No Vitals/I&O/Wt Last Vital Signs Temp 98.5 F 12/31/20 12:00 Pulse 95 12/31/20 15:35 Resp 16 12/31/20 15:35 BP 120/79 12/31/20 12:00 Pulse Ox 96 12/31/20 15:35 12/31/20 12/31/20 12/31/20 06:59 14:59 22:59 Intake Total 770 / 770 Output Total 575 / 1375 Balance -575 / -265 770 / 770 Weight last 48 hrs Weight 88.088 kg Weight 91.081 kg Physical Exam HENMT: COMMON NORMALS: normocephalic, external ears normal and Normal external nose present HEAD & SCALP: normocephalic FACE & SINUS: normal facial exam NOSE: Normal external nose present EXTERNAL EAR: Yes external ears normal Eye: COMMON NORMALS: EOMs intact bilaterally and conjunctivae normal CONJUNCTIVA: Yes conjunctivae normal Neck/C-Spine: COMMON NORMALS: no lymphadenopathy and supple OTHER: There is a well healed tracheotomy scar in place. Lymph: LYMPHATIC: no lymphadenopathy noted Urinary Catheter Management^: Greenberg: Cath Placed During This Visit: yes Reason for Continuing Indwelling Catheter: Required Immobilization for Trauma or Surgery or Anesthesia Urinary Catheter Date of Insertion: 12/27/20 Urinary Catheter Time of Insertion: 05:26 A&P Additional A&P Information Impression: 60 yo wf with a h/o respiratory failure who desires tracheotomy Plan: I explained the procedure and it's potential risks and complications with the patient. I also explained post op care to the patient. The patient expressed understanding - she wishes to discuss with her prior to making a final decision. I will return tomorrow and will try to discuss with both the patient and her . The patient's daughter was present during this discussion. Consult Attestations Medical Necessity Statement: I was consulted to assist in airway management. 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
--- NOTE | 2020-12-31 21:02 | P.PN_ITS ---
Subjective Subjective: Interval history: As she is at very high risk of additional respiratory failure, and has been readmitted here several times now every time with requiring intubation, with very high risk mortality, she has decided to give closer consideration and possibly pursue placement of tracheostomy to reduce the risk of severe respiratory failure, subsequent need for intubation, and risk of mortality. She requested to discuss with ENT specialist regarding risks and benefits of the procedure and what she may expect afterward. She is otherwise doing well today. She has had no visual or auditory hallucinations. Her breathing is nearing her baseline. Vitals/I&O/Wt Last Vital Signs Temp 97.9 F 12/31/20 19:01 Pulse 96 12/31/20 20:57 Resp 15 12/31/20 20:57 BP 135/86 12/31/20 19:01 Pulse Ox 96 12/31/20 20:57 12/31/20 12/31/20 12/31/20 06:59 14:59 22:59 Intake Total 770 / 770 530 / 1300 Output Total 575 / 1375 650 / 650 Balance -575 / -265 770 / 770 -120 / 650 Weight last 48 hrs Weight 88.088 kg Weight 91.081 kg Physical Exam Const: COMMON NORMALS: no acute distress, patient oriented x3 and alert GENERAL APPEARANCE: cooperative and comfortable ORIENTATION/CONSCIOUSNESS: Yes awake HENMT: COMMON NORMALS: oropharynx normal Neck/C-Spine: COMMON NORMALS: no JVD Resp: COMMON NORMALS: normal respiratory effort AUSCULTATION: diminished lung sounds Cardio: COMMON NORMALS: no JVD, regular rhythm, S1 normal heart sound present, S2 normal heart sound present and No murmurs present (Cardio) RHYTHM: regular rhythm HEART SOUNDS: S1 normal heart sound present and S2 normal heart sound present GI: COMMON NORMALS: Normal to inspection, nondistended, normoactive bowel sounds present, Soft to palpation and non-tender PALPATION: Yes Soft to palpation Extremity: COMMON NORMALS: no joint enlargement and no pedal edema Neuro: COMMON NORMALS: patient oriented x3 and moves all extremities SENSORIUM/ORIENTATION: Yes alert Skin: COMMON NORMALS: no rashes or lesions noted GENERAL SKIN EXAM: no rashes or lesions noted Urinary Catheter Management^: Greenberg: Cath Placed During This Visit: yes Reason for Continuing Indwelling Catheter: Required Immobilization for Trauma or Surgery or Anesthesia Urinary Catheter Date of Insertion: 12/27/20 Urinary Catheter Time of Insertion: : Data : 12/31/20 06:01 12/31/20 06:01 A&P Assessment and plan (1) Acute and chronic respiratory failure with hypercapnia: Appreciate ENT assessment regarding tracheostomy as she would like to have more information to help her make informed decision weighing risks and benefits regarding having a tracheostomy placed. ENT note appreciated patient will be further discussing with her family. Discussed also with her analytics analyst. Discussed with access services librarian, the inpatient will be considering additional disposition issues. Given she is not constantly ventilator dependent, could probably return home with helping manage tracheostomy, ventilator with training. Prednisone. She reports cough ambulation green sputum. For now we will keep antibiotic on board. De-escalate if continues to improve. Secondary to end-stage COPD Lovenox for DVT prophylaxis Pepcid for GI prophylaxis Status: Acute (2) COPD, severe: As above Status: Chronic (3) Benign essential HTN: Status: Chronic (4) Parasomnia: Sleep study after DC Status: Acute Attestations Medical Necessity Statement*: Continue admission for additional consideration of possible placement of tracheostomy given recurrent respiratory failure with life-threatening episodes requiring intubation, mechanical ventilator support, with end-stage lung disease, not candidate for lung transplantation in the foreseeable future. 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
[2021-01-01] VITALS (19 sets, daily range): BP systolic 116–136; BP diastolic 78–92; PULSE 82–128; RESP 16–23; TEMP 36.6–37.1; O2SAT 82–97
[2021-01-01] MEDS: ipratropium-albuterol 3 mL Neb INHALATION ×4 (02:52→20:42)
[2021-01-01] MEDS: piperacillin-tazobactam 3.375 GM in sodium chloride 0.9% (plus) 50 ML IV ×3 (03:45→18:04)
[2021-01-01] MEDS: enoxaparin 40 mg/0.4 mL Syringe SUBCUT (04:43)
[2021-01-01] MEDS: famotidine 20 mg/2 mL INJ IVP ×2 (05:06→18:04)
[2021-01-01] MEDS: budesonide 0.5 mg/2 mL Neb INHALATION ×2 (08:26→20:42)
[2021-01-01] MEDS: predniSONE 20 mg Tablet PO (08:38)
[2021-01-01] MEDS: aspirin 81 mg EC Tablet PO (08:38)
[2021-01-01] MEDS: montelukast sodium 10 mg Tablet PO (08:38)
[2021-01-01] MEDS: citalopram 20 mg Tablet 10 MG PO ×2 (08:38→18:04)
[2021-01-01] MEDS: ARIPiprazole 2 mg Tablet PO (08:38)
[2021-01-01] MEDS: amlodipine 5 mg Tablet PO (08:38)
[2021-01-01] MEDS: metoprolol tartrate 50 mg Tablet PO ×2 (08:42→21:00)
--- NOTE | 2021-01-01 16:53 | P.PN_ITS ---
Subjective Subjective: Interval history: 60 yo wf with a h/o end stage COPD and respiratory failure who is considering trach placement to improve oxygenation and C02 retention. I discussed this further with the patient. She is without new c/o. Vitals/I&O/Wt Last Vital Signs Temp 98.7 F 01/01/21 15:57 Pulse 115 H 01/01/21 15:57 Resp 16 01/01/21 15:57 BP 131/92 01/01/21 15:57 Pulse Ox 90 01/01/21 15:57 01/01/21 01/01/21 01/01/21 06:59 14:59 22:59 Intake Total 410 / 410 50 / 460 Output Total 600 / 1250 Balance -600 / 100 410 / 410 50 / 460 Weight last 48 hrs Weight 88.813 kg Weight 88.088 kg Physical Exam Const: COMMON NORMALS: no acute distress and patient oriented x3 HENMT: COMMON NORMALS: normocephalic HEAD & SCALP: normocephalic Eye: COMMON NORMALS: EOMs intact bilaterally and conjunctivae normal CONJUNCTIVA: Yes conjunctivae normal Neck/C-Spine: OTHER: Well healed post tracheotomy scar present. Neuro: COMMON NORMALS: patient oriented x3 Urinary Catheter Management^: Greenberg: Cath Placed During This Visit: yes Reason for Continuing Indwelling Catheter: Acute Urinary Retention or Obstruction Urinary Catheter Date of Insertion: 12/27/20 Urinary Catheter Time of Insertion: 05:26 Data : 12/31/20 06:01 12/31/20 06:01 A&P Additional A&P Information Impression: 60 yo wf with a h/o end stage COPD with C02 retention who desires tracheotomy Plan: The patient would like me to discuss this with her who is not here. She does not have his phone number and cannot remember his number. I will be here to discuss this with both the patient and her tomorrow at 19:00 hours - the patient reports that she will have her present at that time. Attestations Medical Necessity Statement*: I was consulted to discuss tracheotomy with the patient. 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
--- NOTE | 2021-01-01 21:23 | P.PN_ITS ---
Subjective Subjective: Interval history: She denies any new changes currently. Comfortable on 4 L nasal cannula. Denies chest pain or pressure. Vitals/I&O/Wt Last Vital Signs Temp 98 F 01/01/21 20:00 Pulse 88 01/01/21 20:53 Resp 22 H 01/01/21 20:41 BP 133/86 01/01/21 20:00 Pulse Ox 93 01/01/21 20:46 01/01/21 01/01/21 01/01/21 06:59 14:59 22:59 Intake Total 410 / 410 290 / 700 Output Total 600 / 1250 600 / 600 Balance -600 / 100 410 / 410 -310 / 100 Weight last 48 hrs Weight 88.813 kg Weight 88.088 kg Physical Exam Const: COMMON NORMALS: no acute distress, patient oriented x3 and alert GENERAL APPEARANCE: cooperative and comfortable ORIENTATION/CONSCIOUSNESS: Yes awake HENMT: COMMON NORMALS: oropharynx normal Neck/C-Spine: COMMON NORMALS: no JVD Resp: COMMON NORMALS: normal respiratory effort AUSCULTATION: diminished lung sounds Cardio: COMMON NORMALS: no JVD, regular rhythm, S1 normal heart sound present, S2 normal heart sound present and No murmurs present (Cardio) RHYTHM: regular rhythm HEART SOUNDS: S1 normal heart sound present and S2 normal heart sound present GI: COMMON NORMALS: Normal to inspection, nondistended, normoactive bowel sounds present, Soft to palpation and non-tender PALPATION: Yes Soft to palpation Extremity: COMMON NORMALS: no joint enlargement and no pedal edema Neuro: COMMON NORMALS: patient oriented x3 and moves all extremities SENSORIUM/ORIENTATION: Yes alert Skin: COMMON NORMALS: no rashes or lesions noted GENERAL SKIN EXAM: no rashes or lesions noted Urinary Catheter Management^: Greenberg: Cath Placed During This Visit: yes Reason for Continuing Indwelling Catheter: Acute Urinary Retention or Obstruction Urinary Catheter Date of Insertion: 12/27/20 Urinary Catheter Time of Insertion: 05:26 Data : 12/31/20 06:01 12/31/20 06:01 A&P Assessment and plan (1) Acute and chronic respiratory failure with hypercapnia: Pending final decision regarding tracheostomy. She is interested in pursuing the procedure. Also discussed with her , they would like to further discuss with the ENT as he has some questions. states he is fully willing to learn tracheostomy care, to help manage patient at home after discharge. Continue preparations for tracheostomy. Wean down dose of prednisone. Discontinue antibiotic tomorrow. End-stage COPD Lovenox for DVT prophylaxis Pepcid for GI prophylaxis Status: Acute (2) COPD, severe: As above Status: Chronic (3) Benign essential HTN: Status: Chronic (4) Parasomnia: Sleep study after DC Status: Acute Attestations Medical Necessity Statement*: Continue admission for assessment and management of acute on chronic respiratory failure with hypoxia and hypercapnia, recurrent respiratory failure requiring intubation, preparations for possible tracheostomy placement and post discharge planning in a lady with end-stage lung disease, not amenable to lung transplantation in the foreseeable future. 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
[2021-01-02] VITALS (19 sets, daily range): BP systolic 107–132; BP diastolic 66–79; PULSE 80–115; RESP 15–24; TEMP 36.4–36.8; O2SAT 91–97
[2021-01-02] MEDS: ipratropium-albuterol 3 mL Neb INHALATION ×4 (03:43→20:10)
[2021-01-02] MEDS: piperacillin-tazobactam 3.375 GM in sodium chloride 0.9% (plus) 50 ML IV ×3 (03:48→18:01)
[2021-01-02] MEDS: famotidine 20 mg/2 mL INJ IVP ×2 (04:55→17:09)
[2021-01-02] MEDS: enoxaparin 40 mg/0.4 mL Syringe SUBCUT (04:55)
[2021-01-02] MEDS: budesonide 0.5 mg/2 mL Neb INHALATION ×2 (08:03→20:09)
[2021-01-02] MEDS: metoprolol tartrate 50 mg Tablet PO ×2 (08:45→20:44)
[2021-01-02] MEDS: montelukast sodium 10 mg Tablet PO (08:45)
[2021-01-02] MEDS: ARIPiprazole 2 mg Tablet PO (08:45)
[2021-01-02] MEDS: aspirin 81 mg EC Tablet PO (08:45)
[2021-01-02] MEDS: predniSONE 10 mg Tablet PO (08:46)
[2021-01-02] MEDS: citalopram 20 mg Tablet 10 MG PO ×2 (08:46→17:08)
[2021-01-02] MEDS: amlodipine 5 mg Tablet PO (08:46)
--- NOTE | 2021-01-02 19:04 | PM.PN ---
Subjective Subjective: Interval history: 60 yo wf with a h/o end stage COPD with C02 retention with a h/o multiple admissions/intubations who also has OSAS requiring BiPap use. Dr. Mayberry has requested tracheotomy to help improve the patients pulmonary status and BiPap use. The patient is without new c/o. Vitals/I&O/Wt Last Vital Signs Temp 98.1 F 01/02/21 15:23 Pulse 95 01/02/21 15:23 Resp 18 01/02/21 15:23 BP 115/66 01/02/21 15:23 Pulse Ox 96 01/02/21 15:23 01/02/21 01/02/21 01/02/21 06:59 14:59 22:59 Intake Total 580 / 580 240 / 820 Output Total 600 / 1200 800 / 800 Balance -600 / -450 580 / 580 -560 / 20 Weight last 48 hrs Weight 88.949 kg Weight 88.813 kg Physical Exam Const: COMMON NORMALS: no acute distress and patient oriented x3 HENMT: COMMON NORMALS: external ears normal EXTERNAL EAR: Yes external ears normal Eye: COMMON NORMALS: Equal, round and reactive pupils present, EOMs intact bilaterally and conjunctivae normal CONJUNCTIVA: Yes conjunctivae normal PUPIL: Yes Equal, round and reactive pupils present Neck/C-Spine: GENERAL: Yes trachea midline OTHER: There is a well healed tracheotomy scar. Lymph: LYMPHATIC: no lymphadenopathy noted Resp: COMMON NORMALS: normal respiratory effort, No use of accessory muscles and clear to auscultation bilaterally AUSCULTATION: clear to auscultation bilaterally Cardio: COMMON NORMALS: regular rate, regular rhythm and No murmurs present (Cardio) RATE: regular rate RHYTHM: regular rhythm Neuro: COMMON NORMALS: patient oriented x3 Urinary Catheter Management^: Greenberg: Cath Placed During This Visit: yes Reason for Continuing Indwelling Catheter: Acute Urinary Retention or Obstruction Urinary Catheter Date of Insertion: 12/27/20 Urinary Catheter Time of Insertion: 05:26 Data : 12/31/20 06:01 12/31/20 06:01 A&P Additional A&P Information Impression: 60 yo wf with a h/o end stage COPD and OSAS who desires tracheotomy to improve her pulmonary function Plan: - We will schedule the patient for tracheotomy under local anesthesia tomorrow evening. I contacted Anesthesia and the nursing day habilitation supervisor to inform them of this. - Clear liquid diet until noon tomorrow, then NPO - Dr. Mayberry to manage anticoagulation - I explained the procedure to the patient and her (by phone) at length. I also explained the potential risks and complications of the procedure with them as well as the expected post operative course and maintenance. They agree with the plan outlined above. I also discussed this with Dr. Mayberry today. Attestations Medical Necessity Statement*: I was consulted to help manage the patient's airway and pulmonary toilet. 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
--- NOTE | 2021-01-02 19:49 | P.PN_ITS ---
Subjective Subjective: Interval history: Reports she is doing all right today. She states she is most likely going to proceed with tracheostomy, pending final discussion with her, her and ENT this evening. She otherwise denies pain or discomfort. Currently breathing comfortably. No chest pain. Vitals/I&O/Wt Last Vital Signs Temp 98.2 F 01/02/21 19:38 Pulse 100 01/02/21 19:38 Resp 18 01/02/21 19:38 BP 112/75 01/02/21 19:38 Pulse Ox 96 01/02/21 19:38 01/02/21 01/02/21 01/02/21 06:59 14:59 22:59 Intake Total 580 / 580 240 / 820 Output Total 600 / 1200 800 / 800 Balance -600 / -450 580 / 580 -560 / 20 Weight last 48 hrs Weight 88.949 kg Weight 88.813 kg Physical Exam Const: COMMON NORMALS: no acute distress, patient oriented x3 and alert GENERAL APPEARANCE: cooperative and comfortable ORIENTATION/CONSCIOUSNESS: Yes awake HENMT: COMMON NORMALS: oropharynx normal Neck/C-Spine: COMMON NORMALS: no JVD Resp: COMMON NORMALS: normal respiratory effort AUSCULTATION: diminished lung sounds Cardio: COMMON NORMALS: no JVD, regular rhythm, S1 normal heart sound present, S2 normal heart sound present and No murmurs present (Cardio) RHYTHM: regular rhythm HEART SOUNDS: S1 normal heart sound present and S2 normal heart sound present GI: COMMON NORMALS: Normal to inspection, nondistended, normoactive bowel sounds present, Soft to palpation and non-tender PALPATION: Yes Soft to palpation Extremity: COMMON NORMALS: no joint enlargement and no pedal edema Neuro: COMMON NORMALS: patient oriented x3 and moves all extremities SENSORIUM/ORIENTATION: Yes alert Skin: COMMON NORMALS: no rashes or lesions noted GENERAL SKIN EXAM: no rashes or lesions noted Urinary Catheter Management^: Greenberg: Cath Placed During This Visit: yes Reason for Continuing Indwelling Catheter: Acute Urinary Retention or Obstruction Urinary Catheter Date of Insertion: 12/27/20 Urinary Catheter Time of Insertion: 05:26 Data : 12/31/20 06:01 12/31/20 06:01 A&P Assessment and plan (1) Acute and chronic respiratory failure with hypercapnia: ENT documentation appreciated. Plan for tracheostomy tomorrow. Complete antibiotic course. Discontinue. End-stage COPD Hold Lovenox Pepcid for GI prophylaxis Status: Acute (2) COPD, severe: As above Status: Chronic (3) Benign essential HTN: Status: Chronic (4) Parasomnia: Sleep study after DC Status: Acute Attestations Medical Necessity Statement*: Continue admission for placement of tracheostomy, post discharge planning and arrangements. Coding Level of Care Code Acute Order Entry Representative for [facility] Diagnoses Acute and chronic respiratory failure with hypercapnia J96.22 COPD, severe J44.9 Benign essential HTN I10 Parasomnia G47.50
[2021-01-03] VITALS (27 sets, daily range): BP systolic 108–169; BP diastolic 72–106; PULSE 73–104; RESP 12–19; TEMP 36.5–36.9; O2SAT 91–100; BMI 32.1
[2021-01-03] MEDS: ipratropium-albuterol 3 mL Neb INHALATION ×4 (03:39→20:27)
[2021-01-03] MEDS: potassium chloride ER 20 mEq Tablet 40 MEQ PO (05:22)
[2021-01-03] MEDS: famotidine 20 mg/2 mL INJ IVP ×2 (05:22→17:50)
[2021-01-03 06:19] LABS: Basophils % 0.7 %; Eosinophils # 0.4 10^3/uL (0.0-0.8); Eosinophils % 7.3 %; Hematocrit 38.8 % (37.0-47.0); Hemoglobin 11.4 g/dL (11.5-15.3); Lymphocytes # 1.4 10^3/uL (0.8-4.8); Lymphocytes % 24.6 %; Mean Corpuscular HGB Conc 29.4 g/dL (30.0-36.0); Mean Corpuscular Hemoglobin 28.9 pg (28.0-34.0); Mean Corpuscular Volume 98.2 fL (81-99); Mean Platelet Volume 11.7 fL (7.4-10.4); Monocytes # 0.5 10^3/uL (0.2-0.9); Neutrophils # 3.31 10^3/uL (1.8-7.7); Neutrophils % 57.4 %; Nucleated Red Blood Cells % 0 %; Platelet Count 122 10^3/cmm (130-400); Red Blood Count 3.95 10^6/uL (4.1-5.3); White Blood Count 5.8 10^3/uL (4.0-10.0)
[2021-01-03 06:45] LABS: Anion Gap 8.8 (5-19); Blood Urea Nitrogen 16 mg/dL (8-23); Calcium 8.7 mg/dL (8.5-10.5); Carbon Dioxide 40 mmol/L (22-29); Chloride 98 mmol/L (98-107); Glomerular Filtration Rate 125.4 mL/min (90-130); Glucose 114 mg/dL (65-115); Osmolality Calculated 298 mOsm/kg (285-295); Potassium 3.8 mmol/L (3.5-5.1); Sodium 143 mmol/L (136-145)
[2021-01-03 06:53] LABS: Magnesium 1.9 mg/dL (1.7-2.3)
[2021-01-03 07:13] LABS: Slide Review Slide Review Perform
[2021-01-03] MEDS: budesonide 0.5 mg/2 mL Neb INHALATION ×2 (08:41→20:26)
[2021-01-03] MEDS: ARIPiprazole 2 mg Tablet PO (09:11)
[2021-01-03] MEDS: montelukast sodium 10 mg Tablet PO (09:11)
[2021-01-03] MEDS: amlodipine 5 mg Tablet PO (09:11)
[2021-01-03] MEDS: citalopram 20 mg Tablet 10 MG PO (09:11)
[2021-01-03] MEDS: predniSONE 10 mg Tablet PO (09:11)
[2021-01-03] MEDS: aspirin 81 mg EC Tablet PO (09:11)
--- NOTE | 2021-01-03 10:32 | PC.SOCIAL ---
IMM Update Pg.2 of IMM Updated and reviewed with patient who verbalized understanding. Copy provided.
--- NOTE | 2021-01-03 11:41 | P.ANESASSM_ITS ---
Pre-Anesthetic Assessment Pre-Anesthetic Assessment: Height/Weight: Height 1.68 m Weight 91.308 kg Temp Pulse Resp BP Pulse Ox 98.3 F 94 18 118/72 93 01/03/21 11:34 01/03/21 11:34 01/03/21 11:34 01/03/21 11:34 01/03/21 11:34 Preop Diagnosis: copd Proposed Procedure: Operation Date: 01/03/21 18:20 Proposed Procedures p Tracheostomy(Not Applicable) - Lew Merritt MD Familial anesthetic complications: none Was Beta Liborio taken within 24 hours: N/A Was Clonidine taken within 24 hours: N/A Last intake: ate at 0530 - educated patient to not eat anything else today Social: Social History: No alcohol and No tobacco Exam: Pre-Anes Outpt Exam: alert, oriented x 3, clear to auscultation bilaterally and regular rate & rhythm Airway: Cervical ROM: WNL MP: 4 Dentition: Other (no teeth) Pulmonary: Pulmonary: COPD (end-stage COPD) and Sleep apnea (BiPAP) CV/HEM: CV/HEM: HTN Anesthetic Plan: ASA status: 4 Anesthesia: General Other: to ICU Risk of > 500 ml blood loss (7ml/kg in children): No Meds/Allergies Current Medications: Current Medications Generic Name Dose Route Start Last Admin Trade Name Freq PRN Reason Stop Dose Admin Albuterol/Ipratrop ium 3 ml 12/27/20 09:00 01/03/21 08:41 Ipratropium-Albu terol 3 Ml Neb INHALATION 3 ml Q6H.RESPIRATORY S CH Administration Amlodipine Besylat e 5 mg 12/29/20 09:00 01/03/21 09:11 Amlodipine 5 Mg Tablet PO 5 mg DAILY JOSE Administration Aripiprazole 2 mg 12/29/20 09:00 01/03/21 09:11 Aripiprazole 2 M g Tablet PO 2 mg DAILY JOSE Administration Aspirin 81 mg 12/29/20 09:00 01/03/21 09:11 Aspirin 81 Mg Ec Tablet PO 81 mg DAILY JOSE Administration Budesonide 0.5 mg 12/27/20 20:00 01/03/21 08:41 Budesonide 0.5 M g/2 Ml Neb INHALATION 0.5 mg BID.RESPIRATORY S CH Administration Citalopram Hydrobr omide 10 mg 12/29/20 09:00 01/03/21 09:11 Citalopram 20 Mg Tablet PO 10 mg BID JOSE Administration Enoxaparin Sodium 40 mg 12/27/20 05:15 01/02/21 04:55 Enoxaparin 40 Mg /0.4 Ml Syringe SUBCUT 40 mg Q24H JOSE Administration Famotidine 20 mg 12/27/20 05:15 01/03/21 05:22 Famotidine 20 Mg /2 Ml Inj IVP 20 mg Q12H JOSE Administration Dexmedetomidine HC l 400 mcg/ 104 mls @ 0 mls/h r 12/27/20 14:00 12/29/20 09:33 Sodium Chloride IV Infused .Q0M JOSE Titration Protocol Per Protocol Metoprolol Tartrat e 50 mg 12/29/20 09:00 01/02/21 20:44 Metoprolol Tartr ate 50 Mg Tablet PO 50 mg BID@0900,2100 JOSE Administration Montelukast Sodium 10 mg 12/29/20 09:00 01/03/21 09:11 Montelukast Sodi um 10 Mg Tablet PO 10 mg DAILY JOSE Administration Prednisone 10 mg 01/02/21 09:00 01/03/21 09:11 Prednisone 10 Mg Tablet PO 10 mg DAILY JOSE Administration PFSH Anesthesia PFSH: Medical History Anxiety and depression Benign essential HTN Bilateral carpal tunnel syndrome Bilateral lower extremity edema Cervical myelopathy COPD, severe Degenerative disc disease, cervical Lung mass ANASTASIYA (obstructive sleep apnea) Postmenopausal Unspecified thoracic, thoracolumbar and lumbosacral intervertebral disc disorder Vitamin D deficiency Surgical History S/P hysterectomy S/P tonsillectomy Family History Other CHF (congestive heart failure) Murmur, cardiac Social History Smoking and tobacco status: former smoker Quit status (tobacco): has quit using tobacco Year quit tobacco: 2017 - 1PPD x 40 Years Second hand smoke exposure: Yes Alcohol intake: never Lives independently: Yes Household members: spouse Marital status: Current occupational status: disabled History of recent travel: No Current gender identity: Female Special andres needs: No Data Anesthesia CBC & Chem 7: 01/03/21 05:50 01/03/21 05:50 Other Labs: Laboratory Results - last 48 hr 01/03/21 01/03/21 01/03/21 05:50 05:50 05:50 WBC 5.8 RBC 3.95 L Hgb 11.4 L Hct 38.8 MCV 98.2 MCH 28.9 MCHC 29.4 L RDW 14.0 Plt Count 122 L MPV 11.7 H Neut % (Auto) 57.4 Lymph % (Auto) 24.6 [place] % (Auto) 9.0 Eos % (Auto) 7.3 Baso % (Auto) 0.7 Neut # (Auto) 3.31 Lymph # (Auto) 1.4 [place] # (Auto) 0.5 Eos # (Auto) 0.4 Baso # (Auto) 0.0 Nucleated RBC % (auto) 0 Nucleated RBCs # 0.0 Sodium 143 Potassium 3.8 Cancelled Chloride 98 Carbon Dioxide 40 H Anion Gap 8.8 BUN 16 Creatinine 0.5 GFR Calculation 125.4 Glucose 114 Calculated Osmolality 298 H Calcium 8.7 Magnesium 1.9 Cardiac Studies: No Data to Display
--- NOTE | 2021-01-03 19:33 | PM.OP ---
Operative Report Date of procedure: January 03, 2021 Pre-op Diagnosis: COPD with Obstructive Sleep Apnea and C02 retention Post-op diagnosis: same Post-op Findings: Well healed post surgical changes of the anterior neck c/w a prior tracheotomy Procedure Done: Tracheotomy Implants: None Specimens removed/disposition: None Pathology: none sent Driver/Merchandiser: Jhoan Cortes Anesthesia: General Estimated blood loss (mL): 10 IV fluids (mL): 350 Complications: None Findings: Well healed post surgical changes of the anterior neck c/w a prior tracheotomy Condition: stable Disposition: ICU Brief History: 60 yo wf with a h/o end stage COPD and Obstructive Sleep Apnea with C02 retention who desires trachetomy to assist in pulmonary care and her obstructive sleep apnea. Procedure: The patient was identified in the preoperative holding area and was taken to the operating room where she was placed on the operating table in the supine position. Anesthesia was obtained with general endotracheal anesthesia. An incision was drawn out on the neck and was injected with local anesthesia. The patient was then prepped and draped in the usual sterile fashion. A vertical incision was made on the neck in the suprasternal notch area overlying the midline trachea. The dissection was then carried down through subcutaneous tissues to the strap muscles. The strap muscles were then dissected free from the underlying trachea which was identified by palpation. The strap muscles were then retracted laterally. The thyroid cartilage cricoid and cricoid cartilage and trachea were identified and a trach hook was placed underneath the cricoid cartilage and was used to elevate the airway into the neck - the airway was low in the neck and required elevation with the trach hook. At this point the third tracheal ring was identified and the trachea was injected with 2% plain lidocaine. A window of cartilage was removed from the third tracheal ring anteriorly with a #11 blade and an Allis clamp. At this point the endotracheal tube was withdrawn and a #6 cuffed tracheotomy tube was placed placed in the airway. Once the position of the trach was confirmed, the tracheotomy was secured in place with 0 Prolene sutures on the skin and a neck strap. FloSeal was then injected into the wound. At this point the procedure was terminated and control of the patient was returned to anesthesia where she underwent an uneventful reversal of anesthesia and extubation and was taken to the recovery room in stable condition. There were no operative or anesthetic complications.
--- NOTE | 2021-01-03 19:37 | ANE.PACU2 ---
Inpatient post-anesthesia follow up: Vital signs: Temperature 97.9 F Pulse Rate [Monito r] 110 Pulse Rate 96 Respiratory Rate 17 Blood Pressure [Ri ght Arm] 106/59 Blood Pressure 108/72 Pulse Oximetry 98 Oxygen Delivery Me thod BiPAP Oxygen Flow Rate 4.5 Fraction of Inspir ed Oxygen 35 Hydration adequate: Yes Nausea and vomiting: No Pain level: 1
[2021-01-03 21:51] LABS: ABG PH Result 7.38 (7.35-7.45); Arterial Blood Gas Hematocrit 34.9 % (37-47); Blood Gas Allen Test Pos; Blood Gas Operator Identificat HARKR; Blood Gas Sample Site Radial, left; Blood Gas Sample Type Arterial; Blood Gas Tidal Volume 0.45; HCO3 ABG 38.3 mmol/L (22-26); Oxygen Device VENT; PO2 ABG 93.9 mmHg (80.0-100.0)
[2021-01-03 21:52] LABS: ABG PCO2 64.7 mmHg (35-45)
--- NOTE | 2021-01-03 23:28 | PM.PN ---
Subjective Subjective: Interval history: When seen before tracheostomy, doing well. Denies chest pain or pressure. Vitals/I&O/Wt Last Vital Signs Temp 98.1 F 01/03/21 19:23 Pulse 95 01/03/21 22:00 Resp 16 01/03/21 20:27 BP 131/80 01/03/21 22:00 Pulse Ox 97 01/03/21 22:00 01/03/21 01/03/21 01/04/21 14:59 22:59 06:59 Intake Total 0 / 0 Output Total 1030 / 1030 Balance -1030 / -1030 Weight last 48 hrs Weight 91.308 kg Weight 90.463 kg Weight 88.949 kg Physical Exam Const: COMMON NORMALS: no acute distress, patient oriented x3 and alert GENERAL APPEARANCE: cooperative and comfortable ORIENTATION/CONSCIOUSNESS: Yes awake HENMT: COMMON NORMALS: oropharynx normal Neck/C-Spine: COMMON NORMALS: no JVD Resp: COMMON NORMALS: normal respiratory effort AUSCULTATION: diminished lung sounds Cardio: COMMON NORMALS: no JVD, regular rhythm, S1 normal heart sound present, S2 normal heart sound present and No murmurs present (Cardio) RHYTHM: regular rhythm HEART SOUNDS: S1 normal heart sound present and S2 normal heart sound present GI: COMMON NORMALS: Normal to inspection, nondistended, normoactive bowel sounds present, Soft to palpation and non-tender PALPATION: Yes Soft to palpation Extremity: COMMON NORMALS: no joint enlargement and no pedal edema Neuro: COMMON NORMALS: patient oriented x3 and moves all extremities SENSORIUM/ORIENTATION: Yes alert Skin: COMMON NORMALS: no rashes or lesions noted GENERAL SKIN EXAM: no rashes or lesions noted Urinary Catheter Management^: Greenberg: Cath Placed During This Visit: yes Reason for Continuing Indwelling Catheter: Acute Urinary Retention or Obstruction Urinary Catheter Date of Insertion: 12/27/20 Urinary Catheter Time of Insertion: 05:26 Data : 01/03/21 05:50 01/03/21 05:50 A&P Assessment and plan (1) Acute and chronic respiratory failure with hypercapnia: Status post tracheostomy. Monitor in ICU. Completed antibiotic course. Discontinued. End-stage COPD Hold Lovenox Pepcid for GI prophylaxis Status: Acute (2) COPD, severe: As above Status: Chronic (3) Benign essential HTN: Status: Chronic (4) Parasomnia: Sleep study after DC. Refer to sleep specialist. Status: Acute Attestations Medical Necessity Statement*: Continue admission for assessment of management following tracheostomy placement in setting of severe/end-stage COPD, currently not a candidate for lung transplantation, with recurrent acute on chronic respiratory failure requiring intubation, mechanical ventilation. Coding Level of Care Code Acute Fiberglass Boat Assembly Supervisor for [facility] Diagnoses Acute and chronic respiratory failure with hypercapnia J96.22 COPD, severe J44.9 Benign essential HTN I10 Parasomnia G47.50
[2021-01-03] MEDS: HYDROmorphone 1 mg/mL INJ 1 mL 0.5 MG IVP (23:35)
[2021-01-04] VITALS (28 sets, daily range): BP systolic 103–136; BP diastolic 64–85; PULSE 78–130; RESP 14–30; TEMP 36.7–37.1; O2SAT 87–100
[2021-01-04] MEDS: ipratropium-albuterol 3 mL Neb INHALATION ×4 (03:02→20:03)
[2021-01-04] MEDS: famotidine 20 mg/2 mL INJ IVP ×2 (05:08→16:27)
[2021-01-04] MEDS: enoxaparin 40 mg/0.4 mL Syringe SUBCUT (05:08)
[2021-01-04 05:15] LABS: Basophils % 0.7 %; Eosinophils # 0.2 10^3/uL (0.0-0.8); Eosinophils % 3.5 %; Hematocrit 35.2 % (37.0-47.0); Hemoglobin 10.7 g/dL (11.5-15.3); Lymphocytes # 1.4 10^3/uL (0.8-4.8); Lymphocytes % 23.3 %; Mean Corpuscular HGB Conc 30.4 g/dL (30.0-36.0); Mean Corpuscular Hemoglobin 29.1 pg (28.0-34.0); Mean Corpuscular Volume 95.7 fL (81-99); Mean Platelet Volume 11.8 fL (7.4-10.4); Monocytes # 0.5 10^3/uL (0.2-0.9); Monocytes % 8.9 %; Neutrophils % 62.6 %; Nucleated Red Blood Cells % 0 %; Platelet Count 124 10^3/cmm (130-400); Red Blood Count 3.68 10^6/uL (4.1-5.3); Red Cell Distribution Width 14.1 % (12.1-15.1); White Blood Count 6.1 10^3/uL (4.0-10.0)
[2021-01-04 05:47] LABS: Anion Gap 8.6 (5-19); Blood Urea Nitrogen 14 mg/dL (8-23); Calcium 8.5 mg/dL (8.5-10.5); Carbon Dioxide 35 mmol/L (22-29); Chloride 102 mmol/L (98-107); Glomerular Filtration Rate 125.4 mL/min (90-130); Glucose 108 mg/dL (65-115); Osmolality Calculated 295 mOsm/kg (285-295); Potassium 3.6 mmol/L (3.5-5.1); Sodium 142 mmol/L (136-145)
[2021-01-04] MEDS: budesonide 0.5 mg/2 mL Neb INHALATION ×2 (08:18→20:03)
--- NOTE | 2021-01-04 09:47 | PM.PN ---
Subjective Subjective: Interval history: She is resting, but wakes up easily. Smiles. Nods to answer questions. Denies any complaints. Says she is breathing comfortably. Having some secretions. Will write to express any needs. Medications: Reviewed: Yes Vitals/I&O/Wt Last Vital Signs Temp 98.8 F 01/04/21 08:00 Pulse 109 H 01/04/21 08:27 Resp 18 01/04/21 08:17 BP 124/75 01/04/21 08:00 Pulse Ox 93 01/04/21 08:17 01/03/21 01/04/21 01/04/21 22:59 06:59 14:59 Intake Total 0 / 0 Output Total 1030 / 1030 250 / 1280 Balance -1030 / -1030 -250 / -1280 Weight last 48 hrs Weight 87.997 kg Weight 91.308 kg Weight 90.463 kg Physical Exam Const: COMMON NORMALS: no acute distress, patient oriented x3 and alert GENERAL APPEARANCE: cooperative and comfortable ORIENTATION/CONSCIOUSNESS: Yes awake HENMT: COMMON NORMALS: oropharynx normal Neck/C-Spine: COMMON NORMALS: no JVD OTHER: Trach in place. HAG. Resp: COMMON NORMALS: normal respiratory effort AUSCULTATION: diminished lung sounds OTHER: Few rhonchi in upper airway. Cardio: COMMON NORMALS: no JVD, regular rhythm, S1 normal heart sound present, S2 normal heart sound present and No murmurs present (Cardio) RHYTHM: regular rhythm HEART SOUNDS: S1 normal heart sound present and S2 normal heart sound present GI: COMMON NORMALS: Normal to inspection, nondistended, normoactive bowel sounds present, Soft to palpation and non-tender PALPATION: Yes Soft to palpation Extremity: COMMON NORMALS: no joint enlargement and no pedal edema Neuro: COMMON NORMALS: patient oriented x3 and moves all extremities SENSORIUM/ORIENTATION: Yes alert Skin: COMMON NORMALS: no rashes or lesions noted GENERAL SKIN EXAM: no rashes or lesions noted Urinary Catheter Management^: Greenberg: Cath Placed During This Visit: yes Reason for Continuing Indwelling Catheter: Accurate Measurement of Urinary Output in Critically Ill Patients Urinary Catheter Date of Insertion: 12/27/20 Urinary Catheter Time of Insertion: 05:26 Data : 01/04/21 04:38 01/04/21 04:38 A&P Assessment and plan (1) Acute and chronic respiratory failure with hypercapnia: Status post tracheostomy 4/2. Doing well. Some secretions. Continue post trach care. Monitor in ICU. End-stage COPD Completed antibiotic course. Hold Lovenox Pepcid for GI prophylaxis Status: Acute (2) COPD, severe: As above Status: Chronic (3) Benign essential HTN: Status: Chronic (4) Parasomnia: Sleep study after DC. Refer to sleep specialist. Status: Acute Attestations Medical Necessity Statement*: Continue post tracheostomy care and monitoring. At this time continue care in ICU shortly after tracheostomy placement. Coding Level of Care Code Acute Senior Mechanical Project Engineer for [facility] Diagnoses Acute and chronic respiratory failure with hypercapnia J96.22 COPD, severe J44.9 Benign essential HTN I10 Parasomnia G47.50
--- NOTE | 2021-01-04 10:07 | PM.PN ---
Subjective Subjective: Interval history: 60 yo wf who is POD #1 s/p tracheotomy who is doing well from this standpoint. The patient smiles when questioned. There are no c/o from nursing. Vitals/I&O/Wt Last Vital Signs Temp 98.8 F 01/04/21 08:00 Pulse 109 H 01/04/21 08:27 Resp 18 01/04/21 08:17 BP 124/75 01/04/21 08:00 Pulse Ox 93 01/04/21 08:17 01/03/21 01/04/21 01/04/21 22:59 06:59 14:59 Intake Total 0 / 0 Output Total 1030 / 1030 250 / 1280 Balance -1030 / -1030 -250 / -1280 Weight last 48 hrs Weight 87.997 kg Weight 91.308 kg Weight 90.463 kg Physical Exam Const: COMMON NORMALS: no acute distress, alert and well nourished ORIENTATION/CONSCIOUSNESS: Yes awake HENMT: COMMON NORMALS: normocephalic, atraumatic, external ears normal and Normal external nose present HEAD & SCALP: normocephalic and atraumatic FACE & SINUS: normal facial exam NOSE: Normal external nose present EXTERNAL EAR: Yes external ears normal Eye: COMMON NORMALS: EOMs intact bilaterally and conjunctivae normal CONJUNCTIVA: Yes conjunctivae normal Neck/C-Spine: COMMON NORMALS: no lymphadenopathy CERVICAL SPINE: Yes other (The trach is in place without erythema or discharge.) Resp: COMMON NORMALS: normal respiratory effort, No retractions and No use of accessory muscles Neuro: SENSORIUM/ORIENTATION: Yes alert Urinary Catheter Management^: Greenberg: Cath Placed During This Visit: yes Reason for Continuing Indwelling Catheter: Accurate Measurement of Urinary Output in Critically Ill Patients Urinary Catheter Date of Insertion: 12/27/20 Urinary Catheter Time of Insertion: 05:26 Data : 01/04/21 04:38 01/04/21 04:38 A&P Additional A&P Information Impression: 60 yo wf who is POD #1 s/p tracheotomy who is doing well from this standpoint. Plan: Continue trach care; I will change the trach on POD #6 or 7; contact Dr. Merritt for any problems with the patient's tracheotomy. Attestations Medical Necessity Statement*: I was consulted to help manage the patient's airway. Coding Level of Care Code Acute Senior Electrical Engineer for [facility]
[2021-01-04] MEDS: sennosides-docusate Tablet 1 TAB PO (16:25)
[2021-01-04] MEDS: montelukast sodium 10 mg Tablet PO (16:25)
[2021-01-04] MEDS: aspirin 81 mg EC Tablet PO (16:25)
[2021-01-04] MEDS: amlodipine 5 mg Tablet PO (16:26)
[2021-01-04] MEDS: metoprolol tartrate 50 mg Tablet PO (16:26)
[2021-01-04] MEDS: ARIPiprazole 2 mg Tablet PO (16:26)
[2021-01-04] MEDS: predniSONE 10 mg Tablet PO (16:27)
[2021-01-04] MEDS: citalopram 20 mg Tablet 10 MG PO (18:22)
[2021-01-04] MEDS: HYDROmorphone 1 mg/mL INJ 1 mL 0.5 MG IVP (18:30)
[2021-01-05] VITALS (64 sets, daily range): BP systolic 105–132; BP diastolic 68–88; PULSE 75–115; RESP 17–22; TEMP 36.6–36.8; O2SAT 86–97
[2021-01-05] MEDS: ipratropium-albuterol 3 mL Neb INHALATION ×4 (02:49→20:00)
[2021-01-05] MEDS: famotidine 20 mg/2 mL INJ IVP ×2 (04:45→16:50)
[2021-01-05] MEDS: enoxaparin 40 mg/0.4 mL Syringe SUBCUT (04:45)
[2021-01-05] MEDS: HYDROmorphone 1 mg/mL INJ 1 mL 0.5 MG IVP (05:39)
--- NOTE | 2021-01-05 07:14 | PC.SOCIAL ---
*IMM* Updated, initialled in the chart.
[2021-01-05] MEDS: amlodipine 5 mg Tablet PO (08:19)
[2021-01-05] MEDS: aspirin 81 mg EC Tablet PO (08:20)
[2021-01-05] MEDS: citalopram 20 mg Tablet 10 MG PO ×2 (08:20→18:31)
[2021-01-05] MEDS: ARIPiprazole 2 mg Tablet PO (08:20)
[2021-01-05] MEDS: metoprolol tartrate 50 mg Tablet PO (08:20)
[2021-01-05] MEDS: montelukast sodium 10 mg Tablet PO (08:21)
[2021-01-05] MEDS: sennosides-docusate Tablet 1 TAB PO (08:21)
[2021-01-05] MEDS: predniSONE 10 mg Tablet PO (08:21)
[2021-01-05] MEDS: budesonide 0.5 mg/2 mL Neb INHALATION ×2 (08:38→20:00)
--- NOTE | 2021-01-05 10:26 | P.PN_ITS ---
Subjective Subjective: Interval history: 60 yo wf who is POD #2 s/p tracheotomy who is doing well from this standpoint. The patient reports that she breathes easier, and is pleased with her progress this far. She has no other c/o. Vitals/I&O/Wt Last Vital Signs Temp 98.3 F 01/05/21 05:00 Pulse 114 H 01/05/21 08:42 Resp 18 01/05/21 08:30 BP 132/77 01/05/21 06:00 Pulse Ox 93 01/05/21 08:30 01/04/21 01/05/21 01/05/21 22:59 06:59 14:59 Intake Total 350 / 350 Output Total 1250 / 1250 650 / 1900 Balance -900 / -900 -650 / -1550 Weight last 48 hrs Weight 87.09 kg Weight 87.997 kg Physical Exam HENMT: COMMON NORMALS: normocephalic, external ears normal and Normal external nose present HEAD & SCALP: normocephalic FACE & SINUS: normal facial exam NOSE: Normal external nose present EXTERNAL EAR: Yes external ears normal Eye: COMMON NORMALS: EOMs intact bilaterally, conjunctivae normal and no scleral icterus CONJUNCTIVA: Yes conjunctivae normal Neck/C-Spine: COMMON NORMALS: no lymphadenopathy GENERAL: Yes tracheostomy present (The trach site is without significant discharge or erythema.) and Yes other Lymph: LYMPHATIC: no lymphadenopathy noted Urinary Catheter Management^: Greenberg: Cath Placed During This Visit: yes Reason for Continuing Indwelling Catheter: Accurate Measurement of Urinary Output in Critically Ill Patients Urinary Catheter Date of Insertion: 12/27/20 Urinary Catheter Time of Insertion: 05:26 Data : 01/04/21 04:38 01/04/21 04:38 A&P Additional A&P Information Impression: 60 yo wf who is POD #2 s/p tracheotomy doing well from this standpoint Plan: I recommend the following - - Continue current trach care - Social work consult: the patient will need home health care daily visits for 2 weeks after discharge; the patient will need a home suction unit and humidified oxygen by trach collar at home; the patient will need instructions in trach care by RT prior to discharge; the patient will need trach straps, a spare trach (#6 Shiley, Fenestrated, Cuffed trach tube), and trach cleaning kits at discharge - I will follow with you and will change the trach on POD #6 or 7 Attestations Medical Necessity Statement*: I was consulted to help manage the airway Coding Level of Care Code Acute Python Django Developer for [facility]
--- NOTE | 2021-01-05 11:42 | PM.PN ---
Subjective Subjective: Interval history: Reports he is feeling well. Denies any complaints. Breathing comfortably. Vitals/I&O/Wt Last Vital Signs Temp 97.9 F 01/05/21 08:00 Pulse 82 01/05/21 10:00 Resp 18 01/05/21 08:30 BP 119/87 01/05/21 10:00 Pulse Ox 88 L 01/05/21 10:00 01/04/21 01/05/21 01/05/21 22:59 06:59 14:59 Intake Total 350 / 350 360 / 360 Output Total 1250 / 1250 650 / 1900 Balance -900 / -900 -650 / -1550 360 / 360 Weight last 48 hrs Weight 87.09 kg Weight 87.997 kg Physical Exam Const: COMMON NORMALS: no acute distress, patient oriented x3 and alert GENERAL APPEARANCE: cooperative and comfortable ORIENTATION/CONSCIOUSNESS: Yes awake HENMT: COMMON NORMALS: oropharynx normal Neck/C-Spine: COMMON NORMALS: no JVD OTHER: Trach in place. HAG. Resp: COMMON NORMALS: normal respiratory effort and clear to auscultation bilaterally AUSCULTATION: clear to auscultation bilaterally and diminished lung sounds Cardio: COMMON NORMALS: no JVD, regular rhythm, S1 normal heart sound present, S2 normal heart sound present and No murmurs present (Cardio) RHYTHM: regular rhythm HEART SOUNDS: S1 normal heart sound present and S2 normal heart sound present GI: COMMON NORMALS: Normal to inspection, nondistended, normoactive bowel sounds present, Soft to palpation and non-tender PALPATION: Yes Soft to palpation Extremity: COMMON NORMALS: no joint enlargement and no pedal edema Neuro: COMMON NORMALS: patient oriented x3 and moves all extremities SENSORIUM/ORIENTATION: Yes alert Skin: COMMON NORMALS: no rashes or lesions noted GENERAL SKIN EXAM: no rashes or lesions noted Urinary Catheter Management^: Greenberg: Cath Placed During This Visit: yes Reason for Continuing Indwelling Catheter: Accurate Measurement of Urinary Output in Critically Ill Patients Urinary Catheter Date of Insertion: 12/27/20 Urinary Catheter Time of Insertion: 05:26 Data : 01/04/21 04:38 01/04/21 04:38 A&P Assessment and plan (1) Acute and chronic respiratory failure with hypercapnia: Doing well. Performing self suctioning. Continue to monitor in ICU. Discussed with nursing staff, initiate education for her and her . Status post tracheostomy /. End-stage COPD Completed antibiotic course. Hold Lovenox Pepcid for GI prophylaxis Status: Acute (2) COPD, severe: As above Status: Chronic (3) Benign essential HTN: Status: Chronic (4) Parasomnia: Sleep study after DC. Refer to sleep specialist. Status: Acute Attestations Medical Necessity Statement*: Continue post tracheostomy care. Provide education. Disposition planning. Coding Level of Care Code Acute Candy Supervisor for [facility] Diagnoses Acute and chronic respiratory failure with hypercapnia J96.22 COPD, severe J44.9 Benign essential HTN I10 Parasomnia G47.50
--- NOTE | 2021-01-05 18:26 | PC.NURSE ---
Shift Summary: Uneventful shift. Pt rested in bed throughout the day per bedrest orders, but was regularly sitting up. Required occasional suctioning of her trach which she was able to do herself most times. Pt received education on tach care. A/O x4 and has been communicating by pen and paper.
[2021-01-06] VITALS (53 sets, daily range): BP systolic 101–148; BP diastolic 73–93; PULSE 77–136; RESP 16–24; TEMP 36.3–36.8; O2SAT 89–99
[2021-01-06] MEDS: ipratropium-albuterol 3 mL Neb INHALATION ×4 (02:25→20:37)
--- NOTE | 2021-01-06 03:57 | PM.PN ---
Subjective Subjective: Interval history: 60 yo wf who is POD #3 s/p tracheotomy who is doing well by her report. She reports that she is breathing well. There are no other c/o. Vitals/I&O/Wt Last Vital Signs Temp 98.2 F 01/05/21 19:15 Pulse 105 H 01/06/21 02:37 Resp 17 01/06/21 02:25 BP 116/93 01/06/21 02:00 Pulse Ox 93 01/06/21 02:25 01/05/21 01/05/21 01/06/21 14:59 22:59 06:59 Intake Total 720 / 720 120 / 840 Output Total 400 / 400 300 / 700 Balance 320 / 320 -180 / 140 Weight last 48 hrs Weight 87.09 kg Weight 87.997 kg Physical Exam Const: COMMON NORMALS: no acute distress and patient oriented x3 HENMT: COMMON NORMALS: normocephalic and external ears normal HEAD & SCALP: normocephalic EXTERNAL EAR: Yes external ears normal Eye: COMMON NORMALS: EOMs intact bilaterally and conjunctivae normal CONJUNCTIVA: Yes conjunctivae normal Neck/C-Spine: GENERAL: Yes tracheostomy present (No erythema or discharge.) Lymph: LYMPHATIC: no lymphadenopathy noted Neuro: COMMON NORMALS: patient oriented x3 Urinary Catheter Management^: Greenberg: Cath Placed During This Visit: yes Reason for Continuing Indwelling Catheter: Accurate Measurement of Urinary Output in Critically Ill Patients Urinary Catheter Date of Insertion: 12/27/20 Urinary Catheter Time of Insertion: 05:26 Data : 01/04/21 04:38 01/04/21 04:38 A&P Additional A&P Information Impression: 60 yo wf who is POD #1 s/p tracheotomy doing well from this standpoint. Plan: - Continued trach care - Home health care/discharge planning as previously noted - I will change the trach on POD #6/7 Attestations Medical Necessity Statement*: I was consulted to mangage the patient's airway Coding Level of Care Code Acute Coagulating Bath Operator for Missael Cr
[2021-01-06] MEDS: enoxaparin 40 mg/0.4 mL Syringe SUBCUT (04:38)
[2021-01-06] MEDS: famotidine 20 mg/2 mL INJ IVP ×2 (04:39→18:38)
[2021-01-06] MEDS: budesonide 0.5 mg/2 mL Neb INHALATION ×2 (08:17→20:37)
[2021-01-06] MEDS: ARIPiprazole 2 mg Tablet PO (09:42)
[2021-01-06] MEDS: amlodipine 5 mg Tablet PO (09:42)
[2021-01-06] MEDS: aspirin 81 mg EC Tablet PO (09:42)
[2021-01-06] MEDS: citalopram 20 mg Tablet 10 MG PO ×2 (09:44→18:37)
[2021-01-06] MEDS: predniSONE 10 mg Tablet PO (09:45)
[2021-01-06] MEDS: montelukast sodium 10 mg Tablet PO (09:45)
[2021-01-06] MEDS: sennosides-docusate Tablet 1 TAB PO (09:45)
[2021-01-06] MEDS: metoprolol tartrate 50 mg Tablet PO ×2 (09:45→22:28)
--- NOTE | 2021-01-06 12:27 | PC.NURSE ---
Transfer orders recieved. PT is going to [facility]. Nurse gave report to Laura Babb. Pt transferred via wheelchair. Belongings sent with pt included glasses only. Handed off pt to laura. transfer was uneventful.
--- NOTE | 2021-01-06 12:53 | PC.NURSE ---
patient had large formed BM
--- NOTE | 2021-01-06 13:48 | PM.PN ---
Subjective Subjective: Interval history: She was examined this morning, she sitting up in bed, enjoying breakfast, trach collar in place, she tells me that she did get up out of bed yesterday, still feels a bit weak, she really wants to go home, afebrile overnight, no chest pain, no palpitations Vitals/I&O/Wt Last Vital Signs Temp 97.4 F L 01/06/21 08:30 Pulse 105 H 01/06/21 10:15 Resp 20 H 01/06/21 08:30 BP 101/79 01/06/21 10:15 Pulse Ox 92 01/06/21 10:15 01/05/21 01/06/21 01/06/21 22:59 06:59 14:59 Intake Total 120 / 840 520 / 520 Output Total 300 / 700 350 / 1050 200 / 200 Balance -180 / 140 -350 / -210 320 / 320 Weight last 48 hrs Weight 84.822 kg Weight 87.09 kg Physical Exam Const: COMMON NORMALS: no acute distress and patient oriented x3 HENMT: COMMON NORMALS: normocephalic HEAD & SCALP: normocephalic Neck/C-Spine: OTHER: Trach in place, trach collar in place, clean and dry Resp: COMMON NORMALS: normal respiratory effort, No retractions and No use of accessory muscles AUSCULTATION: diminished lung sounds bilateral Cardio: COMMON NORMALS: regular rate, regular rhythm, S1 normal heart sound present and S2 normal heart sound present RATE: regular rate RHYTHM: regular rhythm HEART SOUNDS: S1 normal heart sound present and S2 normal heart sound present GI: COMMON NORMALS: Normal to inspection, nondistended, normoactive bowel sounds present, Soft to palpation, non-tender, No hepatosplenomegaly present, no masses and no bruits PALPATION: Yes Soft to palpation and Yes No hepatosplenomegaly present Extremity: COMMON NORMALS: capillary refill normal, no clubbing, cyanosis or edema, no calf tenderness and no pedal edema Neuro: COMMON NORMALS: patient oriented x3 Psych: COMMON NORMALS: mental status grossly normal Urinary Catheter Management^: Greenberg: Cath Placed During This Visit: yes Reason for Continuing Indwelling Catheter: Accurate Measurement of Urinary Output in Critically Ill Patients Urinary Catheter Date of Insertion: 12/27/20 Urinary Catheter Time of Insertion: 05:26 Data : 01/04/21 04:38 01/04/21 04:38 A&P Assessment and plan (1) Acute and chronic respiratory failure with hypercapnia: Doing well. Performing self suctioning. We will moved to general medical floors, PT OT, trach care Discussed with nursing staff, initiate education for her and her . Status post tracheostomy 01/03. End-stage COPD Completed antibiotic course. Resume Lovenox Pepcid for GI prophylaxis Status: Acute (2) COPD, severe: As above Status: Chronic (3) Benign essential HTN: Status: Chronic (4) Parasomnia: Sleep study after DC. Refer to sleep specialist. Status: Acute Attestations Medical Necessity Statement*: Patient requires hospitalization for acute on chronic respiratory failure, required trach placement, moved to the general medical floors hopefully discharge next 24-48 hrs. Coding Level of Care Code Acute Composite Bond Technician for Miss[facility] Diagnoses Acute and chronic respiratory failure with hypercapnia J96.22 COPD, severe J44.9 Benign essential HTN I10 Parasomnia G47.50
--- NOTE | 2021-01-06 17:26 | PC.RESP ---
Pulmonary Rehab information sent to patient.
[2021-01-07] VITALS (18 sets, daily range): BP systolic 110–125; BP diastolic 65–81; PULSE 68–103; RESP 16–20; TEMP 36.7–37.2; O2SAT 90–98
[2021-01-07] MEDS: ipratropium-albuterol 3 mL Neb INHALATION ×4 (02:11→20:29)
--- NOTE | 2021-01-07 04:35 | P.PN_ITS ---
Subjective Subjective: Interval history: 60 yo wf who is POD #4 s/p tracheotomy who is doing well from this standpoint. The patient is sleeping well this morning and there are no c/o from this standpoint. Vitals/I&O/Wt Last Vital Signs Temp 98.0 F 01/07/21 04:00 Pulse 77 01/07/21 04:00 Resp 20 H 01/07/21 04:00 BP 125/81 01/07/21 04:00 Pulse Ox 95 01/07/21 04:00 01/06/21 01/06/21 01/07/21 14:59 22:59 06:59 Intake Total 520 / 520 120 / 640 Output Total 200 / 200 250 / 450 Balance 320 / 320 -130 / 190 Weight last 48 hrs Weight 84.822 kg Weight 87.09 kg Physical Exam Const: COMMON NORMALS: no acute distress and healthy appearing HENMT: COMMON NORMALS: normocephalic, atraumatic and Normal external nose present HEAD & SCALP: normocephalic and atraumatic FACE & SINUS: normal facial exam NOSE: Normal external nose present Eye: COMMON NORMALS: conjunctivae normal CONJUNCTIVA: Yes conjunctivae normal Neck/C-Spine: COMMON NORMALS: no lymphadenopathy GENERAL: Yes tracheostomy present (No erythema or discharge present.) Lymph: LYMPHATIC: no lymphadenopathy noted Urinary Catheter Management^: Greenberg: Cath Placed During This Visit: yes Reason for Continuing Indwelling Catheter: Acute Urinary Retention or Obstruction Urinary Catheter Date of Insertion: 12/27/20 Urinary Catheter Time of Insertion: 05:26 Data : 01/04/21 04:38 01/04/21 04:38 A&P Additional A&P Information Impression: 1) POD #4 s/p tracheotomy doing well from this standpoint 2) Hypercapnea Plan: 1) Continue current trach care; Social work consult with home supplies and home health care as previously noted; I will change the trach on POD #6/7 2) The patient's trach is available for BiPap use if needed for hypercapnea Attestations Medical Necessity Statement*: I was consulted to help manage the patient's airway/hypercapnea Coding Level of Care Code Acute Unhairing Inspector for Missael Cr
[2021-01-07 05:14] LABS: Basophils % 0.6 %; Eosinophils # 0.3 10^3/uL (0.0-0.8); Eosinophils % 4.8 %; Hematocrit 36.4 % (37.0-47.0); Hemoglobin 10.8 g/dL (11.5-15.3); Lymphocytes # 1.3 10^3/uL (0.8-4.8); Lymphocytes % 24.2 %; Mean Corpuscular HGB Conc 29.7 g/dL (30.0-36.0); Mean Corpuscular Hemoglobin 28.7 pg (28.0-34.0); Mean Corpuscular Volume 96.8 fL (81-99); Mean Platelet Volume 11.4 fL (7.4-10.4); Monocytes # 0.6 10^3/uL (0.2-0.9); Monocytes % 11.8 %; Neutrophils % 57.3 %; Nucleated Red Blood Cells % 0 %; Platelet Count 188 10^3/cmm (130-400); Red Blood Count 3.76 10^6/uL (4.1-5.3); Red Cell Distribution Width 13.8 % (12.1-15.1); White Blood Count 5.2 10^3/uL (4.0-10.0)
[2021-01-07 05:38] LABS: Alanine Aminotransferase 45 U/L (0-33); Albumin Level 3.2 g/dL (3.5-5.2); Alkaline Phosphatase 63 IU/L (35-105); Anion Gap 9.7 (5-19); Aspartate Amino Transferase 21 U/L (0-32); Blood Urea Nitrogen 9 mg/dL (8-23); Calcium 8.6 mg/dL (8.5-10.5); Carbon Dioxide 37 mmol/L (22-29); Chloride 98 mmol/L (98-107); Globulin 2.4 g/dL (1.3-4.6); Glomerular Filtration Rate 162.3 mL/min (90-130); Glucose 115 mg/dL (65-115); Osmolality Calculated 292 mOsm/kg (285-295); Potassium 3.7 mmol/L (3.5-5.1); Sodium 141 mmol/L (136-145); Total Bilirubin 0.5 mg/dL (0.15-1.2); Total Protein 5.6 g/dL (6.6-8.7)
[2021-01-07] MEDS: famotidine 20 mg/2 mL INJ IVP ×2 (05:42→17:55)
[2021-01-07] MEDS: enoxaparin 40 mg/0.4 mL Syringe SUBCUT (05:42)
[2021-01-07] MEDS: budesonide 0.5 mg/2 mL Neb INHALATION ×2 (08:25→20:29)
[2021-01-07] MEDS: ARIPiprazole 2 mg Tablet PO (08:49)
[2021-01-07] MEDS: amlodipine 5 mg Tablet PO (08:49)
[2021-01-07] MEDS: montelukast sodium 10 mg Tablet PO (08:49)
[2021-01-07] MEDS: sennosides-docusate Tablet 1 TAB PO (08:50)
[2021-01-07] MEDS: citalopram 20 mg Tablet 10 MG PO ×2 (08:50→17:55)
[2021-01-07] MEDS: aspirin 81 mg EC Tablet PO (08:50)
[2021-01-07] MEDS: predniSONE 10 mg Tablet PO (08:50)
[2021-01-07] MEDS: metoprolol tartrate 50 mg Tablet PO ×2 (08:50→21:09)
--- NOTE | 2021-01-07 10:50 | PC.SOCIAL ---
IMM Update Pg.2 of IMM updated and reviewed with patient, who verbalized understanding. Copy provided.
--- NOTE | 2021-01-07 13:39 | P.PN_ITS ---
Subjective Subjective: Interval history: Patient is doing well this morning, she tells me that she is getting used to the tracheostomy, no fevers, chills, no shortness of breath with getting up and moving around, is working a bit more with physical therapy Vitals/I&O/Wt Last Vital Signs Temp 98.5 F 01/07/21 12:00 Pulse 68 01/07/21 12:00 Resp 18 01/07/21 12:00 BP 110/67 01/07/21 12:00 Pulse Ox 90 01/07/21 12:00 01/06/21 01/07/21 01/07/21 22:59 06:59 14:59 Intake Total 120 / 640 Output Total 250 / 450 0 / 450 Balance -130 / 190 0 / 190 Weight last 48 hrs Weight 91.354 kg Weight 84.822 kg Physical Exam Const: COMMON NORMALS: no acute distress and patient oriented x3 HENMT: COMMON NORMALS: normocephalic HEAD & SCALP: normocephalic Neck/C-Spine: COMMON NORMALS: no JVD OTHER: Tracheostomy in place Resp: COMMON NORMALS: normal respiratory effort, No retractions and No use of accessory muscles AUSCULTATION: wheezes Cardio: COMMON NORMALS: no JVD, regular rate, regular rhythm, S1 normal heart sound present and S2 normal heart sound present RATE: regular rate RHYTHM: regular rhythm HEART SOUNDS: S1 normal heart sound present and S2 normal heart sound present GI: COMMON NORMALS: Normal to inspection, nondistended, normoactive bowel sounds present, Soft to palpation, non-tender, No hepatosplenomegaly present, no masses and no bruits PALPATION: Yes Soft to palpation and Yes No hepatosplenomegaly present Extremity: COMMON NORMALS: capillary refill normal, no clubbing, cyanosis or edema, no calf tenderness and no pedal edema Neuro: COMMON NORMALS: patient oriented x3 Psych: COMMON NORMALS: mental status grossly normal Urinary Catheter Management^: Greenberg: Cath Placed During This Visit: yes Reason for Continuing Indwelling Catheter: Other Urinary Catheter Date of Insertion: 12/27/20 Urinary Catheter Time of Insertion: 05:26 Data : 01/07/21 04:55 01/07/21 04:55 A&P Assessment and plan (1) Acute and chronic respiratory failure with hypercapnia: Doing well. Performing self suctioning. Currently on general medical floors, can start BiPAP tonight, PT OT, trach care Discussed with nursing staff, initiate education for her and her . Status post tracheostomy /. Will have trach change 6 to 7 days postop End-stage COPD Completed antibiotic course. Resume Lovenox Pepcid for GI prophylaxis Status: Acute (2) COPD, severe: As above Status: Chronic (3) Benign essential HTN: Status: Chronic (4) Parasomnia: Sleep study after DC. Refer to sleep specialist. Status: Acute Attestations Medical Necessity Statement*: Requires hospitalization for acute on chronic hypercapnic respiratory failure requiring tracheostomy, BiPAP Coding Level of Care Code Acute Candle Making Supervisor for [facility] Diagnoses Acute and chronic respiratory failure with hypercapnia J96.22 COPD, severe J44.9 Benign essential HTN I10 Parasomnia G47.50
--- NOTE | 2021-01-07 14:28 | PC.RESP ---
RT called to pt room, nursing stated that pt felt like she couldn't breathe. RT suctioned pt, checked o2 saturation, it was 60%,hr 127 bpm. RT increased flow and fio2 on hag. No improvement to o2 sats. Patient was sitting on hag/oxygen tubing. Upon freeing tubing, sats improved to 92%, decreased flow and fio2 to previous settings of 10 lpm and 50%. Sats 92% on previous settings. Patient was educated on importance of being mindful of oxygen tubing and keeping lines clear of obstruction. Dr. Hoffman was notified of incident.
--- NOTE | 2021-01-07 18:39 | PC.NURSE ---
pt reports no pain. pt was up to chair today. pt had good input and output. pt resting comfortably at this time.
[2021-01-08] VITALS (18 sets, daily range): BP systolic 103–133; BP diastolic 65–83; PULSE 79–105; RESP 16–25; TEMP 36.6–37.1; O2SAT 87–97
[2021-01-08] MEDS: ipratropium-albuterol 3 mL Neb INHALATION ×5 (02:11→20:05)
--- NOTE | 2021-01-08 05:03 | PM.PN ---
Subjective Subjective: Interval history: 60 yo wf who is POD #5 s/p tracheotomy doing well from this standpoint. The patient is sleeping quietly. Vitals/I&O/Wt Last Vital Signs Temp 98.3 F 01/08/21 03:29 Pulse 79 01/08/21 03:29 Resp 20 H 01/08/21 03:29 BP 118/78 01/08/21 03:29 Pulse Ox 97 01/08/21 03:29 01/07/21 01/07/21 01/08/21 14:59 22:59 06:59 Output Total 320 / 320 0 / 320 Balance -320 / -320 0 / -320 Weight last 48 hrs Weight 91.354 kg Weight 84.822 kg Physical Exam Const: COMMON NORMALS: no acute distress and average body habitus HENMT: COMMON NORMALS: normocephalic and atraumatic HEAD & SCALP: normocephalic and atraumatic Neck/C-Spine: COMMON NORMALS: no lymphadenopathy GENERAL: Yes trachea midline and Yes tracheostomy present (No erythema or discharge noted.) Urinary Catheter Management^: Greenberg: Cath Placed During This Visit: yes Reason for Continuing Indwelling Catheter: Other Urinary Catheter Date of Insertion: 12/27/20 Urinary Catheter Time of Insertion: 05:26 Data : 01/07/21 04:55 01/07/21 04:55 A&P Additional A&P Information Impression: 60 yo wf who is POD #5 s/p tracheotomy who is doing well from this standpoint. Plan: - Continue current trach care - Discharge planning - see prior note for details - Continue BiPap use - I will change the trach on POD 6/7 Attestations Medical Necessity Statement*: I was consulted to help manage the patient's airway Coding Level of Care Code Acute Labor Economics Teacher for Missael Cr
[2021-01-08] MEDS: enoxaparin 40 mg/0.4 mL Syringe SUBCUT (05:15)
[2021-01-08] MEDS: famotidine 20 mg/2 mL INJ IVP ×2 (05:15→18:09)
[2021-01-08 06:44] LABS: Basophils % 0.6 %; Eosinophils # 0.3 10^3/uL (0.0-0.8); Eosinophils % 3.9 %; Hematocrit 37.5 % (37.0-47.0); Hemoglobin 10.9 g/dL (11.5-15.3); Lymphocytes # 1.6 10^3/uL (0.8-4.8); Lymphocytes % 22.7 %; Mean Corpuscular HGB Conc 29.1 g/dL (30.0-36.0); Mean Corpuscular Hemoglobin 28.4 pg (28.0-34.0); Mean Corpuscular Volume 97.7 fL (81-99); Mean Platelet Volume 11.5 fL (7.4-10.4); Monocytes # 0.8 10^3/uL (0.2-0.9); Neutrophils # 4.12 10^3/uL (1.8-7.7); Neutrophils % 59.6 %; Nucleated Red Blood Cells % 0 %; Platelet Count 222 10^3/cmm (130-400); Red Blood Count 3.84 10^6/uL (4.1-5.3); Red Cell Distribution Width 14.2 % (12.1-15.1); White Blood Count 6.9 10^3/uL (4.0-10.0)
[2021-01-08 06:56] LABS: Alanine Aminotransferase 36 U/L (0-33); Albumin Level 3.2 g/dL (3.5-5.2); Alkaline Phosphatase 61 IU/L (35-105); Aspartate Amino Transferase 21 U/L (0-32); Blood Urea Nitrogen 13 mg/dL (8-23); Calcium 8.9 mg/dL (8.5-10.5); Carbon Dioxide 38 mmol/L (22-29); Chloride 99 mmol/L (98-107); Globulin 2.4 g/dL (1.3-4.6); Glomerular Filtration Rate 162.3 mL/min (90-130); Glucose 112 mg/dL (65-115); Osmolality Calculated 297 mOsm/kg (285-295); Sodium 143 mmol/L (136-145); Total Bilirubin 0.4 mg/dL (0.15-1.2); Total Protein 5.6 g/dL (6.6-8.7)
[2021-01-08] MEDS: budesonide 0.5 mg/2 mL Neb INHALATION ×2 (07:55→20:05)
[2021-01-08] MEDS: sennosides-docusate Tablet 1 TAB PO (09:25)
[2021-01-08] MEDS: amlodipine 5 mg Tablet PO (09:25)
[2021-01-08] MEDS: citalopram 20 mg Tablet 10 MG PO ×2 (09:26→18:13)
[2021-01-08] MEDS: metoprolol tartrate 50 mg Tablet PO ×2 (09:26→20:44)
[2021-01-08] MEDS: predniSONE 10 mg Tablet PO (09:26)
[2021-01-08] MEDS: ARIPiprazole 2 mg Tablet PO (09:26)
[2021-01-08] MEDS: montelukast sodium 10 mg Tablet PO (09:26)
[2021-01-08] MEDS: aspirin 81 mg EC Tablet PO (09:27)
--- NOTE | 2021-01-08 13:50 | PC.RESP ---
This RT instructed pt and pts on trach care and how to take inner cannula out and change daily as well as how to suction pt . Pt stated that he will not be able to make it tomorrow for continued trach care education
--- NOTE | 2021-01-08 16:42 | P.PN_ITS ---
Subjective Subjective: Interval history: Patient was examined this morning, has no complaints, has been ambulated with physical therapy Vitals/I&O/Wt Last Vital Signs Temp 97.9 F 01/08/21 16:00 Pulse 93 01/08/21 16:00 Resp 18 01/08/21 16:00 BP 103/65 01/08/21 16:00 Pulse Ox 92 01/08/21 16:00 01/08/21 01/08/21 01/08/21 06:59 14:59 22:59 Intake Total 720 / 720 Output Total 300 / 620 Balance -300 / -620 720 / 720 Weight last 48 hrs Weight 92.079 kg Weight 91.354 kg Physical Exam 2 Const: COMMON NORMALS: no acute distress and patient oriented x3 HENMT: COMMON NORMALS: normocephalic HEAD & SCALP: normocephalic OTHER: Tracheostomy in place Neck/C-Spine: COMMON NORMALS: no JVD Resp: COMMON NORMALS: normal respiratory effort, No retractions, No use of accessory muscles and clear to auscultation bilaterally AUSCULTATION: clear to auscultation bilaterally Cardio: COMMON NORMALS: no JVD, regular rate, regular rhythm, S1 normal heart sound present and S2 normal heart sound present RATE: regular rate RHYTHM: regular rhythm HEART SOUNDS: S1 normal heart sound present and S2 normal heart sound present GI: COMMON NORMALS: Normal to inspection, nondistended, normoactive bowel sounds present, Soft to palpation, non-tender, No hepatosplenomegaly present, no masses and no bruits PALPATION: Yes Soft to palpation and Yes No hepatosplenomegaly present Extremity: COMMON NORMALS: capillary refill normal, no clubbing, cyanosis or edema, no calf tenderness and no pedal edema Neuro: COMMON NORMALS: patient oriented x3 Psych: COMMON NORMALS: mental status grossly normal Urinary Catheter Management^: Greenberg: Cath Placed During This Visit: yes Reason for Continuing Indwelling Catheter: Other Urinary Catheter Date of Insertion: 12/27/20 Urinary Catheter Time of Insertion: 05:26 Data : 01/08/21 06:05 01/08/21 06:05 A&P Assessment and plan (1) Acute and chronic respiratory failure with hypercapnia: Doing well. Performing self suctioning. Currently on general medical floors, can start BiPAP tonight, PT OT, trach care Discussed with nursing staff, initiate education for her and her . Status post tracheostomy 01/03. Will have trach change 6 to 7 days postop End-stage COPD Completed antibiotic course. Resume Lovenox Pepcid for GI prophylaxis Status: Acute (2) COPD, severe: As above Status: Chronic (3) Benign essential HTN: Status: Chronic (4) Parasomnia: Sleep study after DC. Refer to sleep specialist. Status: Acute Attestations Medical Necessity Statement*: Patient requires hospitalization for acute respiratory failure, requiring trach placement Coding Level of Care Code Acute Healthcare Market Consultant for [facility] Diagnoses Acute and chronic respiratory failure with hypercapnia J96.22 COPD, severe J44.9 Benign essential HTN I10 Parasomnia G47.50
[2021-01-09] VITALS (15 sets, daily range): BP systolic 111–137; BP diastolic 69–80; PULSE 73–110; RESP 17–22; TEMP 36.6–37; O2SAT 87–99
[2021-01-09] MEDS: ipratropium-albuterol 3 mL Neb INHALATION ×4 (03:40→21:13)
--- NOTE | 2021-01-09 03:56 | PM.PN ---
Subjective Subjective: Interval history: 60 yo wf who is POD #6 s/p tracheotomy who is doing well from this standpoint by report. There are no c/o. Vitals/I&O/Wt Last Vital Signs Temp 97.8 F 01/09/21 01:19 Pulse 73 01/09/21 03:49 Resp 18 01/09/21 03:40 BP 123/76 01/09/21 01:19 Pulse Ox 95 01/09/21 03:49 01/08/21 01/08/21 01/09/21 14:59 22:59 06:59 Intake Total 720 / 720 580 / 1300 Output Total 400 / 400 Balance 720 / 720 180 / 900 Weight last 48 hrs Weight 92.079 kg Weight 91.354 kg Physical Exam Const: COMMON NORMALS: no acute distress and average body habitus HENMT: COMMON NORMALS: normocephalic, atraumatic, external ears normal and Normal external nose present HEAD & SCALP: normocephalic and atraumatic FACE & SINUS: normal facial exam NOSE: Normal external nose present EXTERNAL EAR: Yes external ears normal Neck/C-Spine: COMMON NORMALS: no lymphadenopathy GENERAL: Yes trachea midline and Yes tracheostomy present (No erythema or discharge) Urinary Catheter Management^: Greenberg: Cath Placed During This Visit: yes Reason for Continuing Indwelling Catheter: Acute Urinary Retention or Obstruction Urinary Catheter Date of Insertion: 12/27/20 Urinary Catheter Time of Insertion: 05:26 Data : 01/08/21 06:05 01/08/21 06:05 A&P Additional A&P Information Impression: 60 yo wf who is POD #6 s/p tracheotomy who is doing well from this standpoint Plan: - I will perform the first trach change tomorrow - Continue current trach care - Have RT instruct the patient and her on trach care - Home health/supplies as previously outlined Attestations Medical Necessity Statement*: I was consulted to assist in management of the patient's airway. Coding Level of Care Code Acute Heel Room Supervisor for Missael Cr
[2021-01-09] MEDS: famotidine 20 mg/2 mL INJ IVP ×2 (04:31→17:44)
[2021-01-09] MEDS: enoxaparin 40 mg/0.4 mL Syringe SUBCUT (04:31)
[2021-01-09] MEDS: budesonide 0.5 mg/2 mL Neb INHALATION ×2 (08:33→21:13)
--- NOTE | 2021-01-09 09:14 | PC.SOCIAL ---
IMM Update Pg. 2 of IMM updated and reviewed with patient, who verbalized understanding.
[2021-01-09] MEDS: montelukast sodium 10 mg Tablet PO (09:16)
[2021-01-09] MEDS: citalopram 20 mg Tablet 10 MG PO ×2 (09:16→17:44)
[2021-01-09] MEDS: sennosides-docusate Tablet 1 TAB PO (09:16)
[2021-01-09] MEDS: amlodipine 5 mg Tablet PO (09:16)
[2021-01-09] MEDS: predniSONE 10 mg Tablet PO (09:16)
[2021-01-09] MEDS: ARIPiprazole 2 mg Tablet PO (09:16)
[2021-01-09] MEDS: aspirin 81 mg EC Tablet PO (09:16)
[2021-01-09] MEDS: metoprolol tartrate 50 mg Tablet PO ×2 (10:34→21:14)
--- NOTE | 2021-01-09 12:37 | P.PN_ITS ---
Subjective Subjective: Interval history: Patient was seen this morning, she sitting up up in a chair, she is suctioning her trach, I was told by nursing staff that she did not use her BiPAP overnight, advised of compliance, I Vitals/I&O/Wt Last Vital Signs Temp 98.6 F 01/09/21 12:00 Pulse 100 01/09/21 12:00 Resp 19 H 01/09/21 12:00 BP 132/74 01/09/21 12:00 Pulse Ox 94 01/09/21 12:00 01/08/21 01/09/21 01/09/21 22:59 06:59 14:59 Intake Total 580 / 1300 40 / 1340 720 / 720 Output Total 400 / 400 400 / 800 200 / 200 Balance 180 / 900 -360 / 540 520 / 520 Weight last 48 hrs Weight 92.215 kg Weight 92.079 kg Physical Exam Const: COMMON NORMALS: no acute distress and patient oriented x3 HENMT: COMMON NORMALS: normocephalic HEAD & SCALP: normocephalic Neck/C-Spine: COMMON NORMALS: no JVD OTHER: Tracheostomy in place Resp: COMMON NORMALS: normal respiratory effort, No retractions and No use of accessory muscles AUSCULTATION: wheezes Cardio: COMMON NORMALS: no JVD, regular rate, regular rhythm, S1 normal heart sound present and S2 normal heart sound present RATE: regular rate RHYTHM: regular rhythm HEART SOUNDS: S1 normal heart sound present and S2 normal heart sound present GI: COMMON NORMALS: Normal to inspection, nondistended, normoactive bowel sounds present, Soft to palpation, non-tender, No hepatosplenomegaly present, no masses and no bruits PALPATION: Yes Soft to palpation and Yes No h epatosplenomegaly present Extremity: COMMON NORMALS: no pedal edema Neuro: COMMON NORMALS: patient oriented x3 Psych: COMMON NORMALS: mental status grossly normal Urinary Catheter Management^: Greenberg: Cath Placed During This Visit: yes Reason for Continuing Indwelling Catheter: Acute Urinary Retention or Obstruction Urinary Catheter Date of Insertion: 12/27/20 Urinary Catheter Time of Insertion: 05:26 Data : 01/08/21 06:05 01/08/21 06:05 A&P Assessment and plan (1) Acute and chronic respiratory failure with hypercapnia: Doing well. Performing self suctioning. Currently on general medical floors, can start BiPAP tonight, PT OT, trach care Discussed with nursing staff, initiate education for her and her . Status post tracheostomy /. Will have trach change 6 to 7 days postop End-stage COPD Completed antibiotic course. Lovenox Pepcid for GI prophylaxis Plan for today, she does sound a bit wheezy, will get a breathing treatment will monitor respiratory status closely, advised on compliance with BiPAP overnight, will have trach change tomorrow, hopefully discharge tomorrow Status: Acute (2) COPD, severe: As above Status: Chronic (3) Benign essential HTN: Status: Chronic (4) Parasomnia: Sleep study after DC. Refer to sleep specialist. Status: Acute Attestations Medical Necessity Statement*: Patient requires hospitalization, COPD, requiri ng tracheostomy, Coding Level of Care Code Acute Tankman for [facility] Diagnoses Acute and chronic respiratory failure with hypercapnia J96.22 COPD, severe J44.9 Benign essential HTN I10 Parasomnia G47.50
[2021-01-09] MEDS: LORazepam 0.5 mg Tablet PO (14:42)
--- NOTE | 2021-01-09 14:53 | PC.RESP ---
This RT instructed pt on trach care today. Pt was able to almost get inner cannula changed by herself, pt did have issues with getting inner cannula clipped onto trach. Pt was instructed on how to suction out trach and clean trach. Pt was extremely anxious about performing trach care and having to take care of trach at home.
--- NOTE | 2021-01-09 17:05 | PC.OT ---
OT note: When therapist attempted OT session at 1510 pt requested to hold as she wanted to rest. She was agreeable for OT to return in about an hour. When therapist returned at about 1615 pt was sleeping. Will attempt again later as able.
[2021-01-10] VITALS (17 sets, daily range): BP systolic 101–152; BP diastolic 65–89; PULSE 76–117; RESP 17–22; TEMP 36.6–37.4; O2SAT 88–97
[2021-01-10] MEDS: ipratropium-albuterol 3 mL Neb INHALATION ×4 (03:40→21:07)
--- NOTE | 2021-01-10 05:11 | PM.PN ---
Subjective Subjective: Interval history: 60 yo wf who is POD #7 s/p tracheotomy who is doing well from this standpoint. The patient is without c/o. She has been using BiPap via the trach tube. Vitals/I&O/Wt Last Vital Signs Temp 97.8 F 01/10/21 04:46 Pulse 91 01/10/21 04:46 Resp 17 01/10/21 04:46 BP 121/78 01/10/21 04:46 Pulse Ox 88 L 01/10/21 04:46 01/09/21 01/09/21 01/10/21 14:59 22:59 06:59 Intake Total 720 / 720 240 / 960 Output Total 200 / 200 200 / 400 Balance 520 / 520 240 / 760 -200 / 560 Weight last 48 hrs Weight 95.254 kg Weight 92.215 kg Weight 92.079 kg Physical Exam Const: COMMON NORMALS: no acute distress, patient oriented x3 and alert HENMT: COMMON NORMALS: normocephalic, atraumatic and Normal external nose present HEAD & SCALP: normocephalic and atraumatic NOSE: Normal external nose present Eye: COMMON NORMALS: EOMs intact bilaterally and conjunctivae normal CONJUNCTIVA: Yes conjunctivae normal Neck/C-Spine: COMMON NORMALS: no lymphadenopathy GENERAL: Yes trachea midline and Yes tracheostomy present (the trach site is healing well without erythema.) Lymph: LYMPHATIC: no lymphadenopathy noted Neuro: COMMON NORMALS: patient oriented x3 SENSORIUM/ORIENTATION: Yes alert Urinary Catheter Management^: Greenberg: Cath Placed During This Visit: yes Reason for Continuing Indwelling Catheter: Acute Urinary Retention or Obstruction Urinary Catheter Date of Insertion: 12/27/20 Urinary Catheter Time of Insertion: 05:26 Data : 01/08/21 06:05 01/08/21 06:05 A&P Additional A&P Information Impression: 60 yo wf who is POD #7 s/p tracheotomy doing well from this standpoint. Plan: - First trach change performed today - Trach Care: the patient will need training in trach care by RT; daily Home Health Care visits x 2 weeks; Home suction unit; Home humidification via trach collar; trach cleaning kits - F/U in Dr. Merritt's office in one week; she is to contact me for any problems Attestations Medical Necessity Statement*: I was consulted to manage the patient's airway. Procedures Procedure Narrative First Trach Change: the old trach was removed and was replaced with a #6 Shiley, Cuffed, Non fenestrated trach; the patient tolerated the trach change well Coding Level of Care Code Acute Auto Mechanic Supervisor for Missael Cr
[2021-01-10] MEDS: enoxaparin 40 mg/0.4 mL Syringe SUBCUT (05:43)
[2021-01-10] MEDS: famotidine 20 mg/2 mL INJ IVP ×2 (06:26→17:59)
[2021-01-10] MEDS: budesonide 0.5 mg/2 mL Neb INHALATION ×2 (08:30→21:07)
[2021-01-10] MEDS: predniSONE 10 mg Tablet PO (09:21)
[2021-01-10] MEDS: citalopram 20 mg Tablet 10 MG PO ×2 (09:21→17:59)
[2021-01-10] MEDS: amlodipine 5 mg Tablet PO (09:22)
[2021-01-10] MEDS: ARIPiprazole 2 mg Tablet PO (09:22)
[2021-01-10] MEDS: aspirin 81 mg EC Tablet PO (09:22)
[2021-01-10] MEDS: LORazepam 0.5 mg Tablet PO ×3 (09:22→14:24)
[2021-01-10] MEDS: montelukast sodium 10 mg Tablet PO (09:22)
[2021-01-10] MEDS: metoprolol tartrate 50 mg Tablet PO ×2 (09:28→21:32)
--- NOTE | 2021-01-10 13:07 | P.PN_ITS ---
Subjective Subjective: Interval history: patient had her trach changed today, she is abit anxious about going home, we are waiting on supplies, and we have to confirm that she has a triology at home Vitals/I&O/Wt Last Vital Signs Temp 98.3 F 01/10/21 12:00 Pulse 92 01/10/21 12:00 Resp 18 01/10/21 12:00 BP 127/79 01/10/21 12:00 Pulse Ox 90 01/10/21 12:00 01/09/21 01/10/21 01/10/21 22:59 06:59 14:59 Intake Total 240 / 960 240 / 240 Output Total 200 / 400 Balance 240 / 760 -200 / 560 240 / 240 Weight last 48 hrs Weight 95.254 kg Weight 92.215 kg Physical Exam Const: COMMON NORMALS: no acute distress and patient oriented x3 HENMT: COMMON NORMALS: normocephalic HEAD & SCALP: normocephalic OTHER: Tracheostomy in place Neck/C-Spine: COMMON NORMALS: no JVD OTHER: Tracheostomy in place Resp: COMMON NORMALS: normal respiratory effort, No retractions, No use of accessory muscles and clear to auscultation bilaterally AUSCULTATION: clear to auscultation bilaterally Cardio: COMMON NORMALS: no JVD, regular rate, regular rhythm, S1 normal heart sound present and S2 normal heart sound present RATE: regular rate RHYTHM: regular rhythm HEART SOUNDS: S1 normal heart sound present and S2 normal heart sound present GI: COMMON NORMALS: Normal to inspection, nondistended, normoactive bowel sounds present, Soft to palpation, non-tender, No hepatosplenomegaly present, no masses and no bruits PALPATION: Yes Soft to palpation and Yes No hepatosplenomegaly present Extremity: COMMON NORMALS: capillary refill normal, no clubbing, cyanosis or edema, no calf tenderness and no pedal edema Neuro: COMMON NORMALS: patient oriented x3 Psych: COMMON NORMALS: mental status grossly normal Urinary Catheter Management^: Greenberg: Cath Placed During This Visit: yes Reason for Continuing Indwelling Catheter: Acute Urinary Retention or Obstruction Urinary Catheter Date of Insertion: 12/27/20 Urinary Catheter Time of Insertion: 05:26 Data : 01/08/21 06:05 01/08/21 06:05 A&P Assessment and plan (1) Acute and chronic respiratory failure with hypercapnia: Doing well. Performing self suctioning. Currently on general medical floors, PT OT, trach care Discussed with nursing staff, initiate education for her and her . Status post tracheostomy 01/03. s/p trach change today Patient will require a home trilogy, with her tracheostomy, currently she has a bipap Patient will need supplies delivered today Patient and need extensive education about trach care, trilogy use, she needs help from her End-stage COPD Completed antibiotic course. Lovenox Pepcid for GI prophylaxis Plan for today, get trach supplies, arranging for trilogy, patient and education about trach care, with trilogy Status: Acute (2) COPD, severe: As above Status: Chronic (3) Benign essential HTN: Status: Chronic (4) Parasomnia: Sleep study after DC. Refer to sleep specialist. Status: Acute Attestations Medical Necessity Statement*: patient requires hospitalization for trachestomy Coding Level of Care Code Acute Surgical Instrument Mechanic for [facility] Diagnoses Acute and chronic respiratory failure with hypercapnia J96.22 COPD, severe J44.9 Benign essential HTN I10 Parasomnia G47.50
--- NOTE | 2021-01-10 13:35 | PC.CHAP ---
Pastoral Care Encounter/Spiritual Assessment Type of Contact [] Declined office rental clerk visit [] Patient/Family/Request visit [] Outpatient visit [xx] Follow-up visit [] Physician referral [] Code/Alert [] Routine visit [] Staff referral [] Actively dying [] Patient sleeping [] Family support [] [] Out of room [] Palliative care [] [xx] Receiving care in room [] Pre-surgical visit [] Trauma [xx] Long length of stay [] ICU visit [xx] Other: Medical staff always with patient. Relational/Emotional Strength [] Patient feels connected with others/family/visitors/staff [] Distress [] Loneliness/isolation [] Abandonment Spirituality of Patient [] Person of Amanda [] Attends Congregational of their Amanda [] Believes in Prayer [] Reads Bible or Anglican materials [] There are Spiritual issues to be addressed Gore Cutter Interventions [] Prayer [] Active listening [] Non-anxious presence [] Spiritual/emotional support [] Crisis/trauma care [] Spiritual counseling [] Bereavement support [] Provided bereavement packet [] Provided Bible/devotional materials [] Provided toy/stuffed animal, coloring book to patient or family member [] Provided Communion [] Anointing/[place] [] Salvation [] Completed spiritual assessment [] Other: Impact on Illness or Injury [] Angry [] Fearful [] Anxious [] Often cries [] Exhaustion [] Unable to work [] Unable to attend catholic [] Unable to walk/stand [] Unable to read [] Unable to drive [] Unable to eat/drink [] Unable to sleep [] Unable to be with family [] Patient intubated [] Other: Summary Gore Cutter made multiple attempts to visit patient but medical staff were always with her each time. Try follow up again. Time spent with patient 3 minutes
--- NOTE | 2021-01-10 17:07 | PC.NURSE ---
Patient was going to discharge to home today per Dr Hoffman but patients supplies never showed up yet and patient was not able to use her Bipap machine so they had to order a home trilagy vent unit, which will not be here until sometime next week. Discussed other options with patient such as [facility] but does not want to drive that far to see his . Patient is still working on trach care training with and we are working on anxiety. Called Dr Hoffman around noon for an extra anxiety dose due to patient being really anxious and scared about going home. Patient seems much better since she will be staying in the hospital a few days longer to make sure she is ready and has all her equipment at home before they discharge her to home.
--- NOTE | 2021-01-10 17:34 | PC.RESP ---
Trach care performed with pt and pt . did not want to perform any trach care at this time he just wanted to watch trach care be performed. did ask questions about trach care and cleaning. Patient does seem anxious about trach care and going home but did better today. Trach and HAG tubing were cleaned and changed.
[2021-01-11] VITALS (16 sets, daily range): BP systolic 104–143; BP diastolic 64–79; PULSE 81–117; RESP 16–26; TEMP 36.6–37.1; O2SAT 84–97
[2021-01-11] MEDS: ipratropium-albuterol 3 mL Neb INHALATION ×4 (02:43→20:02)
[2021-01-11 03:10] LABS: ABG PH Result 7.33 (7.35-7.45); Arterial Blood Gas Hematocrit 33.7 % (37-47); Base Excess ABG 15.1 mmol/L (-2.0-2.0); Blood Gas Sample Type Arterial; HCO3 ABG 44.4 mmol/L (22-26); PO2 ABG 80.2 mmHg (80.0-100.0)
[2021-01-11 03:11] LABS: Blood Gas Operator Identificat HARKR; Blood Gas Sample Site Brachial, left; Oxygen Device HAG
[2021-01-11 03:12] LABS: ABG PCO2 85.3 mmHg (35-45)
[2021-01-11] MEDS: enoxaparin 40 mg/0.4 mL Syringe SUBCUT (05:27)
[2021-01-11] MEDS: famotidine 20 mg/2 mL INJ IVP ×2 (05:32→17:03)
--- NOTE | 2021-01-11 08:01 | XRR_ITS ---
PROCEDURE INFORMATION: Exam: XR Chest Exam date and time: 01/11/2021 8:05 AM Age: 60 years old Clinical indication: Shortness of breath; Additional info: SOB TECHNIQUE: Imaging protocol: XR of the chest. Views: 1 view. COMPARISON: CR XR chest 1V portable [id number] 12/30/2020 4:39 AM FINDINGS: Tubes, catheters and devices: A tracheostomy tube projects in satisfactory position. Lungs: Small benign calcified granulomas are present. There is mild subsegmental atelectasis in the right base. There is a small patchy opacity in the periphery of the left base in the left costophrenic angle. This could represent a small pneumonia. Pleural spaces: Unremarkable. No pleural effusion. No pneumothorax. Heart/Mediastinum: Unremarkable. No cardiomegaly. Bones/joints: Unremarkable. XR/XR chest 1V portable [id number] IMPRESSION: 1. There is small patchy opacity in the periphery of the left base suspicious for a lower lobe pneumonia. 2. Satisfactory projection of the tracheostomy tube.
[2021-01-11] MEDS: budesonide 0.5 mg/2 mL Neb INHALATION ×2 (08:03→20:02)
[2021-01-11] MEDS: sennosides-docusate Tablet 1 TAB PO (08:37)
[2021-01-11] MEDS: amlodipine 5 mg Tablet PO (08:37)
[2021-01-11] MEDS: predniSONE 10 mg Tablet PO (08:37)
[2021-01-11] MEDS: metoprolol tartrate 50 mg Tablet PO ×2 (08:37→20:03)
[2021-01-11] MEDS: montelukast sodium 10 mg Tablet PO (08:37)
[2021-01-11] MEDS: ARIPiprazole 2 mg Tablet PO (08:37)
[2021-01-11] MEDS: citalopram 20 mg Tablet 10 MG PO ×2 (08:37→17:32)
[2021-01-11] MEDS: aspirin 81 mg EC Tablet PO (08:37)
[2021-01-11 08:57] LABS: ABG PCO2 78.3 mmHg (35-45); ABG PH Result 7.35 (7.35-7.45); Arterial Blood Gas Hematocrit 34.5 % (37-47); Base Excess ABG 14.4 mmol/L (-2.0-2.0); Blood Gas Allen Test Pos; Blood Gas Operator Identificat CAK; Blood Gas Sample Site Brachial, right; Blood Gas Sample Type Arterial; HCO3 ABG 43.1 mmol/L (22-26); Oxygen Device HAG; PO2 ABG 80.8 mmHg (80.0-100.0)
[2021-01-11 09:24] LABS: Basophils % 0.3 %; Eosinophils # 0.3 10^3/uL (0.0-0.8); Eosinophils % 4.6 %; Hematocrit 39.2 % (37.0-47.0); Hemoglobin 11.5 g/dL (11.5-15.3); Lymphocytes # 1.4 10^3/uL (0.8-4.8); Lymphocytes % 23.5 %; Mean Corpuscular HGB Conc 29.3 g/dL (30.0-36.0); Mean Corpuscular Hemoglobin 29.3 pg (28.0-34.0); Mean Platelet Volume 12.4 fL (7.4-10.4); Monocytes # 0.5 10^3/uL (0.2-0.9); Neutrophils # 3.64 10^3/uL (1.8-7.7); Neutrophils % 61.4 %; Nucleated Red Blood Cells % 0 %; Platelet Count 139 10^3/cmm (130-400); Red Blood Count 3.92 10^6/uL (4.1-5.3); Red Cell Distribution Width 14.6 % (12.1-15.1); White Blood Count 5.9 10^3/uL (4.0-10.0)
--- NOTE | 2021-01-11 10:00 | PC.NURSE ---
pt complained of lower abdominal pain, stated she felt like she had to pee but could not, this nurse informed Dr. Hoffman who ordered for her to be bladder scanned. bladder scan completed and no urine was detected in bladder. physician informed of dark bloody urine as well. Greenberg is to be removed and urine sent for UA.
[2021-01-11] MEDS: FUROsemide 10 mg/mL SDV 4mL 40 MG IVP (11:32)
[2021-01-11 12:10] LABS: Procalcitonin 0.03 ng/mL (0-0.5)
[2021-01-11 12:21] LABS: Alanine Aminotransferase 24 U/L (0-33); Albumin Level 3.1 g/dL (3.5-5.2); Alkaline Phosphatase 86 IU/L (35-105); Anion Gap 12.1 (5-19); Aspartate Amino Transferase 16 U/L (0-32); Blood Urea Nitrogen 11 mg/dL (8-23); Calcium 8.6 mg/dL (8.5-10.5); Carbon Dioxide 35 mmol/L (22-29); Chloride 98 mmol/L (98-107); Globulin 2.7 g/dL (1.3-4.6); Glomerular Filtration Rate 162.3 mL/min (90-130); Glucose 120 mg/dL (65-115); Magnesium 2.1 mg/dL (1.7-2.3); Osmolality Calculated 293 mOsm/kg (285-295); Potassium 4.1 mmol/L (3.5-5.1); Sodium 141 mmol/L (136-145); Total Bilirubin 0.4 mg/dL (0.15-1.2); Total Protein 5.8 g/dL (6.6-8.7)
--- NOTE | 2021-01-11 13:48 | PC.SOCIAL ---
IMM Update Pg.2 of IMM updated and reviewed with patient who verbalized understanding. Copy provided.
--- NOTE | 2021-01-11 14:11 | P.PN_ITS ---
Subjective Subjective: Interval history: Patient was examined this morning, she did have episodes of shortness of breath overnight, requiring BiPAP use, is sitting up at the edge of bed this morning, tells me she is doing well, she has to remain as inpatient until we get her home trilogy plisse machine operator, I also advised that I would like her to come in a few more time so that we can go over appropriate trach care with him, she tells me that he works with a cattle during the day, and is hard for him to come to the hospital due to visiting hours, I advised that we can make an exception for him, if he wants to come in within a reasonable time after hours, we we can make an exception so we can teach him trach care Vitals/I&O/Wt Last Vital Signs Temp 98.8 F 01/11/21 12:00 Pulse 87 01/11/21 12:00 Resp 17 01/11/21 12:00 BP 143/79 01/11/21 12:00 Pulse Ox 97 01/11/21 12:00 01/10/21 01/11/21 01/11/21 22:59 06:59 14:59 Intake Total 240 / 730 120 / 850 480 / 480 Output Total 450 / 1300 150 / 1450 Balance -210 / -570 -30 / -600 480 / 480 Weight last 48 hrs Weight 93.44 kg Weight 95.254 kg Physical Exam Const: COMMON NORMALS: no acute distress and patient oriented x3 HENMT: COMMON NORMALS: normocephalic HEAD & SCALP: normocephalic Neck/C-Spine: COMMON NORMALS: no JVD Resp: COMMON NORMALS: normal respiratory effort, No retractions and No use of accessory muscles AUSCULTATION: wheezes Cardio: COMMON NORMALS: no JVD, regular rate, regular rhythm, S1 normal heart sound present and S2 normal heart sound present RATE: regular rate RHYTHM: regular rhythm HEART SOUNDS: S1 normal heart sound present and S2 normal heart sound present GI: COMMON NORMALS: Normal to inspection, nondistended, normoactive bowel sounds present, Soft to palpation, non-tender, No hepatosplenomegaly present, no masses and no bruits PALPATION: Yes Soft to palpation and Yes No hepatosplenomegaly present Extremity: COMMON NORMALS: capillary refill normal, no clubbing, cyanosis or edema, no calf tenderness and no pedal edema Neuro: COMMON NORMALS: patient oriented x3 Psych: COMMON NORMALS: mental status grossly normal Urinary Catheter Management^: Greenberg: Cath Placed During This Visit: yes Reason for Continuing Indwelling Catheter: Accurate Measurement of Urinary Output in Critically Ill Patients Urinary Catheter Date of Insertion: 12/27/20 Urinary Catheter Time of Insertion: 05:26 Data : 01/11/21 09:00 01/11/21 10:55 A&P Assessment and plan (1) Acute and chronic respiratory failure with hypercapnia: Performing self suctioning. Currently on general medical floors, PT OT, trach care Discussed with nursing staff, initiate education for her and her , can come in after hours at a reasonable time, a few more times for trach education Will start trilogy here on the floors, starting tonight Status post tracheostomy 01/03. s/p trach change today Patient will require a home trilogy, with her tracheostomy Patient will need supplies delivered to the hospital Patient and need extensive education about trach care, trilogy use, she needs help from her Chest x-ray shows possible pneumonia, at the left lung base, she remains afebrile, no significant leukocytosis, will start on doxycycline for now End-stage COPD Completed antibiotic course. Lovenox Pepcid for GI prophylaxis Plan for today, still waiting on trach supplies, encourage to come in for trach education, start trilogy machine tonight, awaiting her trilogy machine, will give 1 dose of Lasix today Status: Acute (2) COPD, severe: As above Status: Chronic (3) Benign essential HTN: Status: Chronic (4) Parasomnia: Sleep study after DC. Refer to sleep specialist. Status: Acute Attestations Medical Necessity Statement*: Patient requires hospitalization, for acute on chronic respiratory failure with hypercapnia, requiring trilogy machine, trach care Coding Level of Care Code Acute Automotive Tire Testing Supervisor for [facility] Diagnoses Acute and chronic respiratory failure with hypercapnia J96.22 COPD, severe J44.9 Benign essential HTN I10 Parasomnia G47.50
[2021-01-11 14:42] LABS: Glucose Urine UA Norm (Normal); Ketones Urine Negative (Negative); Protein Urine 2+ (Negative); Urine Appearance Bloody (CLEAR); Urine Color Red (Yellow); pH Urine 7 (5-7)
[2021-01-11 14:43] LABS: Add Urine Microscopic? YES; Bacteria Urine TRACE /hpf; Bilirubin Urine Neg (Negative); Blood Urine 3+ (Negative); Calcium Oxalate Crystals Urine 0-4 /hpf; Leukocyte Esterase Urine 2+ (Negative); Mucus Urine TRACE /hpf; Nitrate Urine Negative (Negative); RBC Urine >100 /hpf (0-2); Urobilinogen Urine Norm (Negative); WBC Urine 15-25 /hpf (0-5)
[2021-01-11 14:44] LABS: Add Urine Culture? Yes
[2021-01-11 14:45] LABS: Oval Fat Bodies Urine 1+ /hpf
[2021-01-11] MEDS: doxycycline 100 mg Tablet PO (17:32)
--- NOTE | 2021-01-11 18:38 | PC.NURSE ---
valencia catheter was removed at 1748, pt tolerated well. 2100 red urine was drained from valencia bag, 8ml was drained from balloon, pt tolerated well.
--- NOTE | 2021-01-11 18:39 | PC.NURSE ---
shift summary pt has had bipap off since approximately 0800 when Respiratory placed oxygen on pt. pt has sat on the side of the bed for meals and has stood up several times this shift. her oxygen saturations have been in mid to high 90's this shift. urine has been dark red this shift, but good output has been noted this shift. pt valencia is now removed per dr preciado.
[2021-01-11] MEDS: LORazepam 0.5 mg Tablet PO (20:03)
[2021-01-12] VITALS (18 sets, daily range): BP systolic 92–139; BP diastolic 53–80; PULSE 71–104; RESP 16–22; TEMP 36.3–37.1; O2SAT 90–99
[2021-01-12] MEDS: ipratropium-albuterol 3 mL Neb INHALATION ×4 (03:16→20:19)
[2021-01-12 03:31] LABS: ABG PH Result 7.28 (7.35-7.45); Arterial Blood Gas Hematocrit 34.5 % (37-47); Base Excess ABG 17.6 mmol/L (-2.0-2.0); Blood Gas Sample Site Brachial, right; Blood Gas Sample Type Arterial; Blood Gas Tidal Volume 0.45; HCO3 ABG 48.6 mmol/L (22-26); Oxygen Device BIPAP
[2021-01-12 05:56] LABS: ABG PH Result 7.35 (7.35-7.45); Arterial Blood Gas Hematocrit 34.3 % (37-47); Base Excess ABG 18.3 mmol/L (-2.0-2.0); Blood Gas Sample Type Arterial; HCO3 ABG 47.7 mmol/L (22-26); PO2 ABG 80.2 mmHg (80.0-100.0)
[2021-01-12 05:57] LABS: Blood Gas Sample Site Brachial, left; Blood Gas Tidal Volume 0.45; Oxygen Device BIPAP
[2021-01-12] MEDS: enoxaparin 40 mg/0.4 mL Syringe SUBCUT (06:19)
[2021-01-12] MEDS: famotidine 20 mg/2 mL INJ IVP ×2 (06:19→17:45)
[2021-01-12 06:29] LABS: Basophils % 0.7 %; Eosinophils # 0.2 10^3/uL (0.0-0.8); Eosinophils % 4.7 %; Hematocrit 36.2 % (37.0-47.0); Hemoglobin 10.5 g/dL (11.5-15.3); Lymphocytes # 1.5 10^3/uL (0.8-4.8); Lymphocytes % 33.3 %; Mean Corpuscular Hemoglobin 28.2 pg (28.0-34.0); Mean Corpuscular Volume 97.3 fL (81-99); Mean Platelet Volume 11.3 fL (7.4-10.4); Monocytes # 0.5 10^3/uL (0.2-0.9); Monocytes % 11.4 %; Neutrophils # 2.19 10^3/uL (1.8-7.7); Nucleated Red Blood Cells % 0 %; Platelet Count 200 10^3/cmm (130-400); Red Blood Count 3.72 10^6/uL (4.1-5.3); Red Cell Distribution Width 14.4 % (12.1-15.1); White Blood Count 4.5 10^3/uL (4.0-10.0)
[2021-01-12 07:02] LABS: Alanine Aminotransferase 24 U/L (0-33); Albumin Level 3.5 g/dL (3.5-5.2); Alkaline Phosphatase 64 IU/L (35-105); Anion Gap 7.6 (5-19); Aspartate Amino Transferase 16 U/L (0-32); Blood Urea Nitrogen 11 mg/dL (8-23); Calcium 8.8 mg/dL (8.5-10.5); Chloride 96 mmol/L (98-107); Globulin 2.5 g/dL (1.3-4.6); Glomerular Filtration Rate 162.3 mL/min (90-130); Glucose 102 mg/dL (65-115); NT Pro B Type Natriuretic Pept 73 pg/mL (0-125); Osmolality Calculated 298 mOsm/kg (285-295); Phosphorus 3.5 mg/dL (2.5-4.5); Potassium 3.6 mmol/L (3.5-5.1); Sodium 144 mmol/L (136-145); Total Bilirubin 0.4 mg/dL (0.15-1.2)
[2021-01-12 08:02] LABS: Carbon Dioxide 44 mmol/L (22-29)
[2021-01-12] MEDS: budesonide 0.5 mg/2 mL Neb INHALATION ×2 (08:02→20:19)
[2021-01-12] MEDS: metoprolol tartrate 50 mg Tablet PO ×2 (09:35→20:25)
[2021-01-12] MEDS: sennosides-docusate Tablet 1 TAB PO (09:35)
[2021-01-12] MEDS: citalopram 20 mg Tablet 10 MG PO ×2 (09:35→17:35)
[2021-01-12] MEDS: amlodipine 5 mg Tablet PO (09:35)
[2021-01-12] MEDS: aspirin 81 mg EC Tablet PO (09:35)
[2021-01-12] MEDS: predniSONE 10 mg Tablet PO (09:35)
[2021-01-12] MEDS: montelukast sodium 10 mg Tablet PO (09:35)
[2021-01-12] MEDS: doxycycline 100 mg Tablet PO ×2 (09:35→17:35)
[2021-01-12] MEDS: ARIPiprazole 2 mg Tablet PO (09:35)
[2021-01-12] MEDS: cefTRIAXone 1,000 MG in sodium chloride 0.9% (plus) 50 ML 100 MG IV (12:04)
--- NOTE | 2021-01-12 12:16 | P.PN_ITS ---
Subjective Subjective: Interval history: This morning patient was examined, she tells me that there was issues with the trilogy machine overnight, the connector kept coming off her trach collar, it was adjusted multiple times, seem to be working after, she is a bit worried about that, she [facility] me [facility], no fevers, no chills, no nausea, no vomiting, has a chronic cough, she is doing okay with trach care and deep suctioning Vitals/I&O/Wt Last Vital Signs Temp 97.7 F 01/12/21 08:00 Pulse 100 01/12/21 08:00 Resp 18 01/12/21 08:00 BP 92/53 01/12/21 08:00 Pulse Ox 95 01/12/21 08:00 01/11/21 01/12/21 01/12/21 22:59 06:59 14:59 Intake Total 360 / 840 240 / 1080 240 / 240 Output Total 1200 / 1200 200 / 1400 Balance -840 / -360 40 / -320 240 / 240 Weight last 48 hrs Weight 91.626 kg Weight 93.44 kg Physical Exam Const: COMMON NORMALS: no acute distress and patient oriented x3 HENMT: COMMON NORMALS: normocephalic HEAD & SCALP: normocephalic Neck/C-Spine: COMMON NORMALS: no JVD OTHER: Trach in place, trach collar, Resp: COMMON NORMALS: normal respiratory effort, No retractions, No use of accessory muscles and clear to auscultation bilaterally AUSCULTATION: clear to auscultation bilaterally Cardio: COMMON NORMALS: no JVD, regular rate, regular rhythm, S1 normal heart sound present and S2 normal heart sound present RATE: regular rate RHYTHM: regular rhythm HEART SOUNDS: S1 normal heart sound present and S2 normal heart sound present GI: COMMON NORMALS: Normal to inspection, nondistended, normoactive bowel sounds present, Soft to palpation, non-tender, No hepatosplenomegaly present, no masses and no bruits PALPATION: Yes Soft to palpation and Yes No hepatosplenomegaly present Extremity: COMMON NORMALS: capillary refill normal, no clubbing, cyanosis or edema, no calf tenderness and no pedal edema Neuro: COMMON NORMALS: patient oriented x3 Psych: COMMON NORMALS: mental status grossly normal Urinary Catheter Management^: Greenberg: Cath Placed During This Visit: yes, but has since been removed by the nurse Reason for Continuing Indwelling Catheter: Not indwelling catheter Urinary Catheter Date of Insertion: 12/27/20 Urinary Catheter Time of Insertion: 05: Date Urinary Catheter Removed: 01/11/21 Time Urinary Catheter Discontinued: 17:48 Data : 01/12/21 05:40 01/12/21 05:40 A&P Assessment and plan (1) Acute and chronic respiratory failure with hypercapnia: Performing self suctioning. Currently on general medical floors, PT OT, trach care Discussed with nursing staff, initiate education for her and her , can come in after hours at a reasonable time, a few more times for trach education Will start trilogy here on the floors, starting tonight Status post tracheostomy 01/03. s/p trach change on Wednesday Patient will require a home trilogy, with her tracheostomy Patient will need supplies delivered to the hospital Patient and need extensive education about trach care, trilogy use, she needs help from her Overnight there was issues with the connector with a trilogy machine to her trach collar, I was told by respiratory therapy that the issue was resolved, however there was concerns about elevated pressures, will do another trial today with a trilogy machine, if there is any issues by tomorrow, will have Dr. Corona take a look Chest x-ray shows possible pneumonia, at the left lung base, she remains afebrile, no significant leukocytosis, will start on doxycycline for now UA, indicated of UTI, start on Rocephin, follow urine culture End-stage COPD Completed antibiotic course. Lovenox Pepcid for GI prophylaxis Plan for today, still waiting on trach supplies, encourage to come in for trach education, start trilogy machine tonight, monitor for issues with trilogy machine, elevated pressures, Rocephin for UTI, doxycycline for pneumonia, monitor respiratory status Status: Acute (2) COPD, severe: As above Status: Chronic (3) Benign essential HTN: Status: Chronic (4) Parasomnia: Sleep study after DC. Refer to sleep specialist. Status: Acute (5) UTI (urinary tract infection): Status: Acute Attestations Medical Necessity Statement*: Patient requires hospitalization for acute on chronic respiratory failure with hypercapnia, status post tracheostomy, awaiting home trilogy machine, tracheostomy supplies, Coding Level of Care Code Acute Tissue Specialist for [facility] Diagnoses Acute and chronic respiratory failure with hypercapnia J96.22 COPD, severe J44.9 Benign essential HTN I10 Parasomnia G47.50 UTI (urinary tract infection) N39.0
[2021-01-12] MEDS: LORazepam 0.5 mg Tablet PO (20:25)
[2021-01-13] VITALS (110 sets, daily range): BP systolic 87–155; BP diastolic 53–88; PULSE 70–114; RESP 13–30; TEMP 36.6–37.3; O2SAT 44–99
--- NOTE | 2021-01-13 00:08 | XRR_ITS ---
PROCEDURE INFORMATION: Exam: XR Chest Exam date and time: 01/13/2021 2:03 AM Age: 60 years old Clinical indication: Device placement; Tracheostomy placement or adjustment; Additional info: Trach placement TECHNIQUE: Imaging protocol: XR of the chest. Views: 1 view. Other technique: Frontal portable supine view of the chest. COMPARISON: CR (CHEST, ) 01/11/2021 8:15 AM FINDINGS: Tubes, catheters and devices: The tracheostomy tube tip is approximately 8.5 cm above the britney. EKG leads are present overlying the chest. Lungs: Resolved left lateral basilar infiltrate. Mild left basilar pulmonary subsegmental atelectasis. The lungs are otherwise peripherally clear bilaterally. The pulmonary vasculature is normal. Pleural spaces: No pleural effusion. No pneumothorax. Heart/Mediastinum: The heart is normal in size and contour. Mediastinum: Stable. Bones/joints: Stable. XR/XR chest 1V portable [id number] IMPRESSION: 1. Resolved left lateral basilar infiltrate. 2. Tracheostomy tube placement as above. 3. Mild left basilar pulmonary subsegmental atelectasis.
[2021-01-13] MEDS: HYDROmorphone 1 mg/mL INJ 1 mL 0.5 MG IVP (00:41)
[2021-01-13] MEDS: ipratropium-albuterol 3 mL Neb INHALATION ×4 (02:01→20:13)
--- NOTE | 2021-01-13 02:24 | PC.NURSE ---
0140 [facility] 2 on bedside monitor. RT at bedside placed on Triliogy at bedside tolerated well. Pt received Dilaudid prior to transfer. Pt responds to pain only VSS. Resting comfortably will monitor
--- NOTE | 2021-01-13 02:27 | PC.NURSE ---
PATIENT STATUS CHANGE: PATIENT HAD GOTTEN UP TO USE THE BEDSIDE COMMODE AND UPON RETURNING BACK TO BED PATIENT PUT CALL LIGHT ON. THIS NURSE ENTERED ROOM AND NOTICED TUBING WAS OFF OF THE TRACHEOTOMY. PATIENT POINTED TO VENTILATION TUBES ON BED THEN POINTED TO NECK. THIS NURSE LOOKED TO FIND THE PART THAT ATTACHED TO THE TRACH BUT DID NOT SEE IT. THIS NURSE THEN PUT TUBING STRAIGHT ONTO END OF TRACH AND HAD ANOTHER STAFF NURSE CALL RESPIRATORY. THIS NURSE TURNED ON THE ROOM LIGHT AND NOTICED THE TRACH WAS COMPLETELY OUT OF THE STOMA SITE. OXYGEN SENSOR WAS PLACED ON FINGER AND PATIENT WAS SATING AT 44%. RESPIRATORY ENTERED ROOM AND BEGAN WORKING ON PATIENT TO RE-ESTABLISH AIRWAY AND TRACH PLACEMENT. OXYGEN SATURATION INCREASED TO 87%. THIS NURSE CALLED THE HOSPITALIST AND WHILE ON PHONE A RAPID RESPONSE WAS CALLED OVERHEAD. CHARGE NURSE, OTHER MED-SURG STAFF, HOSPITALIST, RESPIRATORY, RECEIVING DISTRIBUTION STATION OPERATOR, HOUSE SUPER AND RAPID RESPONSE TEAM ALL ARRIVED SHORTLY THERE AFTER. AFTER UNSUCCESSFULLY TRYING TO RE-INSERT TRACH, RESPIRATORY WAS MANUALLY BAGGING PATIENT TO PROVIDE OXYGEN UNTIL A NON RE-BREATHER MASK WAS BROUGHT INTO ROOM AND PLACED ON PATIENT, AFTER PLACEMENT OXYGEN SATURATION INCREASED TO 94%. A CALL WAS MADE TO THE ER TO ASK DR. LEMOS IF HE COULD COME UP AND INSERT NEW TRACH. PATIENT WAS GIVEN 0.5MG DILAUDID IVP BY ICU NURSE PER DR. VYAS. ON THIRD ATTEMPT THE TRACH WAS SUCCESSFULLY INSERTED. X RAY WAS TAKEN FOR PLACEMENT. DR. VYAS ORDERED FOR PATIENT TO BE TRANSFERRED TO ICU ROOM 2. PATIENTS BEDDING AND GOWN WAS CHANGED DUE TO BEING SOILED BEFORE TRANSFER. THIS NURSE, DRAFTER COMMERCIAL AND RESPIRATORY TRANSFERRED PATIENT TO ICU ROOM 2 AND REPORT WAS GIVEN AT BEDSIDE TO TALENT DEVELOPMENT DIRECTOR. THIS NURSE THEN TRIED TO CALL PATIENTS , PER HER CONTACT SHEET BUT NO ANSWER. THIS NURSE WILL ATTEMPT AGAIN IN MORNING BEFORE END OF SHIFT.
[2021-01-13] MEDS: enoxaparin 40 mg/0.4 mL Syringe SUBCUT (04:46)
[2021-01-13] MEDS: famotidine 20 mg/2 mL INJ IVP ×2 (04:46→16:58)
[2021-01-13 04:58] LABS: ABG PH Result 7.32 (7.35-7.45); Base Excess ABG 16.5 mmol/L (-2.0-2.0); Blood Gas Sample Site Brachial, left; Blood Gas Sample Type Arterial; Oxygen Device BIPAP; PO2 ABG 68.5 mmHg (80.0-100.0)
[2021-01-13 05:03] LABS: ABG PCO2 89.1 mmHg (35-45)
[2021-01-13 06:04] LABS: Basophils % 0.6 %; Eosinophils # 0.2 10^3/uL (0.0-0.8); Eosinophils % 4.6 %; Hematocrit 35.8 % (37.0-47.0); Hemoglobin 10.5 g/dL (11.5-15.3); Lymphocytes # 1.2 10^3/uL (0.8-4.8); Lymphocytes % 23.5 %; Mean Corpuscular HGB Conc 29.3 g/dL (30.0-36.0); Mean Corpuscular Hemoglobin 29.1 pg (28.0-34.0); Mean Corpuscular Volume 99.2 fL (81-99); Mean Platelet Volume 11.8 fL (7.4-10.4); Monocytes # 0.6 10^3/uL (0.2-0.9); Monocytes % 10.7 %; Neutrophils # 3.13 10^3/uL (1.8-7.7); Neutrophils % 59.6 %; Nucleated Red Blood Cells % 0 %; Platelet Count 174 10^3/cmm (130-400); Red Blood Count 3.61 10^6/uL (4.1-5.3); Red Cell Distribution Width 14.4 % (12.1-15.1); White Blood Count 5.2 10^3/uL (4.0-10.0)
[2021-01-13 06:47] LABS: Alanine Aminotransferase 24 U/L (0-33); Albumin Level 3.1 g/dL (3.5-5.2); Alkaline Phosphatase 64 IU/L (35-105); Anion Gap 8.8 (5-19); Aspartate Amino Transferase 19 U/L (0-32); Blood Urea Nitrogen 15 mg/dL (8-23); Calcium 8.7 mg/dL (8.5-10.5); Chloride 99 mmol/L (98-107); Globulin 2.4 g/dL (1.3-4.6); Glomerular Filtration Rate 162.3 mL/min (90-130); Glucose 128 mg/dL (65-115); Magnesium 1.9 mg/dL (1.7-2.3); NT Pro B Type Natriuretic Pept 87 pg/mL (0-125); Osmolality Calculated 302 mOsm/kg (285-295); Phosphorus 3.5 mg/dL (2.5-4.5); Potassium 3.8 mmol/L (3.5-5.1); Sodium 145 mmol/L (136-145); Total Bilirubin 0.3 mg/dL (0.15-1.2); Total Protein 5.5 g/dL (6.6-8.7)
[2021-01-13 06:59] LABS: Carbon Dioxide 41 mmol/L (22-29)
--- NOTE | 2021-01-13 07:01 | PM.EVENT ---
Event Note Event Note: Rapid response was called for trach dislodgment (Shiley size 6), patient pulled her trach and also removed tubing of trilogy which was at the bedside When I entered the room she was saturating 95% with BMV, respiratory therapist tried to reinsert tracheostomy tube with new inner cannula and obturator but was meeting a lot of resistance on suctioning I requested Dr. Davenport for stat evaluation, Dr. Davenport put the trach tube after preloading on the stylette on third attempt after changing position of the patient from supine to upright Requesting chest x-ray to rule out any trauma during reinsertion such as tracheal esophageal fistula, transferred to ICU,She remained hemodynamically stable, Will need ENT evaluation
[2021-01-13] MEDS: LORazepam 0.5 mg Tablet PO ×2 (07:41→15:23)
[2021-01-13] MEDS: budesonide 0.5 mg/2 mL Neb INHALATION ×2 (08:36→20:13)
--- NOTE | 2021-01-13 08:59 | PC.NURSE ---
Patient describes pain of 6 or 7/10 related to the trach. There was a lot of manipulation last night when the trach tube came out. No pain medication available in the DEC. Nurse called Dr beltran for orders.
[2021-01-13] MEDS: amlodipine 5 mg Tablet PO (09:07)
[2021-01-13] MEDS: ARIPiprazole 2 mg Tablet PO (09:07)
[2021-01-13] MEDS: doxycycline 100 mg Tablet PO ×2 (09:08→17:01)
[2021-01-13] MEDS: aspirin 81 mg EC Tablet PO (09:08)
[2021-01-13] MEDS: citalopram 20 mg Tablet 10 MG PO ×2 (09:08→17:02)
[2021-01-13] MEDS: metoprolol tartrate 50 mg Tablet PO ×2 (09:09→21:17)
[2021-01-13] MEDS: montelukast sodium 10 mg Tablet PO (09:09)
[2021-01-13] MEDS: predniSONE 10 mg Tablet PO (09:09)
[2021-01-13] MEDS: cefTRIAXone 1,000 MG in sodium chloride 0.9% (plus) 50 ML 100 MG IV (09:09)
[2021-01-13] MEDS: sennosides-docusate Tablet 1 TAB PO (09:09)
[2021-01-13] MEDS: HYDROcodone-acetaminophen 5-325 mg Tablet 1 TAB PO ×2 (09:48→21:17)
--- NOTE | 2021-01-13 12:07 | PC.SOCIAL ---
*IMM Update* Accounting Machine Mechanic gave patient IMM update, provided her with copy of page 2 of IMM. Understood. 01/13/21 @ 1148 Initialed, dated, timed and placed in chart.
[2021-01-13 12:45] LABS: ABG PCO2 86.2 mmHg (35-45)
--- NOTE | 2021-01-13 16:10 | PC.OT ---
OT note: Attempted at approximately 1430 and 1600. Pt requested to rest for today as she was tired from the events of early this morning. Will hold per patient's request.
--- NOTE | 2021-01-13 18:47 | PC.NURSE ---
Shift Summary: Uneventful day. Patient was in pain this morning related to the difficulties of reinserting the trach last night. Does experience anxiety which is relieved with PRN ativan. Was eager to sit on side of bed and even stand at times for exercise so she required frequent assistance from nurse to manage trach tube
--- NOTE | 2021-01-13 20:15 | PC.NURSE ---
Received bed side shift report from off going nurse. Pt's plan of care reviewed. Pt sitting up in bed. Respirations are even and unlabored. No s/sx of distress noted. Pt c/o of mild pain in her throat where the trach is. Pt has prn pain medication for pain management. Pt states that the pain medication does manage her pain. Pt denies any other pains or concerns at this time. Bed in lowest and locked position, call light and water within reach, x's 2 rails up. Will continue to monitor pt.
--- NOTE | 2021-01-13 23:36 | P.PN_ITS ---
Subjective Subjective: Interval history: Events of this morning noted. Patient complained of pain at the trach site from where they had to replace the tracheostomy tube. She is very anxious about the tracheostomy tube coming out again. We talked about what to do if the tube comes out and I reminded her that there is still an opening there. She feels fairly certain that things just got tangled up between the trilogy machine and the tracheostomy tube while she was sleeping. Vitals/I&O/Wt Last Vital Signs Temp 97.9 F 01/13/21 21:08 Pulse 92 01/13/21 22:27 Resp 25 H 01/13/21 21:08 BP 111/55 01/13/21 21:08 Pulse Ox 96 01/13/21 22:11 01/13/21 01/13/21 01/14/21 14:59 22:59 06:59 Intake Total 530 / 530 360 / 890 Output Total 100 / 100 Balance 430 / 430 360 / 790 Weight last 48 hrs Weight 97.069 kg Weight 91.626 kg Physical Exam Narrative: EXAM NARRATIVE: Patient seen and examined. Intermittently able to vocalize. Encouraged her not to strain her voice. Tracheostomy tube is currently intact. Scant amount of some bleeding noted but no bruising. Coarse breath sounds throughout. Regular rhythm. Abdomen is soft. Edema noted. Urinary Catheter Management^: Greenberg: Cath Placed During This Visit: yes, but has since been removed by the nurse Reason for Continuing Indwelling Catheter: Not indwelling catheter Urinary Catheter Date of Insertion: 12/27/20 Urinary Catheter Time of Insertion: 05:26 Date Urinary Catheter Removed: 01/11/21 Time Urinary Catheter Discontinued: 17:48 Data : 01/13/21 05:03 01/13/21 05:03 A&P Assessment and plan (1) Acute and chronic respiratory failure with hypercapnia: Status: Acute (2) Status post tracheostomy: Placed by Dr. Merritt Status: Acute (3) Acute exacerbation of chronic obstructive airways disease: Status: Acute (4) Benign essential HTN: Status: Chronic (5) Anxiety and depression: Status: Chronic (6) UTI (urinary tract infection): Status: Acute (7) Parasomnia: Status: Acute Additional A&P Information Continue education about tracheostomy management We continue to await approval for home trilogy device, paperwork has been submitted May have to consider further discussion with pulmonology continue to be able to make progress towards disposition Cannot be discharged without appropriate home device Family is being educated about tracheostomy management with visitation On Rocephin for UTI, urine culture was sent On doxycycline On 10 mg a day of prednisone, budesonide, DuoNeb, albuterol and Singulair Has as needed benzodiazepines but with hypercapnia not the best of options though these are chronic medications On prophylactic Lovenox Supportive care otherwise PT and OT eval to increase activity Disposition Home when home trilogy device is available Is for back to medical floor if no acute issues today although dislodgment of tracheostomy tube may continue to be an intermittent problem. Need to keep an extra tracheostomy tube at bedside. Full code Findings, concerns and plans were discussed with patient and she was given an opportunity to ask questions Attestations Medical Necessity Statement*: Requires ongoing inpatient management for monitoring status post tracheostomy, educating on tracheostomy care and support while home ventilator is arranged. Hopefully if we can get this arranged now that she has a tracheostomy tube we will have a decrease in repeated admissions necessitating intubation and mechanical ventilation. She remains at high risk for rapid clinical decline with her comorbidities. Coding Level of Care Code Acute Primer Waterproofing Machine Operator for Chg Fwd Diagnoses Acute and chronic respiratory failure with hypercapnia J96.22 Status post tracheostomy Z93.0 Acute exacerbation of chronic obstructive airways disease J44.1 Benign essential HTN I10 Anxiety and depression F41.9; F32.9 UTI (urinary tract infection) N39.0 Parasomnia G47.50
[2021-01-14] VITALS (116 sets, daily range): BP systolic 89–150; BP diastolic 57–98; PULSE 79–133; RESP 14–27; TEMP 36.7–37.2; O2SAT 65–100; BMI 35.5
[2021-01-14] MEDS: ipratropium-albuterol 3 mL Neb INHALATION ×4 (02:45→20:22)
[2021-01-14 04:01] LABS: Basophils % 0.5 %; Eosinophils # 0.3 10^3/uL (0.0-0.8); Eosinophils % 5.3 %; Hematocrit 35.1 % (37.0-47.0); Hemoglobin 10.4 g/dL (11.5-15.3); Lymphocytes # 1.4 10^3/uL (0.8-4.8); Lymphocytes % 25.5 %; Mean Corpuscular HGB Conc 29.6 g/dL (30.0-36.0); Mean Corpuscular Hemoglobin 29.1 pg (28.0-34.0); Mean Corpuscular Volume 98.3 fL (81-99); Mean Platelet Volume 11.7 fL (7.4-10.4); Monocytes # 0.5 10^3/uL (0.2-0.9); Monocytes % 9.5 %; Neutrophils # 3.23 10^3/uL (1.8-7.7); Neutrophils % 58.7 %; Nucleated Red Blood Cells % 0 %; Platelet Count 159 10^3/cmm (130-400); Red Blood Count 3.57 10^6/uL (4.1-5.3); Red Cell Distribution Width 14.5 % (12.1-15.1); White Blood Count 5.5 10^3/uL (4.0-10.0)
[2021-01-14 04:19] LABS: Blood Urea Nitrogen 13 mg/dL (8-23); Calcium 8.7 mg/dL (8.5-10.5); Carbon Dioxide 40 mmol/L (22-29); Chloride 96 mmol/L (98-107); Glomerular Filtration Rate 162.3 mL/min (90-130); Glucose 96 mg/dL (65-115); Osmolality Calculated 288 mOsm/kg (285-295); Sodium 139 mmol/L (136-145)
[2021-01-14 05:09] LABS: ABG PH Result 7.33 (7.35-7.45); Arterial Blood Gas Hematocrit 30.4 % (37-47); Base Excess ABG 18.1 mmol/L (-2.0-2.0); Blood Gas Operator Identificat JB; Blood Gas Sample Site Brachial, right; Blood Gas Sample Type Arterial; Blood Gas Tidal Volume 0.45; HCO3 ABG 47.3 mmol/L (22-26); Oxygen Device VENT; PO2 ABG 91.3 mmHg (80.0-100.0)
[2021-01-14 05:11] LABS: ABG PCO2 89.6 mmHg (35-45)
[2021-01-14] MEDS: enoxaparin 40 mg/0.4 mL Syringe SUBCUT (05:31)
[2021-01-14] MEDS: famotidine 20 mg/2 mL INJ IVP ×2 (05:32→16:17)
--- NOTE | 2021-01-14 08:32 | P.PN_ITS ---
Subjective Subjective: Interval history: Trach remained intact last evening. No new issues reported. Spoke with patient's at length about what a trilogy device is and he had lots of questions about taking care of her at home. We also reviewed possibility rehabilitation and he is not interested in that if it is in [place]. We were considering long-term acute care while she transitions to having the tracheostomy tube in place. Paperwork has been submitted for trilogy device according to staff members here, pulmonology as well as company will provide the device. Has not yet been approved. Patient's brought up that he did not want to have to deal with the trach coming out at home. I explained to him that all tracheostomy tubes have the potential for the most part to come out at some point in time and learning how to manage them as part of the process. We reviewed general management in such a situation. Uses as an opportunity to review with the patient again as well to stay calm should something like this happen in the future reminding her of the opening that is there to help her breathe. had some good questions which I addressed. Vitals/I&O/Wt Last Vital Signs Temp 98.1 F 01/14/21 05:19 Pulse 92 01/14/21 06:20 Resp 19 H 01/14/21 05:19 BP 102/57 01/14/21 05:19 Pulse Ox 94 01/14/21 06:06 01/13/21 01/14/21 01/14/21 22:59 06:59 14:59 Intake Total 360 / 890 Output Total 650 / 750 Balance 360 / 790 -650 / 140 Weight last 48 hrs Weight 99.79 kg Weight 97.069 kg Physical Exam Narrative: EXAM NARRATIVE: No acute distress, tracheostomy site intact, not coughing as much today, distant heart sounds but regular abdomen soft no change to lower extremities Urinary Catheter Management^: Greenberg: Cath Placed During This Visit: yes, but has since been removed by the nurse Reason for Continuing Indwelling Catheter: Not indwelling catheter Urinary Catheter Date of Insertion: 12/27/20 Urinary Catheter Time of Insertion: 05: Date Urinary Catheter Removed: 01/11/21 Time Urinary Catheter Discontinued: 17:48 Data : 01/14/21 03:09 01/14/21 03:09 A&P Assessment and plan (1) Acute and chronic respiratory failure with hypercapnia: Status: Acute (2) Status post tracheostomy: Placed by Dr. Merritt Status: Acute (3) Acute exacerbation of chronic obstructive airways disease: Status: Acute (4) Benign essential HTN: Status: Chronic (5) Anxiety and depression: Status: Chronic (6) UTI (urinary tract infection): Status: Acute (7) Parasomnia: Status: Acute Additional A&P Information Await approval of trilogy device Discussed briefly with Dr. Corona plans of management post discharge. Will talk with him further and he will also reviewed with patient and Cannot be discharged without appropriate home device Continue education about tracheostomy management with patient and On Rocephin for UTI, day #3, urine culture was not sent On doxycycline day #4 On 10 mg a day of prednisone, budesonide, DuoNeb, albuterol and Singulair Has as needed benzodiazepines but with hypercapnia not the best of options though these are chronic medications On prophylactic Lovenox Supportive care otherwise PT and OT eval to increase activity Disposition Home when home trilogy device is available Transfer back to medical floor. Need to keep an extra tracheostomy tube at bedside. Full code Findings, concerns and plans were discussed with patient and she was given an opportunity to ask questions Attestations Medical Necessity Statement*: Requires ongoing inpatient stay as she is unable to be discharged until we are able to arrange home ventilator. At extremely high risk of repeat admission as evidenced by recurrent admissions prior to this stay with acute respiratory failure requiring mechanical ventilation. Has chronic hypercapnia. Time Spent in Patient Care: Greater than 35 minutes (>than 50% of time spent in counselling and/or direct pt care on unit) . 40 min talking to hus band, patient face to face and caring for patient today Coding Level of Care Code Acute Submarine Element Coordinator for Chg Fwd Diagnoses Acute and chronic respiratory failure with hypercapnia J96.22 Status post tracheostomy Z93.0 Acute exacerbation of chronic obstructive airways disease J44.1 Benign essential HTN I10 Anxiety and depression F41.9; F32.9 UTI (urinary tract infection) N39.0 Parasomnia G47.50
[2021-01-14] MEDS: budesonide 0.5 mg/2 mL Neb INHALATION ×2 (08:37→20:22)
[2021-01-14] MEDS: LORazepam 0.5 mg Tablet PO ×2 (09:08→18:32)
[2021-01-14] MEDS: sennosides-docusate Tablet 1 TAB PO (09:09)
[2021-01-14] MEDS: doxycycline 100 mg Tablet PO ×2 (09:09→18:31)
[2021-01-14] MEDS: aspirin 81 mg EC Tablet PO (09:09)
[2021-01-14] MEDS: ARIPiprazole 2 mg Tablet PO (09:09)
[2021-01-14] MEDS: montelukast sodium 10 mg Tablet PO (09:09)
[2021-01-14] MEDS: citalopram 20 mg Tablet 10 MG PO ×2 (09:09→18:32)
[2021-01-14] MEDS: amlodipine 5 mg Tablet PO (09:10)
[2021-01-14] MEDS: metoprolol tartrate 50 mg Tablet PO (09:10)
[2021-01-14] MEDS: predniSONE 10 mg Tablet PO (09:10)
[2021-01-14] MEDS: cefTRIAXone 1,000 MG in sodium chloride 0.9% (plus) 50 ML 100 MG IV (10:21)
--- NOTE | 2021-01-14 20:55 | PC.RESP ---
Pt trach became dislodged, called doctor to bedside. deflated trach cuff withdrew trach. Checked trach cuff, removed inner cannula, placed obturator in trach. Reinserted trach without further incident. Patient doing well awake and alert . o2 sat 93% on 10lm oxygen bleed in on triology
[2021-01-14] MEDS: HYDROcodone-acetaminophen 5-325 mg Tablet 1 TAB PO (23:55)
[2021-01-15] VITALS (55 sets, daily range): BP systolic 109–137; BP diastolic 46–107; PULSE 75–131; RESP 14–23; TEMP 36.6–37.1; O2SAT 85–99; BMI 34.4
[2021-01-15] MEDS: ipratropium-albuterol 3 mL Neb INHALATION ×6 (02:59→23:49)
[2021-01-15] MEDS: famotidine 20 mg/2 mL INJ IVP ×2 (04:15→17:01)
[2021-01-15] MEDS: enoxaparin 40 mg/0.4 mL Syringe SUBCUT (04:16)
[2021-01-15] MEDS: LORazepam 0.5 mg Tablet PO ×2 (04:16→17:01)
[2021-01-15 06:23] LABS: ABG PH Result 7.29 (7.35-7.45); Arterial Blood Gas Hematocrit 33.1 % (37-47); Base Excess ABG 15.6 mmol/L (-2.0-2.0); Blood Gas Allen Test Pos; Blood Gas Operator Identificat JB; Blood Gas Sample Site Radial, left; Blood Gas Sample Type Arterial; Blood Gas Tidal Volume 0.45; HCO3 ABG 45.7 mmol/L (22-26); Oxygen Device BIPAP; PO2 ABG 67.7 mmHg (80.0-100.0)
[2021-01-15] MEDS: budesonide 0.5 mg/2 mL Neb INHALATION ×2 (07:40→20:05)
--- NOTE | 2021-01-15 08:25 | XR_ITS ---
WS: [id number] Portable AP semiupright chest, 01/15/2021 Clinical Data: trach placement Comparison: Portable chest, 01/13/2021. Findings: No nodules, masses or effusions are seen. The heart is normal. The pulmonary vascularity is not increased. No pneumonia or pneumothorax is seen. The tracheal tube remains in good position. Mon itor leads are on the chest wall. The costophrenic angles are not included on the image. XR/XR chest 1V portable [id number] Impression: Tracheal tube in good position.
[2021-01-15 08:32] LABS: ABG PH Result 7.36 (7.35-7.45); Arterial Blood Gas Hematocrit 33.5 % (37-47); Base Excess ABG 16.1 mmol/L (-2.0-2.0); Blood Gas Allen Test Pos; Blood Gas Operator Identificat CK; Blood Gas Sample Site Radial, left; Blood Gas Sample Type Arterial; Blood Gas Tidal Volume 0.35; HCO3 ABG 44.8 mmol/L (22-26); Oxygen Device VENT
--- NOTE | 2021-01-15 09:03 | XR_ITS ---
WS: [id number] AP and lateral soft tissue neck, 01/15/2021 Clinical Data: trach dislodged, resp distress Comparison: None. Findings: The tracheal tube appears to be in good position. It ends above the britney. XR/XR soft tissue neck [id number] Impression: Tracheal tube in good position.
--- NOTE | 2021-01-15 09:04 | PM.PN ---
Subjective Subjective: Interval history: Patient had another event in which she pulled out her tracheostomy tube. She has no recollection of it. Nursing notes indicated that she got up to use the bedside commode and when she called nurse to come back into the room, trach was able to be replaced but since then has had difficulty ventilating. She had to be taken off of trilogy and put on actual mechanical ventilator. She has been having high peak pressures since then. It appears that the cuff has probably obtained a leak. She is able to talk around the trach and vocalize. Tracheostomy tube quite positional and is requiring her to sit up and have tube pushed to the right. I discussed the case with Dr. Merritt who will come by and see her later today and evaluate. Decision made to proceed with changing the trach. Mitchel from respiratory therapy and I work together to replace the trach. There was some resistance but able to get past it. With cuff inflated pressures are better and tidal volume is better. Oxygen saturations have improved. Case was reviewed with Dr. Corona. Trilogy paperwork has been approved. Whenever it arrives she will have to be monitored on her home trilogy device here in the hospital for a few days according to him before going back home. I had spoken with the yesterday about consideration for long-term acute care under the circumstances of her having pulled out her trach 1 time. He was against this due to location being in [place]. With repeat events last evening I again am concerned about disposition home as I think she will be right back when she pulls out her tracheostomy tube. For the time being we will keep her on the ventilator per my discussion with Dr. Corona, optimize her settings and then try to put her back on the trilogy. Dr. Corona will talk to her about the benefits of long-term acute care where she can get more accustomed to her tracheostomy tube for safer long-term management. Vitals/I&O/Wt Last Vital Signs Temp 97.9 F 01/15/21 04:15 Pulse 92 01/15/21 07:43 Resp 21 H 01/15/21 07:40 BP 125/80 01/15/21 04:15 Pulse Ox 98 01/15/21 07:40 01/14/21 01/15/21 01/15/21 22:59 06:59 14:59 Intake Total 1200 / 1850 Output Total 250 / 450 Balance 1200 / 1650 -250 / 1400 Weight last 48 hrs Weight 96.729 kg Weight 99.79 kg Physical Exam Narrative: EXAM NARRATIVE: Patient tachypneic and mildly cyanotic at the time of my evaluation. Anxious. She is able to talk around the tracheostomy tube. It is very positional. Wheezing noted. Still with some sputum production. Regular rhythm. Abdomen is soft. A little puffy today. Tracheostomy site with scant amount of oozing after replacement of tube but not out of the realm of normal. Mucus was noted blocking the end of the other tube despite having been recently suctioned. Urinary Catheter Management^: Greenberg: Cath Placed During This Visit: yes, but has since been removed by the nurse Reason for Continuing Indwelling Catheter: Not indwelling catheter Urinary Catheter Date of Insertion: 12/27/20 Urinary Catheter Time of Insertion: 05: Date Urinary Catheter Removed: 01/11/21 Time Urinary Catheter Discontinued: 17:48 Data : 01/14/21 03:09 01/14/21 03:09 A&P Assessment and plan (1) Acute and chronic respiratory failure with hypercapnia: Recurrent, severe with multiple admissions requiring intubation and mechanical ventilation. Given recurrent need for intubation decision was made to proceed with tracheostomy tube this hospital stay Status: Acute (2) Acute exacerbation of chronic obstructive airways disease: Has gold class D COPD with an FEV1 of 16%. Has been treated with doxycycline, inhaled steroids, oral steroids and breathing treatments. Chronically on Singulair. Status: Acute (3) Status post tracheostomy: Placed by Dr. Merritt on January 03. Tube has become dislodged twice. Today with increased respiratory difficulties affiliated with a cuff leak. Tracheostomy tube has been replaced again. Status: Acute (4) Benign essential HTN: Chronically on amlodipine and beta-blockade Status: Chronic (5) Anxiety and depression: With intermittent confusion, commendation of medications I believe as well as chronic issues related to both anxiety and hypercapnia, new tracheostomy. Confusion is worse at night. Is not on home trazodone presently. Does have hydrocodone and Ativan. Chronically on citalopram and Abilify both of which remain on board here. Status: Chronic (6) Normocytic anemia: Suspect multifactorial from iatrogenic blood draws as well as due to a degree of chronic inflammation and possibly acutely degree of volume dilution. Has not had significant blood loss from tracheostomy site. Status: Acute (7) UTI (urinary tract infection): Suspected diagnosis based on urinalysis from January 11 demonstrating 2+ leukocyte esterase, greater than 100 red blood cells and 15-25 white blood cells. Had similar findings at presentation but urine culture from admission was no growth. It does not appear that urine culture was sent from urinalysis on January 11. Review indicates that the doctor ordered a urinalysis and specifically requested no urine culture. Rocephin was started. There was no indication of elevation in white count. No evidence of any fever throughout the hospital stay. Urine was grossly bloody at the time. My personal interpretation is that this specimen was consistent with Greenberg trauma. Greenberg catheter was removed on the same day as the urinalysis after hematuria noted. degree of white blood cells is not unusual for the degree of hematuria. There was trace bacteria. Do not currently feel that this is a catheter associated urinary tract infection based on review. Status: Ruled-out (8) Parasomnia: Clinically has sleep apnea though has not had a formal sleep study that I am aware of. Has had orders for night pulse oximetry and prior attempts to get trilogy due to chronic hypercapnic respiratory failure. I do not know if it has been denied previously or if patient has not followed through or if patient has been rehospitalized and subsequently intubated so much it just has not been able to be set up at home. Status: Acute (9) BMI 34.0-34.9,adult: Status: Chronic Additional A&P Information Monitor closely, continuing in the ICU setting, after replacement of tracheostomy tube today Dr. Merritt will come by and see the patient evaluate her tracheostomy tube he is out of surgery Dr. Corona will assist with further ventilatory settings and transition back to trilogy device. He will also talk with patient's to see if he can help him understand why consideration for long-term acute care is important for Mrs. Reeder given high risk of tracheostomy tube dislodging as we have seen here in the hospital and need for acute intervention. I do not get a strong sense that he and her are going to be able to manage this tracheostomy tube at home presently. Long-term acute care would give her an opportunity to become more accustomed to the tracheostomy tube and learn how to care for and manage it better. Dr. Corona discussed with Brady regarding trilogy device for home use, continue to await approval Once home device arrives will need to be monitored in the hospital setting for a couple of days if disposition plans remain for her to go home Continue tracheostomy education with patient and We will stop Rocephin as I do not clinically suspect urinary tract infection Continue doxycycline for a full 7-day course Until ENT is able to see her, will limit activities to get out of bed; afterwards can resume PT and OT Continue home dose of steroids, inhaled budesonide and duo nebs along with Singulair Continue home citalopram and Abilify along with as needed Ativan Continue home amlodipine, metoprolol and aspirin therapy Remains off of home trazodone, will resume and see if it helps her get through the night. There is a risk it can make her more confused or somnolent not know what is going on Has as needed hydrocodone for pain related to tracheostomy tube along with Tylenol. On prophylactic Lovenox therapy On IV H2 jagdeep, will change to oral Add lactobacillus, continue laxatives Supportive care otherwise Management at this point is related to tenuous respiratory status with new tracheostomy tube and a transition to home ventilator. Ultimately the goal is for her to only be on the home ventilator via the tracheostomy tube at night but the last few days she has been staying on it much of the time during the day. She is sleeping quite a bit. Which appropriate for her to maintain the ventilator when she is sleeping. Need to work on increasing time off of the ventilator. I have significant concerns about her ability to safely go home and manage the tracheostomy tube given that we have had to acute issues with removal of the tube by her with difficult replacement in the most recent time requiring adjustments to ventilatory and oxygen support. [place] disposition would be to long-term acute care where they can continue to work on training her to manage her tracheostomy tube but I am not sure that her and her will consent to this. Local skilled facilities I am not certain would be much better than her and her at home in terms of decreasing healthcare utilization, but may be an option to consider if they will take a patient with a tracheostomy tube. Anticipate significant risk of frequent recurrent admissions despite tracheostomy tube placement Full code Have discussed with ENT, pulmonology, respiratory, nursing staff and will attempt to update . [place] and [place] able to be reached immediately. Attestations Medical Necessity Statement*: Requires ongoing inpatient and ICU level care for issues clearly outlined above. High risk of clinical respiratory decline acutely. Critical Care Time: The high probability of a clinically significant, sudden or life threatening deterioration of the patient's pulmonary system(s), particularly tracheostomy tube, required my full and direct attention, intervention and personal management. The critical care time is as shown. This time is in addition to time spent performing any reported procedures but includes the following: [x] Data and vital sign review and interpretation [x] Patient assessment, examination and intervention [x] Documentation [x] Medication orders and management Critical Care Time (min): 40 Coding Level of Care Code Acute Stroke Belt Sander Operator for [facility] Fwd Diagnoses Acute and chronic respiratory failure with hypercapnia J96.22 Acute exacerbation of chronic obstructive airways disease J44.1 Status post tracheostomy Z93.0 Benign essential HTN I10 Anxiety and depression F41.9; F32.9 Normocytic anemia D64.9 UTI (urinary tract infection) N39.0 Parasomnia G47.50 BMI 34.0-34.9,adult Z68.34
[2021-01-15] MEDS: doxycycline 100 mg Tablet PO ×2 (09:21→17:01)
[2021-01-15] MEDS: aspirin 81 mg EC Tablet PO (09:21)
[2021-01-15] MEDS: amlodipine 5 mg Tablet PO (09:22)
[2021-01-15] MEDS: predniSONE 10 mg Tablet PO (09:22)
[2021-01-15] MEDS: citalopram 20 mg Tablet 10 MG PO ×2 (09:22→17:01)
[2021-01-15] MEDS: sennosides-docusate Tablet 1 TAB PO (09:22)
[2021-01-15] MEDS: metoprolol tartrate 50 mg Tablet PO ×2 (09:22→21:10)
[2021-01-15] MEDS: ARIPiprazole 2 mg Tablet PO (09:22)
[2021-01-15] MEDS: montelukast sodium 10 mg Tablet PO (09:22)
[2021-01-15] MEDS: cefTRIAXone 1,000 MG in sodium chloride 0.9% (plus) 50 ML 100 MG IV (09:22)
[2021-01-15 09:37] LABS: ABG PCO2 95.1 mmHg (35-45)
--- NOTE | 2021-01-15 09:44 | PC.CHAP ---
Pastoral Care Encounter/Spiritual Assessment Type of Contact [] Declined flooring sales manager visit [] Patient/Family/Request visit [] Outpatient visit [] Follow-up visit [] Physician referral [] Code/Alert [x] Routine visit [] Staff referral [] Actively dying [] Patient sleeping [] Family support [] [] Out of room [] Palliative care [] [x] Receiving care in room [] Pre-surgical visit [] Trauma [] Long length of stay [x] ICU visit [] Other: Relational/Emotional Strength [] Patient feels connected with others/family/visitors/staff [] Distress [] Loneliness/isolation [] Abandonment Spirituality of Patient [] Person of Amanda [] Attends Christianity of their Amanda [] Believes in Prayer [] Reads Bible or Adventist materials [] There are Spiritual issues to be addressed Carbide Tool Maker Interventions [x] Prayer [] Active listening [] Non-anxious presence [] Spiritual/emotional support [] Crisis/trauma care [] Spiritual counseling [] Bereavement support [] Provided bereavement packet [] Provided Bible/devotional materials [] Provided toy/stuffed animal, coloring book to patient or family member [] Provided Communion [] Anointing/[place] [] Salvation [x] Completed spiritual assessment [] Other: Impact on Illness or Injury [] Angry [] Fearful [] Anxious [] Often cries [] Exhaustion [] Unable to work [] Unable to attend advent [] Unable to walk/stand [] Unable to read [] Unable to drive [] Unable to eat/drink [] Unable to sleep [] Unable to be with family [] Patient intubated [] Other: Summary Time spent with patient
--- NOTE | 2021-01-15 11:10 | PC.SOCIAL ---
*IMM Update* Gave patient IMM update, provided her with copy of page 2 of IMM. Understood. Initialed, dated, timed and placed in chart.
--- NOTE | 2021-01-15 14:28 | PM.CONSULT ---
Providers/Reason For Consult Consulting Physican/Specialty*: Dr. Lew Merritt MD Otolaryngology, Head & Neck Surgery Reason for Consult*: Tracheotomy problems Requesting Physcian: Laverne Langford MD Attending Physician: Laverne Langford MD Primary Care Provider: Taniya Irving DO History of Present Illness History of Present Illness Loretta Reeder is a 60 year old female who is POD #12 s/p tracheotomy who removed her trach last night. I was consulted to reevaluate her trach tube because the balloon is not holding air. The patient is on BiPap and is o/w doing well. Meds/Allergies Home Medications and Allergies Home Medications Medication Instructions Recorded Confirmed Last Taken Type multivit with 1 tab PO DAILY 09/28/19 12/27/20 Unknown History dclnfrrh-ooid-JT-lutein 8 mg iron-400 mcg-300 mcg tablet aspirin 81 mg tablet,delayed 81 mg PO DAILY 10/23/20 12/27/20 Unknown History release albuterol sulfate 90 mcg/actuation 2 puff INHALATION Q6H PRN #18 gm 11/14/20 12/27/20 Unknown Rx aerosol inhaler azithromycin 250 mg tablet See Rx Instructions .ROUTE 11/25/20 12/27/20 Unknown Rx .COMPLEX #90 tab ipratropium 0.5 mg-albuterol 3 mg 3 ml INHALATION Q6H #360 ml 12/06/20 12/27/20 Unknown Rx (2.5 mg base)/3 mL nebulization soln montelukast 10 mg PO DAILY 12/15/20 12/27/20 Unknown History amlodipine 5 mg PO DAILY 30 Days #30 tab 12/24/20 12/27/20 Unknown Rx citalopram 10 mg PO BID 30 Days #30 tab 12/24/20 12/27/20 Unknown Rx metoprolol tartrate 50 mg PO BID@0900,2100 30 Days #60 12/24/20 12/27/20 Unknown Rx tab prednisone 5 mg PO DAILY 30 Days #30 tab 12/24/20 12/27/20 Unknown Rx trazodone 50 mg PO BEDTIME PRN 30 Days #30 12/24/20 12/27/20 Unknown Rx tab amoxicillin-pot clavulanate 1 tab PO BID 12/27/20 12/27/20 Unknown History lorazepam 0.5 mg PO BID PRN 12/27/20 12/27/20 Unknown History budesonide 0.5 mg/2 mL suspension See Rx Instructions .ROUTE 12/30/20 01/04/21 Unknown Rx for nebulization .COMPLEX #60 vial aripiprazole 2 mg tablet 2 mg PO DAILY #30 tab 01/07/21 Unknown Rx Allergies Allergy/AdvReac Type Severity Reaction Status Date / Time codeine Allergy NAUSEA & Verified 12/27/20 01:46 VOMITING morphine Allergy ADR-Halluci Verified 12/27/20 01:46 nating Current Medications Current Medications Generic Name Dose Route Start Last Admin Trade Name Freq PRN Reason Stop Dose Admin Hydrocodone Bitart/Acetaminophen 1 tab 01/13/21 09:22 01/14/21 23:55 Hydrocodone-Acetaminophen 5-325 Mg Tablet PO 1 tab Q4H PRN Administration MODERATE TO SEVERE PAIN Amlodipine Besylate 5 mg 12/29/20 09:00 01/15/21 09:22 Amlodipine 5 Mg Tablet PO 5 mg DAILY JOSE Administration Aripiprazole 2 mg 12/29/20 09:00 01/15/21 09:22 Aripiprazole 2 Mg Tablet PO 2 mg DAILY JOSE Administration Aspirin 81 mg 12/29/20 09:00 01/15/21 09:21 Aspirin 81 Mg Ec Tablet PO 81 mg DAILY JOSE Administration Budesonide 0.5 mg 01/03/21 20:00 01/15/21 07:40 Budesonide 0.5 Mg/2 Ml Neb INHALATION 0.5 mg BID.RESPIRATORY JOSE Administration Citalopram Hydrobromide 10 mg 12/29/20 09:00 01/15/21 09:22 Citalopram 20 Mg Tablet PO 10 mg BID JOSE Administration Doxycycline Monohydrate 100 mg 01/11/21 18:00 01/15/21 09:21 Doxycycline 100 Mg Tablet PO 100 mg BID JOSE Administration Protocol Enoxaparin Sodium 40 mg 12/27/20 05:15 01/15/21 04:16 Enoxaparin 40 Mg/0.4 Ml Syringe SUBCUT 40 mg Q24H JOSE Administration Famotidine 20 mg 12/27/20 05:15 01/15/21 04:15 Famotidine 20 Mg/2 Ml Inj IVP 20 mg Q12H JOSE Administration Ceftriaxone Sodium 1,000 mg/ 50 mls @ 100 mls/hr 01/12/21 10:00 01/15/21 09:55 Sodium Chloride IV Infused Q24H JOSE Infusion Protocol Lorazepam 0.5 mg 01/09/21 14:34 01/15/21 04:16 Lorazepam 0.5 Mg Tablet PO 0.5 mg TID PRN Administration ANXIETY Metoprolol Tartrate 50 mg 12/29/20 09:00 01/15/21 09:22 Metoprolol Tartrate 50 Mg Tablet PO 50 mg BID@0900,2100 JOSE Administration Montelukast Sodium 10 mg 12/29/20 09:00 01/15/21 09:22 Montelukast Sodium 10 Mg Tablet PO 10 mg DAILY JOSE Administration Prednisone 10 mg 01/02/21 09:00 01/15/21 09:22 Prednisone 10 Mg Tablet PO 10 mg DAILY JOSE Administration Senna/Docusate Sodium 1 tab 01/04/21 09:00 01/15/21 09:22 Sennosides-Docusate Tablet PO 1 tab DAILY JOSE Administration PFSH Acute PFSH: Medical History (Updated 01/15/21 @ 10:08 by Laverne Langford MD) Anxiety and depression Benign essential HTN Bilateral carpal tunnel syndrome Bilateral lower extremity edema Cervical myelopathy COPD, severe Degenerative disc disease, cervical Lung mass ANASTASIYA (obstructive sleep apnea) Postmenopausal Unspecified thoracic, thoracolumbar and lumbosacral intervertebral disc disorder Vitamin D deficiency Surgical History (Updated 01/14/21 @ 00:41 by Laverne Langford MD) S/P hysterectomy S/P tonsillectomy Status post tracheostomy (~01/2021) Family History Other CHF (congestive heart failure) Murmur, cardiac Social History Smoking and tobacco status: former smoker Quit status (tobacco): has quit using tobacco Year quit tobacco: 2017 - 1PPD x 40 Years Second hand smoke exposure: Yes Alcohol intake: never Lives independently: Yes Household members: spouse Marital status: Current occupational status: disabled History of recent travel: No Current gender identity: Female Special andres needs: No Vitals/I&O/Wt Last Vital Signs Temp 97.9 F 01/15/21 08:00 Pulse 86 01/15/21 12:00 Resp 15 01/15/21 13:10 BP 126/80 01/15/21 12:00 Pulse Ox 93 01/15/21 13:10 01/14/21 01/15/21 01/15/21 22:59 06:59 14:59 Intake Total 1200 / 1850 50 / 50 Output Total 250 / 450 Balance 1200 / 1650 -250 / 1400 50 / 50 Weight last 48 hrs Weight 96.729 kg Weight 99.79 kg Physical Exam Const: COMMON NORMALS: no acute distress and patient oriented x3 HENMT: COMMON NORMALS: normocephalic and atraumatic HEAD & SCALP: normocephalic and atraumatic Eye: COMMON NORMALS: Equal, round and reactive pupils present and conjunctivae normal CONJUNCTIVA: Yes conjunctivae normal PUPIL: Yes Equal, round and reactive pupils present Neck/C-Spine: COMMON NORMALS: no lymphadenopathy GENERAL: Yes trachea midline and Yes tracheostomy present (The trach is in place and functional; there is no erythema.) Neuro: COMMON NORMALS: patient oriented x3 Urinary Catheter Management^: Greenberg: Cath Placed During This Visit: yes, but has since been removed by the nurse Reason for Continuing Indwelling Catheter: Not indwelling catheter Urinary Catheter Date of Insertion: 12/27/20 Urinary Catheter Time of Insertion: 05:26 Date Urinary Catheter Removed: 01/11/21 Time Urinary Catheter Discontinued: 17:48 A&P Additional A&P Information Impression: 60 yo wf who is POD #12 s/p tracheotomy with trach dislodgement and cuff leak. The trach was replaced by RT and is in place and functioning normally at present. Plan: I reviewed trach care with RT and the nurse on duty; they are to continue current trach care; the patient is to f/u with me as an outpatient after discharge; please contact me for any additional problems. Consult Attestations Medical Necessity Statement: I was consulted to evaluate Mrs Reeder for tracheotomy problems/dislodgement. Procedures Procedure Narrative Fiberoptic Endoscopy: the flexible fiberoptic nasopharyngolaryngoscope was passed via the trach tube into the airway; the tracheotomy tube is in place in the airway and the airway appears normal to the britney; the exam was o/w normal. Coding Level of Care Code Acute Calendering Machine Operator for Missael Cr
[2021-01-16] VITALS (45 sets, daily range): BP systolic 90–139; BP diastolic 59–107; PULSE 79–116; RESP 12–24; TEMP 36.5–37.1; O2SAT 85–96
[2021-01-16] MEDS: ipratropium-albuterol 3 mL Neb INHALATION ×6 (03:56→23:15)
[2021-01-16] MEDS: enoxaparin 40 mg/0.4 mL Syringe SUBCUT (05:47)
[2021-01-16] MEDS: budesonide 0.5 mg/2 mL Neb INHALATION ×2 (08:07→19:49)
[2021-01-16] MEDS: doxycycline 100 mg Tablet PO ×2 (08:39→17:13)
[2021-01-16] MEDS: aspirin 81 mg EC Tablet PO (08:39)
[2021-01-16] MEDS: predniSONE 10 mg Tablet PO (08:39)
[2021-01-16] MEDS: amlodipine 5 mg Tablet PO (08:39)
[2021-01-16] MEDS: ARIPiprazole 2 mg Tablet PO (08:40)
[2021-01-16] MEDS: montelukast sodium 10 mg Tablet PO (08:40)
[2021-01-16] MEDS: citalopram 20 mg Tablet 10 MG PO ×2 (08:40→17:13)
[2021-01-16] MEDS: metoprolol tartrate 50 mg Tablet PO ×2 (08:40→20:37)
--- NOTE | 2021-01-16 08:51 | PM.PN ---
Subjective Subjective: Interval history: Did better overnight after tracheostomy tube replacement yesterday. No longer able to make vocalizations and struggling with this but explained that that is normal under current circumstances and that we would work towards her being able to vocalize with the device we put on top of the tracheostomy tube once she has stabilized more and is not on the ventilator. Wanting to get up out of bed. Vitals/I&O/Wt Last Vital Signs Temp 97.7 F 01/16/21 05:00 Pulse 108 H 01/16/21 08:12 Resp 18 01/16/21 08:07 BP 120/71 01/16/21 05:00 Pulse Ox 92 01/16/21 08:07 01/15/21 01/16/21 01/16/21 22:59 06:59 14:59 Intake Total 500 / 550 Output Total 300 / 300 200 / 500 Balance 200 / 250 -200 / 50 Weight last 48 hrs Weight 85 kg Weight 96.729 kg Physical Exam Narrative: EXAM NARRATIVE: Smiling today, much less acutely ill-appearing. Tracheostomy tube is intact. No significant amount of secretions noted at the present time. No oozing of blood. No vocalizations. Improved aeration bilaterally. Scattered wheeze. Currently tachycardic. No murmurs noted. Abdomen soft. No Greenberg catheter. No increased edema. Urinary Catheter Management^: Greenberg: Cath Placed During This Visit: yes, but has since been removed by the nurse Reason for Continuing Indwelling Catheter: Not indwelling catheter Urinary Catheter Date of Insertion: 12/27/20 Urinary Catheter Time of Insertion: 05:26 Date Urinary Catheter Removed: 01/11/21 Time Urinary Catheter Discontinued: 17:48 Data : 01/14/21 03:09 01/14/21 03:09 A&P Assessment and plan (1) Acute and chronic respiratory failure with hypercapnia: Recurrent, severe with multiple admissions requiring intubation and mechanical ventilation. Given recurrent need for intubation decision was made to proceed with tracheostomy tube this hospital stay. Status: Acute (2) Acute exacerbation of chronic obstructive airways disease: Has gold class D COPD with an FEV1 of 16%. Has been treated with doxycycline, inhaled steroids, oral steroids and breathing treatments. Chronically on Singulair. Status: Acute (3) Status post tracheostomy: Placed by Dr. Merritt on January 03. Tube has become dislodged twice. Better since most recent replacement on January 15. Status: Acute (4) Benign essential HTN: Chronically on amlodipine and beta-blockade Status: Chronic (5) Anxiety and depression: With intermittent confusion, commendation of medications I believe as well as chronic issues related to both anxiety and hypercapnia, new tracheostomy. Confusion is worse at night. Is not on home trazodone presently. Does have hydrocodone and Ativan. Chronically on citalopram and Abilify both of which remain on board here. Improved since adjustment to tracheostomy tube on 01/15. Status: Chronic (6) Normocytic anemia: Suspect multifactorial from iatrogenic blood draws as well as due to a degree of chronic inflammation and possibly acutely degree of volume dilution. Has not had significant blood loss from tracheostomy site. Status: Acute (7) UTI (urinary tract infection): Suspected diagnosis based on urinalysis from January 11 demonstrating 2+ leukocyte esterase, greater than 100 red blood cells and 15-25 white blood cells. Had similar findings at presentation but urine culture from admission was no growth. It does not appear that urine culture was sent from urinalysis on January 11. Review indicates that the doctor ordered a urinalysis and specifically requested no urine culture. Rocephin was started. There was no indication of elevation in white count. No evidence of any fever throughout the hospital stay. Urine was grossly bloody at the time. My personal interpretation is that this specimen was consistent with Greenberg trauma. Greenberg catheter was removed on the same day as the urinalysis after hematuria noted. degree of white blood cells is not unusual for the degree of hematuria. There was trace bacteria. Do not currently feel that this is a catheter associated urinary tract infection based on review. Status: Ruled-out (8) Parasomnia: Clinically has sleep apnea though has not had a formal sleep study that I am aware of. Has had orders for night pulse oximetry and prior attempts to get trilogy due to chronic hypercapnic respiratory failure. I do not know if it has been denied previously or if patient has not followed through or if patient has been rehospitalized and subsequently intubated so much it just has not been able to be set up at home. Status: Acute (9) BMI 34.0-34.9,adult: Status: Chronic Additional A&P Information Reviewed with respiratory plan to utilize ventilator/trilogy at night and with sleep only. Will work on transition to heated and humidified oxygen via tracheostomy tube during waking times as she tolerates. Updated patient on lack of vocalizations and expectations, will discuss with her Dr. Corona to discuss with potential for long-term acute care as well as expectations of home management with current condition to ensure a well-informed decision is made regarding disposition plans. Order for trilogy device is in place but pending approval, will require additional status after it arrives to ensure appropriate functionality Appreciate ENT evaluation yesterday, continue to monitor for episodes of tracheostomy dislodgment Continue tracheostomy education with patient and Rocephin stopped 01/16 Continue doxycycline for a full 7-day course, which ends on 01/17 Continue home dose of steroids, inhaled budesonide and duo nebs along with Singulair Continue home citalopram and Abilify along with as needed Ativan Continue home amlodipine, metoprolol and aspirin therapy Remains off of home trazodone tonight, will resume and see if it helps her get through the night. There is a risk it can make her more confused or somnolent not know what is going on Has as needed hydrocodone for pain related to tracheostomy tube along with Tylenol. On prophylactic Lovenox therapy On IV H2 jagdeep, will change to oral On lactobacillus, continue laxatives Primary goals of current care is continued management of getting her to a point that she can be off the ventilator during waking times, continuing education regarding tracheostomy management, monitoring for recurrent episodes of trach dislodgment and other complications as well as awaiting home trilogy/ventilator device arrangements. She will require a couple of days stay after we receive the device before safe to discharge home. 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 Thus far her has been resistant to consideration for this. I anticipate continued recurrent admissions if she does go home even with tracheostomy tube intact though she will not have to go through the physical act of being intubated with future acute events beyond potentially replacing tracheostomy device. We will change patient to medical surge patient in the ICU given challenges with tracheostomy tube management thus far in the hospital stay and high risk of rapid clinical decline with such events. Will need to address Passy-Cromwell valve when we have reached a point of stability with current tracheostomy tube Recheck laboratory studies in the morning Full code Reviewed with patient, nursing, respiratory. Will discuss with . Attestations Medical Necessity Statement*: Requires ongoing inpatient management for respiratory failure status post tracheostomy tube placement. We will begin transition to suction via trach collar during waking hours as she tolerates. Coding Level of Care Code Acute Secondary Set Up Man for Chg Fwd Diagnoses Acute and chronic respiratory failure with hypercapnia J96.22 Acute exacerbation of chronic obstructive airways disease J44.1 Status post tracheostomy Z93.0 Benign essential HTN I10 Anxiety and depression F41.9; F32.9 Normocytic anemia D64.9 UTI (urinary tract infection) N39.0 Parasomnia G47.50 BMI 34.0-34.9,adult Z68.34
--- NOTE | 2021-01-16 09:33 | PC.CHAP ---
Pastoral Care Encounter/Spiritual Assessment Type of Contact [] Declined perch machine inspector visit [] Patient/Family/Request visit [] Outpatient visit [] Follow-up visit [] Physician referral [] Code/Alert [x] Routine visit [] Staff referral [] Actively dying [] Patient sleeping [] Family support [] [] Out of room [] Palliative care [] [] Receiving care in room [] Pre-surgical visit [] Trauma [] Long length of stay [x] ICU visit [] Other: Relational/Emotional Strength [] Patient feels connected with others/family/visitors/staff [] Distress [] Loneliness/isolation [] Abandonment Spirituality of Patient [] Person of Amanda [] Attends Gnosticism of their Amanda [] Believes in Prayer [] Reads Bible or Rastafarian materials [] There are Spiritual issues to be addressed Traveling Accountant Interventions x[] Prayer [x] Active listening [x] Non-anxious presence [x] Spiritual/emotional support [] Crisis/trauma care [] Spiritual counseling [] Bereavement support [] Provided bereavement packet [] Provided Bible/devotional materials [] Provided toy/stuffed animal, coloring book to patient or family member [] Provided Communion [] Anointing/[place] [] Salvation [x] Completed spiritual assessment [] Other: Impact on Illness or Injury [] Angry [] Fearful [] Anxious [] Often cries [] Exhaustion [] Unable to work [] Unable to attend adventist [] Unable to walk/stand [] Unable to read [] Unable to drive [] Unable to eat/drink [] Unable to sleep [] Unable to be with family [] Patient intubated [] Other: Summary patient cant communicate... left patient Daily Bread and small Bible... Time spent with patient 10 min
--- NOTE | 2021-01-16 13:30 | PC.NURSE ---
Patient has been getting up and transferring self without the help of staff after education about call light has been provided.
[2021-01-16] MEDS: lactobacillus 1 Tablet 1 TAB PO (17:14)
[2021-01-16] MEDS: LORazepam 0.5 mg Tablet PO (17:14)
[2021-01-17] VITALS (50 sets, daily range): BP systolic 98–138; BP diastolic 65–92; PULSE 67–128; RESP 12–30; TEMP 36.7–37; O2SAT 84–100
[2021-01-17] MEDS: ipratropium-albuterol 3 mL Neb INHALATION ×6 (03:35→23:30)
[2021-01-17 04:08] LABS: Basophils % 0.5 %; Eosinophils # 0.3 10^3/uL (0.0-0.8); Eosinophils % 6.4 %; Hemoglobin 9.9 g/dL (11.5-15.3); Lymphocytes # 1.5 10^3/uL (0.8-4.8); Lymphocytes % 35.2 %; Mean Corpuscular Hemoglobin 28.8 pg (28.0-34.0); Mean Corpuscular Volume 95.9 fL (81-99); Mean Platelet Volume 11.8 fL (7.4-10.4); Monocytes # 0.5 10^3/uL (0.2-0.9); Monocytes % 10.5 %; Neutrophils # 2.04 10^3/uL (1.8-7.7); Neutrophils % 46.7 %; Nucleated Red Blood Cells % 0 %; Platelet Count 153 10^3/cmm (130-400); Red Blood Count 3.44 10^6/uL (4.1-5.3); Red Cell Distribution Width 14.8 % (12.1-15.1); White Blood Count 4.4 10^3/uL (4.0-10.0)
[2021-01-17 04:22] LABS: Anion Gap 6.6 (5-19); Blood Urea Nitrogen 9 mg/dL (8-23); Calcium 8.4 mg/dL (8.5-10.5); Carbon Dioxide 40 mmol/L (22-29); Chloride 101 mmol/L (98-107); Glomerular Filtration Rate 125.4 mL/min (90-130); Glucose 110 mg/dL (65-115); Osmolality Calculated 297 mOsm/kg (285-295); Potassium 3.6 mmol/L (3.5-5.1); Sodium 144 mmol/L (136-145)
[2021-01-17] MEDS: enoxaparin 40 mg/0.4 mL Syringe SUBCUT (05:23)
[2021-01-17] MEDS: budesonide 0.5 mg/2 mL Neb INHALATION ×2 (07:42→20:01)
[2021-01-17] MEDS: LORazepam 0.5 mg Tablet PO ×2 (07:45→19:48)
[2021-01-17] MEDS: ARIPiprazole 2 mg Tablet PO (09:19)
[2021-01-17] MEDS: aspirin 81 mg EC Tablet PO (09:19)
[2021-01-17] MEDS: doxycycline 100 mg Tablet PO ×2 (09:19→17:18)
[2021-01-17] MEDS: predniSONE 10 mg Tablet PO (09:19)
[2021-01-17] MEDS: amlodipine 5 mg Tablet PO (09:19)
[2021-01-17] MEDS: montelukast sodium 10 mg Tablet PO (09:20)
[2021-01-17] MEDS: lactobacillus 1 Tablet 1 TAB PO ×2 (09:20→17:18)
[2021-01-17] MEDS: metoprolol tartrate 50 mg Tablet PO ×2 (09:20→20:30)
[2021-01-17] MEDS: citalopram 20 mg Tablet 10 MG PO ×2 (09:20→17:18)
[2021-01-17] MEDS: sennosides-docusate Tablet 1 TAB PO (09:20)
--- NOTE | 2021-01-17 09:37 | PC.SOCIAL ---
IMM Update Pg.2 of IMM updated and reviewed with patient who verbalized understanding. Copy provided.
--- NOTE | 2021-01-17 10:44 | PC.OT ---
OT TREATMENT ATTEMPTED. PATIENT STATES VIA WRITING THAT SHE HAS BEEN UP SINCE 0700 THIS MORNING AND HAS ALREADY GROOMED. STATE THAT SHE DOES NOT WISH TO PERFORM ARM EXERCISES THIS MORNING BUT MAY THIS AFTERNOON.
--- NOTE | 2021-01-17 12:59 | PC.NUTR ---
Recommend clarification of current weight when appropriate due to wt fluctuations per chart review and decline in po intake.
--- NOTE | 2021-01-17 13:53 | PC.OT ---
OT made 2nd attempt to treat pt this afternoon. Pt refused treatment stating I've gotten worse . OT will follow up with pt tomorrow. NICKO To/Efrain MONTES/Smiley
--- NOTE | 2021-01-17 15:04 | PC.NURSE ---
has been up in chair most of morning does have episodes of dropping sats when any activity at all noted .. takes a long time to recover sats at this time back to bed for rest and back on vent at this time
--- NOTE | 2021-01-17 15:43 | PC.NURSE ---
back on side of bed on blow by at this time
[2021-01-17] MEDS: HYDROcodone-acetaminophen 5-325 mg Tablet 1 TAB PO (19:48)
--- NOTE | 2021-01-17 20:57 | P.PN_ITS ---
Subjective Subjective: Interval history: Throughout the day today, patient has taken out the inner cannula of her tracheostomy tube several times. The actual tracheostomy tube itself has remained intact today. She cannot really explain to me why beyond not being accustomed to having so many tubes attached to her. Her and her are agreeable to consideration for [facility] to fac ilitate ongoing tracheostomy tube management and education and plan transition to home trilogy/ventilator. Vitals/I&O/Wt Last Vital Signs Temp 98.6 F 01/17/21 16:00 Pulse 88 01/17/21 20:05 Resp 17 01/17/21 20:05 BP 134/77 01/17/21 18:00 Pulse Ox 95 01/17/21 20:05 01/17/21 01/17/21 01/17/21 06:59 14:59 22:59 Intake Total 0 / 840 650 / 650 400 / 1050 Output Total 350 / 350 250 / 600 Balance 0 / 590 300 / 300 150 / 450 Weight last 48 hrs Weight 83.5 kg Weight 85 kg Physical Exam Narrative: EXAM NARRATIVE: Sleepy most of the day. Calm during my visits with her. Still really wanting to try to talk and has to be reminded that there should not be any vocalization presently. Tracheostomy site looks good externally. No bleeding. Neck band is appropriate. Not as wheezy today. Regular rhythm. Abdomen is soft. No Greenberg. No pitting edema Urinary Catheter Management^: Greenberg: Cath Placed During This Visit: yes, but has since been removed by the nurse Reason for Continuing Indwelling Catheter: Not indwelling catheter Urinary Catheter Date of Insertion: 12/27/20 Urinary Catheter Time of Insertion: 05:26 Date Urinary Catheter Removed: 01/11/21 Time Urinary Catheter Discontinued: 17:48 Data : 01/17/21 03:01 01/17/21 03:01 A&P Assessment and plan (1) Acute and chronic respiratory failure with hypercapnia: Recurrent, severe with multiple admissions requiring intubation and mechanical ventilation. Given recurrent need for intubation decision was made to proceed with tracheostomy tube this hospital stay. Status: Acute (2) Acute exacerbation of chronic obstructive airways disease: Has gold class D COPD with an FEV1 of 16%. Has been treated with doxycycline, inhaled steroids, oral steroids and breathing treatments. Chronically on Singulair. Status: Acute (3) Status post tracheostomy: Placed by Dr. Merritt on January 03. Tube has become dislodged twice. Better since most recent replacement on January 15. Status: Acute (4) Benign essential HTN: Chronically on amlodipine and beta-blockade Status: Chronic (5) Anxiety and depression: With intermittent confusion, combination of medications I believe as well as chronic issues related to both anxiety and hypercapnia, new tracheostomy. Confusion is worse at night. Home trazodone was resumed. Does have hydrocodone and Ativan. Chronically on citalopram and Abilify both of which remain on board here. Improved since adjustment to tracheostomy tube on 01/15 but still gets confused and has to be reminded about the tracheostomy tube, lack of voice currently and educated on use of call light, writing board and other measures. Status: Chronic (6) Normocytic anemia: Suspect multifactorial from iatrogenic blood draws as well as due to a d egree of chronic inflammation and possibly acutely degree of volume dilution. Has not had significant blood loss from tracheostomy site. Status: Acute (7) UTI (urinary tract infection): Suspected diagnosis based on urinalysis from January 11 demonstrating 2+ leukocyte esterase, greater than 100 red blood cells and 15-25 white blood cells. Had similar findings at presentation but urine culture from admission was no growth. It does not appear that urine culture was sent from urinalysis on January 11. Review indicates that the doctor ordered a urinalysis and specifically requested no urine culture. Rocephin was started. There was no indication of elevation in white count. No evidence of any fever throughout the hospital stay. Urine was grossly bloody at the time. My personal interpretation is that this specimen was consistent with Greenberg trauma. Greenberg catheter was removed on the same day as the urinalysis after hematuria noted. Degree of white blood cells is not unusual for the degree of hematuria. There was trace bacteria. Do not currently feel that this is a catheter associated urinary tract infection based on review. Status: Ruled-out (8) Parasomnia: Clinically has sleep apnea though has not had a formal sleep study that I am aware of. Has had orders for night pulse oximetry and prior attempts to get trilogy due to chronic hypercapnic respiratory failure. I do not know if it has been denied previously or if patient has not followed through or if patient has been rehospitalized and subsequently intubated so much it just has not been able to be set up at home. Status: Acute (9) BMI 34.0-34.9,adult: Status: Chronic Additional A&P Information Continue education and training with patient and when he is present Patient is being evaluated by [facility] Order for trilogy device is in place but pending approval, will require additional few days of hospital stay after it arrives to ensure appropriate functionality Appreciate ENT evaluation and pulmonology assistance Monitor closely in the ICU setting for episodes of tracheostomy dislodgment, inn er cannula and tubing removal Passy-[place] valve when appropriate Rocephin stopped 01/16 Stop doxycycline today Continue home dose of steroids, inhaled budesonide and duo nebs along with Singulair Continue home citalopram and Abilify along with as needed Ativan Continue home amlodipine, metoprolol and aspirin therapy Home trazodone resumed 01/16 Has as needed hydrocodone for pain related to tracheostomy tube along with Tylenol. On prophylactic Lovenox therapy H2 jagdeep On lactobacillus, continue laxatives Full code Reviewed with patient, nursing, respiratory Full code Primary goals of current care is continued management of getting her to a point that she can be off the ventilator during waking times, continuing education regarding tracheostomy management, monitoring for recurrent episodes of trach dislodgment and other complications as well as awaiting home trilogy/ventilator device arrangements. She will require a couple of days stay after we receive the device before safe to discharge home. 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 In addition I think she is going to have to have somebody with her until the tracheostomy tract is able to epithelialize and maintain patency. Both the patient and her are now agreeable and seem to understand a bit more after the multiple events of tube disconnection, tube removal etc. I anticipate continued recurrent admissions if she does go home even with tracheostomy tube intact though she will not have to go through the physical act of being intubated with future acute events beyond potentially replacing tracheostomy device. Attestations Medical Necessity Statement*: Requires ongoing inpatient stay due to high risk of significant acute respiratory decline status post recent tracheostomy tube Coding Level of Care Code Acute Therapeutic Activities Services Worker for Chg Fwd Diagnoses Acute and chronic respiratory failure with hypercapnia J96.22 Acute exacerbation of chronic obstructive airways disease J44.1 Status post tracheostomy Z93.0 Benign essential HTN I10 Anxiety and depression F41.9; F32.9 Normocytic anemia D64.9 UTI (urinary tract infection) N39.0 Parasomnia G47.50 BMI 34.0-34.9,adult Z68.34
[2021-01-18] VITALS (46 sets, daily range): BP systolic 100–150; BP diastolic 57–108; PULSE 74–125; RESP 15–30; TEMP 36.5–36.8; O2SAT 81–100
[2021-01-18] MEDS: ipratropium-albuterol 3 mL Neb INHALATION ×5 (03:28→20:03)
[2021-01-18] MEDS: enoxaparin 40 mg/0.4 mL Syringe SUBCUT (04:39)
[2021-01-18] MEDS: budesonide 0.5 mg/2 mL Neb INHALATION ×2 (07:44→20:03)
[2021-01-18] MEDS: predniSONE 10 mg Tablet PO (08:36)
[2021-01-18] MEDS: amlodipine 5 mg Tablet PO (08:36)
[2021-01-18] MEDS: lactobacillus 1 Tablet 1 TAB PO ×2 (08:36→17:02)
[2021-01-18] MEDS: citalopram 20 mg Tablet 10 MG PO ×2 (08:38→17:02)
[2021-01-18] MEDS: ARIPiprazole 2 mg Tablet PO (08:38)
[2021-01-18] MEDS: aspirin 81 mg EC Tablet PO (08:38)
[2021-01-18] MEDS: montelukast sodium 10 mg Tablet PO (08:38)
[2021-01-18] MEDS: LORazepam 0.5 mg Tablet PO ×2 (08:54→19:35)
[2021-01-18] MEDS: sennosides-docusate Tablet 1 TAB PO (08:55)
[2021-01-18] MEDS: metoprolol tartrate 50 mg Tablet PO ×2 (10:01→19:35)
--- NOTE | 2021-01-18 11:40 | PC.CHAP ---
Pastoral Care Encounter/Spiritual Assessment Type of Contact [] Declined alley worker visit [] Patient/Family/Request visit [] Outpatient visit [] Follow-up visit [] Physician referral [] Code/Alert [] Routine visit [] Staff referral [] Actively dying [] Patient sleeping [] Family support [] [] Out of room [] Palliative care [] [] Receiving care in room [] Pre-surgical visit [] Trauma [] Long length of stay [x] ICU visit [] Other: Relational/Emotional Strength [] Patient feels connected with others/family/visitors/staff [] Distress [] Loneliness/isolation [] Abandonment Spirituality of Patient [x] Person of Amanda [] Attends Latter Day of their Amanda [x] Believes in Prayer [] Reads Bible or Islam materials [] There are Spiritual issues to be addressed Civil Structural Designer Interventions [x] Prayer [] Active listening [x] Non-anxious presence [x] Spiritual/emotional support [] Crisis/trauma care [] Spiritual counseling [] Bereavement support [] Provided bereavement packet [] Provided Bible/devotional materials [] Provided toy/stuffed animal, coloring book to patient or family member [] Provided Communion [] Anointing/[place] [] Salvation [] Completed spiritual assessment [] Other: Impact on Illness or Injury [] Angry [] Fearful [] Anxious [] Often cries [] Exhaustion [] Unable to work [] Unable to attend uatsdin [] Unable to walk/stand [] Unable to read [] Unable to drive [] Unable to eat/drink [] Unable to sleep [] Unable to be with family [] Patient intubated [] Other: Summary Pt unable to speak but did nod her head in agreement for prayer. Time spent with patient 2m
--- NOTE | 2021-01-18 13:29 | P.PN_ITS ---
Subjective Subjective: Interval history: Patient doing okay today. She does desaturate when she has to clear her secretions and requires a few minutes to come back up. She has been maintaining during the day on 40% heated oxygen. Plan is for her to be on the trilogy at night. Still intermittently has removal of tubing or inner cannula. Starting to do a better job of handling the equipment and is more calm when tracheostomy management is occurring. Reviewing tracheostomy care now and in the future, options for disposition including detailed descriptions of the types of things that either Mrs. Reeder or he will need to do such as suctioning and handling tracheal secretions, tube itself as well as connections to , and the like. Talked about usual paths to being able to talk with the tracheostomy tube in place although I admitted to them that my information was based on experiences years ago rather than more recently. Talked about why options closer to [place] were not available. Talked about alternative disposition of going home versus [facility]. Both had excellent questions including the patient having a list of written questions and the himself also having several though not written down. All of their questions were addressed and answered and valid ones to bring up. After understanding more Mrs. Reeder would like to be able to go to a place like [facility] [address] to become more proficient at managing her trach with a goal of being able to go back home and be safe with the home trilogy device at night and oxygen during the day. Both understand that if she does not do well managing that she ultimately may require long-term nursing placement which is different from the long-term acute care that we have discussed. Patient's is supportive of her going to [place] although he will not be able to visit her himself there though he mentioned he might be able to get a can. Vitals/I&O/Wt Last Vital Signs Temp 98.0 F 01/18/21 04:00 Pulse 119 H 01/18/21 12:00 Resp 22 H 01/18/21 12:00 BP 104/72 01/18/21 10:00 Pulse Ox 91 01/18/21 11:30 01/17/21 01/18/21 01/18/21 22:59 06:59 14:59 Intake Total 500 / 1150 200 / 1350 250 / 250 Output Total 600 / 950 500 / 1450 300 / 300 Balance -100 / 200 -300 / -100 -50 / -50 Weight last 48 hrs Weight 83.007 kg Weight 83.5 kg Physical Exam Narrative: EXAM NARRATIVE: Awake, alert, smiling, sitting up in chair today. Tracheostomy tube intact. Increased secretions during a portion of my visit today but not thick, able to calm down after a few minutes. Tachycardic but regular rhythm. Urinary Catheter Management^: Greenberg: Cath Placed During This Visit: yes, but has since been removed by the nurse Reason for Continuing Indwelling Catheter: Not indwelling catheter Urinary Catheter Date of Insertion: 12/27/20 Urinary Catheter Time of Insertion: 05: Date Urinary Catheter Removed: 01/11/21 Time Urinary Catheter Discontinued: 17:48 Data : 01/17/21 03:01 01/17/21 03:01 A&P Assessment and plan (1) Acute and chronic respiratory failure with hypercapnia: Recurrent, severe with multiple admissions requiring intubation and mechanical ventilation. Given recurrent need for intubation decision was made to proceed with tracheostomy tube this hospital stay. Status: Acute (2) Acute exacerbation of chronic obstructive airways disease: Has gold class D COPD with an FEV1 of 16%. Has been treated with doxycycline, inhaled steroids, oral steroids and breathing treatments. Chronically on Singulair. Status: Acute (3) Status post tracheostomy: Placed by Dr. Merritt on January 03. Tube has become dislodged twice. Better since most recent replacement on January 15. Status: Acute (4) Benign essential HTN: Chronically on amlodipine and beta-blockade Status: Chronic (5) Anxiety and depression: With intermittent confusion, combination of medications I believe as well as chronic issues related to both anxiety and hypercapnia, new tracheostomy. Confusion is worse at night. Home trazodone was resumed. Does have hydrocodone and Ativan. Chronically on citalopram and Abilify both of which remain on board here. Improved since adjustment to tracheostomy tube on 01/15 but still gets confused and has to be reminded about the tracheostomy tube, lack of voice currently and educated on use of call light, writing board and other measures. Status: Chronic (6) Normocytic anemia: Suspect multifactorial from iatrogenic blood draws as well as due to a degree of chronic inflammation and possibly acutely degree of volume dilution. Has not had significant blood loss from tracheostomy site. Status: Acute (7) UTI (urinary tract infection): Suspected diagnosis based on urinalysis from January 11 demonstrating 2+ leukocyte esterase, greater than 100 red blood cells and 15-25 white blood cells. Had similar findings at presentation but urine culture from admission was no growth. It does not appear that urine culture was sent from urinalysis on January 11. Review indicates that the doctor ordered a urinalysis and specifically requested no urine culture. Rocephin was started. There was no indication of elevation in white count. No evidence of any fever throughout the hospital stay. Urine was grossly bloody at the time. My personal interpretati on is that this specimen was consistent with Greenberg trauma. Greenberg catheter was removed on the same day as the urinalysis after hematuria noted. Degree of white blood cells is not unusual for the degree of hematuria. There was trace bacteria. Do not currently feel that this is a catheter associated urinary tract infection based on review. Status: Ruled-out (8) Parasomnia: Clinically has sleep apnea though has not had a formal sleep study that I am aware of. Has had orders for night pulse oximetry and prior attempts to get trilogy due to chronic hypercapnic respiratory failure. I do not know if it has been denied previously or if patient has not followed through or if patient has been rehospitalized and subsequently intubated so much it just has not been able to be set up at home. Status: Acute (9) BMI 34.0-34.9,adult: Status: Chronic Additional A&P Information Continue education and training with patient and when he is present Patient is being evaluated by [facility] Order for trilogy device is in place but pending approval, will require addition al few days of hospital stay after it arrives to ensure appropriate functionality Appreciate ENT evaluation and pulmonology assistance Monitor closely in the ICU setting for episodes of tracheostomy dislodgment, inner cannula and tubing removal Passy-[place] valve when appropriate Rocephin stopped 01/16 Stop doxycycline 01/17 Continue home dose of steroids, inhaled budesonide and duo nebs along with S ingulair Continue home citalopram and Abilify along with as needed Ativan Continue home amlodipine, metoprolol and aspirin therapy Home trazodone resumed 01/16 Has as needed hydrocodone for pain related to tracheostomy tube along with Tylenol. On prophylactic Lovenox therapy H2 jagdeep On lactobacillus, continue laxatives Full code Reviewed with patient, , nursing, respiratory After discussion today, patient and her would like to for her to go to long-term acute care with a goal of getting her comfortable and competent managing the tracheostomy tube including events in which the tube might become dislodged, how to handle her secretions, transition to Passy-[place] valve, hookup her home devices. She needs somebody with her until the tracheostomy tract epithelializes and maintains patency. Her anxiety challenges her ability to manage trach during certain conditions. Attestations Medical Necessity Statement*: Requires ongoing inpatient care for post- tracheostomy management, ongoing education in trach care and determination of a safe disposition. Time Spent in Patient Care: Greater than 35 minutes 65 minutes talking to patient and her as described above. Coding Level of Care Code Acute Non Emergency Services Ambulance Driver for [place] [facility] Diagnoses Acute and chronic respiratory failure with hypercapnia J96.22 Acute exacerbation of chronic obstructive airways disease J44.1 Status post tracheostomy Z93.0 Benign essential HTN I10 Anxiety and depression F41.9; F32.9 Normocytic anemia D64.9 UTI (urinary tract infection) N39.0 Parasomnia G47.50 BMI 34.0-34.9,adult Z68.34
--- NOTE | 2021-01-18 20:10 | PC.NURSE ---
Received bed side shift report from off going nurse. Pt's plan of care reviewed. Pt is resting in bed watching tv. Respirations are even and unlabored. No s/sx of distress noted. Pt is alert and oriented and able to make her own decisions. Pt appears to be doing better to when I had her 3 days ago. Lungs are less diminished and more air flow noted throughout all lobes. Bed denies any pains or concerns at this time. Bed in lowest and locked position, call light and water within reach, x's 2 rails up. Will continue to monitor pt.
[2021-01-19] VITALS (51 sets, daily range): BP systolic 92–140; BP diastolic 56–89; PULSE 70–137; RESP 14–29; TEMP 36.7–37; O2SAT 81–98; BMI 30.3
[2021-01-19] MEDS: ipratropium-albuterol 3 mL Neb INHALATION ×7 (00:17→23:06)
[2021-01-19] MEDS: enoxaparin 40 mg/0.4 mL Syringe SUBCUT (05:31)
[2021-01-19] MEDS: budesonide 0.5 mg/2 mL Neb INHALATION ×2 (07:23→19:54)
[2021-01-19] MEDS: amlodipine 5 mg Tablet PO (08:07)
[2021-01-19] MEDS: ARIPiprazole 2 mg Tablet PO (08:08)
[2021-01-19] MEDS: citalopram 20 mg Tablet 10 MG PO ×2 (08:08→17:36)
[2021-01-19] MEDS: lactobacillus 1 Tablet 1 TAB PO ×2 (08:08→17:36)
[2021-01-19] MEDS: aspirin 81 mg EC Tablet PO (08:08)
[2021-01-19] MEDS: predniSONE 10 mg Tablet PO (08:10)
[2021-01-19] MEDS: montelukast sodium 10 mg Tablet PO (08:10)
[2021-01-19] MEDS: LORazepam 0.5 mg Tablet PO ×2 (08:12→15:58)
[2021-01-19] MEDS: metoprolol tartrate 50 mg Tablet PO ×2 (08:12→20:56)
--- NOTE | 2021-01-19 10:34 | PC.SOCIAL ---
IMM Updated Updated pt on Pg 2 IMM. No questions voiced. Provided pt a copy. Signed, dated, & timed copy in chart.
--- NOTE | 2021-01-19 11:18 | PC.CHAP ---
Pastoral Care Encounter/Spiritual Assessment Type of Contact [] Declined unarmed security officer visit [] Patient/Family/Request visit [] Outpatient visit [] Follow-up visit [] Physician referral [] Code/Alert [] Routine visit [] Staff referral [] Actively dying [] Patient sleeping [] Family support [] [] Out of room [] Palliative care [] [] Receiving care in room [] Pre-surgical visit [] Trauma [] Long length of stay [x] ICU visit [] Other: Relational/Emotional Strength [] Patient feels connected with others/family/visitors/staff [] Distress [] Loneliness/isolation [] Abandonment Spirituality of Patient [x] Person of Amanda [] Attends Catholic of their Amanda [x] Believes in Prayer [] Reads Bible or Pentecostalism materials [] There are Spiritual issues to be addressed Cake Puncher Interventions [x] Prayer [] Active listening [] Non-anxious presence [] Spiritual/emotional support [] Crisis/trauma care [] Spiritual counseling [] Bereavement support [] Provided bereavement packet [] Provided Bible/devotional materials [] Provided toy/stuffed animal, coloring book to patient or family member [] Provided Communion [] Anointing/[place] [] Salvation [] Completed spiritual assessment [] Other: Impact on Illness or Injury [] Angry [] Fearful [] Anxious [] Often cries [] Exhaustion [] Unable to work [] Unable to attend bahai [] Unable to walk/stand [] Unable to read [] Unable to drive [] Unable to eat/drink [] Unable to sleep [] Unable to be with family [] Patient intubated [] Other: Summary Pt enjoys daily prayer. She cannot verbally communicated but nods her head Time spent with patient 2 m
--- NOTE | 2021-01-19 12:06 | PM.PN ---
Subjective Subjective: Interval history: Did okay overnight. No dislodging of the tube or tubing overnight. Has actually tried to do her own suction a couple of times now and managed with less anxiety. Still requiring stand by instructions and frequent guidance but making effort to learn. Sputum may be a little bit thicker than it had been per her. No blood per her description, light in color. Vitals/I&O/Wt Last Vital Signs Temp 98.6 F 01/19/21 10:00 Pulse 85 01/19/21 11:26 Resp 29 H 01/19/21 11:26 BP 108/62 01/19/21 10:00 Pulse Ox 95 01/19/21 11:26 01/18/21 01/19/21 01/19/21 22:59 06:59 14:59 Intake Total 400 / 650 240 / 240 Output Total 250 / 550 400 / 950 Balance 150 / 100 -400 / -300 240 / 240 Weight last 48 hrs Weight 85.304 kg Weight 83.007 kg Physical Exam Narrative: EXAM NARRATIVE: Awake, alert, sitting up in chair today. Tracheostomy tube intact. Regular rhythm, tachycardic after recent treatment. Breath sounds are equal bilaterally with upper airway noises at times, scattered wheeze. Abdomen is soft. Extremities with some mild cyanosis at her feet while sitting, mild edema. Urinary Catheter Management^: Greenberg: Cath Placed During This Visit: yes, but has since been removed by the nurse Reason for Continuing Indwelling Catheter: Not indwelling catheter Urinary Catheter Date of Insertion: 12/27/20 Urinary Catheter Time of Insertion: 05:26 Date Urinary Catheter Removed: 01/11/21 Time Urinary Catheter Discontinued: 17:48 Data : 01/17/21 03:01 01/17/21 03:01 A&P Assessment and plan (1) Acute and chronic respiratory failure with hypercapnia: Recurrent, severe with multiple admissions requiring intubation and mechanical ventilation. Given recurrent need for intubation decision was made to proceed with tracheostomy tube this hospital stay. Status: Acute (2) Acute exacerbation of chronic obstructive airways disease: Has gold class D COPD with an FEV1 of 16%. Has been treated with doxycycline, inhaled steroids, oral steroids and breathing treatments. Chronically on Singulair. Status: Acute (3) Status post tracheostomy: Placed by Dr. Merritt on January 03. Tube has become dislodged twice, inner canula removed by accident with oxygen tubing several times. Better since most recent replacement on January 15. Status: Acute (4) Benign essential HTN: Chronically on amlodipine and beta-blockade Status: Chronic (5) Anxiety and depression: With intermittent confusion, combination of medications I believe as well as chronic issues related to both anxiety and hypercapnia, new tracheostomy. Confusion initially worse at night. Home trazodone was resumed. Does have hydrocodone and Ativan. Chronically on citalopram and Abilify both of which remain on board here. Slowly improving with education, resumption of all of her home medications and ongoing discussions about goals of care and current plans. Status: Chronic (6) Normocytic anemia: Suspect multifactorial from iatrogenic blood draws as well as due to a degree of chronic inflammation and possibly acutely degree of volume dilution. Has not had significant blood loss from tracheostomy site. Status: Acute (7) UTI (urinary tract infection): Suspected diagnosis based on urinalysis from January 11. My personal interpretation is that original specimen was consistent with Greenberg trauma. Do not currently feel that this is a catheter associated urinary tract infection based on review. Status: Ruled-out (8) Parasomnia: Clinically has sleep apnea though has not had a formal sleep study that I am aware of. Has had orders for night pulse oximetry and prior attempts to get trilogy due to chronic hypercapnic respiratory failure. I do not know if it has been denied previously or if patient has not followed through or if patient has been rehospitalized and subsequently intubated so much it just has not been able to be set up at home. Status: Acute (9) BMI 34.0-34.9,adult: Status: Chronic Additional A&P Information Encourage patient to continue efforts to learn about the trach and not be afraid of it and its management Reviewed with nursing and respiratory ongoing training Patient is being evaluated by [facility] and her insurance -Mrs. Mixon had recurrent admissions. I genuinely feel if she can get some adequate training and care while the tracheostomy site epithelializes/stabilizes that she may in fact be able to manage this on her own appropriately. She has started to show some glimmers of that in the last day after understanding more about the entire process of being transitioned to tracheostomy long-term. If she goes home she will be alone the majority of the time and at risk of acute event to and including the possibility of if she is not able to manage the tracheostomy site and attachments on her own. She will still ultimately need a trilogy device for home use. Order for trilogy device is in place but pending approval; will require in hospital use prior to disposition Appreciate ENT evaluation Dr Merritt and pulmonology Dr Corona assistance Care as MedSurg overflow in ICU for tracheostomy safety and education opportunities [place] valve when appropriate Rocephin stopped 01/16 Stopped doxycycline 01/17 Continue home dose of steroids, inhaled budesonide and duo nebs along with Singulair Continue home citalopram and Abilify along with as needed Ativan Continue home amlodipine, metoprolol and aspirin therapy Home trazodone resumed Has as needed hydrocodone for pain related to tracheostomy tube along with Tylenol. On prophylactic Lovenox therapy H2 jagdeep On lactobacillus, continue laxatives Full code Reviewed with patient, nursing, respiratory Patient and 's disposition preference is long-term acute care for tracheostomy management education and care in this early phase and then eventual transition home. Goals of getting her comfortable and competent managing the tracheostomy tube including events in which the tube might become dislodged, how to handle her secretions, transition to [place] valve, hookup her home devices. She needs somebody with her until the tracheostomy tract epithelializes and maintains patency as her anxiety challenges her ability to manage trach during certain conditions. Attestations Medical Necessity Statement*: Requires ongoing inpatient stay for respiratory management of new tracheostomy site as described Coding Level of Care Code Acute Safety Risk Lead for Missael Fwd Diagnoses Acute and chronic respiratory failure with hypercapnia J96.22 Acute exacerbation of chronic obstructive airways disease J44.1 Status post tracheostomy Z93.0 Benign essential HTN I10 Anxiety and depression F41.9; F32.9 Normocytic anemia D64.9 UTI (urinary tract infection) N39.0 Parasomnia G47.50 BMI 34.0-34.9,adult Z68.34
--- NOTE | 2021-01-19 17:41 | PC.NURSE ---
pt working on assisting with getting herself up and back to bed with helping to manage her trach tube and maintain as much reserve o2 as possible by providing rest episodes much improvent noted over weekend
[2021-01-20] VITALS (46 sets, daily range): BP systolic 86–139; BP diastolic 44–82; PULSE 20–122; RESP 14–117; TEMP 36.7–37.1; O2SAT 89–97; BMI 29.7
[2021-01-20] MEDS: LORazepam 0.5 mg Tablet PO ×3 (00:16→23:21)
[2021-01-20] MEDS: ipratropium-albuterol 3 mL Neb INHALATION ×6 (03:43→23:53)
[2021-01-20] MEDS: enoxaparin 40 mg/0.4 mL Syringe SUBCUT (05:30)
[2021-01-20 05:44] LABS: Blood Gas Allen Test Pos; Blood Gas Sample Site Radial, left; Blood Gas Sample Type Arterial; Oxygen Device VENT
[2021-01-20 05:45] LABS: ABG PH Result 7.36 (7.35-7.45); Base Excess ABG 11.2 mmol/L (-2.0-2.0); HCO3 ABG 39.1 mmol/L (22-26); PO2 ABG 87.1 mmHg (80.0-100.0)
[2021-01-20 06:01] LABS: ABG PCO2 69.6 mmHg (35-45)
[2021-01-20 06:39] LABS: Basophils % 0.5 %; Eosinophils # 0.3 10^3/uL (0.0-0.8); Eosinophils % 4.8 %; Hematocrit 36.9 % (37.0-47.0); Hemoglobin 11.1 g/dL (11.5-15.3); Lymphocytes # 1.8 10^3/uL (0.8-4.8); Lymphocytes % 28.1 %; Mean Corpuscular HGB Conc 30.1 g/dL (30.0-36.0); Mean Corpuscular Hemoglobin 29.3 pg (28.0-34.0); Mean Corpuscular Volume 97.4 fL (81-99); Mean Platelet Volume 11.8 fL (7.4-10.4); Monocytes # 0.6 10^3/uL (0.2-0.9); Monocytes % 9.8 %; Neutrophils # 3.47 10^3/uL (1.8-7.7); Neutrophils % 55.8 %; Nucleated Red Blood Cells % 0 %; Platelet Count 174 10^3/cmm (130-400); Red Blood Count 3.79 10^6/uL (4.1-5.3); Red Cell Distribution Width 14.7 % (12.1-15.1); White Blood Count 6.2 10^3/uL (4.0-10.0)
[2021-01-20 06:57] LABS: Anion Gap 11.8 (5-19); Blood Urea Nitrogen 11 mg/dL (8-23); Calcium 8.7 mg/dL (8.5-10.5); Carbon Dioxide 32 mmol/L (22-29); Chloride 100 mmol/L (98-107); Glomerular Filtration Rate 162.3 mL/min (90-130); Glucose 85 mg/dL (65-115); Osmolality Calculated 289 mOsm/kg (285-295); Potassium 3.8 mmol/L (3.5-5.1); Sodium 140 mmol/L (136-145)
--- NOTE | 2021-01-20 07:00 | PC.NURSE ---
0700 Activity note: Patient requires assistance to disconnect from bedside monitor et manage ventilator tubes. Patient ambulates without difficulty.
[2021-01-20] MEDS: budesonide 0.5 mg/2 mL Neb INHALATION ×2 (07:55→20:22)
--- NOTE | 2021-01-20 08:00 | PC.NURSE ---
Informed patient of IV's dwell time expiration et that it is an infection risk to have an IV remain in place past its dwell time. Patient understands that leaving the IV in place increases the risk of infection et can verbalize that to RN. Patient refuses to have IV removed et replaced.
--- NOTE | 2021-01-20 08:00 | PC.NURSE ---
Patient is trached but writes et mouths words appropriately.
--- NOTE | 2021-01-20 09:00 | PC.NURSE ---
Patient am amlodipine dose held due to soft BP et lopressor dose that is due at the same time. Will notify the physician
[2021-01-20] MEDS: lactobacillus 1 Tablet 1 TAB PO ×2 (09:57→18:52)
[2021-01-20] MEDS: citalopram 20 mg Tablet 10 MG PO ×2 (09:57→18:51)
[2021-01-20] MEDS: sennosides-docusate Tablet 1 TAB PO (09:57)
[2021-01-20] MEDS: montelukast sodium 10 mg Tablet PO (09:57)
[2021-01-20] MEDS: ARIPiprazole 2 mg Tablet PO (09:57)
[2021-01-20] MEDS: predniSONE 5 mg Tablet PO (09:57)
[2021-01-20] MEDS: aspirin 81 mg EC Tablet PO (09:58)
[2021-01-20] MEDS: metoprolol tartrate 50 mg Tablet PO ×2 (09:58→20:34)
--- NOTE | 2021-01-20 09:58 | PC.OT ---
Attempted to see pt for OT this morning. Pt declines treatment at this time stating she got cleaned up this morning with nursing. Pt complained of abdominal pain and says that she'd like us to try later today. Will attempt to see pt later. NICKO To/Efrain MONTES/Smiley
--- NOTE | 2021-01-20 14:24 | P.PN_ITS ---
Subjective Subjective: Interval history: Patient was examined this morning, she sitting up to the side of the bed, no events overnight, no episodes of confusion, afebrile, she is awaiting placement to select, she does tell me that sometimes her tubing is law long enough so that is why comes off or sometimes it pops off Vitals/I&O/Wt Last Vital Signs Temp 98.7 F 01/20/21 08:00 Pulse 106 H 01/20/21 12:00 Resp 15 01/20/21 13:20 BP 105/58 01/20/21 12:00 Pulse Ox 96 01/20/21 13:20 01/19/21 01/20/21 01/20/21 22:59 06:59 14:59 Intake Total 350 / 590 810 / 810 Output Total 450 / 450 350 / 800 1200 / 1200 Balance -100 / 140 -350 / -210 -390 / -390 Weight last 48 hrs Weight 83.688 kg Weight 85.304 kg Physical Exam Const: COMMON NORMALS: no acute distress and patient oriented x3 HENMT: COMMON NORMALS: normocephalic HEAD & SCALP: normocephalic Neck/C-Spine: OTHER: Tracheostomy in place Resp: COMMON NORMALS: normal respiratory effort, No retractions and No use of accessory muscles AUSCULTATION: diminished lung sounds Cardio: COMMON NORMALS: regular rate, regular rhythm, S1 normal heart sound present and S2 normal heart sound present RATE: regular rate RHYTHM: regular rhythm HEART SOUNDS: S1 normal heart sound present and S2 normal heart sound present GI: COMMON NORMALS: Normal to inspection, nondistended, normoactive bowel sounds present, Soft to palpation, non-tender, No hepatosplenomegaly present, no masses and no bruits PALPATION: Yes Soft to palpation and Yes No hepatosplenomegaly present Extremity: COMMON NORMALS: capillary refill normal, no clubbing, cyanosis or edema, no calf tenderness and no pedal edema Neuro: COMMON NORMALS: patient oriented x3 Psych: COMMON NORMALS: mental status grossly normal Urinary Catheter Management^: Greenberg: Cath Placed During This Visit: yes, but has since been removed by the nurse Reason for Continuing Indwelling Catheter: Not indwelling catheter Urinary Catheter Date of Insertion: 12/27/20 Urinary Catheter Time of Insertion: 05:26 Date Urinary Catheter Removed: 01/11/21 Time Urinary Catheter Discontinued: 17:48 Data : 01/20/21 06:14 01/20/21 06:14 A&P Assessment and plan (1) Acute and chronic respiratory failure with hypercapnia: Recurrent, severe with multiple admissions requiring intubation and mechanical ventilation. Given recurrent need for intubation decision was made to proceed with tracheostomy tube this hospital stay. Status: Acute (2) Acute exacerbation of chronic obstructive airways disease: Has gold class D COPD with an FEV1 of 16%. Has been treated with doxycycline, inhaled steroids, oral steroids and breathing treatments. Chronically on Singulair. Status: Acute (3) Status post tracheostomy: Placed by Dr. Merritt on January 03. Tube has become dislodged twice, inner canula removed by accident with oxygen tubing several times. Better since most recent replacement on January 15. Status: Acute (4) Benign essential HTN: Chronically on amlodipine and beta-blockade Status: Chronic (5) Anxiety and depression: With intermittent confusion, combination of medications I believe as well as chronic issues related to both anxiety and hypercapnia, new tracheostomy. Confusion initially worse at night. Home trazodone was resumed. Does have hydrocodone and Ativan. Chronically on citalopram and Abilify both of which remain on board here. Slowly improving with education, resumption of all of her home medications and ongoing discussions about goals of care and current plans. Status: Chronic (6) Normocytic anemia: Suspect multifactorial from iatrogenic blood draws as well as due to a degree of chronic inflammation and possibly acutely degree of volume dilution. Has not had significant blood loss from tracheostomy site. Status: Acute (7) UTI (urinary tract infection): Suspected diagnosis based on urinalysis from January 11. My personal interpretation is that original specimen was consistent with Greenberg trauma. Do not currently feel that this is a catheter associated urinary tract infection based on review. Status: Ruled-out (8) Parasomnia: Clinically has sleep apnea though has not had a formal sleep study that I am aware of. Has had orders for night pulse oximetry and prior attempts to get trilogy due to chronic hypercapnic respiratory failure. I do not know if it has been denied previously or if patient has not followed through or if patient has been rehospitalized and subsequently intubated so much it just has not been able to be set up at home. Status: Acute (9) BMI 34.0-34.9,adult: Status: Chronic Additional A&P Information Encourage patient to continue efforts to learn about the trach and not be afraid of it and its management Reviewed with nursing and respiratory ongoing training Patient is being evaluated by [facility] and her insurance -Mrs. Mixon had recurrent admissions. I genuinely feel if she can get some adequate training and care while the tracheostomy site epithelializes/stabilizes that she may in fact be able to manage this on her own appropriately. She has started to show some glimmers of that in the last day after understanding more about the entire process of being transitioned to tracheostomy long-term. If she goes home she will be alone the majority of the time and at risk of acute event to and including the possibility of if she is not able to manage the tracheostomy site and attachments on her own. She will still ultimately need a trilogy device for home use. Order for trilogy device is in place but pending approval; will require in hospital use prior to disposition Appreciate ENT evaluation Dr Merritt and pulmonology Dr Corona assistance Care as MedSurg overflow in ICU for tracheostomy safety and education opportunities [place] valve when appropriate Rocephin stopped 01/16 Stopped doxycycline 01/17 Continue home dose of steroids, inhaled budesonide and duo nebs along with Singulair Continue home citalopram and Abilify along with as needed Ativan Continue home amlodipine, metoprolol and aspirin therapy Home trazodone resumed Has as needed hydrocodone for pain related to tracheostomy tube along with Tylenol. On prophylactic Lovenox therapy H2 jagdeep On lactobacillus, continue laxatives Full code Reviewed with patient, nursing, respiratory Patient and 's disposition preference is long-term acute care for tracheostomy management education and care in this early phase and then eventual transition home. Goals of getting her comfortable and competent managing the tracheostomy tube including events in which the tube might become dislodged, how to handle her secretions, transition to [place] valve, hookup her home devices. She needs somebody with her until the tracheostomy tract epithelializes and maintains patency as her anxiety challenges her ability to manage trach during certain conditions. Plan for today continue to monitor respiratory status, continue to monitor for anxiety, trach education, awaiting insurance approval for [facility] Attestations Medical Necessity Statement*: She requires hospitalization for acute respiratory failure requiring tracheostomy, ICU care due to recurrent tracheostomy issues, increase nursing care due to tracheostomy issues Coding Level of Care Code Acute Tool And Die Machinist for Chg Fwd Diagnoses Acute and chronic respiratory failure with hypercapnia J96.22 Acute exacerbation of chronic obstructive airways disease J44.1 Status post tracheostomy Z93.0 Benign essential HTN I10 Anxiety and depression F41.9; F32.9 Normocytic anemia D64.9 UTI (urinary tract infection) N39.0 Parasomnia G47.50 BMI 34.0-34.9,adult Z68.34
[2021-01-21] VITALS (52 sets, daily range): BP systolic 91–138; BP diastolic 48–80; PULSE 60–130; RESP 14–27; TEMP 36.6–36.9; O2SAT 83–97; BMI 31.4
[2021-01-21] MEDS: ipratropium-albuterol 3 mL Neb INHALATION ×6 (04:06→23:39)
[2021-01-21 04:25] LABS: Basophils % 0.3 %; Eosinophils # 0.2 10^3/uL (0.0-0.8); Eosinophils % 3.7 %; Hematocrit 36.8 % (37.0-47.0); Hemoglobin 10.7 g/dL (11.5-15.3); Lymphocytes # 1.5 10^3/uL (0.8-4.8); Lymphocytes % 24.6 %; Mean Corpuscular HGB Conc 29.1 g/dL (30.0-36.0); Mean Corpuscular Hemoglobin 28.5 pg (28.0-34.0); Mean Corpuscular Volume 97.9 fL (81-99); Mean Platelet Volume 11.7 fL (7.4-10.4); Monocytes # 0.7 10^3/uL (0.2-0.9); Monocytes % 11.2 %; Neutrophils # 3.73 10^3/uL (1.8-7.7); Neutrophils % 59.6 %; Nucleated Red Blood Cells % 0 %; Platelet Count 177 10^3/cmm (130-400); Red Blood Count 3.76 10^6/uL (4.1-5.3); White Blood Count 6.3 10^3/uL (4.0-10.0)
[2021-01-21 04:57] LABS: Alanine Aminotransferase 23 U/L (0-33); Albumin Level 3.4 g/dL (3.5-5.2); Alkaline Phosphatase 62 IU/L (35-105); Aspartate Amino Transferase 20 U/L (0-32); Blood Urea Nitrogen 13 mg/dL (8-23); Calcium 8.6 mg/dL (8.5-10.5); Carbon Dioxide 36 mmol/L (22-29); Chloride 98 mmol/L (98-107); Globulin 2.3 g/dL (1.3-4.6); Glomerular Filtration Rate 125.4 mL/min (90-130); Glucose 114 mg/dL (65-115); Magnesium 1.9 mg/dL (1.7-2.3); Osmolality Calculated 293 mOsm/kg (285-295); Sodium 141 mmol/L (136-145); Total Bilirubin 0.3 mg/dL (0.15-1.2); Total Protein 5.7 g/dL (6.6-8.7)
[2021-01-21 04:58] LABS: NT Pro B Type Natriuretic Pept 120 pg/mL (0-125)
[2021-01-21] MEDS: enoxaparin 40 mg/0.4 mL Syringe SUBCUT (06:29)
[2021-01-21] MEDS: budesonide 0.5 mg/2 mL Neb INHALATION ×2 (07:27→19:37)
--- NOTE | 2021-01-21 08:00 | PC.NURSE ---
Patient refuses to have IV replaced.
[2021-01-21] MEDS: predniSONE 5 mg Tablet PO (09:21)
[2021-01-21] MEDS: metoprolol tartrate 50 mg Tablet PO ×2 (09:21→19:44)
[2021-01-21] MEDS: sennosides-docusate Tablet 1 TAB PO (09:21)
[2021-01-21] MEDS: citalopram 20 mg Tablet 10 MG PO ×2 (09:21→18:12)
[2021-01-21] MEDS: ARIPiprazole 2 mg Tablet PO (09:22)
[2021-01-21] MEDS: montelukast sodium 10 mg Tablet PO (09:22)
[2021-01-21] MEDS: aspirin 81 mg EC Tablet PO (09:22)
[2021-01-21] MEDS: LORazepam 0.5 mg Tablet PO ×3 (09:22→22:12)
[2021-01-21] MEDS: amlodipine 5 mg Tablet PO (09:22)
--- NOTE | 2021-01-21 09:46 | PC.CHAP ---
Pastoral Care Encounter/Spiritual Assessment Type of Contact [] Declined administrative staff supervisor visit [] Patient/Family/Request visit [] Outpatient visit [] Follow-up visit [] Physician referral [] Code/Alert [x] Routine visit [] Staff referral [] Actively dying [] Patient sleeping [] Family support [] [] Out of room [] Palliative care [] [] Receiving care in room [] Pre-surgical visit [] Trauma [] Long length of stay [x] ICU visit [] Other: Relational/Emotional Strength [] Patient feels connected with others/family/visitors/staff [] Distress [] Loneliness/isolation [] Abandonment Spirituality of Patient [] Person of Amanda [] Attends Confucianism of their Amanda [] Believes in Prayer [] Reads Bible or Episcopal materials [] There are Spiritual issues to be addressed 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 Interventions [x] Prayer [] Active listening [] Non-anxious presence [] Spiritual/emotional support [] Crisis/trauma care [] Spiritual counseling [] Bereavement support [] Provided bereavement packet [] Provided Bible/devotional materials [] Provided toy/stuffed animal, coloring book to patient or family member [] Provided Communion [] Anointing/[place] [] Salvation [x] Completed spiritual assessment [] Other: Impact on Illness or Injury [] Angry [] Fearful [] Anxious [] Often cries [] Exhaustion [] Unable to work [] Unable to attend mandaen [] Unable to walk/stand [] Unable to read [] Unable to drive [] Unable to eat/drink [] Unable to sleep [] Unable to be with family [] Patient intubated [] Other: Summary patient unable to communicate... setting up in chair.. Time spent with patient 10 min
--- NOTE | 2021-01-21 13:21 | P.PN_ITS ---
Subjective Subjective: Interval history: Patient is doing well this morning, she sitting up to the side of the bed, no issues with her tracheostomy overnight, her anxiety is well controlled, she possibly could be [facility] Medications: Reviewed: Yes Vitals/I&O/Wt Last Vital Signs Temp 98.1 F 01/21/21 06:26 Pulse 83 01/21/21 11:08 Resp 18 01/21/21 11:04 BP 126/75 01/21/21 09:00 Pulse Ox 93 01/21/21 11:04 01/20/21 01/21/21 01/21/21 22:59 06:59 14:59 Intake Total 350 / 1160 Output Total 250 / 1450 Balance 350 / -40 -250 / -290 Weight last 48 hrs Weight 88.195 kg Weight 83.688 kg Physical Exam Const: COMMON NORMALS: no acute distress and patient oriented x3 HENMT: COMMON NORMALS: normocephalic HEAD & SCALP: normocephalic OTHER: Tracheostomy in place Neck/C-Spine: OTHER: Tracheostomy in place Resp: COMMON NORMALS: normal respiratory effort, No retractions and No use of accessory muscles AUSCULTATION: diminished lung sounds bilateral Cardio: COMMON NORMALS: regular rate, regular rhythm, S1 normal heart sound present and S2 normal heart sound present RATE: regular rate RHYTHM: regular rhythm HEART SOUNDS: S1 normal heart sound present and S2 normal heart sound present GI: COMMON NORMALS: Normal to inspection, nondistended, normoactive bowel sounds present, Soft to palpation, non-tender, No hepatosplenomegaly present, no masses and no bruits PALPATION: Yes Soft to palpation and Yes No hepato splenomegaly present Extremity: COMMON NORMALS: no pedal edema Neuro: COMMON NORMALS: patient oriented x3 Psych: COMMON NORMALS: mental status grossly normal Urinary Catheter Management^: Greenberg: Cath Placed During This Visit: yes, but has since been removed by the nurse Reason for Continuing Indwelling Catheter: Not indwelling catheter Urinary Catheter Date of Insertion: 12/27/20 Urinary Catheter Time of Insertion: 05:26 Date Urinary Catheter Removed: 01/11/21 Time Urinary Catheter Discontinued: 17:48 Data : 01/21/21 03:09 01/21/21 03:33 A&P Assessment and plan (1) Acute and chronic respiratory failure with hypercapnia: Recurrent, severe with multiple admissions requiring intubation and mechanical ventilation. Given recurrent need for intubation decision was made to proceed with tracheostomy tube this hospital stay. Status: Acute (2) Acute exacerbation of chronic obstructive airways disease: Has gold class D COPD with an FEV1 of 16%. Has been treated with doxycycline, inhaled steroids, oral steroids and breathing treatments. Chronically on Singulair. Status: Acute (3) Status post tracheostomy: Placed by Dr. Merritt on January 03. Tube has become dislodged twice, inner ca nula removed by accident with oxygen tubing several times. Better since most recent replacement on January 15. Status: Acute (4) Benign essential HTN: Chronically on amlodipine and beta-blockade Status: Chronic (5) Anxiety and depression: With intermittent confusion, combination of medications I believe as well as chronic issues related to both anxiety and hypercapnia, new tracheostomy. Confusion initially worse at night. Home trazodone was resumed. Does have hydrocodone and Ativan. Chronically on citalopram and Abilify both of which remain on board here. Slowly improving with education, resumption of all of her home medications and ongoing discussions about goals of care and current plans. Status: Chronic (6) Normocytic anemia: Suspect multifactorial from iatrogenic blood draws as well as due to a degree of chronic inflammation and possibly acutely degree of volume dilution. Has not had significant blood loss from tracheostomy site. Status: Acute (7) UTI (urinary tract infection): Suspected diagnosis based on urinalysis from January 11. My personal interpretation is that original specimen was consistent with Greenberg trauma. Do not currently feel that this is a catheter associated urinary tract infection based on review. Status: Ruled-out (8) Parasomnia: Clinically has sleep apnea though has not had a formal sleep study that I am aware of. Has had orders for night pulse oximetry and prior attempts to get trilogy due to chronic hypercapnic respiratory failure. I do not know if it has been denied previously or if patient has not followed through or if patient has been rehospitalized and subsequently intubated so much it just has not been able to be set up at home. Status: Acute (9) BMI 34.0-34.9,adult: Status: Chronic Additional A&P Information Encourage patient to continue efforts to learn about the trach and not be afraid of it and its management Reviewed with nursing and respiratory ongoing training Patient is being evaluated by [facility] and her insurance -Mrs. Mixon had recurrent admissions. I genuinely feel if she can get some adequate training and care while the tracheostomy site epithelializes/stabilizes that she may in fact be able to manage this on her own appropriately. She has started to show some glimmers of that in the last day after understanding more about the entire process of being transitioned to tracheostomy long-term. If she goes home she will be alone the majority of the time and at risk of acute event to and including the possibility of if she is not able to manage the tracheostomy site and attachments on her own. She will still ultimately need a trilogy device for home use. Order for trilogy device is in place but pending approval; will require in hospital use prior to disposition Appreciate ENT evaluation Dr Merritt and pulmonology Dr Corona assistance Care as MedSurg overflow in ICU for tracheostomy safety and education opportunities Passy-[place] valve when appropriate Rocephin stopped 01/16 Stopped doxycycline 01/17 Continue home dose of steroids, inhaled budesonide and duo nebs along with Singulair Continue home citalopram and Abilify along with as needed Ativan Continue home amlodipine, metoprolol and aspirin therapy Home trazodone resumed Has as needed hydrocodone for pain related to tracheostomy tube along with Tylenol. On prophylactic Lovenox therapy H2 jagdeep On lactobacillus, continue laxatives Full code Reviewed with patient, nursing, respiratory Patient and 's disposition preference is long-term acute care for tracheostomy management education and care in this early phase and then eventual transition home. Goals of getting her comfortable and competent managing the tracheostomy tube including events in which the tube might become dislodged, how to handle her secretions, transition to Passy-Marcial valve, hookup her home devices. She needs somebody with her until the tracheostomy tract epithelializes and maintains patency as her anxiety challenges her ability to manage trach during certain conditions. Plan for today continue to monitor respiratory status, continue to monitor for anxiety, trach education, hopefully can be transferred to [facility] in the next 24 hours Attestations Medical Necessity Statement*: Patient requires hospitalization for tracheostomy, acute respiratory failure, awaiting transfer to [facility] Coding Level of Care Code Acute Industrial Arts Teacher for Missael Cr Diagnoses Acute and chronic respiratory failure with hypercapnia J96.22 Acute exacerbation of chronic obstructive airways disease J44.1 Status post tracheostomy Z93.0 Benign essential HTN I10 Anxiety and depression F41.9; F32.9 Normocytic anemia D64.9 UTI (urinary tract infection) N39.0 Parasomnia G47.50 BMI 34.0-34.9,adult Z68.34
[2021-01-21] MEDS: HYDROcodone-acetaminophen 5-325 mg Tablet 1 TAB PO ×2 (15:05→19:44)
[2021-01-21] MEDS: lactobacillus 1 Tablet 1 TAB PO (18:11)
[2021-01-22] VITALS (56 sets, daily range): BP systolic 84–124; BP diastolic 55–70; PULSE 68–112; RESP 14–24; TEMP 36.3–36.8; O2SAT 79–99; BMI 31.0
[2021-01-22] MEDS: ipratropium-albuterol 3 mL Neb INHALATION ×3 (03:45→11:14)
[2021-01-22 04:16] LABS: Basophils % 0.6 %; Eosinophils # 0.2 10^3/uL (0.0-0.8); Eosinophils % 4.5 %; Hematocrit 35.5 % (37.0-47.0); Hemoglobin 10.4 g/dL (11.5-15.3); Lymphocytes # 1.8 10^3/uL (0.8-4.8); Lymphocytes % 32.7 %; Mean Corpuscular HGB Conc 29.3 g/dL (30.0-36.0); Mean Corpuscular Hemoglobin 28.9 pg (28.0-34.0); Mean Corpuscular Volume 98.6 fL (81-99); Mean Platelet Volume 11.7 fL (7.4-10.4); Monocytes # 0.7 10^3/uL (0.2-0.9); Monocytes % 12.6 %; Neutrophils # 2.61 10^3/uL (1.8-7.7); Neutrophils % 48.3 %; Nucleated Red Blood Cells % 0 %; Platelet Count 173 10^3/cmm (130-400); Red Cell Distribution Width 14.8 % (12.1-15.1); White Blood Count 5.4 10^3/uL (4.0-10.0)
[2021-01-22 04:34] LABS: Alanine Aminotransferase 25 U/L (0-33); Albumin Level 3.3 g/dL (3.5-5.2); Alkaline Phosphatase 63 IU/L (35-105); Aspartate Amino Transferase 23 U/L (0-32); Blood Urea Nitrogen 14 mg/dL (8-23); Calcium 8.5 mg/dL (8.5-10.5); Carbon Dioxide 37 mmol/L (22-29); Chloride 100 mmol/L (98-107); Globulin 2.2 g/dL (1.3-4.6); Glomerular Filtration Rate 125.4 mL/min (90-130); Glucose 92 mg/dL (65-115); Magnesium 1.9 mg/dL (1.7-2.3); Osmolality Calculated 290 mOsm/kg (285-295); Sodium 140 mmol/L (136-145); Total Bilirubin 0.3 mg/dL (0.15-1.2); Total Protein 5.5 g/dL (6.6-8.7)
[2021-01-22 04:40] LABS: NT Pro B Type Natriuretic Pept 68 pg/mL (0-125)
[2021-01-22] MEDS: enoxaparin 40 mg/0.4 mL Syringe SUBCUT (05:33)
[2021-01-22] MEDS: budesonide 0.5 mg/2 mL Neb INHALATION (07:33)
[2021-01-22] MEDS: LORazepam 0.5 mg Tablet PO (07:40)
[2021-01-22] MEDS: ARIPiprazole 2 mg Tablet PO (09:09)
[2021-01-22] MEDS: lactobacillus 1 Tablet 1 TAB PO (09:10)
[2021-01-22] MEDS: metoprolol tartrate 50 mg Tablet PO (09:10)
[2021-01-22] MEDS: aspirin 81 mg EC Tablet PO (09:10)
[2021-01-22] MEDS: citalopram 20 mg Tablet 10 MG PO (09:10)
[2021-01-22] MEDS: montelukast sodium 10 mg Tablet PO (09:11)
[2021-01-22] MEDS: predniSONE 5 mg Tablet PO (09:11)
--- NOTE | 2021-01-22 09:33 | PC.CHAP ---
Pastoral Care Encounter/Spiritual Assessment Type of Contact [] Declined enterprise account executive visit [] Patient/Family/Request visit [] Outpatient visit [] Follow-up visit [] Physician referral [] Code/Alert [x] Routine visit [] Staff referral [] Actively dying [x] Patient sleeping [] Family support [] [] Out of room [] Palliative care [] [] Receiving care in room [] Pre-surgical visit [] Trauma [] Long length of stay [x] ICU visit [x] Other: patient sleeping in chair Relational/Emotional Strength [] Patient feels connected with others/family/visitors/staff [] Distress [] Loneliness/isolation [] Abandonment Spirituality of Patient [] Person of Amanda [] Attends Mormonism of their Amanda [] Believes in Prayer [] Reads Bible or Moravian materials [] There are Spiritual issues to be addressed Drugless Doctor Interventions [x] Prayer [] Active listening [] Non-anxious presence [] Spiritual/emotional support [] Crisis/trauma care [] Spiritual counseling [] Bereavement support [] Provided bereavement packet [] Provided Bible/devotional materials [] Provided toy/stuffed animal, coloring book to patient or family member [] Provided Communion [] Anointing/[place] [] Salvation [x] Completed spiritual assessment [] Other: Impact on Illness or Injury [] Angry [] Fearful [] Anxious [] Often cries [] Exhaustion [] Unable to work [] Unable to attend amish [] Unable to walk/stand [] Unable to read [] Unable to drive [] Unable to eat/drink [] Unable to sleep [] Unable to be with family [] Patient intubated [] Other: Summary Time spent with patient
[2021-01-22] MEDS: HYDROcodone-acetaminophen 5-325 mg Tablet 1 TAB PO (10:02)
--- NOTE | 2021-01-22 10:52 | PM.TDS ---
Transfer Summary Providers Date of Admission: 12/27/20 03:51 Date of Discharge: 01/22/21 Attending Provider at Admission: Shashi Concepcion Attending Provider at Transfer: Nasir Hoffman MD Primary Care Provider: Taniya Irving DO Anticipated Date of Transfer: Anticipated date of transfer: 01/22/21 Receiving Facility & Provider: Receiving Provider: [] Receiving facility: [] Diagnoses at Discharge Discharge Diagnosis (1) Acute and chronic respiratory failure with hypercapnia: Status: Acute (2) Acute exacerbation of chronic obstructive airways disease: Status: Acute (3) Status post tracheostomy: Status: Acute (4) Benign essential HTN: Status: Chronic (5) Anxiety and depression: Status: Chronic (6) Normocytic anemia: Status: Acute (7) UTI (urinary tract infection): Status: Ruled-out (8) Parasomnia: Status: Acute (9) BMI 34.0-34.9,adult: Status: Chronic Reason for Visit Reason for Visit: resp distress Hospital Course Hospital Course This is a 60-year-old female with a past medical history of chronic hypoxic hypercapnic respiratory failure, history of multiple intubations in the past, severe COPD Gold D FEV1 16%, hypertension, anxiety, depression who presents to [facility] due to complaints of shortness of breath, in the emergency room patient was found to have hypercapnic hypoxic respiratory failure, failing BiPAP therapy was intubated and mechanically ventilated. Patient was successfully extubated, after discussion with patient about her chronic respiratory failure, she agreed to tracheostomy placement, had tracheostomy placement by Dr. Merritt on 01/03/2021. Patient's postoperative course was complicated by episodes of confusion and anxiety, resulting in the tube being dislodged twice, inner cannula removed by accident several times. In addition she would become quite anxious whenever the tubes would become dislodged, or when suctioning secretions, or if there was a minor issue with her trach care. She did get extensive trach education as inpatient for over 2 weeks with modest l improvement. After discussion with patient, she agreed to [facility] placement for adequate time for tracheostomy site epithelialization and stabilization, trach care, monitoring of her respiratory status. Transfer to [facility] in [place] on 01/22/2021 Physical Exam Const: COMMON NORMALS: no acute distress and patient oriented x3 HENMT: COMMON NORMALS: normocephalic HEAD & SCALP: normocephalic Neck/C-Spine: OTHER: Tracheostomy in place Resp: COMMON NORMALS: normal respiratory effort, No retractions and No use of accessory muscles AUSCULTATION: diminished lung sounds bilateral Cardio: COMMON NORMALS: regular rate, regular rhythm, S1 normal heart sound present and S2 normal heart sound present RATE: regular rate RHYTHM: regular rhythm HEART SOUNDS: S1 normal heart sound present and S2 normal heart sound present GI: COMMON NORMALS: Normal to inspection, nondistended, normoactive bowel sounds present, Soft to palpation, non-tender, No hepatosplenomegaly present, no masses and no bruits PALPATION: Yes Soft to palpation and Yes No hepatosplenomegaly present Extremity: COMMON NORMALS: no pedal edema Neuro: COMMON NORMALS: patient oriented x3 Psych: COMMON NORMALS: mental status grossly normal Urinary Catheter Management^: Greenberg: Cath Placed During This Visit: yes, but has since been removed by the nurse Reason for Continuing Indwelling Catheter: Not indwelling catheter Urinary Catheter Date of Insertion: 12/27/20 Urinary Catheter Time of Insertion: 05:26 Date Urinary Catheter Removed: 01/11/21 Time Urinary Catheter Discontinued: 17:48 TS Data Data Completed and Pending: Completed Studies During Hospitalization Category Date Time Status XR chest 1V brian ble [id number] Routine Exams 12/27/20 04:08 Completed XR chest 1V brian ble [id number] Routine Exams 12/28/20 07:00 Completed XR chest 1V brian ble [id number] Routine Exams 12/29/20 07:00 Completed XR chest 1V brian ble [id number] Routine Exams 12/30/20 07:00 Completed XR chest 1V brian ble [id number] Routine Exams 01/15/21 08:25 Completed XR chest 1V brian ble [id number] Stat Exams 01/11/21 08:01 Completed XR chest 1V brian ble [id number] Stat Exams 01/13/21 00:08 Completed XR chest 1V brian ble [id number] Urgent Exams 12/27/20 01:42 [place] [id number] Routine Exams 01/15/21 09:03 Completed Pending at discharge Category Date Time Status Complete Blood Co unt w/Auto AM LABS Lab 01/23/21 04:00 Ordered Comprehensive Met abolic Panel AM LA BS Lab 01/23/21 04:00 Ordered Magnesium AM LABS Lab 01/23/21 04:00 Ordered NT Pro B Type Anitha riuretic Pept QAM Lab 01/23/21 06:00 Ordered Labs from last 24 hours 01/22/21 01/22/21 01/22/21 03:20 03:20 03:20 WBC 5.4 RBC 3.60 L Hgb 10.4 L Hct 35.5 L MCV 98.6 MCH 28.9 MCHC 29.3 L RDW 14.8 Plt Count 173 MPV 11.7 H Neut % (Auto) 48.3 Lymph % (Auto) 32.7 [place] % (Auto) 12.6 Eos % (Auto) 4.5 Baso % (Auto) 0.6 Neut # (Auto) 2.61 Lymph # (Auto) 1.8 [place] # (Auto) 0.7 Eos # (Auto) 0.2 Baso # (Auto) 0.0 Nucleated RBC % (a uto) 0 Nucleated RBCs # 0.0 Sodium 140 Potassium 4.0 Chloride 100 Carbon Dioxide 37 H Anion Gap 7.0 BUN 14 Creatinine 0.5 GFR Calculation 125.4 Glucose 92 Calculated Osmolal ity 290 Calcium 8.5 Magnesium 1.9 Total Bilirubin 0.3 AST 23 ALT 25 Alkaline Phosphata se 63 NT-Pro-B Natriuret Pep 68 Total Protein 5.5 L Albumin 3.3 L Globulin 2.2 Vitals: Last Vital Signs Temp 98.3 F 01/22/21 08:00 Pulse 97 01/22/21 10:15 Resp 22 H 01/22/21 08:00 BP 84/61 01/22/21 08:00 Pulse Ox 98 01/22/21 10:15 TS Medications Medications Home Medications multivit with kfjnljnz-jdvr-RY-lutein 8 mg iron-400 mcg-300 mcg tablet 1 tab PO DAILY 09/28/19 [History Confirmed 12/27/20] aspirin 81 mg tablet,delayed release 81 mg PO DAILY 10/23/20 [History Confirmed 12/27/20] albuterol sulfate 90 mcg/actuation aerosol inhaler 2 puff INHALATION Q6H PRN #18 gm 11/14/20 [Rx Confirmed 12/27/20] azithromycin 250 mg tablet See Rx Instructions .ROUTE .COMPLEX #90 tab 11/25/20 [Rx Confirmed 12/27/20] ipratropium 0.5 mg-albuterol 3 mg (2.5 mg base)/3 mL nebulization soln 3 ml INHALATION Q6H #360 ml 12/06/20 [Rx Confirmed 12/27/20] montelukast 10 mg PO DAILY 12/15/20 [History Confirmed 12/27/20] amlodipine 5 mg PO DAILY 30 Days #30 tab 12/24/20 [Rx Confirmed 12/27/20] citalopram 10 mg PO BID 30 Days #30 tab 12/24/20 [Rx Confirmed 12/27/20] metoprolol tartrate 50 mg PO BID@0900,2100 30 Days #60 tab 12/24/20 [Rx Confirmed 12/27/20] prednisone 5 mg PO DAILY 30 Days #30 tab 12/24/20 [Rx Confirmed 12/27/20] trazodone 50 mg PO BEDTIME PRN 30 Days #30 tab 12/24/20 [Rx Confirmed 12/27/20] amoxicillin-pot clavulanate 1 tab PO BID 12/27/20 [History Confirmed 12/27/20] lorazepam 0.5 mg PO BID PRN 12/27/20 [History Confirmed 12/27/20] budesonide 0.5 mg/2 mL suspension for nebulization See Rx Instructions .ROUTE .COMPLEX #60 vial 12/30/20 [Rx Confirmed 01/04/21] aripiprazole 2 mg tablet 2 mg PO DAILY #30 tab 01/07/21 [Rx] Active Medications Acetaminophen (Acetaminophen 325 Mg Tablet) 650 mg PO Q6H PRN PRN Reason: MILD PAIN Hydrocodone Bitart/Acetaminophen (Hydrocodone-Acetaminophen 5-325 Mg Tablet) 1 tab PO Q4H PRN PRN Reason: MODERATE TO SEVERE PAIN Last Admin: 01/22/21 10:02 Dose: 1 tab Documented by: Albuterol Sulfate (Albuterol 8 Gm Mdi) 2 puff INHALATION Q6H.RESPIRATORY PRN PRN Reason: shortness of breath Albuterol/Ipratropium (Ipratropium-Albuterol 3 Ml Neb) 3 ml INHALATION Q4H.RESPIRATORY JOSE Last Admin: 01/22/21 07:33 Dose: 3 ml Documented by: Aripiprazole (Aripiprazole 2 Mg Tablet) 2 mg PO DAILY JOSE Last Admin: 01/22/21 09:09 Dose: 2 mg Documented by: Aspirin (Aspirin 81 Mg Ec Tablet) 81 mg PO DAILY JOSE Last Admin: 01/22/21 09:10 Dose: 81 mg Documented by: Budesonide (Budesonide 0.5 Mg/2 Ml Neb) 0.5 mg INHALATION BID.RESPIRATORY [facility] Last Admin: 01/22/21 07:33 Dose: 0.5 mg Documented by: Citalopram Hydrobromide (Citalopram 20 Mg Tablet) 10 mg PO BID [facility] Last Admin: 01/22/21 09:10 Dose: 10 mg Documented by: Enoxaparin Sodium (Enoxaparin 40 Mg/0.4 Ml Syringe) 40 mg SUBCUT Q24H [facility] Last Admin: 01/22/21 05:33 Dose: 40 mg Documented by: Lactobacillus Acidophilus (Lactobacillus 1 Tablet) 1 tab PO BID [facility] Last Admin: 01/22/21 09:10 Dose: 1 tab Documented by: Lorazepam (Lorazepam 0.5 Mg Tablet) 0.5 mg PO TID PRN PRN Reason: ANXIETY Last Admin: 01/22/21 07:40 Dose: 0.5 mg Documented by: Metoprolol Tartrate (Metoprolol Tartrate 50 Mg Tablet) 50 mg PO BID@0900,2100 [facility] Last Admin: 01/22/21 09:10 Dose: 50 mg Documented by: Montelukast Sodium (Montelukast Sodium 10 Mg Tablet) 10 mg PO DAILY [facility] Last Admin: 01/22/21 09:11 Dose: 10 mg Documented by: Prednisone (Prednisone 5 Mg Tablet) 5 mg PO DAILY [facility] Last Admin: 01/22/21 09:11 Dose: 5 mg Documented by: Senna/Docusate Sodium (Sennosides-Docusate Tablet) 1 tab PO DAILY [facility] Last Admin: 01/22/21 09:11 Dose: Not Given Documented by: Trazodone HCl (Trazodone 50 Mg Tablet) 25 mg PO BEDTIME PRN PRN Reason: insomnia Discharge Plan Discharge Patient Disposition: Xfer Intermediate Care Fac Condition: Stable Prescriptions: No Action aspirin [Adult Aspirin Regimen] 81 mg tablet,delayed release (DR/EC) 81 mg PO DAILY RF: 0 Centrum Silver Women 8 mg iron-400 mcg-300 mcg tablet 1 tab PO DAILY RF: 0 albuterol sulfate [ProAir HFA] 90 mcg/actuation HFA aerosol inhaler 2 puff INHALATION Q6H PRN (Reason: shortness of breath) Qty: 18 RF: 3 azithromycin 250 mg tablet See Rx Instructions .ROUTE .COMPLEX Qty: 90 RF: 3 ipratropium-albuterol 0.5 mg-3 mg(2.5 mg base)/3 mL solution for nebulization 3 ml INHALATION Q6H Qty: 360 RF: 4 budesonide 0.5 mg/2 mL suspension for nebulization See Rx Instructions .ROUTE .COMPLEX Qty: 60 RF: 11 aripiprazole [Abilify] 2 mg tablet 2 mg PO DAILY Qty: 30 RF: 0 montelukast 10 mg Tablet 10 mg PO DAILY RF: 0 trazodone 50 mg Tablet 50 mg PO BEDTIME PRN (Reason: insomnia) 30 Days Qty: 30 RF: 0 amlodipine 5 mg Tablet 5 mg PO DAILY 30 Days Qty: 30 RF: 0 citalopram 20 mg Tablet 10 mg PO BID 30 Days Qty: 30 RF: 0 metoprolol tartrate 50 mg Tablet 50 mg PO BID@0900,2100 30 Days Qty: 60 RF: 0 prednisone 5 mg tablet 5 mg PO DAILY 30 Days Qty: 30 RF: 3 lorazepam 0.5 mg tablet 0.5 mg PO BID PRN (Reason: anxiety) RF: 0 amoxicillin-pot clavulanate 875-125 mg tablet 1 tab PO BID RF: 0 Discharge Orders: Discharge Order (Routine); Ordered 01/22/21 Ordered By: Nasir Hoffman Other Ambulatory Orders: DME: Miscellaneous (Order) Location: None Selected Ordered By: Nasir Hoffman DME: Miscellaneous (Order) Location: None Selected Ordered By: Nasir Hoffman DME: Miscellaneous (Order) Location: None Selected Ordered By: Nasir Hoffman DME: Walker (Order) Location: None Selected Ordered By: Nasir Hoffman Discharge Diet: Regular Discharge Activity: Resume usual activity Transfer Attestations Time Spent in Transfer Care*: greater than 30 min Status at Transfer: Cognitive status at transfer: cognitively intact, Behavioral status at transfer: cooperative, Quality Metrics Clinical Quality Measures: During this hospital stay, did patient experience: None Coding Level of Care Code 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
--- NOTE | 2021-01-22 14:28 | PC.NURSE ---
[facility] [place] [place] Report given to jessica Medina RN. Transported via [facility] ambulance. Nurse called patient's [place] and let him know about transport.
== END 2021-01-22 14:36 | DRG 4 ==
LOC: ER 02:15 → ICU 04:04 → MEDSURG 12-30 12:25 → ICU 01-03 19:28 → MEDSURG 01-06 12:18 → ICU 01-13 01:56
PROVIDERS: Hospitalist; Internal Medicine; Specialist; Admitting Provider Hospitalist; Emergency Provider Emergency Medicine; PCP Family Medicine; Visit Provider Family Medicine
PROC: 0B110F4 Bypass Trachea to Cutaneous with Tracheostomy Device, Open Approach (ICD-10-PCS; principal; 2021-01-03 18:00)
DX: J96.22 Acute and chronic respiratory failure with hypercapnia (principal); M50.00 Cervical disc disorder with myelopathy, unspecified cervical region; J44.1 Chronic obstructive pulmonary disease with (acute) exacerbation; N39.0 Urinary tract infection, site not specified; T85.628A Displacement of other specified internal prosthetic devices, implants and grafts, initial encounter; J96.21 Acute and chronic respiratory failure with hypoxia; I10 Essential (primary) hypertension; F41.8 Other specified anxiety disorders; G56.03 Carpal tunnel syndrome, bilateral upper limbs; G47.33 Obstructive sleep apnea (adult) (pediatric); Z78.0 Asymptomatic menopausal state; M51.34 Other intervertebral disc degeneration, thoracic region; M51.35 Other intervertebral disc degeneration, thoracolumbar region; E55.9 Vitamin D deficiency, unspecified; Z87.891 Personal history of nicotine dependence; F51.8 Other sleep disorders not due to a substance or known physiological condition; Z77.22 Contact with and (suspected) exposure to environmental tobacco smoke (acute) (chronic); Y82.8 Other medical devices associated with adverse incidents; D64.9 Anemia, unspecified; E66.9 Obesity, unspecified; Z68.34 Body mass index [BMI] 34.0-34.9, adult; R41.0 Disorientation, unspecified; Z79.891 Long term (current) use of opiate analgesic; Z79.51 Long term (current) use of inhaled steroids
CPT/HCPCS: 12345; 31500; 36415; 36600; 51702; 70360; 71045; 80048; 80053; 80202; 81001; 82550; 82803; 82805; 83605; 83735; 83880; 84100; 84145; 84484; 85025; 85610; 86140; 92507; 92523; 92526; 92610; 93005; 94002; 94003; 94640; 94660; 94762; 94799; 96372; 97110; 97116; 97162; 97165; 97530; 97535; 99291; A4570; J0330; J0696; J1170; J1200; J1650; J1940; J2250; J2405; J2543; J2704; J2920; J2930; J3010; J3370; J3480; J3490; J7030; J7512; J7626

== ENCOUNTER 2021-04-19 09:38 | Inpatient (IN) | payer MEDICARE, SELFPAY ==
[2021-04-19] VITALS (54 sets, daily range): BP systolic 82–150; BP diastolic 56–106; PULSE 83–149; RESP 18–40; TEMP 36.8–36.9; O2SAT 77–96
--- NOTE | 2021-04-19 09:46 | XRR_ITS ---
PROCEDURE INFORMATION: Exam: XR Chest Exam date and time: 04/19/2021 9:46 AM Age: 60 years old Clinical indication: Cough; Additional info: Dyspnea/cough TECHNIQUE: Imaging protocol: XR of the chest. Views: 1 view. COMPARISON: CR XR chest 1V portable [id number] 01/15/2021 9:05 AM FINDINGS: Tubes, catheters and devices: A tracheostomy tube projects in satisfactory position. Lungs: There are stable interstitial densities in the lung bases. No new infiltrates are seen. There is bullous emphysema in the upper lobes. Faint nodular densities are again seen in the upper lobes and are unchanged. Pleural spaces: Unremarkable. No pleural effusion. No pneumothorax. Heart/Mediastinum: Unremarkable. No cardiomegaly. Bones/joints: Unremarkable. XR/XR chest 1V portable [id number] IMPRESSION: 1. Pulmonary emphysema with basilar interstitial fibrosis. 2. Stable upper lobe pulmonary nodules. 3. No new abnormality has developed since previous study.
--- NOTE | 2021-04-19 09:47 | W.ED.SOB ---
HPI - SOB/Dyspnea General: Chief Complaint: Shortness of Breath/Dyspnea Stated Complaint: RESP DISTRESS; AMS Time Seen by Provider: 04/19/21 09:45 History of Present Illness: HPI Narrative: 80-year-old female brought in by EMS for altered mental status and respiratory distress to report having given several nebulizers in route. She has a history of COPD. She was recently hospitalized in January of this year and was transferred out and ultimately received a tracheostomy. She still has a tracheostomy although the report is that she only uses it at night. After placement of tracheostomy last hospitalization she was transferred to [facility] for long-term acute. I do not have records about that hospital stay went. MD elicited complaint: shortness of breath Pertinent past history: COPD Onset (ago): unknown Severity: severe Known history of: COPD Treatment prior to arrival: oxygen Review of Systems General: Reports: ROS unobtainable due to medical condition [facility] PFSH: Medical History Anxiety and depression Benign essential HTN Bilateral carpal tunnel syndrome Bilateral lower extremity edema Cervical myelopathy COPD, severe Degenerative disc disease, cervical Lung mass ANASTASIYA (obstructive sleep apnea) Postmenopausal Unspecified thoracic, thoracolumbar and lumbosacral intervertebral disc disorder Vitamin D deficiency Surgical History S/P hysterectomy S/P tonsillectomy Status post tracheostomy (~01/2021) Family History Other CHF (congestive heart failure) Murmur, cardiac Social History Smoking and tobacco status: former smoker Quit status (tobacco): has quit using tobacco Year quit tobacco: 2017 - 1PPD x 40 Years Second hand smoke exposure: Yes Alcohol intake: never Lives independently: Yes Household members: spouse Marital status: Current occupational status: disabled History of recent travel: No Current gender identity: Female Special andres needs: No Physical Exam HENMT: COMMON NORMALS: normocephalic and atraumatic HEAD & SCALP: normocephalic and atraumatic Neck/C-Spine: COMMON NORMALS: no JVD Resp: COMMON NORMALS: normal respiratory effort, No retractions, No use of accessory muscles and clear to auscultation bilaterally AUSCULTATION: clear to auscultation bilaterally Cardio: COMMON NORMALS: no JVD, regular rate, regular rhythm and No murmurs present (Cardio) RATE: regular rate RHYTHM: regular rhythm GI: COMMON NORMALS: Soft to palpation and No hepatosplenomegaly present AUSCULTATION: Yes normoactive bowel sounds PALPATION: Yes Soft to palpation, No Tenderness to palpation present (GI), No Guarding due to palpation present (GI) and Yes No hepatosplenomegaly present Extremity: COMMON NORMALS: normal to inspection, capillary refill normal, no clubbing, cyanosis or edema, no calf tenderness and no pedal edema Course Vital Signs: Vital signs: Vital Signs Temperature 98 F 04/21/21 14:00 Pulse Rate 131 H 04/21/21 14:00 Respiratory Rate 18 04/21/21 16:16 Blood Pressure 96/54 04/21/21 14:00 Pulse Oximetry 90 04/21/21 12:00 MDM - SOB/Dyspnea MDM Narrative: Medical decision making narrative: Acute on chronic respiratory failure. No pulmonary emboli does have apparent pneumonia. Started on antibiotics discussed with Dr. Fisher will admit patient has failed BiPAP and was transition to ventilator via the trach. Lab Data: Labs: Lab Results 04/19/21 04/19/21 04/19/21 Range/Units 09:52 09:52 09:52 WBC 11.2 H (4.0-10.0) 10^3/ uL RBC 4.16 (4.1-5.3) 10^6/u L Hgb 11.5 (11.5-15.3) g/dL Hct 40.8 (37.0-47.0) % MCV 98.1 (81-99) fL MCH 27.6 L (28.0-34.0) pg MCHC 28.2 L (30.0-36.0) g/dL RDW 13.9 (12.1-15.1) % Plt Count 185 (130-400) 10^3/c mm MPV 11.5 H (7.4-10.4) fL Neut % (Auto) 82.1 % Lymph % (Auto) 7.7 % Knott % (Auto) 8.5 % Eos % (Auto) 0.1 % Baso % (Auto) 0.5 % Neut # (Auto) 9.17 H (1.8-7.7) 10^3/u L Lymph # (Auto) 0.9 (0.8-4.8) 10^3/u L Knott # (Auto) 1.0 H (0.2-0.9) 10^3/u L Eos # (Auto) 0.0 (0.0-0.8) 10^3/u L Baso # (Auto) 0.1 (0.0-0.1) 10^3/u L Nucleated RBC % (a uto) 0 % Nucleated RBCs # 0.0 /100WBC D-Dimer (0-0.59) ug/mIFE U Specimen Type Sample Site ABG pH (7.35-7.45) ABG pCO2 (35-45) mmHg ABG pO2 (80.0-100.0) mmH g ABG HCO3 (22-26) mmol/L ABG O2 Saturation ABG Base Excess (-2.0-2.0) mmol/ L Tylor Test A-a O2 Gradient (5-10) mmHg Hematocrit (37-47) % Hgb O2 Saturation (95-100) % Carboxyhemoglobin (0.4-20.1) %THgb Methemoglobin (0.4-1.5) % Total Hemoglobin (12-16) g/dL Ionized Calcium (1.1-1.4) mmol/L O2 Delivery Device FiO2 % Tidal Volume PEEP cmH20 Bicycle Assembler ID Sodium 142 (136-145) mmol/L Potassium 4.5 (3.5-5.1) mmol/L Chloride 95 L (98-107) mmol/L Carbon Dioxide 42 H* (22-29) mmol/L Anion Gap 9.5 (5-19) BUN 14 (8-23) mg/dL Creatinine 0.4 L (0.5-0.9) mg/dL GFR Calculation 162.3 H (90-130) mL/min Glucose 147 H (65-115) mg/dL Calculated Osmolal ity 297 H (285-295) mOsm/k g Lactic Acid 1.1 (0.5-2.2) mmol/L Calcium 9.1 (8.5-10.5) mg/dL Total Bilirubin 0.6 (0.15-1.2) mg/dL AST 21 (0-32) U/L ALT 22 (0-33) U/L Alkaline Phosphata se 96 (35-105) IU/L Creatine Kinase 22 L (26-192) U/L C-Reactive Protein 119.8 H (0.0-4.9) mg/L Total Protein 6.6 (6.6-8.7) g/dL Albumin 3.5 (3.5-5.2) g/dL Globulin 3.1 (1.3-4.6) g/dL Lipase 11 L (13-60) U/L Urine Color (Yellow) Urine Appearance (CLEAR) Urine pH (5-7) Ur Specific Gravit y (1.005-1.030) Urine Protein (Negative) Urine Glucose (UA) (Normal) Urine Ketones (Negative) Urine Blood (Negative) Urine Nitrate (Negative) Urine Bilirubin (Negative) Urine Urobilinogen (Negative) mg/dL Ur Leukocyte Carla ase (Negative) Urine RBC (0-2) /hpf Urine WBC (0-5) /hpf Ur Squamous Epith Cells (0-5) /hpf Amorphous Sediment Urine Bacteria (NONE) /hpf Urine Mucus /hpf Serum Ketones (Negative) SARS-CoV-2 RNA (RT -PCR) (NOT DETECTED) SARS-CoV-2 Ag (Rap id) (Negative) 04/19/21 04/19/21 04/19/21 Range/Units 09:52 10:00 10:10 WBC (4.0-10.0) 10^3/ uL RBC (4.1-5.3) 10^6/u L Hgb (11.5-15.3) g/dL Hct (37.0-47.0) % MCV (81-99) fL MCH (28.0-34.0) pg MCHC (30.0-36.0) g/dL RDW (12.1-15.1) % Plt Count (130-400) 10^3/c mm MPV (7.4-10.4) fL Neut % (Auto) % Lymph % (Auto) % Knott % (Auto) % Eos % (Auto) % Baso % (Auto) % Neut # (Auto) (1.8-7.7) 10^3/u L Lymph # (Auto) (0.8-4.8) 10^3/u L Knott # (Auto) (0.2-0.9) 10^3/u L Eos # (Auto) (0.0-0.8) 10^3/u L Baso # (Auto) (0.0-0.1) 10^3/u L Nucleated RBC % (a uto) % Nucleated RBCs # /100WBC D-Dimer 1.34 H (0-0.59) ug/mIFE U Specimen Type Arterial Sample Site Radial, right ABG pH 7.28 L (7.35-7.45) ABG pCO2 107.0 H* (35-45) mmHg ABG pO2 69.1 L (80.0-100.0) mmH g ABG HCO3 50.2 H (22-26) mmol/L ABG O2 Saturation 94.2 ABG Base Excess 18.6 H (-2.0-2.0) mmol/ L Tylor Test Pos A-a O2 Gradient 30.7 H (5-10) mmHg Hematocrit 36.7 L (37-47) % Hgb O2 Saturation 92.5 L (95-100) % Carboxyhemoglobin 1.4 (0.4-20.1) %THgb Methemoglobin 0.5 (0.4-1.5) % Total Hemoglobin 12.0 (12-16) g/dL Ionized Calcium 1.3 (1.1-1.4) mmol/L O2 Delivery Device Bipap FiO2 60.0 % Tidal Volume 0.50 PEEP 8.0 cmH20 Bicycle Assembler ID glc Sodium 148.0 H (136-145) mmol/L Potassium 4.4 (3.5-5.1) mmol/L Chloride (98-107) mmol/L Carbon Dioxide (22-29) mmol/L Anion Gap (5-19) BUN (8-23) mg/dL Creatinine (0.5-0.9) mg/dL GFR Calculation (90-130) mL/min Glucose 155.0 H (65-115) mg/dL Calculated Osmolal ity (285-295) mOsm/k g Lactic Acid (0.5-2.2) mmol/L Calcium (8.5-10.5) mg/dL Total Bilirubin (0.15-1.2) mg/dL AST (0-32) U/L ALT (0-33) U/L Alkaline Phosphata se (35-105) IU/L Creatine Kinase (26-192) U/L C-Reactive Protein (0.0-4.9) mg/L Total Protein (6.6-8.7) g/dL Albumin (3.5-5.2) g/dL Globulin (1.3-4.6) g/dL Lipase (13-60) U/L Urine Color (Yellow) Urine Appearance (CLEAR) Urine pH (5-7) Ur Specific Gravit y (1.005-1.030) Urine Protein (Negative) Urine Glucose (UA) (Normal) Urine Ketones (Negative) Urine Blood (Negative) Urine Nitrate (Negative) Urine Bilirubin (Negative) Urine Urobilinogen (Negative) mg/dL Ur Leukocyte Carla ase (Negative) Urine RBC (0-2) /hpf Urine WBC (0-5) /hpf Ur Squamous Epith Cells (0-5) /hpf Amorphous Sediment Urine Bacteria (NONE) /hpf Urine Mucus /hpf Serum Ketones Negative (Negative) SARS-CoV-2 RNA (RT -PCR) (NOT DETECTED) SARS-CoV-2 Ag (Rap id) (Negative) 04/19/21 04/19/21 04/19/21 Range/Units 11:11 11:16 11:16 WBC (4.0-10.0) 10^3/ uL RBC (4.1-5.3) 10^6/u L Hgb (11.5-15.3) g/dL Hct (37.0-47.0) % MCV (81-99) fL MCH (28.0-34.0) pg MCHC (30.0-36.0) g/dL RDW (12.1-15.1) % Plt Count (130-400) 10^3/c mm MPV (7.4-10.4) fL Neut % (Auto) % Lymph % (Auto) % Knott % (Auto) % Eos % (Auto) % Baso % (Auto) % Neut # (Auto) (1.8-7.7) 10^3/u L Lymph # (Auto) (0.8-4.8) 10^3/u L Knott # (Auto) (0.2-0.9) 10^3/u L Eos # (Auto) (0.0-0.8) 10^3/u L Baso # (Auto) (0.0-0.1) 10^3/u L Nucleated RBC % (a uto) % Nucleated RBCs # /100WBC D-Dimer (0-0.59) ug/mIFE U Specimen Type Arterial Sample Site Brachial, left ABG pH 7.27 L (7.35-7.45) ABG pCO2 109.0 H* (35-45) mmHg ABG pO2 76.6 L (80.0-100.0) mmH g ABG HCO3 49.9 H (22-26) mmol/L ABG O2 Saturation ABG Base Excess 18.3 H (-2.0-2.0) mmol/ L Tylor Test N/a A-a O2 Gradient (5-10) mmHg Hematocrit 36.4 L (37-47) % Hgb O2 Saturation (95-100) % Carboxyhemoglobin (0.4-20.1) %THgb Methemoglobin (0.4-1.5) % Total Hemoglobin (12-16) g/dL Ionized Calcium (1.1-1.4) mmol/L O2 Delivery Device Bipap FiO2 60.0 % Tidal Volume 0.50 PEEP 8.0 cmH20 Bicycle Assembler ID glc Sodium (136-145) mmol/L Potassium (3.5-5.1) mmol/L Chloride (98-107) mmol/L Carbon Dioxide (22-29) mmol/L Anion Gap (5-19) BUN (8-23) mg/dL Creatinine (0.5-0.9) mg/dL GFR Calculation (90-130) mL/min Glucose (65-115) mg/dL Calculated Osmolal ity (285-295) mOsm/k g Lactic Acid (0.5-2.2) mmol/L Calcium (8.5-10.5) mg/dL Total Bilirubin (0.15-1.2) mg/dL AST (0-32) U/L ALT (0-33) U/L Alkaline Phosphata se (35-105) IU/L Creatine Kinase (26-192) U/L C-Reactive Protein (0.0-4.9) mg/L Total Protein (6.6-8.7) g/dL Albumin (3.5-5.2) g/dL Globulin (1.3-4.6) g/dL Lipase (13-60) U/L Urine Color (Yellow) Urine Appearance (CLEAR) Urine pH (5-7) Ur Specific Gravit y (1.005-1.030) Urine Protein (Negative) Urine Glucose (UA) (Normal) Urine Ketones (Negative) Urine Blood (Negative) Urine Nitrate (Negative) Urine Bilirubin (Negative) Urine Urobilinogen (Negative) mg/dL Ur Leukocyte Carla ase (Negative) Urine RBC (0-2) /hpf Urine WBC (0-5) /hpf Ur Squamous Epith Cells (0-5) /hpf Amorphous Sediment Urine Bacteria (NONE) /hpf Urine Mucus /hpf Serum Ketones (Negative) SARS-CoV-2 RNA (RT -PCR) Not detected (NOT DETECTED) SARS-CoV-2 Ag (Rap id) Negative (Negative) 04/19/21 Range/Units 12:04 WBC (4.0-10.0) 10^3/ uL RBC (4.1-5.3) 10^6/u L Hgb (11.5-15.3) g/dL Hct (37.0-47.0) % MCV (81-99) fL MCH (28.0-34.0) pg MCHC (30.0-36.0) g/dL RDW (12.1-15.1) % Plt Count (130-400) 10^3/c mm MPV (7.4-10.4) fL Neut % (Auto) % Lymph % (Auto) % Knott % (Auto) % Eos % (Auto) % Baso % (Auto) % Neut # (Auto) (1.8-7.7) 10^3/u L Lymph # (Auto) (0.8-4.8) 10^3/u L Knott # (Auto) (0.2-0.9) 10^3/u L Eos # (Auto) (0.0-0.8) 10^3/u L Baso # (Auto) (0.0-0.1) 10^3/u L Nucleated RBC % (a uto) % Nucleated RBCs # /100WBC D-Dimer (0-0.59) ug/mIFE U Specimen Type Sample Site ABG pH (7.35-7.45) ABG pCO2 (35-45) mmHg ABG pO2 (80.0-100.0) mmH g ABG HCO3 (22-26) mmol/L ABG O2 Saturation ABG Base Excess (-2.0-2.0) mmol/ L Tylor Test A-a O2 Gradient (5-10) mmHg Hematocrit (37-47) % Hgb O2 Saturation (95-100) % Carboxyhemoglobin (0.4-20.1) %THgb Methemoglobin (0.4-1.5) % Total Hemoglobin (12-16) g/dL Ionized Calcium (1.1-1.4) mmol/L O2 Delivery Device FiO2 % Tidal Volume PEEP cmH20 Bicycle Assembler ID Sodium (136-145) mmol/L Potassium (3.5-5.1) mmol/L Chloride (98-107) mmol/L Carbon Dioxide (22-29) mmol/L Anion Gap (5-19) BUN (8-23) mg/dL Creatinine (0.5-0.9) mg/dL GFR Calculation (90-130) mL/min Glucose (65-115) mg/dL Calculated Osmolal ity (285-295) mOsm/k g Lactic Acid (0.5-2.2) mmol/L Calcium (8.5-10.5) mg/dL Total Bilirubin (0.15-1.2) mg/dL AST (0-32) U/L ALT (0-33) U/L Alkaline Phosphata se (35-105) IU/L Creatine Kinase (26-192) U/L C-Reactive Protein (0.0-4.9) mg/L Total Protein (6.6-8.7) g/dL Albumin (3.5-5.2) g/dL Globulin (1.3-4.6) g/dL Lipase (13-60) U/L Urine Color Yellow (Yellow) Urine Appearance Clear (CLEAR) Urine pH 5 (5-7) Ur Specific Gravit y 1.025 (1.005-1.030) Urine Protein Trace (Negative) Urine Glucose (UA) Norm (Normal) Urine Ketones Negative (Negative) Urine Blood Neg (Negative) Urine Nitrate Negative (Negative) Urine Bilirubin Neg (Negative) Urine Urobilinogen Norm (Negative) mg/dL Ur Leukocyte Carla ase Negative (Negative) Urine RBC None (0-2) /hpf Urine WBC None (0-5) /hpf Ur Squamous Epith Cells 0-4 H (0-5) /hpf Amorphous Sediment Not Reportable Urine Bacteria Trace (NONE) /hpf Urine Mucus 1+ /hpf Serum Ketones (Negative) SARS-CoV-2 RNA (RT -PCR) (NOT DETECTED) SARS-CoV-2 Ag (Rap id) (Negative) Discharge Plan Discharge Patient Disposition: Admitted As Inpatient Admit Provider: Shashi Concepcion Clinical Impression: Acute exacerbation of chronic obstructive airways disease, Acute and chronic respiratory failure with hypercapnia, Tracheostomy status, Pneumonia Condition: Coding Level of Care Code ED Thread Weaver for Chg Fwd Exam Detailed
[2021-04-19 09:58] LABS: Basophils # 0.1 10^3/uL (0.0-0.1); Basophils % 0.5 %; Eosinophils % 0.1 %; Hematocrit 40.8 % (37.0-47.0); Hemoglobin 11.5 g/dL (11.5-15.3); Lymphocytes # 0.9 10^3/uL (0.8-4.8); Lymphocytes % 7.7 %; Mean Corpuscular HGB Conc 28.2 g/dL (30.0-36.0); Mean Corpuscular Hemoglobin 27.6 pg (28.0-34.0); Mean Corpuscular Volume 98.1 fL (81-99); Mean Platelet Volume 11.5 fL (7.4-10.4); Monocytes % 8.5 %; Neutrophils # 9.17 10^3/uL (1.8-7.7); Neutrophils % 82.1 %; Nucleated Red Blood Cells % 0 %; Platelet Count 185 10^3/cmm (130-400); Red Blood Count 4.16 10^6/uL (4.1-5.3); Red Cell Distribution Width 13.9 % (12.1-15.1); White Blood Count 11.2 10^3/uL (4.0-10.0)
[2021-04-19 10:15] LABS: ABG PH Result 7.28 (7.35-7.45); Alveolar-Arterial Oxygen Gradi 30.7 mmHg (5-10); Arterial Blood Gas Hematocrit 36.7 % (37-47); Base Excess ABG 18.6 mmol/L (-2.0-2.0); Blood Gas Allen Test Pos; Blood Gas Operator Identificat glc; Blood Gas Sample Site Radial, right; Blood Gas Sample Type Arterial; Carboxyhemoglobin 1.4 %THgb (0.4-20.1); HCO3 ABG 50.2 mmol/L (22-26); HGB O2 Sat 92.5 % (95-100); Ionized Calcium Level - ABG 1.3 mmol/L (1.1-1.4); Methemoglobin 0.5 % (0.4-1.5); Oxygen Device BIPAP; Oxygen Saturation ABG 94.2; PO2 ABG 69.1 mmHg (80.0-100.0); Potassium Level - ABG 4.4 mmol/L (3.5-5.0)
[2021-04-19 10:19] LABS: Ketone (Acetest) Serum Negative (Negative)
[2021-04-19 10:23] LABS: Alanine Aminotransferase 22 U/L (0-33); Albumin Level 3.5 g/dL (3.5-5.2); Alkaline Phosphatase 96 IU/L (35-105); Anion Gap 9.5 (5-19); Aspartate Amino Transferase 21 U/L (0-32); Blood Urea Nitrogen 14 mg/dL (8-23); C Reactive Protein 119.8 mg/L (0.0-4.9); Calcium 9.1 mg/dL (8.5-10.5); Chloride 95 mmol/L (98-107); Creatine Phosphokinase 22 U/L (26-192); Globulin 3.1 g/dL (1.3-4.6); Glomerular Filtration Rate 162.3 mL/min (90-130); Glucose 147 mg/dL (65-115); Lipase 11 U/L (13-60); Osmolality Calculated 297 mOsm/kg (285-295); Potassium 4.5 mmol/L (3.5-5.1); Sodium 142 mmol/L (136-145); Total Bilirubin 0.6 mg/dL (0.15-1.2); Total Protein 6.6 g/dL (6.6-8.7)
[2021-04-19 10:24] LABS: Lactic Sepsis W/Reflex 1.1 mmol/L (0.5-2.2)
[2021-04-19 10:28] LABS: D Dimer 1.34 ug/mIFEU (0-0.59)
[2021-04-19 10:46] LABS: Carbon Dioxide 42 mmol/L (22-29)
[2021-04-19] MEDS: LORazepam 2 mg/mL INJ 1 mL IM (10:55)
[2021-04-19 11:20] LABS: ABG PH Result 7.27 (7.35-7.45); Arterial Blood Gas Hematocrit 36.4 % (37-47); Base Excess ABG 18.3 mmol/L (-2.0-2.0); Blood Gas Operator Identificat glc; Blood Gas Sample Site Brachial, left; Blood Gas Sample Type Arterial; HCO3 ABG 49.9 mmol/L (22-26); Oxygen Device BIPAP; PO2 ABG 76.6 mmHg (80.0-100.0)
--- NOTE | 2021-04-19 11:20 | PC.NURSE ---
patient pulled iv out, attempted to talk to patient , patient continued to take mask off, pulled out the bus driver/monitor lines, soft restrains applied per MD verbal order. patient is calm at this time. no acute distress noted. will continue to monitor
--- NOTE | 2021-04-19 11:31 | ECG_ITS ---
[facility] Test Date: 2021-04-19 Pat Name: Loretta Reeder Department: Room: [facility] Gender: Female Rfid Strategist: : 1960 Requested By: Milind Reis Order Number: [id number] Adele MD: Trevon Hermosillo M.D. Measurements Intervals [place] Rate: 114 P: 84 CT: 140 QRS: 86 QRSD: 66 T: 78 QT: 308 QTc: 425 Interpretive Statements Regular supraventricular rhythm possible sinus tachycardia. Heavy baseline artifact SEPTAL MYOCARDIAL INFARCTION [40+ ms Q WAVE IN V1/V2], OF INDETERMINATE AGE Compared to ECG 12/29/2020 05:44:39 Myocardial infarct finding now present Defective EKG Further interpretation is not possible Electronically Signed On 04-19-2021 19:36:11 CDT by Trevon Hermosillo M.D. [email or web address]
[2021-04-19 11:45] LABS: SARS Covid-2 Antigen Negative (Negative)
[2021-04-19 12:31] LABS: Urine Appearance Clear (CLEAR); Urine Color Yellow (Yellow)
[2021-04-19 12:32] LABS: Add Urine Culture? No; Add Urine Microscopic? YES; Bacteria Urine TRACE /hpf; Bilirubin Urine Neg (Negative); Blood Urine Neg (Negative); Glucose Urine UA Norm (Normal); Ketones Urine Negative (Negative); Leukocyte Esterase Urine Negative (Negative); Mucus Urine 1+ /hpf; Nitrate Urine Negative (Negative); Protein Urine Trace (Negative); Specific Gravity, Urine 1.025 (1.005-1.030); Squamous Epithelial Cell Urine 0-4 /hpf (0-5); Urobilinogen Urine Norm (Negative); pH Urine 5 (5-7)
[2021-04-19] MEDS: piperacillin-tazobactam 3.375 GM in sodium chloride 0.9% (plus) 100 ML IV ×2 (13:01→20:22)
--- NOTE | 2021-04-19 13:01 | CTR_ITS ---
PROCEDURE INFORMATION: Exam: CTA Chest With Contrast Exam date and time: 04/19/2021 1:01 PM Age: 60 years old Clinical indication: Shortness of breath; Additional info: Dyspnea, elevated d dimer TECHNIQUE: Imaging protocol: Computed tomographic angiography of the chest with contrast. 3D rendering (Not supervised by radiologist): MIP and/or 3D reconstructed images were created by the technologist. Radiation optimization: All CT scans at this facility use at least one of these dose optimization techniques: automated exposure control; mA and/or kV adjustment per patient size (includes targeted exams where dose is matched to clinical indication); or iterative reconstruction. Contrast material: OMNI 350; Contrast volume: 71 ml; Contrast route: INTRAVENOUS (IV); COMPARISON: CT angio chest PE protcl [id number] 12/15/2020 5:29 AM RADIATION DOSE METRICS: Total DLP (mGy-cm): 598.36 FINDINGS: Tubes, catheters and devices: ET tube is in the trachea above the britney. Pulmonary arteries: There are no abnormal filling defects within the pulmonary arterial system. The examination is negative for pulmonary thromboembolism. Aorta: The thoracic aorta is normal caliber. No aneurysm or dissection is seen. Lungs: Bullous emphysematous changes are seen in both lungs. There is bibasilar atelectasis versus edema or pneumonitis, slightly more prominent at the left lung base. In the left upper lobe, there is a partially mineralized spiculated density measuring 2.2 cm which appear stable compared to prior study. Pleural spaces: There are small bilateral pleural effusions. Heart: Unremarkable. No cardiomegaly. No pericardial effusion. Lymph nodes: Subcarinal lymph nodes measure up to 10 mm short axial dimension. Right hilar and infrahilar adenopathy, measuring up to 12 mm short axial dimension. Bones/joints: No acute osseous abnormality is detected. Soft tissues: Calcified granulomata are seen in both lungs. Other findings: There is evidence of previous granulomatous reaction. CT/CT angio chest PE protcl [id number] IMPRESSION: 1. No pulmonary embolism identified. 2. Bibasilar atelectasis versus edema or pneumonitis, slightly more prominent on the left. 3. Emphysema. 4. Mediastinal and right hilar lymphadenopathy, nonspecific. 5. Stable, partially mineralized lesion in the left upper lobe. Radiation Dose CTDIVOL = (mGy): DLP = 598.36 (mGy-cm)
[2021-04-19] MEDS: vancomycin 1,000 MG in sodium chloride 0.9% 250 ML 250 MG IV (13:45)
[2021-04-19] MEDS: iohexol 350 mg/mL 100 mL Btl IV (14:29)
[2021-04-19] MEDS: dexmedetomidine 400 MCG in sodium chloride 0.9% (100 ml) 100 ML IV (15:15)
[2021-04-19] MEDS: levofloxacin-dextrose 5 % 750 MG/150 ML PREMIX 100 MG IV (15:23)
[2021-04-19] MEDS: heparin 5,000 unit/mL INJ 1 mL 5000 UNIT SUBCUT ×2 (16:19→22:32)
[2021-04-19 16:32] LABS: ABG PH Result 7.46 (7.35-7.45); Base Excess ABG 21.7 mmol/L (-2.0-2.0); Blood Gas Allen Test Pos; Blood Gas Operator Identificat CAK; Blood Gas Sample Site Radial, left; Blood Gas Sample Type Arterial; Blood Gas Tidal Volume 0.35; Oxygen Device VENT; PO2 ABG 52.1 mmHg (80.0-100.0)
[2021-04-19 16:33] LABS: ABG PCO2 69.3 mmHg (35-45)
[2021-04-19] MEDS: midazolam 1 mg/mL INJ 2 mL IVP (17:14)
--- NOTE | 2021-04-19 17:41 | PM.HP ---
Providers/Chief Complaint Admitting Physician: Shashi Concepcion Primary Care Provider: Taniya Irving DO Chief Complaint: RESP DISTRESS; AMS History of Present Illness Loretta Reeder is a 60 year old female With past medical history significant for chronic respiratory failure status post trach who presented in the hospital with altered mental status. Patient was not able to provide any history. Apparently family was not able to take care own. Upon arrival she was found to have Suspected pneumonia. Also was noted to have respiratory failure. Requiring vent support to trach and IV antibiotics. Review of Systems General: Reports: ROS unobtainable due to medical condition and ROS unobtainable due to mental status Medications/Allergies Home Medications Medication Instructions Recorded Confirmed Last Taken Type multivit with 1 tab PO DAILY 09/28/19 04/19/21 Unknown History vvlwsjjp-pwmx-AJ-lutein 8 mg iron-400 mcg-300 mcg tablet montelukast 10 mg PO DAILY 12/15/20 04/19/21 Unknown History budesonide 0.5 mg/2 mL suspension See Rx Instructions .ROUTE 12/30/20 04/19/21 Unknown Rx for nebulization .COMPLEX #60 vial aripiprazole 2 mg tablet 2 mg PO DAILY #30 tab 01/07/21 04/19/21 Unknown Rx azithromycin 250 mg tablet 250 mg PO .COMPLEX #90 tab 04/09/21 04/19/21 Unknown Rx citalopram 10 mg tablet 10 mg PO DAILY 04/09/21 04/19/21 Unknown History ipratropium 0.5 mg-albuterol 3 mg 3 ml INHALATION TID ml 04/09/21 04/19/21 Unknown History (2.5 mg base)/3 mL nebulization soln lactobacillus combination no.8 3 3,000 mmu cells PO DAILY 04/09/21 04/19/21 Unknown History billion cell capsule lorazepam 0.5 mg tablet 0.25 mg PO BID PRN tab 04/09/21 04/19/21 Unknown History metoprolol tartrate 50 mg tablet 50 mg PO BID 04/09/21 04/19/21 Unknown History albuterol sulfate 2.5 mg INHALATION Q6H PRN 04/19/21 04/19/21 Unknown History Allergies Allergy/AdvReac Type Severity Reaction Status Date / Time codeine Allergy NAUSEA & Verified 04/19/21 09:52 VOMITING morphine Allergy ADR-Halluci Verified 04/19/21 09:52 nating PFSH Acute PFSH: Medical History Anxiety and depression Benign essential HTN Bilateral carpal tunnel syndrome Bilateral lower extremity edema Cervical myelopathy COPD, severe Degenerative disc disease, cervical Lung mass ANASTASIYA (obstructive sleep apnea) Postmenopausal Unspecified thoracic, thoracolumbar and lumbosacral intervertebral disc disorder Vitamin D deficiency Surgical History S/P hysterectomy S/P tonsillectomy Status post tracheostomy (~01/2021) Family History Other CHF (congestive heart failure) Murmur, cardiac Social History Smoking and tobacco status: former smoker Quit status (tobacco): has quit using tobacco Year quit tobacco: 2017 - 1PPD x 40 Years Second hand smoke exposure: Yes Alcohol intake: never Lives independently: Yes Household members: spouse Marital status: Current occupational status: disabled History of recent travel: No Current gender identity: Female Special andres needs: No Vitals/I&O/Wt Last Vital Signs Temp 98.5 F 04/19/21 15:15 Pulse 135 H 04/19/21 16:00 Resp 40 H 04/19/21 15:15 BP 147/72 04/19/21 16:00 Pulse Ox 82 L 04/19/21 16:00 04/19/21 04/19/21 04/19/21 06:59 14:59 22:59 Intake Total 350 / 350 130.743 / 480.743 Balance 350 / 350 130.743 / 480.743 Weight last 48 hrs Weight 92.7 kg Physical Exam Narrative: EXAM NARRATIVE: General-Confused, chronically ill-appearing HEENT- status post trach chest- labored respiration CVS- regular rhythm abdomen-nondistended extremities-no edema Data : 04/19/21 09:52 04/19/21 09:52 Micro: Microbiology 04/19/21 Unknown Gram Stain - Final Sputum - Expectorated Sputum 04/19/21 10:00 Blood Culture - Preliminary Blood SPECIMEN COLLECTED A&P Assessment and plan (1) Acute and chronic respiratory failure with hypercapnia: Continue IV antibiotics follow-up on of cultures continue vent support suction as needed repeat chest x-ray in a.m. consider pulmonary consult Status: Acute (2) Status post tracheostomy: routine trach care Status: Acute Attestations Medical Necessity Statement*: Will require over2 midnight stay in hospital for evaluation and treatment of pneumonia requiring IV antibiotics and mental status change Time Spent in Patient Care: Greater than 35 minutes (>than 50% of time spent in counselling and/or direct pt care on unit). Coding Level of Care Code Acute Director Of It Operations for Missael Cr Diagnoses Acute and chronic respiratory failure with hypercapnia J96.22 Status post tracheostomy Z93.0
[2021-04-19] MEDS: ipratropium-albuterol 3 mL Neb INHALATION (20:58)
[2021-04-19] MEDS: vancomycin 1,250 MG/250 ML PIGGYBACK 200 MG IV (22:05)
[2021-04-20] VITALS (87 sets, daily range): BP systolic 81–151; BP diastolic 57–108; PULSE 82–144; RESP 14–40; TEMP 37.1–37.3; O2SAT 88–99; BMI 33.0
[2021-04-20] MEDS: ipratropium-albuterol 3 mL Neb INHALATION ×6 (00:10→19:51)
[2021-04-20] MEDS: midazolam 1 mg/mL INJ 2 mL IVP ×2 (00:12→04:25)
[2021-04-20] MEDS: dexmedetomidine 400 MCG in sodium chloride 0.9% (100 ml) 100 ML 16.87 MCG IV (02:41)
[2021-04-20] MEDS: piperacillin-tazobactam 3.375 GM in sodium chloride 0.9% (plus) 100 ML IV ×3 (03:01→19:39)
[2021-04-20 03:56] LABS: ABG PH Result 7.38 (7.35-7.45); Base Excess ABG 19.9 mmol/L (-2.0-2.0); Blood Gas Allen Test Pos; Blood Gas Sample Site Radial, left; Blood Gas Sample Type Arterial; HCO3 ABG 48.9 mmol/L (22-26); Oxygen Device VENT; PO2 ABG 87.4 mmHg (80.0-100.0)
[2021-04-20 03:58] LABS: Blood Gas Tidal Volume 0.35
[2021-04-20 04:22] LABS: ABG PCO2 83.1 mmHg (35-45)
[2021-04-20] MEDS: heparin 5,000 unit/mL INJ 1 mL 5000 UNIT SUBCUT ×3 (06:37→22:58)
[2021-04-20 07:12] LABS: Alanine Aminotransferase 33 U/L (0-33); Alkaline Phosphatase 72 IU/L (35-105); Anion Gap 11.8 (5-19); Aspartate Amino Transferase 38 U/L (0-32); Blood Urea Nitrogen 36 mg/dL (8-23); Calcium 7.7 mg/dL (8.5-10.5); Carbon Dioxide 31 mmol/L (22-29); Chloride 98 mmol/L (98-107); Globulin 3.3 g/dL (1.3-4.6); Glomerular Filtration Rate 72.9 mL/min (90-130); Glucose 217 mg/dL (65-115); Osmolality Calculated 297 mOsm/kg (285-295); Potassium 4.8 mmol/L (3.5-5.1); Sodium 136 mmol/L (136-145); Total Bilirubin 0.3 mg/dL (0.15-1.2); Total Protein 6.3 g/dL (6.6-8.7)
[2021-04-20] MEDS: vancomycin 1,250 MG/250 ML PIGGYBACK 200 MG IV (09:01)
[2021-04-20] MEDS: dexmedetomidine 400 MCG in sodium chloride 0.9% (100 ml) 100 ML 12.05 MCG IV (10:19)
--- NOTE | 2021-04-20 12:15 | PC.NURSE ---
Pt is refusing oral care at this time. Will attempt again later.
--- NOTE | 2021-04-20 12:41 | PM.PN ---
Subjective Subjective: Interval history: 60-year-old female with past medical history significant for anxiety, depression, hypertension, lung mass, obstructive sleep apnea, vitamin-D deficiency, and chronic hypoxic/hypercapnic respiratory failure due to severe COPD requiring tracheostomy who presented to the hospital with altered mental status. Patient was not able to provide any history. Laboratory workup on arrival showed a WBC of 11.2, hemoglobin of 11.5, hematocrit 40.8 and platelet count of 185. Sodium 142, potassium 4.5, chloride 95, bicarb 42, BUN 14 and creatinine of 0.4. COVID-19 a antigen was negative. PCR was pending. ABG showed a pH of 7.46, pCO2 of 69.3, PO2 of 52.1 and a bicarb of 49.0. D-dimer of 1.34. Imaging studies included chest x-ray which showed pulmonary emphysema with bibasilar interstitial fibrosis, stable upper lobe pulmonary nodules. CT chest PE protocol showed bibasilar atelectasis versus edema or pneumonitis slightly more prominent on left without any evidence of pulmonary embolism. Patient was transition to full vent support via trach. She remained very confused. Started on broad-spectrum antibiotics. Required Precedex and Versed for sedation. Medications: Reviewed: Yes Vitals/I&O/Wt Last Vital Signs Temp 99.1 F 04/20/21 12:00 Pulse 130 H 04/20/21 12:00 Resp 30 H 04/20/21 12:00 BP 106/72 04/20/21 12:00 Pulse Ox 97 04/20/21 12:00 04/19/21 04/20/21 04/20/21 22:59 06:59 14:59 Intake Total 130.743 / 480.743 400.289 / 881.032 463.606 / 463.606 Balance 130.743 / 480.743 400.289 / 881.032 463.606 / 463.606 Weight last 48 hrs Weight 92.7 kg Weight 92.7 kg Physical Exam Narrative: EXAM NARRATIVE: General-Confused, chronically ill-appearing, on vent support HEENT- status post trach chest- labored respiration CVS- tachycardia abdomen-nondistended extremities-no edema Urinary Catheter Management^: Greenberg: Cath Placed During This Visit: yes Urinary Catheter Date of Insertion: 04/20/21 Urinary Catheter Time of Insertion: 09:24 Data : 04/19/21 09:52 04/20/21 06:31 Micro: Microbiology 04/19/21 Unknown Gram Stain - Final Sputum - Expectorated Sputum Sputum Culture - Preliminary 04/19/21 10:00 Blood Culture - Preliminary Blood NEGATIVE TO DATE 04/19/21 17:30 Blood Culture - Preliminary Blood SPECIMEN COLLECTED A&P Assessment and plan (1) Acute and chronic respiratory failure with hypercapnia: Status: Acute (2) Status post tracheostomy: Status: Acute Acute on chronic hypoxemic/hypercapnic respiratory failure s/p hx of trach Hx of Severe COPD ABG on arrival showed PH of 7.46, PCO2 of 69.3,Po2 of 52.1, HCO3 of 49 Currently on full vent support via trach Wean FIo2 as tolerated Neb tx as ordered Versed/Precedex for sedation Add Fentanyl Chest x-ray in am ABG in am Suction PRN Sepsis due to suspected Healthcare associated pneumonia Suspected ? increase secretion Sputum culture Blood culture Vancomycin /Zosyn pharmacy to dose Altered Mental status Baseline unclear Currently sedation Gi ppx Pepcid 20 mg IV BID DVT ppx Heparin 5000 units Q8hr Attestations Medical Necessity Statement*: Require further hospitalization for management of sepsis and respiratory failure Time Spent in Patient Care: Greater than 35 minutes (>than 50% of time spent in counselling and/or direct pt care on unit). Critical Care Time: Critical Care Time (min): 55 Coding Level of Care Code Acute Commercial Or Institutional Cleaner for [facility] Fwd Diagnoses Acute and chronic respiratory failure with hypercapnia J96.22 Status post tracheostomy Z93.0
[2021-04-20] MEDS: famotidine 20 mg/2 mL INJ IVP (12:59)
[2021-04-20 14:17] LABS: Quest SARS-CoV-2 RNA NOT DETECTED (NOT DETECTED)
[2021-04-20 15:38] LABS: Hemoglobin 11.9 g/dL (11.5-15.3); Mean Corpuscular HGB Conc 32.2 g/dL (30.0-36.0); Mean Corpuscular Hemoglobin 31.3 pg (28.0-34.0); Mean Corpuscular Volume 97.4 fL (81-99); Mean Platelet Volume 9.4 fL (7.4-10.4); Platelet Count 581 10^3/cmm (130-400); Red Cell Distribution Width 12.9 % (12.1-15.1); White Blood Count 16.3 10^3/uL (4.0-10.0)
[2021-04-20 15:39] LABS: Slide Review Slide Review Perform
[2021-04-20 15:40] LABS: Absolute Neutrophil 12.6 10^3/cmm (1.4-6.5); Absolute Segmented Neutrophil 11.9 10/cmm (1.6-7.1); Band Neutrophils Absolute 0.7 10^3/cmm (0.0-1.2); Eosinophils 0 %; Lymphocytes 9 %; Lymphocytes Absolute 1.5 10^3/cmm (1.2-3.4); Monocytes Absolute 0.5 10^3/cmm (0.1-0.6); Platelet Estimate Increased (Normal); Segmented Neutrophils 73 %; Total Cells Counted 100 (0-100)
[2021-04-20] MEDS: sodium chloride 0.9% 1,000 ML 75 ML IV (18:15)
[2021-04-20] MEDS: budesonide 0.5 mg/2 mL Neb INHALATION (19:51)
[2021-04-20] MEDS: metoprolol tartrate 1 mg/1 mL SDV 5 mL 2.5 MG IV (21:35)
[2021-04-20 23:41] LABS: Vancomycin Trough 10.2 ug/mL (10-15)
[2021-04-21] VITALS (32 sets, daily range): BP systolic 76–104; BP diastolic 50–72; PULSE 96–131; RESP 14–18; TEMP 36.6–37.1; O2SAT 90–94; BMI 33.0
[2021-04-21] MEDS: vancomycin 1,250 MG/250 ML PIGGYBACK 200 MG IV ×2 (00:04→09:11)
[2021-04-21] MEDS: ipratropium-albuterol 3 mL Neb INHALATION ×3 (00:38→11:24)
[2021-04-21] MEDS: famotidine 20 mg/2 mL INJ IVP (02:32)
[2021-04-21] MEDS: piperacillin-tazobactam 3.375 GM in sodium chloride 0.9% (plus) 100 ML IV ×2 (04:00→11:50)
[2021-04-21 04:44] LABS: ABG PH Result 7.29 (7.35-7.45); Arterial Blood Gas Hematocrit 37.8 % (37-47); Base Excess ABG 12.6 mmol/L (-2.0-2.0); Blood Gas Allen Test Pos; Blood Gas Sample Site Radial, left; Blood Gas Sample Type Arterial; Blood Gas Tidal Volume 0.35; HCO3 ABG 42.8 mmol/L (22-26); Oxygen Device VENT; PO2 ABG 62.5 mmHg (80.0-100.0)
[2021-04-21 04:58] LABS: ABG PCO2 89.2 mmHg (35-45)
[2021-04-21 05:47] LABS: Basophils % 0.4 %; Eosinophils # 0.4 10^3/uL (0.0-0.8); Eosinophils % 4.6 %; Hemoglobin 9.7 g/dL (11.5-15.3); Lymphocytes # 0.6 10^3/uL (0.8-4.8); Mean Corpuscular HGB Conc 28.5 g/dL (30.0-36.0); Mean Platelet Volume 11.8 fL (7.4-10.4); Monocytes # 0.8 10^3/uL (0.2-0.9); Monocytes % 9.7 %; Neutrophils # 6.09 10^3/uL (1.8-7.7); Neutrophils % 76.4 %; Nucleated Red Blood Cells % 0 %; Platelet Count 179 10^3/cmm (130-400); Red Blood Count 3.47 10^6/uL (4.1-5.3); Red Cell Distribution Width 14.9 % (12.1-15.1)
[2021-04-21 06:10] LABS: Alanine Aminotransferase 14 U/L (0-33); Albumin Level 2.8 g/dL (3.5-5.2); Alkaline Phosphatase 89 IU/L (35-105); Anion Gap 10.5 (5-19); Aspartate Amino Transferase 13 U/L (0-32); Blood Urea Nitrogen 16 mg/dL (8-23); Calcium 8.4 mg/dL (8.5-10.5); Carbon Dioxide 40 mmol/L (22-29); Chloride 99 mmol/L (98-107); Globulin 2.6 g/dL (1.3-4.6); Glomerular Filtration Rate 101.6 mL/min (90-130); Glucose 102 mg/dL (65-115); Osmolality Calculated 303 mOsm/kg (285-295); Potassium 3.5 mmol/L (3.5-5.1); Sodium 146 mmol/L (136-145); Total Bilirubin 0.5 mg/dL (0.15-1.2); Total Protein 5.4 g/dL (6.6-8.7)
[2021-04-21] MEDS: heparin 5,000 unit/mL INJ 1 mL 5000 UNIT SUBCUT (06:37)
--- NOTE | 2021-04-21 07:00 | XRR_ITS ---
PROCEDURE INFORMATION: Exam: XR Chest Exam date and time: 04/21/2021 7:00 AM Age: 60 years old Clinical indication: Condition or disease; Lung condition and disease; Respiratory failure; Status not specified TECHNIQUE: Imaging protocol: XR of the chest. Views: 1 view. COMPARISON: CR (CHEST, ) 04/19/2021 10:16 AM FINDINGS: Tubes, catheters and devices: A tracheostomy tube projects over the tracheal air column. Lungs: There is increased lung markings in the left upper lung and lucency of the right upper lung, suggestive of COPD. There is persistent bilateral airspace opacities involving mainly the lower lungs. Possible trace left pleural effusion. No pneumothorax. Pleural spaces: See Lungs finding. Heart/Mediastinum: Stable cardiomediastinal silhouette. Bones/joints: Unremarkable. XR/XR chest 1V portable [id number] IMPRESSION: 1. Nonspecific imaging findings, which can be seen the setting of pulmonary edema or pneumonia. 2. COPD background suspected.
[2021-04-21] MEDS: sodium chloride 0.9% 1,000 ML 75 ML IV (08:43)
[2021-04-21 11:15] LABS: Basophils % 0.4 %; Eosinophils # 0.4 10^3/uL (0.0-0.8); Eosinophils % 5.1 %; Hematocrit 34.1 % (37.0-47.0); Hemoglobin 9.8 g/dL (11.5-15.3); Lymphocytes # 0.8 10^3/uL (0.8-4.8); Lymphocytes % 9.7 %; Mean Corpuscular HGB Conc 28.7 g/dL (30.0-36.0); Mean Corpuscular Hemoglobin 28.3 pg (28.0-34.0); Mean Corpuscular Volume 98.6 fL (81-99); Mean Platelet Volume 11.6 fL (7.4-10.4); Monocytes # 1.1 10^3/uL (0.2-0.9); Monocytes % 12.8 %; Neutrophils # 5.85 10^3/uL (1.8-7.7); Neutrophils % 71.1 %; Nucleated Red Blood Cells % 0.2 %; Platelet Count 181 10^3/cmm (130-400); Red Blood Count 3.46 10^6/uL (4.1-5.3); Red Cell Distribution Width 15.3 % (12.1-15.1); White Blood Count 8.2 10^3/uL (4.0-10.0)
[2021-04-21] MEDS: budesonide 0.5 mg/2 mL Neb INHALATION (11:24)
--- NOTE | 2021-04-21 14:00 | PC.NURSE ---
Family has opted to transition to Comfort Care for patient. family at bedside with Dr. Tim. Will monitor.
[2021-04-21] MEDS: morphine 4 mg/mL SDV 1 mL IVP (14:08)
[2021-04-21] MEDS: LORazepam 2 mg/mL INJ 1 mL IVP (14:09)
--- NOTE | 2021-04-21 14:26 | PC.NURSE ---
wasted precedex 60cc, fentanyl 83cc, and versed 94cc wth Ashlyn Erazo RN. meds wasted in Narc container.
--- NOTE | 2021-04-21 14:28 | PC.RESP ---
extubated pt taken off vent for comfort care, family at bedside
--- NOTE | 2021-04-21 15:26 | PC.NURSE ---
[facility] transplant notified of pt. . Orders to place pt in morgue until family was reached noted. warehouse shipping clerk notified. Awaiting Operating Room Surgical Technologist to pick and shovel man pt.
--- NOTE | 2021-04-21 15:29 | PC.NURSE ---
[facility] Ref #[id number] contact lens assistant: Yony
--- NOTE | 2021-04-21 15:58 | PC.NURSE ---
[place] [facility] [place]
--- NOTE | 2021-04-21 15:59 | PC.NURSE ---
Wasted Precedex 60.178, Fentanyl 83.125 and Versed 94.16 with Yinka Irving RN.
--- NOTE | 2021-04-21 16:00 | PM.DDS ---
Discharge Providers DDS Date of Admission: 04/19/21 14:43 Date Summary Completed: 04/21/21 Attending Provider at Admission: Shashi Concepcion Time of : 15:00 Attending Provider at Discharge: Raphael Tim MD Primary Care Provider: DO HARRIET Sánchez Diagnoses Hospital Diagnoses (1) Patient : (2) Acute and chronic respiratory failure with hypercapnia: (3) Status post tracheostomy: Reason for Visit Reason for Visit: RESP DISTRESS; AMS Summary Date and Time of Date of : 04/21/21 Time of : 15:00 Summary Summary: 60-year-old female with past medical history significant for anxiety, depression, hypertension, lung mass, obstructive sleep apnea, vitamin-D deficiency, and chronic hypoxic/hypercapnic respiratory failure due to severe COPD requiring tracheostomy who presented to the hospital with altered mental status.Patient was not able to provide any history. Laboratory workup on arrival showed a WBC of 11.2, hemoglobin of 11.5, hematocrit 40.8 and platelet count of 185. Sodium 142, potassium 4.5, chloride 95, bicarb 42, BUN 14 and creatinine of 0.4. COVID-19 a antigen was negative. PCR was pending. ABG showed a pH of 7.46, pCO2 of 69.3, PO2 of 52.1 and a bicarb of 49.0. D-dimer of 1.34. Imaging studies included chest x-ray which showed pulmonary emphysema with bibasilar interstitial fibrosis, stable upper lobe pulmonary nodules. CT chest PE protocol showed bibasilar atelectasis versus edema or pneumonitis slightly more prominent on left without any evidence of pulmonary embolism. She was admitted for the management of Acute on chronic hypoxemic/hypercapnic respiratory failure secondary to pneumonia. Patient was transition to full vent sup. She remained very confused. She was started on broad-spectrum antibiotics. She had also developed sepsis secondary to pneumonia, requiring vasopressor support.Her overall condition continued to deteriorate,given her overall poor prognosis due to underlying end-stage COPD, family decided to make her comfort care. Family wishes were honored she was transition to full comfort care. She at 3 PM. Additional Data Confirmation of as documented by pronouncing clinician: no pulse, no respirations, no heart sounds and pupils fixed and dilated Additional persons at bedside: nursing staff Attending/PCP notified?: I am attending Was code activated?: No Autopsy requested?: No Advance directives?: No Discharge Plan Discharge Patient Disposition: At Medical Facility Condition: Prescriptions: Discontinued metoprolol tartrate 50 mg tablet 50 mg PO BID RF: 0 citalopram 10 mg tablet 10 mg PO DAILY RF: 0 ipratropium-albuterol 0.5 mg-3 mg(2.5 mg base)/3 mL solution for nebulization 3 ml INHALATION TID RF: 0 Adult Probiotic 3 billion cell capsule 3,000 mmu cells PO DAILY RF: 0 azithromycin 250 mg tablet 250 mg PO .COMPLEX Qty: 90 RF: 3 Centrum Silver Women 8 mg iron-400 mcg-300 mcg tablet 1 tab PO DAILY RF: 0 budesonide 0.5 mg/2 mL suspension for nebulization See Rx Instructions .ROUTE .COMPLEX Qty: 60 RF: 11 aripiprazole [Abilify] 2 mg tablet 2 mg PO DAILY Qty: 30 RF: 0 montelukast 10 mg Tablet 10 mg PO DAILY RF: 0 lorazepam 0.5 mg tablet 0.25 mg PO BID PRN (Reason: anxiety) RF: 0 albuterol sulfate 2.5 mg /3 mL (0.083 %) solution for nebulization 2.5 mg inhalation Q6H PRN (Reason: Shortness Of Breath) RF: 0 DS Attestations Time Spent in /Discharge Care*: less than 30 min Quality - AMI: AMI present?: No Quality - Stroke: CVA present?: No Symptom Onset Unknown: No Quality - VTE: VTE present?: No Deep Vein Thrombosis/Pulmonary Embolism Present on Admission: No Coding Level of Care Code Acute Data Consultant for [facility] Fwd Diagnoses Patient R99 Acute and chronic respiratory failure with hypercapnia J96.22 Status post tracheostomy Z93.0
--- NOTE | 2021-04-21 18:40 | PC.RESP ---
PULMONARY REHAB INFORMATION SENT TO PATIENT.
--- NOTE | 2021-04-21 20:42 | PC.NURSE ---
2041 - [facility] declined pt donation due to family request, pt released for home excelsior picker. Karri Felipe notified.
== END 2021-04-21 16:00 | disposition expired | DRG 871 ==
LOC: ER 11:33 → ICU 15:23
PROVIDERS: Admitting Provider Hospitalist; Emergency Provider Family Medicine; PCP Family Medicine; Visit Provider Internal Medicine
DX: A41.9 Sepsis, unspecified organism (principal); J18.9 Pneumonia, unspecified organism; J96.22 Acute and chronic respiratory failure with hypercapnia; J44.0 Chronic obstructive pulmonary disease with (acute) lower respiratory infection; M50.00 Cervical disc disorder with myelopathy, unspecified cervical region; Z51.5 Encounter for palliative care; F41.8 Other specified anxiety disorders; I10 Essential (primary) hypertension; G56.03 Carpal tunnel syndrome, bilateral upper limbs; G47.33 Obstructive sleep apnea (adult) (pediatric); Z78.0 Asymptomatic menopausal state; M51.35 Other intervertebral disc degeneration, thoracolumbar region; M51.37 Other intervertebral disc degeneration, lumbosacral region; E55.9 Vitamin D deficiency, unspecified; Z87.891 Personal history of nicotine dependence; Z93.0 Tracheostomy status; J84.10 Pulmonary fibrosis, unspecified; R41.82 Altered mental status, unspecified; R91.8 Other nonspecific abnormal finding of lung field
CPT/HCPCS: 36415; 36600; 51702; 71045; 71275; 80051; 80053; 80202; 81001; 82009; 82330; 82550; 82803; 82805; 83605; 83690; 85007; 85025; 85378; 86140; 87040; 87070; 87205; 87426; 87635; 93005; 94002; 94003; 94640; 94660; 94799; 96365; 96367; 96372; 99291; J1644; J1956; J2060; J2250; J2270; J2543; J3010; J3370; J3490; J7030; J7050; J7626; Q9967